=== PATIENT | female | born 1940 | race Caucasian/White ===

== ENCOUNTER 2022-07-21 11:14 | Outpatient (CLI) | payer MEDICARE, BC, SELFPAY | END 2022-07-21 11:15 | disposition home or self-care (01) | LOC: AMB 07-22 09:13 | PROVIDERS: PCP Family Medicine; Visit Provider Family Medicine | DX: R55 Syncope and collapse (principal); R41.82 Altered mental status, unspecified | CPT/HCPCS: A0425; A0427 ==

== ENCOUNTER 2022-07-21 11:34 | Emergency (ER) | payer MEDICARE, BC, SELFPAY ==
[2022-07-21] VITALS (29 sets, daily range): BP systolic 128–162; BP diastolic 65–88; PULSE 61–78; RESP 18; TEMP 36.6; O2SAT 86–98; BMI 24.4
--- NOTE | 2022-07-21 11:58 | ED.NURSE ---
POC trop 0.09. Dr Schilling notified.
--- NOTE | 2022-07-21 12:01 | ED.GENADULT ---
HPI - General Adult General Chief complaint: Weakness Stated complaint: Dizziness Time Seen by Provider: 07/21/22 11:37 History of Present Illness HPI narrative: 81-year-old woman presenting via EMS from the clinic with concern of stroke I believe status post TAVR. One week ago had a TAVR. Symptoms to be alleviated with that primarily she says was exertional dyspnea. 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 She is currently experiencing increased pressure in her right more than left eye. This is not necessarily unusual. She is also having some headache in her neck back of her head. Again not necessarily unusual. She would typically treat the symptoms with acetaminophen. While in clinic today though became initially described as dizziness but when I ask further its was more of a lightheadedness not actually dizzy and was described as presyncopal. She did not have any focal weaknesses. Speech is not affected either and no sensory deficits otherwise. Is currently taking apixaban. Yesterday though Devi describes similar symptoms of feeling lightheaded and needing to rest where she went to the couch and woke up 45 minutes later. She has been having visual symptoms as well where is noticing, not currently, but have been on and off since the surgery, possibly before, lasting 5-20 minutes. She will see a mayo cloud and then maybe flowered wallpaper squares and stripes like blood dripping on the wall. Related Data Allergies Allergy/AdvReac Type Severity Reaction Status Date / Time Sulfa (Sulfonamide Allergy Verified 07/21/22 11:36 Antibiotics) Review of Systems Status of ROS: Reports: 10 or more systems reviewed and unremarkable except as noted in History and below PFSH PFS Social History Smoking Status: Former smoker Do you use any of these nicotine containing products: None Second hand tobacco smoke exposure: No How often do you have a drink containing alcohol: 2-3 times a week How many standard drinks containing alcohol do you have on a typical day: 3 or 4 How often do you have six or more drinks on one occasion: Never AUDIT-C Alcohol total score: 4 Non-prescribed substance use: denies use service: No Exam Narrative: Exam Narrative: Is pleasant. Cranial nerves 2-12 look to be intact. Has a resting tremor particularly noticeable lot head and neck. Speaking fluidly easily. Skin is warm and dry no extremity edema. Well perfused. Lungs are clear. Heart in a regular rate and rhythm I do not hear any murmur rub or gallop at this time. Abdomen is protuberant soft nontender. Moving all extremities without difficulty fluidly other than the mild resting tremor. Bruising/ecchymoses in the right groin with small adjacent swelling. Const: Vital Signs, click to edit/add: Vital Signs - 24 hr 07/21/22 11:37 07/21/22 11:57 07/21/22 12:00 Temperature 97.9 F Pulse Rate 63 66 Pulse Rate [Pulse Oximeter] 78 Pulse Rate [orthos tatic lying] Pulse Rate [orthos tatic sitting] Pulse Rate [orthos tatic standing] Respiratory Rate 18 Blood Pressure Blood Pressure [Le ft Upper Arm] 128/88 Blood Pressure [or thostatic lying] Blood Pressure [or thostatic sitting] Blood Pressure [or thostatic standing ] Pulse Oximetry 98 97 [facility] 07/21/22 12:15 07/21/22 12:44 07/21/22 12:45 Temperature Pulse Rate 73 74 70 Pulse Rate [Pulse Oximeter] Pulse Rate [orthos tatic lying] Pulse Rate [orthos tatic sitting] Pulse Rate [orthos tatic standing] Respiratory Rate Blood Pressure Blood Pressure [Le ft Upper Arm] Blood Pressure [or thostatic lying] Blood Pressure [or thostatic sitting] Blood Pressure [or thostatic standing ] Pulse Oximetry 86 L 94 97 [facility] 07/21/22 15:27 07/21/22 13:27 07/21/22 13:28 Temperature Pulse Rate 71 70 Pulse Rate [Pulse Oximeter] Pulse Rate [orthos tatic lying] 66 Pulse Rate [orthos tatic sitting] 62 Pulse Rate [orthos tatic standing] 71 Respiratory Rate Blood Pressure 161/74 H Blood Pressure [Le ft Upper Arm] Blood Pressure [or thostatic lying] 152/65 H Blood Pressure [or thostatic sitting] 162/67 H Blood Pressure [or thostatic standing ] 129/82 Pulse Oximetry 96 96 Oxygen Delivery Me thod 07/21/22 13:30 07/21/22 13:32 07/21/22 13:45 Temperature Pulse Rate 69 68 65 Pulse Rate [Pulse Oximeter] Pulse Rate [orthos tatic lying] Pulse Rate [orthos tatic sitting] Pulse Rate [orthos tatic standing] Respiratory Rate Blood Pressure 152/74 H Blood Pressure [Le ft Upper Arm] Blood Pressure [or thostatic lying] Blood Pressure [or thostatic sitting] Blood Pressure [or thostatic standing ] Pulse Oximetry 97 97 96 [facility] 07/[facility]/22 14:00 07/21/22 14:01 07/21/22 14:15 Temperature Pulse Rate 71 67 64 Pulse Rate [Pulse Oximeter] Pulse Rate [orthos tatic lying] Pulse Rate [orthos tatic sitting] Pulse Rate [orthos tatic standing] Respiratory Rate Blood Pressure 159/81 H Blood Pressure [Le ft Upper Arm] Blood Pressure [or thostatic lying] Blood Pressure [or thostatic sitting] Blood Pressure [or thostatic standing ] Pulse Oximetry 96 95 95 [facility] 07/[facility]/22 14:30 07/21/22 14:32 07/21/22 14:45 Temperature Pulse Rate 66 72 67 Pulse Rate [Pulse Oximeter] Pulse Rate [orthos tatic lying] Pulse Rate [orthos tatic sitting] Pulse Rate [orthos tatic standing] Respiratory Rate Blood Pressure 154/75 H Blood Pressure [Le ft Upper Arm] Blood Pressure [or thostatic lying] Blood Pressure [or thostatic sitting] Blood Pressure [or thostatic standing ] Pulse Oximetry 97 96 [facility] 07/21/22 15:00 07/21/22 15:01 07/21/22 15:15 Temperature Pulse Rate 71 66 65 Pulse Rate [Pulse Oximeter] Pulse Rate [orthos tatic lying] Pulse Rate [orthos tatic sitting] Pulse Rate [orthos tatic standing] Respiratory Rate Blood Pressure 157/82 H Blood Pressure [Le ft Upper Arm] Blood Pressure [or thostatic lying] Blood Pressure [or thostatic sitting] Blood Pressure [or thostatic standing ] Pulse Oximetry 96 96 98 [facility] 07/21/22 15:20 07/21/22 15:24 07/21/22 15:27 Temperature Pulse Rate 69 67 70 Pulse Rate [Pulse Oximeter] Pulse Rate [orthos tatic lying] Pulse Rate [orthos tatic sitting] Pulse Rate [orthos tatic standing] Respiratory Rate Blood Pressure 152/65 H 162/67 H 129/82 Blood Pressure [Le ft Upper Arm] Blood Pressure [or thostatic lying] Blood Pressure [or thostatic sitting] Blood Pressure [or thostatic standing ] Pulse Oximetry 94 96 97 Oxygen Delivery Me thod 07/21/22 15:28 07/21/22 15:30 07/21/22 15:32 Temperature Pulse Rate 72 68 65 Pulse Rate [Pulse Oximeter] Pulse Rate [orthos tatic lying] Pulse Rate [orthos tatic sitting] Pulse Rate [orthos tatic standing] Respiratory Rate Blood Pressure 154/71 H Blood Pressure [Le ft Upper Arm] Blood Pressure [or thostatic lying] Blood Pressure [or thostatic sitting] Blood Pressure [or thostatic standing ] Pulse Oximetry 98 98 96 Oxygen Delivery Me thod 07/21/22 15:45 07/21/22 16:00 Temperature Pulse Rate 66 61 Pulse Rate [Pulse Oximeter] Pulse Rate [orthos tatic lying] Pulse Rate [orthos tatic sitting] Pulse Rate [orthos tatic standing] Respiratory Rate Blood Pressure Blood Pressure [Le ft Upper Arm] Blood Pressure [or thostatic lying] Blood Pressure [or thostatic sitting] Blood Pressure [or thostatic standing ] Pulse Oximetry 96 97 Oxygen Delivery Me thod Documenting provider has reviewed patient's vital signs: yes Course Vital Signs Vital signs: Initial Vital Signs Temperature 97.9 F 07/21/22 11:37 Temperature Source Temporal Artery Scan 07/21/22 11:37 Pulse Rate 78 07/21/22 11:37 Pulse Rhythm 07/21/22 11:37 Respiratory Rate 18 07/21/22 11:37 Blood Pressure 128/88 07/21/22 11:37 Blood Pressure Mean 101 07/21/22 11:37 Blood Pressure Position Supine 07/21/22 11:37 Pulse Oximetry 98 07/21/22 11:37 Oxygen Delivery Method 07/21/22 11:37 Vital Signs Temperature 97.9 F 07/21/22 11:37 Pulse Rate 78 07/21/22 11:37 Respiratory Rate 18 07/21/22 11:37 Blood Pressure 128/88 07/21/22 11:37 Pulse Oximetry 98 07/21/22 11:37 Oxygen Delivery Method 07/21/22 11:37 Temperature 97.9 F 07/21/22 11:37 Pulse Rate 67 07/21/22 16:02 Respiratory Rate 18 07/21/22 11:37 Blood Pressure 146/74 H 07/21/22 16:02 Pulse Oximetry 95 07/21/22 16:02 Oxygen Delivery Method 07/21/22 11:37 Medical Decision Making MDM Narrative Medical decision making narrative: Given history would also want to rule out cardiac etiology to this. MRIs available I think is reasonable to do an MRI brain. Monitor on wood heel back liner. Labs pending. Likely need follow-up proper ophthalmology evaluation. Unable to do MRI brain due to pacer. CTA head and neck showing some senescent changes. Small bilateral lacunar-type infarcts. There is moderate plus narrowing at the origin of the left vertebral artery as well. Paging neurology to discuss further. Did review imaging with neurology who felt that overall reassuring. Unlikely related to symptoms. sxs might be related to headache history. spoke also with cardiology. recommendations to continue current treatment unless orthostatics quite symptomatic/positive. To standing there was a systolic drop of 23 points but asymptomatic. discussed findings, recommendations with Tosha. notes that if decreases dosing of propranolol marked increase in tremor. and metoprolol only for afib prn. so will leave dosing alone pending recs on f/u in primary care. spoke to clinical retinal specialists confirming/establishing appointment for the morning tomorrow. Lab Data Lab results reviewed: Yes I reviewed the patient's lab results Labs: Lab Results 07/21/22 07/21/22 07/21/22 Range/Units 11:45 11:45 11:45 WBC 7.29 (4.50-11.00) K/uL RBC 3.97 L (4.00-5.20) m/uL Hgb 11.9 L (12.0-16.0) gm/dL Hct 36.4 (33.0-51.0) % MCV 92 (80-100) fL MCH 30 (26-34) pg MCHC 33 (32-36) gm/dL RDW Coeff of Liza 11.7 (11.5-15.5) % Plt Count 200 (140-440) K/uL Neut % (Auto) 66.4 (42.0-72.0) % Lymph % (Auto) 19.9 L (20-44) % [place] % (Auto) 10.8 (0.0-11.0) % Eos % (Auto) 2.1 (0.0-7.0) % Baso % (Auto) 0.7 (0.0-3.0) % Neut # (Auto) 4.84 (1.7-7.0) K/uL Lymph # (Auto) 1.50 (0.90-2.90) K/uL [place] # (Auto) 0.80 (0.00-0.90) K/UL Eos # (Auto) 0.15 (0.00-0.50) K/uL Baso # (Auto) 0.05 (0.00-0.30) K/uL INR 1.20 H (0.91-1.10) APTT 32 (23-33) Seconds Sodium 139 (135-149) mmol/L Potassium 3.8 (3.6-5.1) mmol/L Chloride 105 (96-114) mmol/L Carbon Dioxide 27 (20-32) mmol/L BUN 10 (7-30) mg/dL Creatinine 0.5 (0.5-1.5) mg/dL Estimated Creat Clear 32.23 Estimated GFR 95 ml/min Glucose 89 (60-115) mg/dL Calcium 9.1 (8.4-10.6) mg/dL Magnesium (1.5-2.6) mg/dL Troponin I (0.01-0.04) ng/mL C-Reactive Protein 1.5 H (0.5-1.0) mg/dL NT-Pro-B Natriuret Pep pg/mL 07/21/22 Range/Units 11:45 WBC (4.50-11.00) K/uL RBC (4.00-5.20) m/uL Hgb (12.0-16.0) gm/dL Hct (33.0-51.0) % MCV (80-100) fL MCH (26-34) pg MCHC (32-36) gm/dL RDW Coeff of Liza (11.5-15.5) % Plt Count (140-440) K/uL Neut % (Auto) (42.0-72.0) % Lymph % (Auto) (20-44) % [place] % (Auto) (0.0-11.0) % Eos % (Auto) (0.0-7.0) % Baso % (Auto) (0.0-3.0) % Neut # (Auto) (1.7-7.0) K/uL Lymph # (Auto) (0.90-2.90) K/uL [place] # (Auto) (0.00-0.90) K/UL Eos # (Auto) (0.00-0.50) K/uL Baso # (Auto) (0.00-0.30) K/uL INR (0.91-1.10) APTT (23-33) Seconds Sodium (135-149) mmol/L Potassium (3.6-5.1) mmol/L Chloride (96-114) mmol/L Carbon Dioxide (20-32) mmol/L BUN (7-30) mg/dL Creatinine (0.5-1.5) mg/dL Estimated Creat Clear Estimated GFR ml/min Glucose (60-115) mg/dL Calcium (8.4-10.6) mg/dL Magnesium 1.9 (1.5-2.6) mg/dL Troponin I 0.02 (0.01-0.04) ng/mL C-Reactive Protein (0.5-1.0) mg/dL NT-Pro-B Natriuret Pep 594 pg/mL ECG Data Attestation: I personally reviewed and interpreted this ECG as follows: (Pacer spikes evident. Apparently with atrial pacer. Rate of 74. No acute ischemic changes appreciated.) Discharge Plan Discharge Clinical Impression: Changes in vision, Pre-syncope Patient Disposition: Home w/ Parent or Adult Condition: Improved Additional Instructions: Please stay well hydrated. Please follow-up as scheduled tomorrow morning with your ophthalmology clinic. I would schedule also follow-up with your primary care provider and keep your scheduled cardiology follow-up. Return for worsening lightheadedness, persistent loss of vision, severe headache, chest pain, shortness of breath. Keep taking your apixaban as prescribed. Follow Up/Referrals: Margaret Allen DO [Primary Care Provider] - Stand Alone Forms: [employer] Info Instructions
[2022-07-21] MEDS: 0.9 % SODIUM CHLORIDE 1000 ml 1,000 ML IV (12:07)
[2022-07-21] MEDS: ACETAMINOPHEN 500 MG TABLET 1000 MG PO (12:09)
[2022-07-21 12:13] LABS: Basophils Absolute Auto 0.05 K/uL (0.00-0.30); Basophils Percent Auto 0.7 % (0.0-3.0); Eosinophils Absolute Auto 0.15 K/uL (0.00-0.50); Eosinophils Percent Auto 2.1 % (0.0-7.0); Hematocrit 36.4 % (33.0-51.0); Hemoglobin* 11.9 gm/dL (12.0-16.0); Immature Granulocytes Abs Auto 0.01 K/uL (0.00-0.30); Immature Granulocytes Pct Auto 0.1 %; Lymphocytes Percent Auto 19.9 % (20-44); Mean Corpuscular HGB Conc 33 gm/dL (32-36); Mean Corpuscular Hemoglobin 30 pg (26-34); Mean Corpuscular Volume 92 fL (80-100); Monocytes Percent Auto 10.8 % (0.0-11.0); Neutrophils Absolute Auto 4.84 K/uL (1.7-7.0); Neutrophils Percent Auto 66.4 % (42.0-72.0); Platelet Count* 200 K/uL (140-440); RDW Coefficient of Variation % 11.7 % (11.5-15.5); Red Blood Count 3.97 m/uL (4.00-5.20); White Blood Count* 7.29 K/uL (4.50-11.00)
[2022-07-21 12:20] LABS: Slide Review Reflex No
--- NOTE | 2022-07-21 12:26 | CRLHL7_ITS ---
For Patients: As a result of the Century Cures Act, medical imaging exams and procedure reports are released immediately into your electronic medical record. You may view this report before your referring provider. If you have questions, please contact your health care provider. DATE: 07/21/2022. CLINICAL HISTORY: Headache and visual change status post TAVR. TECHNIQUE: Standard helical CT image acquisition through the head and neck following the administration of intravenous contrast was performed. Multiplanar reconstructed images performed on a separate workstation. COMPARISON: None available. FINDINGS: The great vessels are patent, noting mild to moderate stenosis at the origin of the left subclavian artery. The common carotid arteries are patent. There is moderate (60-65%) atherosclerotic stenosis of the proximal right ICA by NASCET criteria. There is mild (<50%) atherosclerotic stenosis of the proximal left ICA by NASCET criteria. The more distal cervical ICAs are patent. The origins of the vertebral arteries are patent. The cervical segments of the vertebral arteries are patent. The petrous, cavernous, and supraclinoid segments of the internal carotid arteries are patent. The anterior and middle cerebral arteries are patent. The anterior communicating artery is visualized and is within normal limits. The intracranial vertebral arteries, basilar trunk, and posterior cerebral arteries are patent. No intracranial proximal large vessel occlusion or flow-limiting luminal stenosis. No evidence of cerebral aneurysm. No findings to suggest an arterial-venous shunting lesion. IMPRESSION: 1. Intracranial atherosclerotic disease but without proximal large vessel occlusion or flow-limiting luminal stenosis. 2. Moderate (60-65%) atherosclerotic stenosis of the proximal right ICA by NASCET criteria. 3. Mild (<50%) atherosclerotic stenosis of the proximal left ICA by NASCET criteria. 4. Mild to moderate stenosis at the origin of the left subclavian artery. Please note that all CT scans at this facility use dose modulation, iterative reconstruction, and/or weight-based dosing when appropriate to reduce radiation dose to as low as reasonably achievable. Dictated by Joel Mcnulty MD @ 07/21/2022 3:12:34 PM (Electronically Signed)
--- NOTE | 2022-07-21 12:26 | CRLHL7_ITS ---
For Patients: As a result of the Century Cures Act, medical imaging exams and procedure reports are released immediately into your electronic medical record. You may view this report before your referring provider. If you have questions, please contact your health care provider. INDICATION: Headache, visual changes status post TAVR.. TECHNIQUE: Head CT without contrast. COMPARISON: None. FINDINGS: CSF spaces: Within normal limits for age. Brain parenchyma and extra-axial spaces: Mild global cerebral atrophy. There are nonspecific low attenuation white matter changes consistent with chronic microvascular disease. Probable small lacunar-type infarcts in the bilateral insula. Coarse calcification in the right minor forceps. No sign of mass, hemorrhage, or midline shift. Intracranial vascular calcifications are identified. Skull base and calvarium: The visualized paranasal sinuses and mastoid air cells demonstrate no acute or significant findings. The visualized orbits are grossly unremarkable. Probable left lens prosthesis. No skull fractures. IMPRESSION: No acute or significant findings. Chronic white-matter small-vessel ischemic changes. Mild global cerebral atrophy and vascular calcifications likely senescent. Please note that all CT scans at this facility use dose modulation, iterative reconstruction, and/or weight-based dosing when appropriate to reduce radiation dose to as low as reasonably achievable. Dictated by Fátima Oliveira MD @ 07/21/2022 1:46:43 PM (Electronically Signed)
[2022-07-21 12:35] LABS: Chloride* 105 mmol/L (96-114); Potassium* 3.8 mmol/L (3.6-5.1); Sodium* 139 mmol/L (135-149)
[2022-07-21 12:38] LABS: Creatinine* 0.5 mg/dL (0.5-1.5); Est. Creatinine Clearance* 32.23; Estimated Glomerular Filt Rate 95 ml/min; Magnesium* 1.9 mg/dL (1.5-2.6); Prothrombin Time 15.9 Seconds
[2022-07-21 12:39] LABS: Blood Urea Nitrogen* 10 mg/dL (7-30); Calcium* 9.1 mg/dL (8.4-10.6); Carbon Dioxide* 27 mmol/L (20-32); Glucose* 89 mg/dL (60-115); Partial Thromboplastin Time* 32 Seconds (23-33)
[2022-07-21 12:41] LABS: C Reactive Protein* 1.5 mg/dL (0.5-1.0)
[2022-07-21 12:48] LABS: NT Pro B Type NatriureticPept* 594 pg/mL
[2022-07-21 12:50] LABS: Troponin I* 0.02 ng/mL (0.01-0.04)
[2022-08-04 14:36] LABS: Troponin, Point-of-Care* 0.09 ng/ml (0.01-0.04)
== END 2022-07-21 16:40 | disposition home or self-care (01) ==
PROVIDERS: Emergency Provider Family Medicine; PCP Family Medicine
DX: R55 Syncope and collapse (principal); H53.8 Other visual disturbances
CPT/HCPCS: 36415; 70450; 70496; 70498; 80048; 83735; 83880; 84484; 85025; 85610; 85730; 86140; 93005; 96360; 99285; A9270; J7030; Q9967

== ENCOUNTER 2022-09-08 08:55 | Emergency (ER) | payer MEDICARE, BC, SELFPAY ==
[2022-09-08] VITALS (10 sets, daily range): BP systolic 161–170; BP diastolic 78–82; PULSE 60–85; RESP 18; TEMP 36.2; O2SAT 94–98; BMI 24.8
--- NOTE | 2022-09-08 09:11 | ED.NEUROSD ---
HPI - Neuro Symptoms/Deficit General Time Seen by Provider: 09:11 Date Seen: 09/08/22 Chief Complaint: Neuro Symptoms/Altered Deficit Stated Complaint: Possible mini stroke Time Seen by Provider: 09/08/22 09:10 Source: patient and RN notes reviewed Mode of arrival: ambulatory Limitations: no limitations History of Present Illness HPI Narrative: Patient is an 82-year-old female brought in by a her friend into the ED after having a possible TIA. Patient was taking her garbage cans down a long driveway. After she got the 1st garbage can down, she noticed left sided upper and lower lip numbness and tingling. She was alone in did not attempt to speak. Her vision was altered, things seemed out of focus, she attempted to walk back up the driveway and kept listing to the right. She got back up the driveway an took her other garbage can down leaning on it. By the time she got the garbage can down the driveway, she rested for a bit and felt better. She has no symptoms now. 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 She did see Neurology, I was able to see the office visit report from 08/24/2022. We will have that scanned into our records. She saw Dr. Huerta in Neurology. 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 On her visit on the , she had reported no further episodes likely indicating successful convalescence from her TAVR. She maintains on her Eliquis. Has not missed any doses but admits she has not taken it morning. No known trauma. Of note, patient does have a pacemaker. 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 There was mild to moderate stenosis at the origin of the left subclavian artery. Her head CT at that time had chronic ischemic white matter small-vessel ischemic change and mild global cerebral atrophy and vascular calcifications. She has atrial fibrillation and states she definitely can feel when she goes into it, has had no known recent episodes. Her TAVR was felt to be successful but she still has ongoing moderate mitral regurgitation. She is felt to have moderate coronary artery disease and sick sinus rhythm with underlying atrial fibrillation. She feels her spell maybe lasted a few minutes. Patient believe she is on the propranolol for blood pressure control, does states she is taking rosuvastatin for cholesterol. Location: left face Related Data Home Medications Medication Instructions Recorded Confirmed acyclovir 400 mg tablet 400 mg PO 3XD PRN 09/08/22 09/08/22 omeprazole 20 mg capsule,delayed 20 mg PO DAILY 09/08/22 09/08/22 release propranolol 80 mg capsule,24 80 mg PO DAILY 09/08/22 09/08/22 hr,extended release Allergies Allergy/AdvReac Type Severity Reaction Status Date / Time Sulfa (Sulfonamide Allergy Verified 07/21/22 11:36 Antibiotics) Review of Systems Status of ROS: Reports: 10 or more systems reviewed and unremarkable except as noted in History and below [facility] Social History Smoking Status: Former smoker Do you use any of these nicotine containing products: None Second hand tobacco smoke exposure: No How often do you have a drink containing alcohol: 2-3 times a week How many standard drinks containing alcohol do you have on a typical day: 3 or 4 How often do you have six or more drinks on one occasion: Never AUDIT-C Alcohol total score: 4 Non-prescribed substance use: denies use service: No Exam Const: Vital Signs, click to edit/add: Vital Signs - 24 hr 09/08/22 09:06 09/08/22 10:21 09/08/22 10:30 Temperature 97.2 F L Pulse Rate 64 62 Pulse Rate [Right] 85 Respiratory Rate 18 Blood Pressure Blood Pressure [Ri ght Upper Arm] 170/82 H Pulse Oximetry 97 96 98 Oxygen Delivery Me thod Room Air 09/08/22 10:32 09/08/22 10:45 Temperature Pulse Rate 60 61 Pulse Rate [Right] Respiratory Rate Blood Pressure 161/78 H Blood Pressure [Ri ght Upper Arm] Pulse Oximetry 98 97 Oxygen Delivery Me thod Documenting provider has reviewed patient's vital signs: yes Common normals: no apparent distress, average body habitus, oriented x3, no limitations, healthy appearing and alert General appearance: cooperative, comfortable, well kempt and well developed Orientation/consciousness: Yes awake HENMT: Common normals: normocephalic, head/scalp atraumatic, hearing grossly normal bilaterally, external nose normal, moist oral mucous membranes, oropharynx normal, dentition normal and gingiva normal Head and scalp: normocephalic and atraumatic Nose: external nose normal Eye: Common normals: PERRL, EOMs intact bilaterally, conjunctivae normal and no scleral icterus Conjunctiva: conjunctiva(e) normal Pupil: PERRL Neck & C-Spine: Common normals: full ROM, no lymphadenopathy, supple, no meningeal signs, no JVD and thyroid normal Thyroid: thyroid normal Chest: Common normals: inspection of chest normal and palpation of chest normal Resp: Common normals: normal respiratory effort, no retractions, no use of accessory muscles and clear to auscultation bilaterally Auscultation: clear to auscultation bilaterally Cardio: Common normals: no JVD, regular rate, regular rhythm, S1 normal heart sound, S2 normal heart sound, no gallops, no clicks, no murmurs and no rub Rate: regular rate Rhythm: regular rhythm Heart sounds: S1 normal and S2 normal GI: Common normals: Normal to inspection, nondistended, normoactive bowel sounds present, soft to palpation, non-tender, no hepatosplenomegaly and no masses Palpation: soft and no hepatosplenomegaly Extremity: Other: No lower extremity edema, no calf tenderness. Neuro: [place] Coma Scale: document GCS findings Kelly coma scale eye opening: Spontaneous (4) [place] coma scale verbal response: Orientated (5) [place] coma scale motor response: Obey commands (6) [place] coma scale total score: 15 Common normals: oriented x3, CN's II-XII intact bilaterally, moves all extremities, no focal motor deficits, no sensory deficits noted and gait normal Sensorium/orientation: awake and alert Meningeal signs: no meningeal signs Coordination/balance: [id number] test normal and Normal rapid alternating movements of the distal upper extremity present (Neuro) Speech: speech normal Motor exam: strength 5/5 throughout, no pronator drift, no asterixis, no fasciculations and muscle tone normal throughout Coordination: [id number] test normal and rapid alternating movement UE normal Other: Do note some left resting tremor that does attenuate. Psych: Common normals: mental status grossly normal Appearance: well kempt Course Course Hospital Course: Will be doing a stroke workup. She will get head CT followed by a CTA of head and neck if there is no bleed. Will have her on cardiac monitoring, pulse oximetry. We will obtain appropriate labs, confirm sinus rhythm. She is on anticoagulant and sounds to be appropriately anticoagulated without missed doses of Eliquis however. I will be placing a call to Stroke Neuro to discuss this case immediately given its complexity. Reevaluation(s) Reevaluation #1: Reviewed the negative workup here, reviewed my conversation with stroke Neurology at [place]. She will be getting her Eliquis and an 81 mg aspirin. Will discharge to home. Have reviewed with her she needs follow-up with her primary care to further evaluate her blood pressure. If she indeed did have a TIA today, would not want to precipitously drop her blood pressure. She will also need to follow up with Neurology outpatient. Time: 11:35 Consultations Consultation #1: Spoke with Dr. Narayan jeong stroke Neurology at [place]. Reviewed the case with him. He stated if her CT and CTAs were unchanged, would initiate 81 mg aspirin in addition to her DOAC and have her follow up with outpatient Neurology. If there is something concerning, will contact him back. Time: 09:51 Vital Signs Vital signs: Initial Vital Signs Temperature 97.2 F L 09/08/22 09:06 Temperature Source Temporal Artery Scan 09/08/22 09:06 Pulse Rate 85 09/08/22 09:06 Pulse Rhythm Regular 09/08/22 09:06 Respiratory Rate 18 09/08/22 09:06 Blood Pressure 170/82 H 09/08/22 09:06 Blood Pressure Mean 111 09/08/22 09:06 Blood Pressure Position Sitting 09/08/22 09:06 Pulse Oximetry 97 09/08/22 09:06 Oxygen Delivery Method Room Air 09/08/22 09:06 Vital Signs Temperature 97.2 F L 09/08/22 09:06 Pulse Rate 85 09/08/22 09:06 Respiratory Rate 18 09/08/22 09:06 Blood Pressure 170/82 H 09/08/22 09:06 Pulse Oximetry 97 09/08/22 09:06 Oxygen Delivery Method Room Air 09/08/22 09:06 Temperature 97.2 F L 09/08/22 09:06 Pulse Rate 61 09/08/22 10:45 Respiratory Rate 18 09/08/22 09:06 Blood Pressure 161/78 H 09/08/22 10:32 Pulse Oximetry 97 09/08/22 10:45 Oxygen Delivery Method Room Air 09/08/22 09:06 MDM - Neuro Symptoms/Deficit Differential Diagnosis Differential diagnosis: Likely subarachnoid hemorrhage, cerebrovascular accident and transient cerebral ischemia Lab Data Attestation: I reviewed the patient's lab results. Labs: Lab Results 09/08/22 Range/Units 09:35 WBC 6.43 (4.50-11.00) K/uL RBC 4.46 (4.00-5.20) m/uL Hgb 13.2 (12.0-16.0) gm/dL Hct 41.1 (33.0-51.0) % MCV 92 (80-100) fL MCH 30 (26-34) pg MCHC 32 (32-36) gm/dL RDW Coeff of Liza 12.3 (11.5-15.5) % Plt Count 175 (140-440) K/uL Neut % (Auto) 70.4 (42.0-72.0) % Lymph % (Auto) 18.2 L (20-44) % Routt % (Auto) 8.9 (0.0-11.0) % Eos % (Auto) 1.9 (0.0-7.0) % Baso % (Auto) 0.6 (0.0-3.0) % Neut # (Auto) 4.53 (1.7-7.0) K/uL Lymph # (Auto) 1.20 (0.90-2.90) K/uL Routt # (Auto) 0.60 (0.00-0.90) K/UL Eos # (Auto) 0.12 (0.00-0.50) K/uL Baso # (Auto) 0.04 (0.00-0.30) K/uL Sodium 139 (135-149) mmol/L Potassium 4.0 (3.6-5.1) mmol/L Chloride 105 (96-114) mmol/L Carbon Dioxide 28 (20-32) mmol/L BUN 9 (7-30) mg/dL Creatinine 0.5 (0.5-1.5) mg/dL Estimated Creat Clear 31.69 Estimated GFR 94 ml/min Glucose 122 H (60-115) mg/dL Calcium 9.2 (8.4-10.6) mg/dL Total Bilirubin 1.8 H (0.1-1.5) mg/dL AST 26 (12-35) U/L ALT 15 (4-35) U/L Alkaline Phosphatase 53 (40-150) U/L Troponin I 0.02 (0.01-0.04) ng/mL Total Protein 7.5 (6.0-8.3) g/dL Albumin 4.7 (3.3-5.0) g/dL TSH 1.780 (0.270-4.200) uIU/mL Imaging Data CT scan - head: Attestation: I have reviewed the pertinent imaging results. My impression: A my preliminary review of this head CT, did not see any acute bleed. Await Radiology over-read. Note radiology report was called to me as negative at 10:05 a.m. by the clock on my computer. Radiologist's impression: Patient: VALARIE HUANG Facility:?[facility] Patient ID:?[id number] Site Patient ID:?[id number]. Site :?[id number] Study:?CT Head WO STROKE ACUTE-09/08/2022 9:56:08 AM Ordering Physician:Julia Pascual Final Report: INDICATION: Clinical signs and symptoms of acute stroke. TIA with left facial changes and gait difficulty COMPARISON: July 21, 2022 TECHNIQUE: CT examination of the head was performed as axial sections without intravenous contrast. Images were obtained from the vertex of the skull through the skull base. Please note that all CT scans at this facility use dose modulation, iterative reconstruction, and/or weight-based dosing when appropriate to reduce radiation dose to as low as reasonably achievable. FINDINGS: The brain shows no sign of mass lesion, mass effect, hemorrhage, or edema. There are involutional changes. There is moderate cortical atrophy and there is moderate white matter disease. There is no hydrocephalus. Incidental benign calcification involving the head of the right caudate nucleus unchanged. The visualized portions of the orbits are normal in appearance. The osseous structures are normal in appearance with no sign of abnormality in the skull base or calvarium. IMPRESSION: Involutional changes. Atrophy and white matter disease. Incidental benign calcification head of right caudate nucleus. No acute focal finding or substantial change when compared to July 21, 20[address] Please note that all [address] scans at this facility use dose modulation, iterative reconstruction, and/or weight-based dosing when appropriate to reduce radiation dose to as low as reasonably achievable. Dictated by Jaciel Greer MD @ 09/08/2022 10:06:35 AM ----- ADDENDUM ----- This report was received by Dr. Haynes at 10:07 a.m. on September 08, 2022. Dictated by Jaciel Greer MD @ Sep 08 2022 10:12AM (Electronic Signature) CT- Other: Attestation: I have reviewed the pertinent imaging results. Radiologist's impression: Patient: VALARIE HUNAG Facility:?[facility] Patient ID:?[id number] Site Patient ID:?[id number] Site :?[id number] Study:?CT Head Angio Angio CTA HEAD AND NECK-09/08/2022 9:57:08 AM Ordering Physician:Julia Pascual Final Report: CT ANGIOGRAM HEAD DATE: 09/08/2022 CLINICAL HISTORY: Patient with left facial weakness, gait abnormality. TECHNIQUE: Standard helical CT image acquisition through the intracranial circulation following intravenous administration of contrast material with bolus tracking. Multiplanar reconstructed images were performed and interpreted. COMPARISON: CT same day. FINDINGS: There is no cerebral aneurysm or large vessel occlusion. The right internal carotid artery is normal. The right middle cerebral artery and its branches are normal. The right anterior cerebral artery and its branches are normal. The left internal carotid artery is normal. The left middle cerebral artery and its branches are normal. The left anterior cerebral artery and its branches are normal. The anterior communicating artery is well visualized and appears normal. The right vertebral artery and PICA are normal. The left vertebral artery and PICA are normal. The right vertebral artery is dominant. The basilar artery is patent and appears normal. The right posterior cerebral artery is normal. The left posterior cerebral artery is normal. The visualized venous structures are patent. IMPRESSION: Normal CT angiogram of the head without intracranial aneurysm or other neurovascular abnormality. Please note that all CT scans at this facility use dose modulation, iterative reconstruction, and/or weight-based dosing when appropriate to reduce radiation dose to as low as reasonably achievable. Dictated by: Jeremiah Mitchell MD @ 09/08/2022 10:20:46 (Electronic Signature) ECG Data Attestation: I personally reviewed and interpreted this ECG as follows: (Sinus rhythm, 70 beats per minute. Appears to have a nonspecific developing intra conduction delay, poor R-wave progression and septal Q-waves noted V1 through V4. No definitive ischemia. QT corrected 481 milliseconds.) ECG interpretation date: 09/08/22 ECG interpretation time: 10:00 Prior ECG tracings: not available for review Critical Care Time Critical Care Time Critical Care Time: No Discharge Plan Discharge Clinical Impression: Transient cerebral ischemia Patient Disposition: Home, Self-Care Condition: Stable Instructions: Transient Ischemic Attack (ED) Additional Instructions: Continue with your Eliquis starting tonight, you are given your a.m. dose here in the ED. you need to start an 81 mg aspirin daily, next dose due tomorrow. Please get scheduled to see your neurologist that you have seen before, let them know you were back in the ER with possible TIA. I also would like you to get scheduled in clinic to see her primary care provider to review your blood pressure. If your blood pressure is remaining elevated outpatient, further steps to bring this into goal guidelines would be recommended. If you have recurrent neurologic symptoms, do recommend re-evaluation emergently. Activity Level: Activity as Tolerated Prescriptions: No Action acyclovir 400 mg tablet 400 mg PO 3XD PRN propranolol 80 mg capsule,extended release 24hr 80 mg PO DAILY omeprazole 20 mg capsule,delayed release(DR/EC) 20 mg PO DAILY Follow Up/Referrals: Margaret Allen DO [Primary Care Provider] - Stand Alone Forms: [facility] Info Instructions
--- NOTE | 2022-09-08 09:19 | CRLHL7_ITS ---
For Patients: As a result of the Century Cures Act, medical imaging exams and procedure reports are released immediately into your electronic medical record. You may view this report before your referring provider. If you have questions, please contact your health care provider. CT ANGIOGRAM HEAD DATE: 09/08/2022 CLINICAL HISTORY: Patient with left facial weakness, gait abnormality. TECHNIQUE: Standard helical CT image acquisition through the intracranial circulation following intravenous administration of contrast material with bolus tracking. Multiplanar reconstructed images were performed and interpreted. COMPARISON: CT same day. FINDINGS: There is no cerebral aneurysm or large vessel occlusion. The right internal carotid artery is normal. The right middle cerebral artery and its branches are normal. The right anterior cerebral artery and its branches are normal. The left internal carotid artery is normal. The left middle cerebral artery and its branches are normal. The left anterior cerebral artery and its branches are normal. The anterior communicating artery is well visualized and appears normal. The right vertebral artery and PICA are normal. The left vertebral artery and PICA are normal. The right vertebral artery is dominant. The basilar artery is patent and appears normal. The right posterior cerebral artery is normal. The left posterior cerebral artery is normal. The visualized venous structures are patent. IMPRESSION: Normal CT angiogram of the head without intracranial aneurysm or other neurovascular abnormality. Please note that all CT scans at this facility use dose modulation, iterative reconstruction, and/or weight-based dosing when appropriate to reduce radiation dose to as low as reasonably achievable. Dictated by: Jeremiah Mitchell MD @ 09/08/2022 10:20:46 (Electronically Signed)
--- NOTE | 2022-09-08 09:19 | CRLHL7_ITS ---
For Patients: As a result of the Century Cures Act, medical imaging exams and procedure reports are released immediately into your electronic medical record. You may view this report before your referring provider. If you have questions, please contact your health care provider. INDICATION: Clinical signs and symptoms of acute stroke. TIA with left facial changes and gait difficulty COMPARISON: July 21, 2022 TECHNIQUE: CT examination of the head was performed as axial sections without intravenous contrast. Images were obtained from the vertex of the skull through the skull base. Please note that all CT scans at this facility use dose modulation, iterative reconstruction, and/or weight-based dosing when appropriate to reduce radiation dose to as low as reasonably achievable. FINDINGS: The brain shows no sign of mass lesion, mass effect, hemorrhage, or edema. There are involutional changes. There is moderate cortical atrophy and there is moderate white matter disease. There is no hydrocephalus. Incidental benign calcification involving the head of the right caudate nucleus unchanged. The visualized portions of the orbits are normal in appearance. The osseous structures are normal in appearance with no sign of abnormality in the skull base or calvarium. IMPRESSION: Involutional changes. Atrophy and white matter disease. Incidental benign calcification head of right caudate nucleus. No acute focal finding or substantial change when compared to July 21, 20[address] Please note that all [address] scans at this facility use dose modulation, iterative reconstruction, and/or weight-based dosing when appropriate to reduce radiation dose to as low as reasonably achievable. Dictated by Jaciel Greer MD @ 09/08/2022 10:06:35 AM (Electronically Signed)
--- NOTE | 2022-09-08 09:19 | CRLHL7_ITS ---
For Patients: As a result of the Century Cures Act, medical imaging exams and procedure reports are released immediately into your electronic medical record. You may view this report before your referring provider. If you have questions, please contact your health care provider. CT ANGIOGRAM NECK DATE: 09/08/2022 CLINICAL HISTORY: Patient with left facial weakness. TECHNIQUE: Standard helical CT image acquisition of the neck up to the skull base after bolus intravenous contrast enhancement. Multiplanar reconstructed images performed on a separate workstation. COMPARISON: CT same day. FINDINGS: The origins of the great vessels from the aortic arch are patent. The origin of the right vertebral artery is patent. The origin of the left vertebral artery demonstrates mild narrowing. The common carotid arteries are patent. There is a severe (85%) stenosis at the origin of the right internal carotid artery by NASCET criteria. This is caused by calcified plaque with a 0.5mm residual lumen. There is a mild (<50%) stenosis at the origin of the left internal carotid artery by NASCET criteria. This is caused by calcified plaque with a >2mm residual lumen. The rest of the cervical segments of the internal carotid arteries are patent up to the skull base. The right vertebral artery is dominant. The cervical segments of the vertebral arteries are patent up to the skull base. The visualized lung apices are unremarkable. The thyroid gland is unremarkable. The soft tissues of the neck are unremarkable. There are degenerative changes in the cervical spine. IMPRESSION: 1. 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 2. Mild (<50%) stenosis at the origin of the left internal carotid artery by NASCET criteria caused by calcified plaque with a >2mm residual lumen. Please note that all CT scans at this facility use dose modulation, iterative reconstruction, and/or weight-based dosing when appropriate to reduce radiation dose to as low as reasonably achievable. Dictated by: Jeremiah Mitchell MD @ 09/08/2022 10:18:09 (Electronically Signed)
[2022-09-08 09:44] LABS: Basophils Absolute Auto 0.04 K/uL (0.00-0.30); Basophils Percent Auto 0.6 % (0.0-3.0); Eosinophils Absolute Auto 0.12 K/uL (0.00-0.50); Eosinophils Percent Auto 1.9 % (0.0-7.0); Hematocrit 41.1 % (33.0-51.0); Hemoglobin* 13.2 gm/dL (12.0-16.0); Lymphocytes Percent Auto 18.2 % (20-44); Mean Corpuscular HGB Conc 32 gm/dL (32-36); Mean Corpuscular Hemoglobin 30 pg (26-34); Mean Corpuscular Volume 92 fL (80-100); Monocytes Percent Auto 8.9 % (0.0-11.0); Neutrophils Absolute Auto 4.53 K/uL (1.7-7.0); Neutrophils Percent Auto 70.4 % (42.0-72.0); Platelet Count* 175 K/uL (140-440); RDW Coefficient of Variation % 12.3 % (11.5-15.5); Red Blood Count 4.46 m/uL (4.00-5.20); White Blood Count* 6.43 K/uL (4.50-11.00)
[2022-09-08 09:46] LABS: Slide Review Reflex No
[2022-09-08 09:58] LABS: Albumin* 4.7 g/dL (3.3-5.0); Chloride* 105 mmol/L (96-114); Sodium* 139 mmol/L (135-149)
[2022-09-08 10:01] LABS: Alkaline Phosphatase* 53 U/L (40-150); Aspartate Amino Transferase* 26 U/L (12-35); Bilirubin Total* 1.8 mg/dL (0.1-1.5); Blood Urea Nitrogen* 9 mg/dL (7-30); Carbon Dioxide* 28 mmol/L (20-32); Creatinine* 0.5 mg/dL (0.5-1.5); Est. Creatinine Clearance* 31.69; Estimated Glomerular Filt Rate 94 ml/min; Total Protein* 7.5 g/dL (6.0-8.3)
[2022-09-08 10:02] LABS: Alanine Aminotransferase* 15 U/L (4-35); Calcium* 9.2 mg/dL (8.4-10.6); Glucose* 122 mg/dL (60-115)
[2022-09-08 10:13] LABS: Troponin I* 0.02 ng/mL (0.01-0.04)
[2022-09-08] MEDS: APIXABAN 5 MG TABLET PO (11:50)
[2022-09-08] MEDS: ASPIRIN 81 MG TAB.CHEW PO (11:50)
== END 2022-09-08 11:52 | disposition home or self-care (01) ==
PROVIDERS: Emergency Provider Family Medicine; PCP Family Medicine
DX: G45.9 Transient cerebral ischemic attack, unspecified (principal)
CPT/HCPCS: 36415; 70450; 70496; 70498; 80053; 84443; 84484; 85025; 93005; 99285; A9270; Q9967

== ENCOUNTER 2022-10-13 06:12 | Day surgery (SDC) | payer MEDICARE, BC, SELFPAY ==
[2022-10-13] MEDS: SODIUM CHLORIDE 0.9 % (FLUSH) 10 ML SYRINGE IVF (06:35)
[2022-10-13] MEDS: TETRACAINE 0.5% OPHTH 1 DROP EYE-RIGHT ×2 (06:37→06:41)
[2022-10-13] MEDS: KETOROLAC OPHTH 0.5% 1 DROP EYE-RIGHT ×2 (06:40→06:44)
[2022-10-13 06:46] VITALS: BP 161/73; PULSE 67; RESP 16; TEMP 36.6; O2SAT 94; BMI 25.4
--- NOTE | 2022-10-13 06:50 | SUR.PREOP ---
The eye drops brought by the patient (Ketorolac and Prednisolone) are examined and I have determined they are labeled by the patient's pharmacy for this patient as prescribed by the surgeon. The bottles are intact, recently obtained and appear to be correct.
--- NOTE | 2022-10-13 06:58 | W.ANESCHARGE ---
Anesthesia Charges Start Date/Time Anesthesia Start Date: 10/13/22 Anesthesia Start Time: 07:09 Stop Date/Time Anesthesia Stop Date: 10/13/22 Anesthesia Stop Time: 07:40 Summary Extremes of Age - Over 70 or under 1: MDA
[2022-10-13] MEDS: TETRACAINE 0.5% OPHTH 2 DROP EYE-RIGHT (07:11)
[2022-10-13] MEDS: BALANCED SALT IRRIG SOLN 15 ML EYE-RIGHT (07:16)
[2022-10-13 07:37] VITALS: BP 167/83; PULSE 63; RESP 16; TEMP 36.6; O2SAT 96
--- NOTE | 2022-10-13 07:42 | W.ANESCHARGE ---
Anesthesia Charges Start Date/Time Anesthesia Start Date: 10/13/22 Anesthesia Start Time: 07:09 Stop Date/Time Anesthesia Stop Date: 10/13/22 Anesthesia Stop Time: 07:40
--- NOTE | 2022-10-13 08:26 | P.OPTPRC_ITS ---
Procedure Note Date of procedure: 10/13/22 Will [facility] bill your pro fee for this procedure?: Yes Procedure Description: SURGEON: Marisabel Morse MD PREOPERATIVE DIAGNOSIS: Nuclear sclerotic cataract, right eye. POSTOPERATIVE DIAGNOSIS: Nuclear sclerotic cataract, right eye. NAME OF OPERATION: Phacoemulsification of cataract with posterior chamber intraocular lens implantation in the right eye. ANESTHESIA: Topical. ESTIMATED BLOOD LOSS: Less than 2 cc. COMPLICATIONS: None. PATHOLOGY SPECIMEN: None. INDICATIONS: See consult note for details. The risks, benefits and alternatives of the procedure were explained to the patient, who elected to proceed and s igned informed consent to do so. PROCEDURE: The patient was brought to the pre-holding area where the right eye was identified as the operative eye. I placed my initials above this eye. The patient received eye drops consisting of 0.5% tetracaine, 1% tropicamide, 10% phenylephrine, and 0.5% ketorolac. The patient was then brought to the operating room where the right eye was again identified as the operative eye. The eye was prepped with Betadine and draped in the usual sterile ophthalmic fashion. A #15 super-sharp blade was used to create a paracentesis site. 1% non-preserved intracameral lidocaine was injected into the anterior chamber. Endocoat was injected into the anterior chamber. A 2.4 mm keratome was used to create a three-plane self-sealing incision 1 mm anterior to the temporal limbus. A cystotome was used to create an anterior capsular leaflet. The Utrata forceps were used to extend this to form a continuous curvilinear capsulorrhexis. Hydrodissection was performed. The cataract was removed with phacoemulsification using the [id number] technique. The irrigation and aspiration tip was used to remove the remaining cortex. Healon was injected into the capsular bag. An RONALDO ZCB00 intraocular lens of 21.5 diopters was injected into the capsular bag. The irrigation and aspiration tip was used to remove the remaining viscoelastic. Balanced salt solution on a cannula was used to hydrate the wound, and the wound was found to be watertight. The pupil was noted to be round. DISPOSITION: The patient was taken to the recovery room and discharged to home in stable condition. The patient was instructed to call me or go to the emergency department with any sudden change, including dramatic loss of vision, severe pain in the eye or eyebrow region, nausea, or vomiting. The patient will follow up in the clinic tomorrow morning.
== END 2022-10-13 08:10 | disposition home or self-care (01) ==
PROVIDERS: PCP Family Medicine; Visit Provider Ophthalmology
PROC: (CPT 66984; principal; 2022-10-13 06:15)
DX: H25.11 Age-related nuclear cataract, right eye (principal)
CPT/HCPCS: 66984; 00142; 99100; A9270; J2250; J3010; V2632

== ENCOUNTER 2023-01-30 12:32 | Emergency (ER) | payer MEDICARE, BC, SELFPAY ==
[2023-01-30] VITALS (7 sets, daily range): BP systolic 170–202; BP diastolic 76–92; PULSE 62–70; RESP 13–22; TEMP 36.1; O2SAT 92–96; BMI 24.8
--- NOTE | 2023-01-30 14:10 | CRLHL7_ITS ---
For Patients: As a result of the Century Cures Act, medical imaging exams and procedure reports are released immediately into your electronic medical record. You may view this report before your referring provider. If you have questions, please contact your health care provider. INDICATION: Shortness of breath. Hypertension. TECHNIQUE: Chest 1 views. COMPARISON: 10/26/2020. FINDINGS: Cardiovasculature and mediastinum: Heart size and vasculature are normal in caliber and appearance. Lungs and pleural spaces: Lungs are clear. No sign of infiltrate or mass. No sign of pleural effusion. No pneumothorax. Bones and soft tissues: No significant findings. IMPRESSION: No acute findings and no significant changes from the prior exam. Dictated by Heraclio Armstrong MD @ 01/30/2023 3:22:41 PM (Electronically Signed)
--- NOTE | 2023-01-30 14:13 | ED.GENADULT ---
HPI - General Adult General Time Seen by Provider: 14:14 Date Seen: 01/30/23 Chief complaint: Hypertension Stated complaint: blood pressure issues Time Seen by Provider: 01/30/23 14:10 Source: patient, RN notes reviewed and old records reviewed Mode of arrival: ambulatory Limitations: no limitations History of Present Illness HPI narrative: 82-year-old female who comes in today with blood pressure concerns. Patient has a history of TAVR, also coronary atherosclerosis and history of hypertension, history of atrial fibrillation. Patient reports some shortness of breath for the last couple of weeks, she notices this when she lays down or when she tries to bend forward. She denies chest pain, nausea, vomiting, diarrhea, lower extremity swelling. She does feel like her abdomen is little distended. She denies any history of heart failure and does not take any diuretics that she knows of. Related Data Home Medications Medication Instructions Recorded Confirmed acyclovir 400 mg tablet 400 mg PO 3XD PRN 09/08/22 10/13/22 omeprazole 20 mg capsule,delayed 20 mg PO DAILY 09/08/22 10/13/22 release propranolol 80 mg capsule,24 80 mg PO DAILY 09/08/22 10/13/22 hr,extended release apixaban 5 mg tablet (Eliquis) 5 mg PO BID 10/11/22 10/13/22 aspirin 81 mg chewable tablet 81 mg PO DAILY 10/11/22 10/13/22 (Aspirin Childrens) calcium carbonate 500 mg-vitamin 1 tab PO DAILY 10/11/22 10/13/22 D3 3.125 mcg (125 unit) tablet cholecalciferol (vitamin D3) 25 25 mcg PO DAILY 10/11/22 10/13/22 mcg (1,000 unit) capsule coenzyme Q10 100 mg capsule 100 mg PO DAILY 10/11/22 10/13/22 fexofenadine 180 mg tablet 180 mg PO DAILY 10/11/22 10/13/22 (Karolyn Allergy) fluticasone propionate 50 2 spray intranasal DAILY PRN 10/11/22 10/13/22 mcg/actuation nasal spray,suspension magnesium oxide 400 mg PO DAILY 10/11/22 10/13/22 metoprolol tartrate 25 mg tablet 12.5 - 25 mg PO DAILY PRN 10/11/22 10/13/22 multivitamin 1 tab PO DAILY 10/11/22 10/13/22 rosuvastatin 40 mg tablet (Crestor) 40 mg PO DAILY 10/11/22 10/13/22 Previous Rx's Medication Instructions Recorded lisinopril 5 mg tablet 2.5 mg (1/2 x 5 mg) PO DAILY #30 01/30/23 tabs Allergies Allergy/AdvReac Type Severity Reaction Status Date / Time Sulfa (Sulfonamide Allergy Verified 10/13/22 06:45 Antibiotics) Review of Systems Status of ROS: Reports: 10 or more systems reviewed and unremarkable except as noted in History and below [facility] Medical History (Updated 01/30/23 @ 15:46 by Adiel Raymond MD) Aortic stenosis ?I35.0 - Nonrheumatic aortic (valve) stenosis (ICD-10) Cardiac pacemaker in situ ?Z95.0 - Presence of cardiac pacemaker (ICD-10) E. coli UTI ?N39.0 - Urinary tract infection, site not specified (ICD-10) ?B96.20 - Unspecified Escherichia coli [E. coli] as the cause of diseases classified elsewhere (ICD-10) SSS (sick sinus syndrome) ?I49.5 - Sick sinus syndrome (ICD-10) Prolonged Q-T interval on ECG ?R94.31 - Abnormal electrocardiogram [ECG] [EKG] (ICD-10) KEVIN (obstructive sleep apnea) ?G47.33 - Obstructive sleep apnea (adult) (pediatric) (ICD-10) ASHD (arteriosclerotic heart disease) ?I25.10 - Atherosclerotic heart disease of [place] coronary artery without angina pectoris (ICD-10) Paroxysmal atrial fibrillation ?I48.0 - Paroxysmal atrial fibrillation (ICD-10) Dyspnea on exertion ?R06.09 - Other forms of dyspnea (ICD-10) Pulmonary hypertension ?I27.20 - Pulmonary hypertension, unspecified (ICD-10) Adjustment disorder with depressed mood ?F43.21 - Adjustment disorder with depressed mood (ICD-10) Essential and other specified forms of tremor ?G25.0 - Essential tremor (ICD-10) ?G25.2 - Other specified forms of tremor (ICD-10) Unspecified essential hypertension ?I10 - Essential (primary) hypertension (ICD-10) Fibromyalgia ?M79.7 - Fibromyalgia (ICD-10) GERD (gastroesophageal reflux disease) ?K21.9 - Gastro-esophageal reflux disease without esophagitis (ICD-10) Surgical History (Updated 10/11/22 @ 13:54 by Yasemin Castano RN) History of YAG laser capsulotomy of lens of left eye ?Z98.42 - Cataract extraction status, left eye (ICD-10) Hx of tubal ligation ?Z98.51 - Tubal ligation status (ICD-10) Hx of cataract extraction ?Z98.49 - Cataract extraction status, unspecified eye (ICD-10) Social History Smoking Status: Former smoker Do you use any of these nicotine containing products: None Second hand tobacco smoke exposure: No How often do you have a drink containing alcohol: 2-3 times a week How many standard drinks containing alcohol do you have on a typical day: 3 or 4 How often do you have six or more drinks on one occasion: Never AUDIT-C Alcohol total score: 4 Non-prescribed substance use: denies use Caffeine: Yes service: No Exam Narrative: Exam Narrative: General: Well-developed and well-nourished, no acute distress Head: Atraumatic and normocephalic Eyes: Pupils are equal reactive, extraocular motions intact, conjunctiva clear ENT: External nose and ears are normal, posterior pharynx without erythema or exudate Neck: No midline cervical tenderness, full spontaneous range of motion the neck, trachea midline, no adenopathy Heart: Regular rate and rhythm no murmurs or thrills Lungs: Trace crackles bilaterally Abdomen: Soft, nontender, nondistended with active bowel sounds Musculoskeletal: No tenderness, deformity, or edema Neurologic: Awake, alert, and oriented x3, no gross focal neurologic deficits, cranial nerves intact as tested Psych: Mood and affect are appropriate Skin: No rashes Const: Vital Signs, click to edit/add: Vital Signs - 24 hr 01/30/23 13:52 Temperature 96.9 F L Pulse Rate [Pulse Oximeter] 70 Respiratory Rate 20 Blood Pressure [Ri ght Upper Arm] 202/82 H Pulse Oximetry 95 Oxygen Delivery Me thod Room Air Course Course Hospital Course: Patient seen examined, prior records are reviewed. Patient with history of atrial fibrillation and hypertension presents today with blood pressure, also some shortness of breath while she was waiting in the emergency department. On initial exam, blood pressure was elevated, no hypoxia, no tachycardia or fever. Labs and x-ray ordered. Will monitor for now. Patient does have some trace crackles on lung exam, suspect mild pulmonary edema heart failure or hypertensive urgency but no respiratory distress or hypoxia at this time. Portable chest x-ray independently interpreted by me demonstrates pacemaker but no other acute intra thoracic findings. Reevaluation(s) Time of Reevaluation #1: 15:43 Reevaluation #1: Labs independently interpreted by me with reassuring basic panel, normal renal function, normal magnesium. Troponin is negative and BNP is elevated 2460. Chest x-ray independently interpreted by me negative for acute findings. Patient's symptoms are consistent with hypertension and possible mild heart failure. No evidence for cardiomegaly or acute coronary syndrome. Patient will be started on Lasix and lisinopril and discharged with close outpatient follow-up. Vital Signs Vital signs: Initial Vital Signs Temperature 96.9 F L 01/30/23 13:52 Temperature Source Temporal Artery Scan 01/30/23 13:52 Pulse Rate 70 01/30/23 13:52 Pulse Rhythm Regular 01/30/23 13:52 Respiratory Rate 20 01/30/23 13:52 Blood Pressure 202/82 H 01/30/23 13:52 Blood Pressure Mean 122 H 01/30/23 13:52 Blood Pressure Position Sitting 01/30/23 13:52 Pulse Oximetry 95 01/30/23 13:52 Oxygen Delivery Method Room Air 01/30/23 13:52 Vital Signs Temperature 96.9 F L 01/30/23 13:52 Pulse Rate 70 01/30/23 13:52 Respiratory Rate 20 01/30/23 13:52 Blood Pressure 202/82 H 01/30/23 13:52 Pulse Oximetry 95 01/30/23 13:52 Oxygen Delivery Method Room Air 01/30/23 13:52 Temperature 96.9 F L 01/30/23 13:52 Pulse Rate 70 01/30/23 13:52 Respiratory Rate 20 01/30/23 13:52 Blood Pressure 202/82 H 01/30/23 13:52 Pulse Oximetry 95 01/30/23 13:52 Oxygen Delivery Method Room Air 01/30/23 13:52 Medical Decision Making Medical Records Medical records reviewed: Yes I reviewed the patient's medical records Lab Data Lab results reviewed: Yes I reviewed the patient's lab results Labs: Lab Results 01/30/23 Range/Units 14:42 Sodium 140 (135-149) mmol/L Potassium 3.8 (3.6-5.1) mmol/L Chloride 105 (96-114) mmol/L Carbon Dioxide 25 (20-32) mmol/L BUN 11 (7-30) mg/dL Creatinine 0.5 (0.5-1.5) mg/dL Estimated Creat Clear 31.69 Estimated GFR 94 ml/min Glucose 111 (60-115) mg/dL Calcium 9.3 (8.4-10.6) mg/dL Magnesium 1.8 (1.5-2.6) mg/dL NT-Pro-B Natriuret Pep 2460 pg/mL POC Troponin I 0.02 (0.01-0.04) ng/ml ECG Data Attestation: I personally reviewed and interpreted this ECG as follows: Prior ECG tracings: not available for review Interpretation: Performed at 1:25 p.m. demonstrates sinus rhythm with right axis deviation, rate 64, normal intervals, MN 168, QTC 470. No prior for comparison. Discharge Plan Discharge Clinical Impression: Hypertension Patient Disposition: Home, Self-Care Condition: Stable Instructions: Hypertension (ED) Additional Instructions: Continue your current medications. Add lisinopril and follow up with primary care this week. Activity Level: No Restrictions Prescriptions: New lisinopril 5 mg tablet 2.5 mg PO DAILY Qty: 30 0RF No Action Eliquis 5 mg tablet 5 mg PO BID aspirin [Aspirin Childrens] 81 mg tablet,chewable 81 mg PO DAILY calcium carbonate-vitamin D3 500 mg-3.125 mcg (125 unit) tablet 1 tab PO DAILY cholecalciferol (vitamin D3) 25 mcg (1,000 unit) capsule 25 mcg PO DAILY coenzyme Q10 100 mg capsule 100 mg PO DAILY fexofenadine [Karolyn Allergy] 180 mg tablet 180 mg PO DAILY fluticasone propionate 50 mcg/actuation spray,suspension 2 spray intranasal DAILY PRN Rx Instructions: administer into each nostril magnesium oxide 400 mg magnesium capsule 400 mg PO DAILY metoprolol tartrate 25 mg tablet 12.5 - 25 mg PO DAILY PRN multivitamin Tablet 1 tab PO DAILY rosuvastatin [Crestor] 40 mg tablet 40 mg PO DAILY acyclovir 400 mg tablet 400 mg PO 3XD PRN propranolol 80 mg capsule,extended release 24hr 80 mg PO DAILY omeprazole 20 mg capsule,delayed release(DR/EC) 20 mg PO DAILY Follow Up/Referrals: Margaret Allen DO [Primary Care Provider] - Stand Alone Forms: [employer] Info Instructions
[2023-01-30 15:16] LABS: Chloride* 105 mmol/L (96-114); Potassium* 3.8 mmol/L (3.6-5.1); Sodium* 140 mmol/L (135-149)
[2023-01-30 15:18] LABS: Creatinine* 0.5 mg/dL (0.5-1.5); Est. Creatinine Clearance* 31.69; Estimated Glomerular Filt Rate 94 ml/min
[2023-01-30 15:19] LABS: Blood Urea Nitrogen* 11 mg/dL (7-30); Calcium* 9.3 mg/dL (8.4-10.6); Carbon Dioxide* 25 mmol/L (20-32); Glucose* 111 mg/dL (60-115); Magnesium* 1.8 mg/dL (1.5-2.6)
[2023-01-30 15:26] LABS: Troponin, Point-of-Care* 0.02 ng/ml (0.01-0.04)
[2023-01-30 15:28] LABS: NT Pro B Type NatriureticPept* 2460 pg/mL
[2023-01-30] MEDS: lisinopriL 5 MG TABLET PO (16:11)
== END 2023-01-30 16:23 | disposition home or self-care (01) ==
PROVIDERS: Emergency Provider Family Medicine; PCP Family Medicine
DX: I10 Essential (primary) hypertension (principal)
CPT/HCPCS: 36415; 71045; 80048; 83735; 83880; 84484; 93005; 99284; 99285; A9270

== ENCOUNTER 2023-09-01 19:11 | Outpatient (CLI) | payer MEDICARE, BC, SELFPAY | END 2023-09-01 19:12 | disposition home or self-care (01) | PROVIDERS: PCP Family Medicine; Visit Provider Emergency Medicine | DX: R41.82 Altered mental status, unspecified (principal); H53.9 Unspecified visual disturbance | CPT/HCPCS: A0425; A0427 ==

== ENCOUNTER 2023-09-01 19:34 | Emergency (ER) | payer MEDICARE, BC, SELFPAY ==
[2023-09-01] VITALS (35 sets, daily range): BP systolic 40–209; BP diastolic 27–135; PULSE 68–143; RESP 16; TEMP 36.8; O2SAT 80–97; BMI 28.2
--- NOTE | 2023-09-01 19:43 | CT_ITS ---
Patient: VALARIE HUANG Facility:?[facility] R[facility] Patient ID:?[id number] Site Patient ID:?[id number]. Site :?1940 Study:?CT-Neck Angio W/95CC [id number] ALL IMAGES ON ANGIO N-09/01/2023 7:56:27 PM Ordering Physician:SHARRI Final Report: DATE: 09/01/2023 CLINICAL HISTORY: Patient with focal neurological deficits. TECHNIQUE: Standard helical CT image acquisition of the neck up to the skull base after bolus intravenous contrast enhancement. 2D and 3D MIP images for post-processing were performed and interpreted on an independent workstation and 3D images were permanently archived. COMPARISON: CT same day FINDINGS: The origins of the great vessels from the aortic arch are patent. The origin of the right vertebral artery is patent. The origin of the left vertebral artery demonstrates mild narrowing. The common carotid arteries are patent. There is a severe (73%) stenosis at the origin of the right internal carotid artery by NASCET criteria. This is caused by calcified plaque with a 1mm residual lumen. There is a mild (<50%) stenosis at the origin of the left internal carotid artery by NASCET criteria. This is caused by calcified plaque with a <2mm residual lumen. The rest of the cervical segments of the internal carotid arteries are patent up to the skull base. The right vertebral artery is dominant. The cervical segments of the vertebral arteries are patent up to the skull base. The visualized lung apices are unremarkable. The thyroid gland is unremarkable. The soft tissues of the neck are unremarkable. There are degenerative changes in the cervical spine. IMPRESSION: 1. Severe (73%) stenosis at the origin of the right internal carotid artery by NASCET criteria. This is caused by calcified plaque with a 1mm residual lumen. 2. Mild (<50%) stenosis at the origin of the left internal carotid artery by NASCET criteria. This is caused by calcified plaque with a <2mm residual lumen. Please note that all CT scans at this facility use dose modulation, iterative reconstruction, and/or weight-based dosing when appropriate to reduce radiation dose to as low as reasonably achievable. Dictated by Jeremiah Mitchell MD @ 09/02/2023 10:52:44 AM Signed by:?Jeremiah Mitchell MD @09/02/2023 10:52:44 AM (Electronic Signature)
--- NOTE | 2023-09-01 19:43 | CT_ITS ---
Patient: VALARIE HUANG Facility:?[facility] Patient ID:?[id number] Site Patient ID:?[id number]. Site :?1940 Study:?CT-Head W/O CODE STROKE IAN BENTLEY [id number] 9694-09/01/2023 7:51:26 PM Ordering Physician:SHARRI Final Report: INDICATION: AMS, CODE STROKE CT HEAD WITHOUT CONTRAST TECHNIQUE: Multiple axial CT images were performed through the head without intravenous contrast administration. COMPARISON: No previous studies are currently available for comparison. FINDINGS: No acute intracranial hemorrhage is identified. No extra-axial collections are evident and there is no mass effect or midline shift. There is mild diffuse age-related brain atrophy. Ventricular size and configuration are within normal limits for the patient`s age. Sanchez-white differentiation is within normal limits. There is patchy hypodensity in the periventricular white matter, a nonspecific finding which most likely reflects chronic small vessel ischemic change. In the right frontal lobe, a 4mm periventricular calcification is noted, likely of no current clinical significance. Intracranial atherosclerotic vascular calcifications are noted. Osseous structures are within normal limits and no fractures are seen. Included portions of the paranasal sinuses and mastoid air cells are normally aerated. IMPRESSION: 1. No acute intracranial abnormality identified. 2. Mild age-related brain atrophy, white matter hypodensity consistent with chronic small vessel ischemic change, and intracranial atherosclerotic vascular calcifications. Called to Dr. Bentley at 8:35pm 09/01/2023. BRAD RENO MD [employer] Please note that all CT scans at this facility use dose modulation, iterative reconstruction, and/or weight-based dosing when appropriate to reduce radiation dose to as low as reasonably achievable. Dictated by: Jhon Reno MD @ 09/01/2023 20:39:19 Signed by:?Jhon Reno MD @09/01/2023 8:39:19 PM (Electronic Signature)
--- NOTE | 2023-09-01 19:43 | CT_ITS ---
Patient: VALARIE HUANG Facility:?[facility] Patient ID:?[id number] Site Patient ID:?[id number]. Site :?1940 Study:?CT-Head Angio W/95CC [id number] CODE STROKE SOSA EVANS-09/01/2023 7:53:23 PM Ordering Physician:SHARRI Final Report: DATE: 09/01/2023 CLINICAL HISTORY: Patient with focal neurological deficits. TECHNIQUE: Standard helical CT image acquisition through the intracranial circulation following intravenous administration of contrast material with bolus tracking. 2D and 3D MIP images for post-processing were performed and interpreted on an independent workstation and 3D images were permanently archived. COMPARISON: CT same day. FINDINGS: There is no cerebral aneurysm or large vessel occlusion. There is mild intracranial atherosclerosis in the right supraclinoid ICA and left vertebral artery. The right middle cerebral artery and its branches are normal. The right anterior cerebral artery and its branches are normal. The left internal carotid artery is normal. The left middle cerebral artery and its branches are normal. The left anterior cerebral artery and its branches are normal. The anterior communicating artery is well visualized and appears normal. The right vertebral artery and PICA are normal. The right vertebral artery is dominant. The basilar artery is patent and appears normal. The right posterior cerebral artery is normal. The left posterior cerebral artery is normal. The visualized venous structures are patent. IMPRESSION: 1. No cerebral aneurysm or large vessel occlusion. 2. Mild intracranial atherosclerosis in the right supraclinoid ICA and left vertebral artery. Please note that all CT scans at this facility use dose modulation, iterative reconstruction, and/or weight-based dosing when appropriate to reduce radiation dose to as low as reasonably achievable. Dictated by Jeremiah Mitchell MD @ 09/02/2023 10:55:42 AM Signed by:?Jeremiah Mitchell MD @09/02/2023 10:55:42 AM (Electronic Signature)
--- NOTE | 2023-09-01 20:16 | ED_ITS ---
HPI - Neuro Symptoms/Deficit General Chief Complaint: Neuro Symptoms/Altered Deficit Stated Complaint: CVA Time Seen by Provider: 09/01/23 19:53 History of Present Illness HPI Narrative: This 83-year-old female comes in by ambulance with a stroke code initiated. She was playing bingo and states that she had a hard time seeing the numbers on the card. She continued to play as someone next to her cover the appropriate numbers. She did not have any other symptoms except some tingling on the left side of her mouth. Upon arrival here at around 5:30 p.m. she went directly to CT scanner and had CT of her head and CTA of head and neck. She then returned to the room and was examined and noted to have a slight droop in her left mouth. She states that she feels like her vision is better. She does not report any speech change. She does take Eliquis 5 mg twice a day. She has past medical history of aortic stenosis and cardiac pacemaker. She also has paroxysmal atrial fibrillation. There is no evidence of prior stroke or blood clot in her medical history reported in the chart. Related Data Home Medications Medication Instructions Recorded Confirmed acyclovir 400 mg tablet 400 mg PO 3XD PRN 09/08/22 10/13/22 omeprazole 20 mg capsule,delayed 20 mg PO DAILY 09/08/22 10/13/22 release propranolol 80 mg capsule,24 80 mg PO DAILY 09/08/22 10/13/22 hr,extended release apixaban 5 mg tablet (Eliquis) 5 mg PO BID 10/11/22 10/13/22 aspirin 81 mg chewable tablet 81 mg PO DAILY 10/11/22 10/13/22 (Aspirin Childrens) calcium carbonate 500 mg-vitamin 1 tab PO DAILY 10/11/22 10/13/22 D3 3.125 mcg (125 unit) tablet cholecalciferol (vitamin D3) 25 25 mcg PO DAILY 10/11/22 10/13/22 mcg (1,000 unit) capsule coenzyme Q10 100 mg capsule 100 mg PO DAILY 10/11/22 10/13/22 fexofenadine 180 mg tablet 180 mg PO DAILY 10/11/22 10/13/22 (Karolyn Allergy) fluticasone propionate 50 2 spray intranasal DAILY PRN 10/11/22 10/13/22 mcg/actuation nasal spray,suspension magnesium oxide 400 mg PO DAILY 10/11/22 10/13/22 metoprolol tartrate 25 mg tablet 12.5 - 25 mg PO DAILY PRN 10/11/22 10/13/22 multivitamin 1 tab PO DAILY 10/11/22 10/13/22 rosuvastatin 40 mg tablet (Crestor) 40 mg PO DAILY 10/11/22 10/13/22 Previous Rx's Medication Instructions Recorded lisinopril 5 mg tablet 2.5 mg (1/2 x 5 mg) PO DAILY #30 01/30/23 tabs Allergies Allergy/AdvReac Type Severity Reaction Status Date / Time Sulfa (Sulfonamide Allergy Verified 09/01/23 19:58 Antibiotics) Review of Systems Status of ROS: Reports: 10 or more systems reviewed and unremarkable except as noted in History and below Narrative: Constitutional: No fevers, no weight gain or loss. Eyes: No discharge. She reports difficulty seeing the bingo card but states that she thinks her vision is better now. HENT: No congestion, no sore throat, no ear pain. Cardiovascular: No chest pain, no palpitations. Respiratory: No shortness of breath, no wheezes, no cough. Gastrointestinal: No abdominal pain, no vomiting, no diarrhea. Genitourinary: No dysuria, no hematuria. Musculoskeletal: Normal range of motion. Skin: No rashes, no pruritis. Neurological: No dizziness, weakness,, speech change. She reports tingling sensation in the left side of her mouth. Endo/Heme/Allergies: No bruising or bleeding. No polydipsia. Pysch: no suicidality, no anxiety, no insomnia. All other systems reviewed and are negative. [facility] Medical History (Updated 09/01/23 @ 20:24 by Beto Mckeno MD) Aortic stenosis ?I35.0 - Nonrheumatic aortic (valve) stenosis (ICD-10) Cardiac pacemaker in situ ?Z95.0 - Presence of cardiac pacemaker (ICD-10) E. coli UTI ?N39.0 - Urinary tract infection, site not specified (ICD-10) ?B96.20 - Unspecified Escherichia coli [E. coli] as the cause of diseases classified elsewhere (ICD-10) SSS (sick sinus syndrome) ?I49.5 - Sick sinus syndrome (ICD-10) Prolonged Q-T interval on ECG ?R94.31 - Abnormal electrocardiogram [ECG] [EKG] (ICD-10) KEVIN (obstructive sleep apnea) ?G47.33 - Obstructive sleep apnea (adult) (pediatric) (ICD-10) ASHD (arteriosclerotic heart disease) ?I25.10 - Atherosclerotic heart disease of [place] coronary artery without angina pectoris (ICD-10) Paroxysmal atrial fibrillation ?I48.0 - Paroxysmal atrial fibrillation (ICD-10) Dyspnea on exertion ?R06.09 - Other forms of dyspnea (ICD-10) Pulmonary hypertension ?I27.20 - Pulmonary hypertension, unspecified (ICD-10) Adjustment disorder with depressed mood ?F43.21 - Adjustment disorder with depressed mood (ICD-10) Essential and other specified forms of tremor ?G25.0 - Essential tremor (ICD-10) ?G25.2 - Other specified forms of tremor (ICD-10) Unspecified essential hypertension ?I10 - Essential (primary) hypertension (ICD-10) Fibromyalgia ?M79.7 - Fibromyalgia (ICD-10) GERD (gastroesophageal reflux disease) ?K21.9 - Gastro-esophageal reflux disease without esophagitis (ICD-10) Surgical History (Updated 10/11/22 @ 13:54 by Yasemin Castano RN) History of YAG laser capsulotomy of lens of left eye ?Z98.42 - Cataract extraction status, left eye (ICD-10) Hx of tubal ligation ?Z98.51 - Tubal ligation status (ICD-10) Hx of cataract extraction ?Z98.49 - Cataract extraction status, unspecified eye (ICD-10) Social History Smoking Status: Former smoker Do you use any of these nicotine containing products: None Second hand tobacco smoke exposure: No How often do you have a drink containing alcohol: 2-3 times a week How many standard drinks containing alcohol do you have on a typical day: 3 or 4 How often do you have six or more drinks on one occasion: Never AUDIT-C Alcohol total score: 4 Non-prescribed substance use: denies use Caffeine: Yes service: No Exam Narrative: Exam Narrative: Constitutional: Well-developed, well-nourished, no acute distress. HEENT: Normocephalic, atraumatic. Neck: Normal range of motion. Nontender. Supple. Heart: Regular. No murmurs. Normal rate. Intact distal pulses. Lungs: Clear to auscultation. No chest discomfort. No wheezes, rhonchi, or rales. Abdomen: Normal bowel sounds. Nontender. No rebound tenderness. Genitalia: Deferred. Back: No midline tenderness. Normal range of motion. Extremities: Normal range of motion. No injury. Skin: Intact. No rash. Warm. No erythema or pallor. Neurologic: Tingling sensation on the left side of her mouth. She does have a slight left droop of her mouth. Forehead musculature is preserved. Tongue is midline. [id number] is normal. No pronator drift. 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 She is able to raise each leg from the bed to my hand. On visual field exam she does move her eyes to the right but does not acknowledge anything left of midline. She is showing left-sided neglect. Psychiatric: No suicidality. No anxiety or depression. No insomnia. Nursing notes and vitals signs are reviewed. Const: Vital Signs, click to edit/add: Vital Signs - 24 hr 09/01/23 19:43 09/01/23 19:43 09/01/23 20:04 Temperature 98.2 F Pulse Rate 74 Pulse Rate [Right Pulse Oximeter] 69 Respiratory Rate 16 Blood Pressure 161/81 H Blood Pressure [Ri ght Upper Arm] 181/82 H Pulse Oximetry 92 92 93 Oxygen Delivery Me thod Room Air Room Air 09/01/23 20:05 09/01/23 20:11 09/01/23 20:15 Temperature Pulse Rate 72 69 69 Pulse Rate [Right Pulse Oximeter] Respiratory Rate Blood Pressure 169/99 H Blood Pressure [Ri ght Upper Arm] Pulse Oximetry 92 92 92 Oxygen Delivery Me thod 09/01/23 20:22 09/01/23 20:30 09/01/23 20:32 Temperature Pulse Rate 74 68 73 Pulse Rate [Right Pulse Oximeter] Respiratory Rate Blood Pressure 181/81 H 173/79 H Blood Pressure [Ri ght Upper Arm] Pulse Oximetry 94 92 93 Oxygen Delivery Me thod 09/01/23 20:51 09/01/23 20:53 Temperature Pulse Rate 92 81 Pulse Rate [Right Pulse Oximeter] Respiratory Rate Blood Pressure 40/27 L Blood Pressure [Ri ght Upper Arm] Pulse Oximetry 96 95 Oxygen Delivery Me thod Course Vital Signs Vital signs: Initial Vital Signs Temperature 98.2 F 09/01/23 19:43 Temperature Source Temporal Artery Scan 09/01/23 19:43 Pulse Rate 69 09/01/23 19:43 Pulse Rhythm Regular 09/01/23 19:43 Pulse Strength 3+ Normal 09/01/23 19:43 Respiratory Rate 16 09/01/23 19:43 Blood Pressure 181/82 H 09/01/23 19:43 Blood Pressure Mean 115 H 09/01/23 19:43 Blood Pressure Position Sitting 09/01/23 19:43 Pulse Oximetry 92 09/01/23 19:43 Oxygen Delivery Method Room Air 09/01/23 19:43 Vital Signs Temperature 98.2 F 09/01/23 19:43 Pulse Rate 69 09/01/23 19:43 Respiratory Rate 16 09/01/23 19:43 Blood Pressure 181/82 H 09/01/23 19:43 Pulse Oximetry 92 09/01/23 19:43 Oxygen Delivery Method Room Air 09/01/23 19:43 Temperature 98.2 F 09/01/23 19:43 Pulse Rate 81 09/01/23 20:53 Respiratory Rate 16 09/01/23 19:43 Blood Pressure 40/27 L 09/01/23 20:53 Pulse Oximetry 95 09/01/23 20:53 Oxygen Delivery Method Room Air 09/01/23 19:43 MDM - Neuro Symptoms/Deficit MDM Narrative Medical decision making narrative: This patient arrives by ambulance with symptoms suspicious of a stroke. She is currently taking Eliquis 5 mg twice a day. Symptoms started about 2 hours prior to arrival. After returning from CT imaging I did examine the patient and found a slight droop in her mouth on the left side. She is reporting some tingling sensation also in this area. All other neurologic tests are normal except for her visual field exam which is showing left-sided neglect. I did immediately then contact the tele stroke resources. Dr. Friend returned a call and will call back after looking at CT imaging. She states that the patient is not a candidate for thrombectomy or with thrombolytics. The patient has a pacemaker and needs an MRI which cannot be obtained at this facility. Dr. Friend recommended transfer this evening for MRI to occur at [facility]. I did speak with the hospitalist [employer] certified network professional, Dr. Thurman, who agrees to her transfer there. ECG Data Attestation: I personally reviewed and interpreted this ECG as follows: Interpretation: Normal sinus rhythm with premature supraventricular complexes. Rate is 75 beats per minute. There are no ST or T-wave abnormalities. Discharge Plan Discharge Clinical Impression: Cerebrovascular accident Patient Disposition: [facility] Condition: Unchanged Prescriptions: No Action Eliquis 5 mg tablet 5 mg PO BID aspirin [Aspirin Childrens] 81 mg tablet,chewable 81 mg PO DAILY calcium carbonate-vitamin D3 500 mg-3.125 mcg (125 unit) tablet 1 tab PO DAILY cholecalciferol (vitamin D3) 25 mcg (1,000 unit) capsule 25 mcg PO DAILY coenzyme Q10 100 mg capsule 100 mg PO DAILY fexofenadine [Karolyn Allergy] 180 mg tablet 180 mg PO DAILY fluticasone propionate 50 mcg/actuation spray,suspension 2 spray intranasal DAILY PRN Rx Instructions: administer into each nostril magnesium oxide 400 mg magnesium capsule 400 mg PO DAILY metoprolol tartrate 25 mg tablet 12.5 - 25 mg PO DAILY PRN multivitamin Tablet 1 tab PO DAILY rosuvastatin [Crestor] 40 mg tablet 40 mg PO DAILY acyclovir 400 mg tablet 400 mg PO 3XD PRN propranolol 80 mg capsule,extended release 24hr 80 mg PO DAILY omeprazole 20 mg capsule,delayed release(DR/EC) 20 mg PO DAILY lisinopril 5 mg tablet 2.5 mg PO DAILY Qty: 30 0RF Stand Alone Forms: My[facility] Info Instructions
[2023-09-01 21:12] LABS: Chloride* 105 mmol/L (96-114); Sodium* 136 mmol/L (135-149)
[2023-09-01 21:13] LABS: INR 1.11 (0.91-1.10); Potassium* 3.7 mmol/L (3.6-5.1)
[2023-09-01 21:15] LABS: Creatinine* 0.4 mg/dL (0.5-1.5); Estimated Glomerular Filt Rate 99 ml/min
[2023-09-01 21:16] LABS: Anion Gap 8 mEq/L (7-15); Basophils Absolute Auto 0.03 K/uL (0.00-0.30); Basophils Percent Auto 0.5 % (0.0-3.0); Blood Urea Nitrogen* 11 mg/dL (7-30); Calcium* 8.6 mg/dL (8.4-10.6); Carbon Dioxide* 23 mmol/L (20-32); Eosinophils Absolute Auto 0.18 K/uL (0.00-0.50); Eosinophils Percent Auto 3.1 % (0.0-7.0); Glucose* 86 mg/dL (60-115); Hematocrit 35.5 % (33.0-51.0); Hemoglobin* 11.6 gm/dL (12.0-16.0); Immature Granulocytes Abs Auto 0.04 K/uL (0.00-0.30); Immature Granulocytes Pct Auto 0.7 %; Lymphocytes Absolute Auto 1.87 K/uL (0.90-2.90); Lymphocytes Percent Auto 32.1 % (20-44); Mean Corpuscular HGB Conc 33 gm/dL (32-36); Mean Corpuscular Hemoglobin 31 pg (26-34); Mean Corpuscular Volume 94 fL (80-100); Monocytes Percent Auto 9.6 % (0.0-11.0); Neutrophils Absolute Auto 3.15 K/uL (1.7-7.0); Platelet Count* 174 K/uL (140-440); RDW Coefficient of Variation % 11.9 % (11.5-15.5); Red Blood Count 3.77 m/uL (4.00-5.20); White Blood Count* 5.83 K/uL (4.50-11.00)
[2023-09-01 21:19] LABS: Slide Review Reflex No
[2023-09-01] MEDS: LABETALOL HCL 5 MG/ML inj 10 MG IVP (23:07)
--- NOTE | 2023-09-01 23:15 | ED.NURSE ---
Pt's family updated at 1667. Pt's family knows that pt will be going to [facility] sometime this morning. Pt's family will call [facility] in the morning for further bed information.
[2023-09-02] VITALS (7 sets, daily range): BP systolic 160–190; BP diastolic 79–114; PULSE 68–88; RESP 16–18; O2SAT 93–97
== END 2023-09-02 01:46 | disposition short-term general hospital (02) ==
PROVIDERS: Emergency Provider Emergency Medicine Emergency Medical Services; PCP Family Medicine
DX: I63.9 Cerebral infarction, unspecified (principal)
CPT/HCPCS: 36415; 70450; 70496; 70498; 80048; 85025; 85610; 93005; 96374; 99285; 99291; Q9967

== ENCOUNTER 2023-09-24 11:52 | Outpatient (CLI) | payer MEDICARE, BC, SELFPAY ==
--- OUTSIDE RECORDS SUMMARY | 2023-09-29 06:06 | XMS_ITS | Clinical Summary ---
Author Name Unknown Organization [email or web address] [facility] Address [place], [place] [address] Care Team Providers Care Child Welfare Consultant Name Role Phone Chelsy Chinchilla MD Unavailable [phone] Margaret Allen DO Primary Care Provider [phone] [facility] Care, Shea Unavailable [phone] Zainab Reyes RN Unavailable [phone] Allergies Active Allergy Reactions Criticality Noted Date [...] 30min prior to eating 90 Capsule 3 09/26/19 24 Active magnesium chloride (MAG-DELAY) 64 mg delayed release tabletIndications:M agnesium deficiency Take 2 Tablets by mouth once daily. 180 Tablet 3 09/27/19 24 Active multivitamin folic acid 0.4 mg [...] TWICE DAILY 180 Tablet 3 04/04/20 23 Discontinued(*I P Discontinued) losartan (COZAAR) 25 mg tabletIndications:H TN (hypertension) Take 0.5 Tablets (12.5 mg) by mouth once daily. 45 Tablet 3 05/16/20 23 Discontinued(*I P Discontinued) ipratropium (ATROVENT NASAL) 21 mcg (0.03 %) nasal sprayIndications:Co ugh, unspecified type Inhale 2 Sprays into affected nostril(s) three times daily. [place] dose in each nostril. 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 09/06/19 24 Discontinued metoprolol succinate (TOPROL [...] mg) by mouth once daily. 09/07/19 24 Discontinued potassium chloride (Klor-Con M20) 20 mEq extended-release tablet (part/cryst) Take 20 mEq by mouth two times daily with meals. Discontinued(*I P Discontinued) artificial tears, peg 400 0.4%-propylene glycol 0.3%, (SYSTANE) ophthalmic Place 1-2 Drops into both eyes three times daily. 024 Discontinued losartan (COZAAR) 12.5 mg as half tablet Take by mouth once daily. 024 Discontinued(*I P Discontinued) omeprazole (PRILOSEC) 20 mg Delayed-Release capsuleIndications: Gastroesophageal reflux disease without esophagitis Take 1 Capsule (20 mg) by mouth once daily before a meal. Take at least 30min prior to eating 09/20/19 24 024 Discontinued(Re order (E-cancel not sent)) Active Problems Patient Care Coordination No te Formatting of this note migh t be different from the original. HF/Structural/Prevention Research Eligibility Review Date: 07/20/19 Upcoming Visit Location: [facility] Age: 78 y.o. Research Purpose Insurance Type: Medicare/Medicaid Comments: This patient was indicated to be a potential candidate and pre-screened for the following studies: Echo - 07/13/2019 No , Mild AR, Mild-Mod MR, Moderate TR Altflow - no d/t mild-mod MR, no As, Mild AR Triluminate - Potential Lipids - 05/26/2019 Non - HDL - 137 LDL - 101 Vesalius - Potential No WI or Stroke Problem Noted Date Diagnosed Date [...] Encounters Date Type Department Care Team Description 09/28/2023 2:30 PM CDT Home Care Visit [facility] [address] [place] [address] Ludin Shaw, PEST CONTROLLER PEST CONTROLLER - INITIAL ASSESSMENT 09/28/2023 12:30 PM CDT Home Care Visit [facility] [address] [place] [phone] Dina Hall LPN PARTS ASSEMBLER - HOME VISIT 09/28/2023 Nurse Triage [facility] [address] [place] [address] Margaret Allen, DO Catheter Problem 09/27/2023 10:00 AM CDT Home Care Visit [facility] [address] [place] [address] Nadine Méndez GIN OPERATOR - HOME VISIT 09/27/2023 Orders Only [facility] [address] [place] [address] Margaret Allen DO <No scans attached> 09/26/2023 1:05 PM CDT Office Visit [facility] [address] [place] [address] Margaret Allen DO Follow Up 09/26/2023 Travel 09/24/2023 Orders Only [facility] Scanner 1 scan: (1-Ord) [facility], HEAD W/O, 09/24/2023 09/23/2023 5:00 AM CDT Home Care Visit [facility] [address] [place] [phone] Nadine Méndez GIN OPERATOR - MISSED VISIT 09/23/2023 Patient Outreach [facility] [address] [facility] [address] [place] [address] Zainab Reyes RN Stroke Rehab Care Coordination - [facility] 09/23/2023 Nurse Triage [facility] [address] [place] [address] Margaret Allen DO left wrist pain 09/22/2023 10:00 AM CDT Home Care Visit [facility] [address] [place] [address] Lauren Davila, RN SN - OASIS START OF CARE 09/22/2023 Home Care Visit [facility] [address] [place] [address] Lauren Davila, RN CARE COORDINATION 09/22/2023 Telephone [facility] [address] [place] [address] Margaret Allen DO Home Care (SOC/ Drug Interactions) 09/22/2023 Plan of Care Documentation [facility] [address] [place] [address] 09/22/2023 Patient Outreach [facility] [address] [place] [address] Iona Howell, RN Primary RN Care Management; [facility] 09/06/2023 11:01 AM CDT - 09/21/2023 11:19 AM CDT Hospital Encounter [address] [address] Marlene May MD Acute CVA (cerebrovascular accident) [...] Home Health 09/06/2023 Travel 09/05/[address] [facility] [address] [facility] [address] [place] [phone] Verónica Shore PA <No scans attached> 09/05/2023 Travel 09/02/2023 3:08 AM CDT - 09/06/2023 10:52 AM CDT Hospital Encounter [address] [address] [facility] Hospitalist [facility] Nunu Landrum MD Talberg, MD Maddie Jones Priya, MD Acute CVA (cerebrovascular accident) (HC) (Primary Dx); Hypertension; Atrial flutter with rapid ventricular response (HC); Health care maintenance Discharge Disposition: Rehab Facility or Unit 09/02/2023 Telephone [facility] [address] [facility] [address] [place] [phone] Lindsey Demarco NP Hospital F/U 09/01/2023 Orders Only [facility] Scanner 1 scan: (1-Ord) STACEY, ANGIO NECK, 09/01/2023 09/01/2023 Orders Only [facility] Scanner 1 scan: (1-Ord) STACEY, HEAD ANGIO, 09/01/2023 09/01/2023 Orders Only [facility] Scanner 1 scan: (1-Ord) [facility], CT HEAD/BRAIN WO CON, 09/01/2023 09/01/2023 Office Visit [facility] [address] [place] [phone] Edith Bentley MD Telehealth ([facility] (telephone consult)) 09/01/2023 Telephone [facility] [address] [place] [address] Margaret Allen DO Questions 08/26/2023 Telephone [facility] [address] [facility] [address] [place] [phone] Avel Richards MD Concerns 07/28/2023 9:09 AM YARD WORKER - 07/28/2023 11:59 PM YARD WORKER Hospital Encounter [facility] [address] [place] [address] Levon Grant MBBS Sherman, Jean S/P TAVR (transcatheter aortic valve replacement) 07/28/2023 Travel 07/27/2023 Refill [facility] [address] [place] [address] Margaret Allen DO Refill Request (Acyclovir) from Last 3 Months Immunizations Name Administration Dates Next Due AMB INFLUENZA IIV3 (AGE 65+ YRS) PF (Flu Clinic Only) 03/31/2018,03/30/2017 AMB Influenza, IIV3 (Age >=3 years)(Flu Clinic Only) 03/30/2011,04/14/2010 Amb Influenza, Inact (High-d ose) (Flu Clinic Only) 04/23/2016,03/21/2015,03/19/2014 COVID-19 vaccine ([employer] 30mcg/0.3mL) PFTASIA 03/11/2021,08/19/2020,07/29/2020 Hepatitis A (Adult) 11/23/2000,05/25/2000 Hepatitis B [...] Sign Reading Time Taken Comments Blood Pressure 130/73 09/28/2023 2:40 PM CDT Pulse 84 09/28/2023 2:40 PM CDT Temperature 36.4 ??C (97.6 ??F) 09/28/2023 2:40 PM CD T Respiratory Rate 20 09/28/2023 12:44 PM CDT Oxygen Saturation 99% 09/28/2023 2:40 PM CDT Inhaled Oxygen Concentration - - Weight 56.2 kg (124 lb) 09/26/2023 1:01 PM CDT Height 152.4 cm (5') 09/22/2023 11:39 AM CDT Body Mass Index 24.22 09/22/2023 11:39 AM CDT Plan of Treatment Upcoming Encounters Date Type Department Care Team (Late st Contact Info) Description 09/29/2023 9:15 AM CDT Home Care Visit [facility] [address] [place] [phone] Aubrey Wilson, PT [address] [place] [address] 10/04/2023 10:00 AM CDT Home Care Visit [facility] [address] [place] [phone] Nadine Méndez 10/05/2023 6:00 AM CDT Home Care Visit [place] [address] [place] [address], [place] [address] Edward Good, RN [address] [place] [address] 10/11/2023 4:00 AM CDT Home Care Visit [facility] [place] [address] [place] [phone] Nadine Méndez 10/12/2023 7:00 AM CDT Home Care Visit [place] [address] [place] [address], [place] [phone] Edward Good, RN [address] [place] [address] 10/17/2023 11:30 AM CDT Phone Office Visit [facility] [address] [facility] [address] [place] [phone] Lindsey Demarco NP [address] [place] [address] 10/19/2023 4:30 AM CDT Home Care Visit [place] [address] [place] [phone] Edward Good, RN [address] [address] 10/26/2023 5:30 AM CDT Home Care Visit [place] [address] [place] [phone] Edward Good, RN [address] [place] [address] 10/26/2023 11:40 AM CDT Office Visit [facility] [address] [place] [address] Margaret Allen DO [address] [place] [address] 11/23/2023 10:15 AM CDT [facility] [address] [place] [address] Marlene May MD [address] [place] [address] 12/07/2023 8:30 AM CDT Appointment [facility] [address] [place] [address] 12/07/2023 9:30 AM CDT Office Visit [facility] [address] [place] [phone] Patricia Craig MD [address] [place] [address] 12/20/2023 2:00 PM CDT Cardiac Device Check [facility] [address] [place] [phone] Health Maintenance Due Date Last Done Comments [...] Procedure Name Priority Date/Time Associated Diagnosis Comments CBC WITH AUTO DIFFERENTIAL Routine 09/26/2023 2:02 PM CDT Hospital discharge follow-up History of recent stroke MAGNESIUM Routine 09/26/2023 2:02 PM CDT Medication management CBC WITH AUTO DIFFERENTIAL Routine 09/26/2023 2:02 PM CDT Hospital discharge follow-up History of recent stroke BASIC METABOLIC PANEL Routine 09/26/2023 2:02 PM CDT Hospital discharge follow-up Hypokalemia SCAN-CT INTERPRETATION 12:00 AM CDT BASIC METABOLIC PANEL Today 09/20/2023 11:05 AM [...] COMPLETE WO CONTRAST Routine 07/28/2023 10:10 AM YARD WORKER S/P TAVR (transcatheter aortic valve replacement) XR DXA BONE DENSITY 2 SITES AXIAL Routine 08/09/2022 10:21 AM YARD WORKER Osteoporosis, unspecified osteoporosis type, unspecified pathological fracture presence from Last 3 Months or Most Recently Relevant to Health Maintenance Results * (ABNORMAL) CBC WITH AUTO DIFFERENTIAL (09/26/2023 2:02 PM CDT) Pathologist [facility] WHITE BLOOD COUNT 9.2 4.5 - 11.0 thou/cu mm 09/26/2023 2:09 PM CDT [facility] RED BLOOD COUNT 4.23 4.00 - 5.20 mil/cu mm 09/26/2023 2:09 PM CDT [facility] HEMOGLOBIN 13.1 12.0 - 16.0 g/dL 09/26/2023 2:09 PM CDT [facility] HEMATOCRIT 38.6 33.0 - 51.0 % 09/26/2023 2:09 PM CDT [facility] MCV 91 80 - 100 fL 09/26/2023 2:09 PM CDT [facility] MCH 31.0 26.0 - 34.0 pg 09/26/2023 2:09 PM CDT [facility] MCHC 33.9 32.0 - 36.0 g/dL 09/26/2023 2:09 PM CDT [facility] RDW 12.2 11.5 - 15.5 % 09/26/2023 2:09 PM CDT [facility] PLATELET COUNT 209 140 - 440 thou/cu mm 09/26/2023 2:09 PM CDT [facility] MPV 11.3(H) 6.5 - 11.0 fL 09/26/2023 2:09 PM CDT [facility] % NEUT 74.7 % 09/26/2023 2:09 PM CDT [facility] % LYMPH 15.7 % 09/26/2023 2:09 PM CDT [facility] % MONO 8.1 % 09/26/2023 2:09 PM CDT [facility] % EOS 1.1 % 09/26/2023 2:09 PM CDT [facility] % BASO 0.4 % 09/26/2023 2:09 PM CDT [facility] ABSOLUTE NEUTROPHILS 6.9 1.7 - 7.0 thou/cu mm 09/26/2023 2:09 PM CDT [facility] ABSOLUTE LYMPHOCYTES 1.5 0.9 - 2.9 thou/cu mm 09/26/2023 2:09 PM CDT [facility] ABSOLUTE MONOCYTES 0.8 <0.9 thou/cu mm 09/26/2023 2:09 PM CDT [facility] ABSOLUTE EOSINOPHILS 0.1 <0.5 thou/cu mm 09/26/2023 2:09 PM CDT [facility] ABSOLUTE BASOPHILS 0.0 <0.3 thou/cu mm 09/26/2023 2:09 PM CDT [facility] Blood BLOOD SPECIMEN / Unknown Venipuncture / Unknown 09/26/2023 2:02 PM CDT 09/26/2023 2:04 PM CDT Margaret Allen DO HEMATOLOGY [facility] [address] [place] [address], * (ABNORMAL) MAGNESIUM (09/26/2023 2:02 PM CDT) Only the most recent of4 resultswithin the time period is included. MAGNESIUM 1.5(L) 1.6 - 2.4 mg/dL 09/26/2023 11:26 PM CDT [facility] Blood BLOOD SPECIMEN / Unknown Venipuncture / Unknown 09/26/2023 2:02 PM CDT 09/26/2023 2:04 PM CDT Margaret Allen CHEMISTRY [facility] [address] [place] [address], * (ABNORMAL) BASIC METABOLIC PANEL (09/26/2023 2:02 PM CDT) Only the most recent of3 resultswithin the time period is included. Pathologist [facility] SODIUM 142 136 - 145 mmol/L 09/26/2023 11:26 PM CDT [facility] POTASSIUM 3.9 3.5 - 5.1 mmol/L 09/26/2023 11:26 PM CDT [facility] CHLORIDE 105 98 - 107 mmol/L 09/26/2023 11:26 PM CDT [facility] CO2,TOTAL 27 22 - 29 mmol/L 09/26/2023 11:26 PM CDT [facility] ANION GAP 10 5 - 18 09/26/2023 11:26 PM CDT [facility] GLUCOSE 113(H) 70 - 99 mg/dL 09/26/2023 11:26 PM CDT [facility] CALCIUM 10.0 8.8 - 10.2 mg/dL 09/26/2023 11:26 PM CDT [facility] BUN 10 8 - 23 mg/dL 09/26/2023 11:26 PM CDT [facility] CREATININE 0.65 0.50 - 0.90 mg/dL 09/26/2023 11:26 PM CDT [facility] BUN/CREAT RATIO 15 10 - 20 11:26 PM CDT [facility] eGFR 88(L) >90 mL/min/1.7 3m2 09/26/2023 11:26 PM CDT [facility] Comment:As of 2021, eG FR is calculated by the CKD-EPI creatinine equation without race adjustment. ??eGFR can be influenced by muscle mass, exercise, and diet. ??The reported eGFR is an estimation only and is only applicable if the renal function is stable. Blood BLOOD SPECIMEN / Unknown Venipuncture / Unknown 09/26/2023 2:02 PM CDT 09/26/2023 2:04 PM CDT Margaret Allen DO [facility] [address] [place] [address], * SCAN-CT INTERPRETATION (09/24/2023 12:00 AM CDT) Only the most recent of4 resultswithin the time period is included. Anatomical Region Laterality Modality Other Scanner OTHER * UA W/ SEDIMENT EXAM REFLEXED PER CRITERIA (09/19/2023 5:57 PM CDT) Only the most recent of3 resultswithin the time period is included. COLOR Yellow Yellow Color 09/19/2023 6:09 PM CDT [facility] CLARITY Clear Clear Clarity 09/19/2023 6:09 PM CDT [facility] SPECIFIC GRAVITY,URINE 1.010 1.010, 1.015, 1.020, 1.025 09/19/2023 6:09 PM T [facility] PH,URINE 6.0 6.0, 7.0, 8.0, 5.5, 6.5, 7.5, 8.5 09/19/2023 6:09 PM CDT [facility] UROBILINOGEN, QUALITATIVE Normal Normal EU/dl 09/19/2023 6:09 PM T [facility] PROTEIN, URINE Negative Negative mg/dL 09/19/2023 6:09 PM CDT [facility] GLUCOSE, URINE Negative Negative mg/dL 09/19/2023 6:09 PM CDT [facility] KETONES,URINE Negative Negative mg/dL 09/19/2023 6:09 PM CDT [facility] BILIRUBIN,URI NE Negative Negative 09/19/2023 6:09 PM CDT [facility] OCCULT BLOOD,URINE Negative Negative 09/19/2023 6:09 PM CDT [facility] NITRITE Negative Negative 09/19/2023 6:09 PM CDT [facility] LEUKOCYTE ESTERASE Negative Negative 09/19/2023 6:09 PM CDT [facility] Urine URINE SPECIMEN / Unknown Non-Blood / Unknown 09/19/2023 5:57 PM CDT 09/19/2023 6:03 PM CDT Marlene May MD URINE [facility] SENDOUT INTERNAL [facility] [id number] [address] [place] [address] * XR VIDEO SWALLOW W SPEECH (09/19/2023 [...] EXAM: XR VIDEO SWALLOW W SPEECH LOCATION: [facility] MEDICAL IMAGING DATE: 09/19/2023 INDICATION: Difficulty swallowing. COMPARISON: None. TECHNIQUE: Routine swallow study with speech pathology using multiple barium thicknesses. RADIATION DOSE: DAP = 0.28 mGy cm2 FINDINGS: Swallow study with Speech Pathology using multiple barium thicknesses. Penetration with thin liquid. No penetration with other tested consistencies. No aspiration. Procedure Note Sky Ross MD - 09/19/2023 For Patients: As a result of the 21st Century Cures Act, medical imagingexams and procedure reports are released immediately into your electronicmedical record. You may view this report before your referring provider.If you have questions, please contact your health care provider. EXAM: XR VIDEO SWALLOW W SPEECH LOCATION: [facility] MEDICAL IMAGING DATE: 09/19/2023 INDICATION: Difficulty swallowing. [...] None Seen /HPF 09/10/2023 3:50 PM CDT [facility] WBC >100(A) 0-2, 3-5, None Seen /HPF 09/10/2023 3:50 PM CDT [facility] BACTERIA Many(A) None Seen, Rare, Few Bacteria/ HPF 09/10/2023 3:50 PM CDT [facility] EPITHELIAL CELLS None Seen None Seen, Few Epi/HPF 09/10/2023 3:50 PM CDT [facility] HYALINE CASTS 0-2 0-2, 3-5 /LPF 09/10/2023 3:50 PM CDT [facility] Urine URINE SPECIMEN / Unknown Non-Blood / Unknown 09/10/2023 3:04 PM CDT 09/10/2023 3:07 PM CDT Marlene May MD URINE [facility] SENDOUT INTERNAL ZIP [phone] [place] [address] * (ABNORMAL) URINE CULTURE (09/10/2023 3:04 PM CDT) CULTURE RESULT(A) 09/13/2023 10:08 AM CDT [facility] CULTURE >100,000 CFU/mL Enterococcus faecalis 09/13/2023 10:08 AM CDT [facility] CULTURE <10,000 CFU/mL Multiple organisms probable contaminants 09/13/2023 10:08 AM CDT [facility] Urine URINE SPECIMEN / Unknown Non-Blood / Unknown 09/10/2023 3:04 PM CDT 09/10/2023 3:07 PM CDT Narrative Organism Antibiotic Method Susceptibility Enterococcus faecalis AMPICILLIN <=2: S Enterococcus faecalis NITROFURANTOIN <=16: S Marlene May MD [facility]OLOGY [facility] [address] [place] [address], * (ABNORMAL) TSH (09/08/2023 5:56 AM CDT) [facility] TSH 4.44(H) 0.27 - 4.20 uIU/mL 09/08/2023 7:02 AM CDT [facility] Blood BLOOD SPECIMEN / Unknown Venipuncture / Unknown 09/08/2023 5:56 AM CDT 09/08/2023 6:26 AM CDT [facility] - 09/08/2023 7:02 AM CDT In Adults, TSH values between 5.00 and 10.00 uIU/ml do not necessarily indicate the presence of Hypothyroidism. Correlation with clinical findings such as presence of goiter and/or Thyroperoxidase (TPO) Antibody may be helpful. For more information please refer to CHANG 2004; 291: 228-238. Elizabeth Perkins MD CHEMISTRY [facility] SENDOUT INTERNAL ZIP [address] [place] [address] * HEMOGLOBIN (09/08/2023 5:56 AM CDT) Only the most recent of4 resultswithin the time period is included. Pathologist [facility] HEMOGLOBIN 13.7 12.0 - 16.0 g/dL 09/08/2023 6:30 AM CDT [facility] MCV 91 80 - 100 fL 09/08/2023 6:30 AM CDT [facility] Blood BLOOD SPECIMEN / Unknown Venipuncture / Unknown 09/08/2023 5:56 AM CDT 09/08/2023 6:24 AM CDT Elizabeth Perkins MD HEMATOLOGY Performing Organization Address City/[facility]/ZIP Co de Phone Number [facility] SENDOUT INTERNAL ZIP [address] [place] [address] * POTASSIUM (09/08/2023 5:56 AM CDT) Only the most recent of4 resultswithin the time period is included. POTASSIUM 3.6 3.5 - 5.1 mmol/L 09/08/2023 7:02 AM CDT [facility] Blood BLOOD SPECIMEN / Unknown Venipuncture / Unknown 09/08/2023 5:56 AM CDT 09/08/2023 6:26 AM CDT Elizabeth Perkins MD CHEMISTRY Performing Organization Address City/[facility]/ZIP Co de Phone Number [facility] SENDOUT INTERNAL ZIP [phone] [place] [phone] * CREATININE (09/08/2023 5:56 AM CDT) Only the most recent of3 resultswithin the time period is included. eGFR >90 >90 mL/min/1.7 3m2 09/08/2023 7:02 AM CDT [facility] Comment:As of 2021, eG FR is calculated by the CKD-EPI creatinine equation without race adjustment. ??eGFR can be influenced by muscle mass, exercise, and diet. ??The reported eGFR is an estimation only and is only applicable if the renal function is stable. CREATININE 0.53 0.50 - 0.90 mg/dL 09/08/2023 7:02 AM CDT [facility] Blood BLOOD SPECIMEN / Unknown Venipuncture / Unknown 09/08/2023 5:56 AM CDT 09/08/2023 6:26 AM CDT Elizabeth Perkins MD CHEMISTRY [facility] SENDOUT INTERNAL [facility] [id number] [place] [address] * CBC W PLT NO DIFF (09/07/2023 6:34 AM CDT) WHITE BLOOD COUNT 9.5 4.5 - 11.0 thou/cu mm 09/07/2023 6:56 AM CDT [facility] RED BLOOD COUNT 4.52 4.00 - 5.20 mil/cu mm 09/07/2023 6:56 AM CDT [facility] HEMOGLOBIN 13.8 12.0 - 16.0 g/dL 09/07/2023 6:56 AM CDT [facility] HEMATOCRIT 40.7 33.0 - 51.0 % 09/07/2023 6:56 AM CDT [facility] MCV 90 80 - 100 fL 09/07/2023 6:56 AM CDT [facility] MCH 30.5 26.0 - 34.0 pg 09/07/2023 6:56 AM CDT [facility] MCHC 33.9 32.0 - 36.0 g/dL 09/07/2023 6:56 AM CDT [facility] RDW 11.9 11.5 - 15.5 % 09/07/2023 6:56 AM CDT [facility] PLATELET COUNT 166 140 - 440 thou/cu mm 09/07/2023 6:56 AM CDT [facility] MPV 10.9 6.5 - 11.0 fL 09/07/2023 6:56 AM CDT [facility] NRBC 0.0 % 09/07/2023 6:56 AM CDT [facility] ABS NRBC 0.0 thou /cu mm 09/07/2023 6:56 AM CDT [facility] Blood BLOOD SPECIMEN / Unknown Venipuncture / Unknown 09/07/2023 6:34 AM CDT 09/07/2023 6:47 AM CDT Elizabeth Perkins MD HEMATOLOGY [facility] SENDOUT INTERNAL ZIP [address] [address] [place] [address] * (ABNORMAL) GLUCOSE METER (09/07/2023 2:32 AM CDT) Only the most recent of18 resultswithin the time period is included. GLUCOSE METER 122(H) 65 - 100 mg/dL 09/07/2023 2:36 AM CDT [facility] Blood BLOOD SPECIMEN / Unknown 09/07/2023 2:32 AM CDT 09/07/2023 2:36 AM CDT Marlene May MD CHEMISTRY [facility] SENDOUT INTERNAL ZIP [address] [address] [place] [address] * SCAN-CARDIAC STRIP (09/06/2023 9:05 AM CDT) Scanner OTHER * SCAN-CARDIAC STRIP (09/06/2023 5:25 AM CDT) Scanner OTHER * SCAN-CARDIAC STRIP (09/05/2023 8:20 AM CDT) [...] Abnormal ECG When compared with ECG of 20-AUG-2022 15:48, Sinus rhythm has replaced Electronic atrial pacemaker Incomplete left bundle branch block is now Present BEYOND NOW Ventricular Rate 85 BPM BEYOND NOW Atrial Rate 85 BPM BEYOND NOW P-R Interval 162 ms BEYOND NOW QRS Duration 116 ms BEYOND NOW QT 406 ms BEYOND NOW QTc 483 ms BEYOND NOW P [place] 60 degrees BEYOND NOW R [place] 94 degrees BEYOND NOW T [place] 115 degrees BEYOND NOW 09/03/2023 4:26 PM CDT 09/04/2023 7:45 AM CDT Elizabeth Perkins MD EKG ORD Performing Organization Address [facility] Co de Phone Number BEYOND NOW [place], [place] * SCAN-CARDIAC STRIP (09/03/2023 9:32 AM CDT) Scanner OTHER * Hemoglobin A1C Screening (09/02/2023 3:43 PM CDT) HEMOGLOBIN A1C SCREENING 5.5 <=6.4 % 09/02/2023 3:57 PM CDT [facility] Blood BLOOD SPECIMEN / Unknown Non-Lab Venipuncture / Unknown 09/02/2023 3:43 PM CDT 09/02/2023 3:50 PM CDT Narrative [facility] - 09/02/2023 3:57 PM CDT ? (<5.7%) ?Normal ? (5.7% to 6.4%) ? Indicates prediabetes ? (>=6.5%) ? Confirms diabetes Falsely low levels may be seen with: Recent Transfusion, Recent Significant Blood Loss, Hemolytic Diseases, or Falsely elevated levels may be seen with: Untreated Anemias, Splenectomy Nunu Landrum MD CHEMISTRY Performing Organization Address [facility]/ZIP Co de Phone Number [facility] SENDOUT INTERNAL ZIP [phone] [place] [phone] * PLATELET COUNT (09/02/2023 3:43 PM CDT) PLATELET COUNT 189 140 - 440 thou/cu mm 09/02/2023 4:03 PM CDT [facility] MPV 10.8 6.5 - 11.0 fL 09/02/2023 4:03 PM CDT [facility] Blood BLOOD SPECIMEN / Unknown Non-Lab Venipuncture / Unknown 09/02/2023 3:43 PM CDT 09/02/2023 3:50 PM CDT Nunu Landrum MD HEMATOLOGY Performing Organization Address [facility]/State/ZIP Co de Phone Number [facility] SENDOUT INTERNAL ZIP [phone] [place] [phone] * WHITE BLOOD COUNT (09/02/2023 3:43 PM CDT) WHITE BLOOD COUNT 7.4 4.5 - 11.0 thou/cu mm 09/02/2023 4:03 PM CDT [facility] NRBC 0.0 % 09/02/2023 4:03 PM CDT [facility] ABS NRBC 0.0 thou /cu mm 09/02/2023 4:03 PM CDT [facility] Blood BLOOD SPECIMEN / Unknown Non-Lab Venipuncture / Unknown 09/02/2023 3:43 PM CDT 09/02/2023 3:50 PM CDT Nunu Landrum MD HEMATOLOGY Performing Organization Address City/[facility]/ZIP Co de Phone Number [facility] SENDOUT INTERNAL ZIP [phone] [place] [phone] * SODIUM (09/02/2023 3:43 PM CDT) SODIUM 139 136 - 145 mmol/L 09/02/2023 4:24 PM CDT [facility] Blood BLOOD SPECIMEN / Unknown Non-Lab Venipuncture / Unknown 09/02/2023 3:43 PM CDT 09/02/2023 3:50 PM CDT Nunu Landrum MD CHEMISTRY Performing Organization Address [facility]/ZIP Co de Phone Number [facility] SENDOUT INTERNAL ZIP [phone] [place] [phone] * (ABNORMAL) BILIRUBIN,TOTAL (09/02/2023 3:43 PM CDT) BILIRUBIN,TOTA L 1.5(H) 0.0 - 1.2 mg/dL 09/02/2023 4:24 PM CDT [facility] Blood BLOOD SPECIMEN / Unknown Non-Lab Venipuncture / Unknown 09/02/2023 3:43 PM CDT 09/02/2023 3:50 PM CDT Nunu Landrum MD CHEMISTRY [facility] SENDOUT INTERNAL ZIP [phone] [place] [phone] * ALT (SGPT) (09/02/2023 3:43 PM CDT) ALT (SGPT) 13 10 - 35 IU/L 09/02/2023 4:24 PM CDT [facility] Blood BLOOD SPECIMEN / Unknown Non-Lab Venipuncture / Unknown 09/02/2023 3:43 PM CDT 09/02/2023 3:50 PM CDT Nunu Landrum MD CHEMISTRY [facility] SENDOUT INTERNAL ZIP [address] [place] [phone] * AST (SGOT) (09/02/2023 3:43 PM CDT) AST (SGOT) 28 10 - 35 IU/L 09/02/2023 4:24 PM CDT [facility] Blood BLOOD SPECIMEN / Unknown Non-Lab Venipuncture / Unknown 09/02/2023 3:43 PM CDT 09/02/2023 3:50 PM CDT Nunu Landrum MD CHEMISTRY [facility] SENDOUT INTERNAL ZIP [address] [place] [phone] * ALK PHOSPHATASE (09/02/2023 3:43 PM CDT) ALK PHOSPHATASE 75 35 - 104 IU/L 09/02/2023 4:24 PM CDT [facility] Blood BLOOD SPECIMEN / Unknown Non-Lab Venipuncture / Unknown 09/02/2023 3:43 PM CDT 09/02/2023 3:50 PM CDT Nunu Landrum MD CHEMISTRY [facility] SENDOUT INTERNAL ZIP [address] [place] [phone] * Lipid Panel (09/02/2023 3:43 PM CDT) [facility] CHOLESTEROL,TOTAL 170 100 - 199 mg/dL 09/02/2023 4:24 PM CDT [facility] Comment: Cholesterol, Total Reference Ranges Desirable <200 mg/dL Borderline 200-239 mg/dL High >=240 mg/dL TRIGLYCERIDES 125 <150 mg/dL 09/02/2023 4:24 PM CDT [facility] HDL CHOLESTEROL 70 >40 mg/dL 4:24 PM CDT [facility] NON-HDL CHOLESTEROL 100 <145 mg/dl 09/02/2023 4:24 PM CDT [facility] CHOL/HDL RATIO 2.43 <4.50 09/02/2023 4:24 PM CDT [facility] LDL CHOLESTEROL 75 <=130 mg/dL 09/02/2023 4:24 PM CDT [facility] VLDL CHOLESTEROL 25 <=30 mg/dL 09/02/2023 4:24 PM CDT [facility] PROVIDER ORDERED STATUS RANDOM 09/02/2023 4:24 PM CDT [facility] Blood BLOOD SPECIMEN / Unknown Non-Lab Venipuncture / Unknown 09/02/2023 3:43 PM CDT 09/02/2023 3:50 PM CDT Nunu Landrum MD CHEMISTRY [facility] SENDOUT INTERNAL ZIP [address] [place] [phone] * MR Brain w/wo contrast (09/02/2023 2:09 [...] provider. EXAM: MR HEAD BRAIN WWO LOCATION: [facility] MEDICAL IMAGING DATE: 09/02/2023 INDICATION: Neuro deficit, [...] provider. EXAM: MR HEAD BRAIN WWO LOCATION: [facility] MEDICAL IMAGING DATE: 09/02/2023 INDICATION: Neuro deficit, [...] AM CDT Narrative 09/02/2023 12:21 [place] [address] Main: [email or web address] ? Transthoracic Echo Report REINAVALARIE ID: [id number] Age: 83 : 1940 Ordering Provider: NUNU LANDRUM Exam Date: 09/02/2023 10:03 Gender: F Normalizer: [facility] Height: 60 in BSA: 1.54 m?? BP: [...] DATA LVOT LOS (r) ?2.37 mmHg Simon Dent MD [facility] Accredited Site (Electronically Signed) Final Date: 02 September 2023 12:20 ICD-10 Codes: Procedure Note Simon Dent MBBS - 09/02/2023 [place] [address] Main: [email or web address] Tran[facility]horacic Echo Report VALARIE HUANG ID: [id number] Age: 83 : 1940 Ordering Provider:NUNU LANDRUM Exam Date: 09/02/2023 10:03 Gender: F Normalizer: [facility] Height: 60 in BSA: 1.54 m?? BP: [...] LOS (r) 2.37 mmHg Simon Dent MD [facility] Accredited Site (Electronically Signed) Final Date: 02 [...] provider. EXAM: US CAROTID DUPLEX BILATERAL LOCATION: [facility] MEDICAL IMAGING DATE: 09/02/2023 INDICATION: CVA/TIA COMPARISON: [...] For Patients: As a result of the Century Cures Act, medical imagingexams and procedure reports are released immediately into your electronicmedical record. You may view this report before your referring provider.If you have questions, please contact your health care provider. EXAM: US CAROTID DUPLEX BILATERAL LOCATION: [facility] MEDICAL IMAGING DATE: 09/02/2023 INDICATION: CVA/TIA COMPARISON: [...] within the vertebral arteries bilaterally. 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 Other Clinical Staff OTHER * SCAN-CARDIAC STRIP (09/02/2023 6:00 AM CDT) Scanner OTHER * (ABNORMAL) XR DXA BONE DENSITY 2 SITES AXIAL (08/09/2022 10:21 AM YARD WORKER) Anatomical Region Laterality Modality Spine, HIPS, HIPL, HIPR Other Impressions 08/10/2022 3:48 PM YARD WORKER Osteoporosis. RECOMMENDATIONS: The National Osteoporosis Foundation recommends [...] greater than 5 years. Roz Perrin PA-C [facility] 08/10/2022 Narrative 08/10/2022 3:48 PM YARD WORKER For Patients: Results are automatically released to your [facility] ([employer]) account once available, in compliance with federal regulations. This means that you may see your results before your provider has had a chance to review them. Please allow 2-3 business days for your provider to comment on the results. XR DXA Bone Mineral Density (BMD) EXAM LOCATION: [facility] [address] [facility] [id number] PATIENT NAME: Valarie Huang DATE OF : [...] two scanners are made by the same graphics intern. 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
== END 2023-09-24 11:53 | disposition home or self-care (01) ==
LOC: AMB 09-29 06:04
PROVIDERS: PCP Family Medicine; Visit Provider Family Medicine
DX: R20.2 Paresthesia of skin (principal)
CPT/HCPCS: A0425; A0429

== ENCOUNTER 2023-09-24 12:23 | Emergency (ER) | payer MEDICARE, BC, SELFPAY ==
[2023-09-24 12:27] VITALS: BP 153/78; PULSE 65; RESP 18; TEMP 37.2; O2SAT 98
--- OUTSIDE RECORDS SUMMARY | 2023-09-24 12:27 | XMS_ITS | Clinical Summary ---
Author Name Unknown Organization [facility] Address [place], [place] [address] Care Team Providers Care Coremaker Helper Name Role Phone Chelsy Chinchilla MD Unavailable [phone] Margaret Allen DO Primary Care Provider [phone] [facility] [place] Unavailable Zainab Reyes RN Unavailable [phone] Allergies Active Allergy Reactions Criticality Noted Date Comments Lisinopril Cough 06/15/2023 Sulfa (Sulfonamide Antibiotics) Hives 10/12 Medications Medication Sig Dispensed Refills Start Date End Date Status acetaminophen SR (TYLENOL ARTHRITIS) 650 mg Extended-Release tablet Take 1 tablet by mouth every 8 hours if needed. Max acetaminophen dose: 4000mg in 24 hrs. 0 08/12/19 17 Active cholecalciferol (VITAMIN D) 1,000 unit capsuleIndications: Osteopenia, unspecified location Take 1 capsule by mouth once daily. 90 capsule 3 05/02/20 17 Active rosuvastatin (CRESTOR) 40 mg tabletIndications:H yperlipidemia, unspecified hyperlipidemia type Take 1 Tablet (40 mg) by mouth at bedtime. 90 Tablet 3 04/04/20 23 Active acyclovir (ZOVIRAX) 400 mg tabletIndications:C old sore TAKE 1 TABLET BY MOUTH THREE TIMES A DAY FOR 5 DAYS NEEDED FOR COLD SORES 45 Tablet 07/28/19 24 Active ascorbic acid, vitamin C, (VITAMIN C) 500 mg tablet Take 500 mg by mouth once daily. Active BISACODYL RECT Insert 10 mg rectally. Active magnesium oxide (MAG-OX 400) 400 mg tablet Take 400 mg by mouth once daily. Active apixaban (ELIQUIS) 2.5 mg tabletIndications:p revent thromboembolism in chronic atrial fibrillation Take 1 Tablet (2.5 mg) by mouth two times daily. 60 Tablet 09/20/19 24 Active artificial tears, peg 400 0.4%-propylene glycol 0.3%, (SYSTANE) ophthalmicIndicatio ns:Acute CVA (cerebrovascular accident) (HC) Place 1-2 Drops into both eyes three times daily. 30 mL 09/20/19 24 Active calcium with vitamin D3 (OS-CESAR 500 + D) tabletIndications:H ealth care maintenance Take 1 Tablet by mouth once daily. 30 Tablet 09/20/19 24 Active clopidogreL (PLAVIX) 75 mg tabletIndications:A cute CVA (cerebrovascular accident) () Take 1 Tablet (75 mg) by mouth every morning. 30 Tablet 09/20/19 24 Active lidocaine 4 % topical patchIndications:Pa in Apply to intact skin to cover most painful area for max 12hr per 24hr period. 30 Patch 09/21/19 24 Active melatonin 1 mg tabletIndications:I nsomnia, unspecified type Take 2 Tablets (2 mg) by mouth at bedtime. 60 Tablet 09/20/19 24 Active metoprolol succinate (TOPROL XL) 25 mg Sustained-Release tabletIndications:A trial flutter with rapid ventricular response () Take 1 Tablet (25 mg) by mouth once daily. 30 Tablet 09/20/19 24 Active multivitamin folic acid 0.4 mgIndications:Healt h care maintenance Take 1 Tablet by mouth once daily. 30 Tablet 09/21/19 24 Active propranoloL (INDERAL) 20 mg tabletIndications:H ypertension Take 1 Tablet (20 mg) by mouth once daily. 30 Tablet 09/21/19 24 Active potassium chloride (KLOR-CON M20) 20 mEq extended-release tablet (part/cryst)Indicat ions:Hypokalemia Take 1 Tablet (20 mEq) by mouth once daily with a meal. 30 Tablet 09/20/19 24 Active omeprazole (PRILOSEC) 20 mg Delayed-Release capsuleIndications: Gastroesophageal reflux disease without esophagitis Take 1 Capsule (20 mg) by mouth once daily before a meal. Take at least 30min prior to eating 09/20/19 24 Active multivitamin folic acid 0.4 mg Take 1 Tablet by mouth once daily. 0 04/11/20 07 024 Discontinued(Ph armacist change per medication history (E-cancel not sent)) coenzyme q10 100 mg capIndications:Rout ine general medical examination at a health care facility Take 1 capsule by mouth once daily. 0 07/01/19 11 024 Discontinued(Ph armacist change per medication history (E-cancel not sent)) calcium with vitamin D3 (OS-CESAR 500 + D) tablet Take 1 Tablet by mouth once daily. 024 Discontinued(Ph armacist change per medication history (E-cancel not sent)) loperamide (IMODIUM) 2 mg tablet Take 2 mg by mouth each time if needed for Diarrhea. 024 Discontinued(Ph armacist change per medication history (E-cancel not sent)) metoprolol tartrate (LOPRESSOR) 25 mg tabletIndications:P aroxysmal atrial fibrillation (HC) Take 12.5 mg (1/2 tablet) to 25 mg (1 tablet) as needed for episodes of atrial fibrillation. 30 Tablet 3 01/02/20 22 024 Discontinued(*I P Discontinued) aspirin chewable 81 mg chewable tablet Chew 1 Tablet (81 mg) by mouth once daily with a meal. 0 09/21/19 23 024 Discontinued(*I P Discontinued) omeprazole (PRILOSEC) 20 mg Delayed-Release capsuleIndications: Gastroesophageal reflux disease without esophagitis Take 1 Capsule (20 mg) by mouth once daily before a meal. Take at least 30min prior to eating 90 Capsule 3 04/04/20 23 024 Discontinued propranolol ER (INDERAL LA) 80 mg Cs24 Sustained-Release capsuleIndications: Pulmonary hypertension (HC) TAKE ONE CAPSULE BY MOUTH ONE TIME DAILY 90 Capsule 3 04/04/20 23 024 Discontinued(*I P Discontinued) apixaban (Eliquis) 5 mg tabletIndications:P aroxysmal atrial fibrillation (HC) TAKE ONE TABLET BY MOUTH TWICE DAILY 180 Tablet 3 04/04/20 23 024 Discontinued(*I P Discontinued) losartan (COZAAR) 25 mg tabletIndications:H TN (hypertension) Take 0.5 Tablets (12.5 mg) by mouth once daily. 45 Tablet 3 05/16/20 23 Discontinued(*I P Discontinued) ipratropium (ATROVENT NASAL) 21 mcg (0.03 %) nasal sprayIndications:Co ugh, unspecified type Inhale 2 Sprays into affected nostril(s) three times daily. [place] dose in each nostril. 30 mL 11 05/24/20 23 024 Discontinued(Ph armacist change per medication history (E-cancel not sent)) apixaban (ELIQUIS) 2.5 mg tabletIndications:p revent thromboembolism in chronic atrial fibrillation Take 1 Tablet (2.5 mg) by mouth two times daily. 09/06/19 24 024 Discontinued metoprolol succinate (TOPROL XL) 25 mg Sustained-Release tabletIndications:H ypertension,Atrial flutter with rapid ventricular response (HC) Take 1 Tablet (25 mg) by mouth once daily. 09/06/19 24 Discontinued(*I P Discontinued) clopidogreL (PLAVIX) 75 mg tabletIndications:A cute CVA (cerebrovascular accident) (HC) Take 1 Tablet (75 mg) by mouth every morning. 09/06/19 24 Discontinued calcium with vitamin D3 (OS-CESAR 500 + D) tabletIndications:H ealth care maintenance Take 1 Tablet by mouth once daily. 09/06/19 24 Discontinued metoprolol succinate (TOPROL XL) 25 mg Sustained-Release tabletIndications:A trial flutter with rapid ventricular response (HC) Take 1 Tablet (25 mg) by mouth once daily. 09/07/19 24 024 Discontinued potassium chloride (Klor-Con M20) 20 mEq extended-release tablet (part/cryst) Take 20 mEq by mouth two times daily with meals. 024 Discontinued(*I P Discontinued) artificial tears, peg 400 0.4%-propylene glycol 0.3%, (SYSTANE) ophthalmic Place 1-2 Drops into both eyes three times daily. Discontinued losartan (COZAAR) 12.5 mg as half tablet Take by mouth once daily. 024 Discontinued(*I P Discontinued) Active Problems Patient Care Coordination No te Formatting of this note migh t be different from the original. HF/Structural/Prevention Research Eligibility Review Date: 07/20/19 Upcoming Visit Location: [facility] Age: 78 y.o. Research Purpose Insurance Type: Medicare/Medicaid Comments: This patient was indicated to be a potential candidate and pre-screened for the following studies: Echo - 07/13/2019 No , Mild AR, Mild-Mod MR, Moderate TR Altflow - no d/t mild-mod MR, no As, Mild AR Triluminate - Potential Lipids - 05/26/2019 Non - HDL - 137 LDL - 101 [place] - Potential No [place] or Stroke Problem Noted Date Diagnosed Date Alcohol use 09/07/2023 Stenosis of right internal carotid artery 2023 Hypertension 09/05/2023 Acute CVA (cerebrovascular accident) 09/02/2023 Age-related osteoporosis wit hout current pathological fracture 08/15/2022 Overview: On fosamax 2016-07/2022. Dexa due 07/2024 Aortic stenosis 06/18/2022 Benign essential tremor 10/25/2020 Atrial flutter with rapid ventricular response 0 10/23/2020 DNR (do not resuscitate) 10/23/2020 E. coli UTI (urinary tract infection) 10/23/2020 Cardiac pacemaker in situ 10/23/2020 History of prolonged Q-T interval on ECG 021 Overview: After 0.5 mg ibutilide (EKG 10/08/2020). As a result, I would avoid sotalol and dofetilide. SSS (sick sinus syndrome) 10/08/2020 KEVIN 02/12/2020 AHI-11.6 04/29/2020 Colon polyp 12/05/2019 Overview: Colonoscopy 11/2019 colon polyp, lymphocytic colitis, repeat in 5 years Lymphocytic colitis 12/05/2019 Overview: Colonoscopy 11/2019 colon polyp, lymphocytic colitis, repeat in 5 years Pulmonary hypertension 08/06/2019 Dyspnea on exertion 08/06/2019 Paroxysmal atrial fibrillation 08/06/2019 ASHD (arteriosclerotic heart disease) 08/06/2019 ACP (advance care planning) 04/17/2013 Overview: Has done plan. Will bring in. GERD (gastroesophageal reflux disease) 2 Overview: EGD 03/2012 Reactive gastropathy Adjustment disorder with depressed mood 04/03/20 09 Fibromyalgia 04/11/2007 Unspecified essential hypertension 04/11/2007 Other and unspecified hyperlipidemia 04/11/2007 Essential and other specified forms of tremor Resolved Problems Problem Noted Date Diagnosed Date Resolved Date Cerumen impaction 04/17/2013 06/26/2014 Inclusion cyst 05/13/2009 06/26/2014 Encounters Date Type Department Care Team Description 09/23/2023 5:00 AM CDT Home Care Visit [facility] [address] [place] [phone] Nadine Méndez SPORTS DOCTOR - MISSED VISIT 09/23/[address] [facility] [address] [facility] [address] [place] [address] Zainab Reyes RN Stroke Rehab Care Coordination - [facility] 09/23/2023 Nurse Triage [facility] [address] [place] [address] Margaret Allen DO left wrist pain 09/22/2023 10:00 AM CDT Home Care Visit [facility] [address] [place] [address] Lauren Davila, RN SN - OASIS START OF CARE 09/22/2023 Home Care Visit [facility] [address] [place] [address] Lauren Davila, RN CARE COORDINATION 09/22/2023 Telephone [facility] [address] [place] [address] Margaret Allen DO Home Care (SOC/ Drug Interactions) 09/22/2023 Plan of Care Documentation [place] [id number] [place] [phone] 09/22/2023 Patient Outreach [facility] [address] [place] [address] Iona Howell, RN Primary RN Care Management; Hospital F/U (LACE 66) 09/06/2023 11:01 AM CDT - 09/21/2023 11:19 AM CDT Hospital Encounter [facility] [address] [facility] [place] [address] Marlene May MD Acute CVA (cerebrovascular accident) (HC) (Primary Dx); Gastroesophageal reflux disease, unspecified whether esophagitis present; Essential and other specified forms of tremor; Hypertension; Atrial flutter with rapid ventricular response (HC); Preventative health care; Unspecified essential hypertension; E. coli UTI (urinary tract infection); Health care maintenance; Pain; Insomnia, unspecified type; Pulmonary hypertension (HC); Hypokalemia; Gastroesophageal reflux disease without esophagitis Discharge Disposition: Home Health 09/06/2023 Travel 09/05/2023 Orders Only [facility] [address] [place] [phone] Verónica Shore PA <No scans attached> 09/05/2023 Travel 09/02/2023 3:08 AM CDT - 09/06/2023 10:52 AM CDT Hospital Encounter [facility] [address] [place] [address] [facility], Hospitalist Nunu Guevara MD Talberg, MD Maddie Jones Priya, MD Acute CVA (cerebrovascular accident) (HC) (Primary Dx); Hypertension; Atrial flutter with rapid ventricular response (HC); Health care maintenance Discharge Disposition: Rehab Facility or Unit 09/02/2023 Telephone [facility] [address] [place] [phone] Lindsey Demarco NP Hospital F/U 09/01/2023 Orders Only [facility] Scanner 1 scan: (1-Ord) SEAN IBARRA, 09/01/2023 09/01/2023 Orders Only [facility] Scanner 1 scan: (1-Ord) BARLING, HEAD ANGIO, 09/01/2023 09/01/2023 Orders Only [facility] Scanner 1 scan: (1-Ord) [facility], CT HEAD/BRAIN WO CON, 09/01/2023 09/01/2023 Office Visit [facility] [address] [place] [phone] Edith Bentley MD Telehealth ([facility] (telephone consult)) 09/01/2023 Telephone [facility] [address] [place] [address] Margaret Allen DO Questions 08/26/2023 Telephone [facility] [address] [facility] [address] [place] [phone] Avel Richards MD Concerns 07/28/2023 9:09 AM SIGNS AND DISPLAYS SALES REPRESENTATIVE - 07/28/2023 11:59 PM SIGNS AND DISPLAYS SALES REPRESENTATIVE Hospital Encounter [facility] [address] [place] [address] Levon Grant MBBS Sherman, Jean S/P TAVR (transcatheter aortic valve replacement) 07/28/2023 Travel 07/27/2023 Refill [facility] [address] [place] [address] Margaret Allen DO Refill Request (Acyclovir) from Last 3 Months Immunizations Name Administration Dates Next Due AMB INFLUENZA IIV3 (AGE 65+ YRS) PF (Flu Clinic Only) 03/31/2018,03/30/2017 AMB Influenza, IIV3 (Age >=3 years)(Flu Clinic Only) 03/30/2011,04/14/2010 Amb Influenza, Inact (High-d ose) (Flu Clinic Only) 04/23/2016,03/21/2015,03/19/2014 COVID-19 vaccine ([employer] NLG 30mcg/0.3mL) TASIA BELLA 03/11/2021,08/19/2020,07/29/2020 Hepatitis A (Adult) 11/23/2000,05/25/2000 Hepatitis B (Adult) 11/23/2000,04/06/2000,1999 Influenza A (H1N1), Inactivated 06/10/2009 Influenza A (H1N1), Inactiva bianka (Age >=3 Years) 06/10/2009 Influenza, High-dose Inactivated 020,03/27/2019,04/23/2016,03/21,03/19/2014 Influenza, High-dose Quadriv alent Inactivated 02/28/2023,02/19/2022 Influenza, IIV3 (Age 6-35 mos) 03/30/2011 Influenza, IIV3 (Age >=3 years) 04/17/20 13,03/07/2012,04/14/2010,03/17,04/16/2008,04/11/2007,04/20/2006 ,04/06/2003 Influenza, Inactivated AIIV4 (Age 65+ Years) Preserv Free 03/11/2021,03/24/2020 Lyme Disease Vaccine 10/22/1999,11/17/1998,10/15 Pneumococcal Poly,23-Valent (Pneumovax) 04/18/2007 Pneumococcal conj 13-Valent (Prevnar 13) 06/26/2014 RSV, Recombinant ADJ Reconst ituted (Arexvy 120MCG/0.5mL) 04/07/2023 Td (Age >=7 Years) 03/30/1995 Td, Preservative Free (age >= 7 Years) 6 Tdap 07/21/2005 Zoster (Shingrix-RZV, recombinant) 11/16/2018, Zoster (Zostavax-ZVL, live) 04/28/2006 Family History Medical History Relation Name Comments Cancer Father throat cancer Diabetes Father diet controlled Diabetes Mother diet controlled Stroke Mother Diabetes Paternal Grandmother Stroke Sister Anesthesia Problem No Family History Blood Disease No Family History Cancer-breast No Family History Cancer-ovarian No Family History Relation Name Status Comments Brother Alive Father Mother Paternal Grandmother Sister Alive Social History Tobacco Use Types Packs/Day Years Used Date Smoking Tobacco: Former Cigarettes 1 30 0 [birth year]13/1951 - 06/13/1981 Passive Smoke Exposure: Never Smokeless Tobacco: Never Tobacco Cessation:Counseling Given: No Alcohol Use Standard Drinks/Week Comments Yes 3 (1 standard drink = 0.6 oz pur e alcohol) occ PHQ-2 Answer Date Recorded PHQ-2 TOTAL SCORE 0 04/04/2023 Social Connections Answer Date Recorded Frequency of Communication with Friends and Fami ly 0 02/04/2023 Alcohol Use Answer Date Recorded How often do you have a drink containing alcohol ? 3 04/04/2023 Average Number of Drinks Not on file 023 How often do you have five or more drinks on one occasion? 0 04/04/2023 Financial Resource Strain Answer Date R ecorded Difficulty of Paying Living Expenses 3 02/04/2023 Difficulty of Paying Living Expenses Not on file 02/04/2023 Food Insecurity Answer Date Recorded Worried About Running Out of Food in the Last Ye ar 1 02/04/2023 Transportation Needs Answer Date Record ed Lack of Transportation (Medical) 1 02/04/2023 Housing Stability Answer Date Recorded Unable to Pay for Housing in the Last Year 1 02/04/2023 Sex and Gender Information Value Date Recorded Sex Assigned at Not on file Gender Identity Not on file Sexual Orientation Not on file Obstetrics History Last Filed Vital Signs Vital Sign Reading Time Taken Comments Blood Pressure 120/70 09/22/2023 11:39 AM CDT Pulse 76 09/22/2023 11:39 AM CDT Temperature 35.6 ??C (96.1 ??F) 09/22/2023 11:39 AM C DT Respiratory Rate 16 09/22/2023 11:39 AM CDT Oxygen Saturation 99% 09/22/2023 11:39 AM CDT Inhaled Oxygen Concentration - - Weight 54.9 kg (121 lb) 09/22/2023 11:39 AM CDT Height 152.4 cm (5') 09/22/2023 11:39 AM CDT Body Mass Index 23.63 09/22/2023 11:39 AM CDT Plan of Treatment Upcoming Encounters Date Type Department Care Team (Late st Contact Info) Description 09/26/2023 1:05 PM CDT Office Visit [facility] [address] [place] [address] Margaret Allen DO [address] [place] [address] 09/27/2023 4:00 AM CDT Home Care Visit [facility] [address] [place] [phone] Ludin Shaw, SUPERVISOR TUBING [address] [place] [address] 10/17/2023 11:30 AM CDT Phone Office Visit [facility] [address] [place] [phone] Lindsey Demarco NP [address] [place], [place] [phone] 11/23/2023 10:15 AM CDT Office Visit [facility] [address] [place] [address] Marlene May MD [address] [place] [address] 12/07/2023 8:30 AM CDT Appointment [facility] [address] [place] [address] 12/07/2023 9:30 AM CDT Office Visit [facility] [address] [place] [phone] Patricia Craig MD [address] [place] [address] 12/20/2023 2:00 PM CDT Cardiac Device Check [facility] [address] [place] [address] Health Maintenance Due Date Last Done Comments Influenza for age 65+ 02/12/2024 02/28/2023 , 02/19/2022, 03/11/2021, Additional history exists Depression screening for age 12+ 04/04/2024 04/04/2023, 07/29/2022, 07/08/2020, Additional history exists Medicare Wellness for age 65+ 04/04/2024, 07/08/2020, 05/16/2019, Additional history exists BMI (ht and wt on same day) for age 18+ 05/13/2024 05/13/2023, 04/04/2023, 02/04/2023, Additional history exists Tetanus booster 07/01/2025 07/01/2015, 01/2006, 03/30/1995 Tdap Completed 07/21/2005 Pneumococcal series for age 65+ Completed 5, 04/18/2007 Zoster (shingles) series for age 50+ Completed 11/16/2018, 08/14/2018, 04/28/2006 DEXA/DXA scan for age 65+ Completed 2022, 05/21/2019, 08/12/2016, Additional history exists COVID-19 vaccine series Completed 04/07/20, 02/19/2022, 09/17/2021, Additional history exists Procedures Procedure Name Priority Date/Time Associated Diagnosis Comments BASIC METABOLIC PANEL Today 09/20/2023 11:05 AM CDT UA W/ SEDIMENT EXAM REFLEXED PER CRITERIA Today 09/19/2023 5:57 PM CDT XR VIDEO SWALLOW W SPEECH Routine 09/19/2023 9:52 AM CDT URINE CULTURE EDITH 09/10/2023 3:04 PM CDT URINALYSIS MICROSCOPIC Timed 3:04 PM CDT UA W/ SEDIMENT EXAM REFLEXED PER CRITERIA Today 09/10/2023 3:04 PM CDT XR VIDEO SWALLOW W SPEECH Routine 09/08/2023 2:25 PM CDT TSH Early AM 09/08/2023 5:56 AM CDT CREATININE Early AM 09/08/2023 5:56 AM CDT POTASSIUM Early AM 09/08/2023 5:56 AM CDT HEMOGLOBIN Early AM 09/08/2023 5:56 AM CDT BASIC METABOLIC PANEL Early AM 09/07/2023 6:34 AM CDT CBC W PLT NO DIFF Early AM 09/07/2023 6:3 4 AM CDT GLUCOSE METER Timed 09/07/2023 2:32 AM CDT URINALYSIS MICROSCOPIC Timed 7:45 PM CDT UA W/ SEDIMENT EXAM REFLEXED PER CRITERIA Today 09/06/2023 7:45 PM CDT SCAN-CARDIAC STRIP 09/06/2023 9: 05 AM CDT GLUCOSE METER Timed 09/06/2023 7:28 AM CDT SCAN-CARDIAC STRIP 09/06/2023 5: 25 AM CDT GLUCOSE METER Timed 09/05/2023 8:53 PM CDT GLUCOSE METER Timed 09/05/2023 4:56 PM CDT GLUCOSE METER Timed 09/05/2023 11:12 AM CDT MAGNESIUM Early AM 09/05/2023 8:45 AM CDT POTASSIUM Early AM 09/05/2023 8:45 AM CDT HEMOGLOBIN Early AM 09/05/2023 8:45 AM CDT SCAN-CARDIAC STRIP 09/05/2023 8: 20 AM CDT GLUCOSE METER Timed 09/05/2023 7:42 AM CDT GLUCOSE METER Timed 09/04/2023 9:36 PM CDT GLUCOSE METER Timed 09/04/2023 5:01 PM CDT GLUCOSE METER Timed 09/04/2023 11:31 AM CDT MAGNESIUM Early AM 09/04/2023 9:33 AM CDT CREATININE Early AM 09/04/2023 9:33 AM CDT POTASSIUM Early AM 09/04/2023 9:33 AM CDT HEMOGLOBIN Early AM 09/04/2023 9:33 AM CDT GLUCOSE METER Timed 09/04/2023 8:07 AM CDT SCAN-CARDIAC STRIP 09/04/2023 8: 04 AM CDT SCAN-CARDIAC STRIP 09/04/2023 2: 44 AM CDT GLUCOSE METER Timed 09/03/2023 9:36 PM CDT GLUCOSE METER Timed 09/03/2023 5:23 PM CDT EKG 12 LEAD Routine 09/03/2023 4:26 PM CDT GLUCOSE METER Timed 09/03/2023 11:57 AM CDT SCAN-CARDIAC STRIP 09/03/2023 9: 32 AM CDT GLUCOSE METER Timed 09/03/2023 9:12 AM CDT GLUCOSE METER Timed 09/02/2023 10:44 PM CDT GLUCOSE METER Timed 09/02/2023 5:20 PM CDT BILIRUBIN,TOTAL Early AM 09/02/2023 3:43 PM CDT ALK PHOSPHATASE Early AM 09/02/2023 3:43 PM CDT ALT (SGPT) Early AM 09/02/2023 3:43 PM CDT AST (SGOT) Early AM 09/02/2023 3:43 PM CDT PLATELET COUNT Early AM 09/02/2023 3:43 PM CDT HEMOGLOBIN Early AM 09/02/2023 3:43 PM CDT WHITE BLOOD COUNT Early AM 09/02/2023 3:4 3 PM CDT MAGNESIUM Early AM 09/02/2023 3:43 PM CDT CREATININE Early AM 09/02/2023 3:43 PM CDT POTASSIUM Early AM 09/02/2023 3:43 PM CDT SODIUM Early AM 09/02/2023 3:43 PM CDT HEMOGLOBIN A1C SCREENING Early AM 09/02/2023 3:43 PM CDT LIPID PANEL Early AM 09/02/2023 3:43 PM CDT MR HEAD BRAIN WWO STAT 09/02/2023 2:0 9 PM CDT XR VIDEO SWALLOW W SPEECH Routine 09/02/2023 1:20 PM CDT GLUCOSE METER Timed 09/02/2023 11:41 AM CDT ECHO TTE COMPLETE WO CONTRAST Routine 09/02/2023 10:43 AM CDT US CAROTID DUPLEX BILATERAL Routine 09/02/2023 9:51 AM CDT SCAN-CARDIAC STRIP 09/02/2023 9: 10 AM CDT SCAN-CARDIAC STRIP 09/02/2023 9: 10 AM CDT GLUCOSE METER Timed 09/02/2023 8:57 AM CDT SCAN CORRESP-IMAGING 09/02/2023 8:39 AM CDT SCAN-CARDIAC STRIP 09/02/2023 6: 00 AM CDT SCAN-CARDIAC STRIP 09/02/2023 5: 07 AM CDT SCAN-CT INTERPRETATION 4 12:00 AM CDT SCAN-CT INTERPRETATION 4 12:00 AM CDT SCAN-CT INTERPRETATION 4 12:00 AM CDT ECHO TTE COMPLETE WO CONTRAST Routine 07/28/2023 10:10 AM SIGNS AND DISPLAYS SALES REPRESENTATIVE S/P TAVR (transcatheter aortic valve replacement) XR DXA BONE DENSITY 2 SITES AXIAL Routine 08/09/2022 10:21 AM SIGNS AND DISPLAYS SALES REPRESENTATIVE Osteoporosis, unspecified osteoporosis type, unspecified pathological fracture presence from Last 3 Months or Most Recently Relevant to Health Maintenance Results * (ABNORMAL) BASIC METABOLIC PANEL (09/20/2023 11:05 AM CDT) Only the most recent of2 resultswithin the time period is included. SODIUM 140 136 - 145 mmol/L 09/20/2023 11:32 AM T [facility] POTASSIUM 3.1(L) 3.5 - 5.1 mmol/L 09/20/2023 11:32 AM T [facility] CHLORIDE 103 98 - 107 mmol/L 09/20/2023 11:32 AM T [facility] CO2,TOTAL 25 22 - 29 mmol/L 09/20/2023 11:32 AM T [facility] ANION GAP 12 5 - 18 09/20/2023 11:32 AM T [facility] GLUCOSE 92 70 - 99 mg/dL 09/20/2023 11:32 AM T [facility] CALCIUM 9.4 8.8 - 10.2 mg/dL 09/20/2023 11:32 AM T [facility] BUN 7(L) 8 - 23 mg/dL 09/20/2023 11:32 AM T [facility] CREATININE 0.56 0.50 - 0.90 mg/dL 09/20/2023 11:32 AM T [facility] BUN/CREAT RATIO 13 10 - 20 11:32 AM T [facility] eGFR >90 >90 mL/min/1.7 3m2 09/20/2023 11:32 AM [facility] Comment:As of 2021, eG FR is calculated by the CKD-EPI creatinine equation without race adjustment. ??eGFR can be influenced by muscle mass, exercise, and diet. ??The reported eGFR is an estimation only and is only applicable if the renal function is stable. Blood BLOOD SPECIMEN / Unknown Venipuncture / Unknown 09/20/2023 11:05 AM CDT 09/20/2023 11:07 AM CDT Marlene May MD CHEMISTRY [facility] SENDOUT [place]NAL ZIP [address] [address] [place] [address] * UA W/ SEDIMENT EXAM REFLEXED PER CRITERIA (09/19/2023 5:57 PM CDT) Only the most recent of3 resultswithin the time period is included. COLOR Yellow Yellow Color 09/19/2023 6:09 PM [facility] CLARITY Clear Clear Clarity 09/19/2023 6:09 PM [facility] SPECIFIC GRAVITY,URINE 1.010 1.010, 1.015, 1.020, 1.025 09/19/2023 6:09 PM [facility] PH,URINE 6.0 6.0, 7.0, 8.0, 5.5, 6.5, 7.5, 8.5 09/19/2023 6:09 PM [facility] UROBILINOGEN, QUALITATIVE Normal Normal EU/dl 09/19/2023 6:09 PM [facility] PROTEIN, URINE Negative Negative mg/dL 09/19/2023 6:09 PM [facility] GLUCOSE, URINE Negative Negative mg/dL 09/19/2023 6:09 PM [facility] KETONES,URINE Negative Negative mg/dL 09/19/2023 6:09 PM [facility] BILIRUBIN,URI NE Negative Negative 09/19/2023 6:09 PM [facility] OCCULT BLOOD,URINE Negative Negative 09/19/2023 6:09 PM CDT [facility] NITRITE Negative Negative 09/19/2023 6:09 PM CDT [facility] LEUKOCYTE ESTERASE Negative Negative 09/19/2023 6:09 PM CDT [facility] Urine URINE SPECIMEN / Unknown Non-Blood / Unknown 09/19/2023 5:57 PM CDT 09/19/2023 6:03 PM CDT Marlene May MD URINE [facility] SENDOUT INTERNAL ZIP [address] [address] [place] [address] * XR VIDEO SWALLOW W SPEECH (09/19/2023 9:52 AM CDT) Only the most recent of3 resultswithin the time period is included. Anatomical Region Laterality Modality Esophagus Computed Radiogr aphy 09/19/2023 9:52 AM CDT Impressions 09/19/2023 9:59 AM CDT 1. ??Penetration with thin. No aspiration. Narrative 09/19/2023 9:59 AM CDT For Patients: As a result of the Cures Act, medical imaging exams and procedure reports are released immediately into your electronic medical record. You may view this report before your referring provider. If you have questions, please contact your health care provider. EXAM: XR VIDEO SWALLOW W SPEECH LOCATION: [facility] DATE: 09/19/2023 INDICATION: Difficulty swallowing. COMPARISON: None. TECHNIQUE: Routine swallow study with speech pathology using multiple barium thicknesses. RADIATION DOSE: DAP = 0.28 mGy cm2 FINDINGS: Swallow study with Speech Pathology using multiple barium thicknesses. Penetration with thin liquid. No penetration with other tested consistencies. No aspiration. Procedure Note Sky Ross MD - 09/19/2023 For Patients: As a result of the Cures Act, medical imagingexams and procedure reports are released immediately into your electronicmedical record. You may view this report before your referring provider.If you have questions, please contact your health care provider. EXAM: XR VIDEO SWALLOW W SPEECH LOCATION: [facility] DATE: 09/19/2023 INDICATION: Difficulty swallowing. COMPARISON: None. TECHNIQUE: Routine swallow study with speech pathology using multiplebarium thicknesses. RADIATION DOSE: DAP = 0.28 mGy cm2 FINDINGS: Swallow study with Speech Pathology using multiple barium thicknesses. Penetration with thin liquid. No penetration with other testedconsistencies. No aspiration. IMPRESSION: 1. Penetration with thin. No aspiration. Jenna Tovar MD FLUOROSCOPY * (ABNORMAL) URINALYSIS MICROSCOPIC (09/10/2023 3:04 PM CDT) Only the most recent of2 resultswithin the time period is included. RBC 0-2 0-2, None Seen /HPF 09/10/2023 3:50 PM CDT [facility] WBC >100(A) 0-2, 3-5, None Seen /HPF 09/10/2023 3:50 PM CDT [facility] BACTERIA Many(A) None Seen, Rare, Few Bacteria/ HPF 09/10/2023 3:50 PM CDT [facility] EPITHELIAL CELLS None Seen None Seen, Few Epi/HPF 09/10/2023 3:50 PM CDT [facility] HYALINE CASTS 0-2 0-2, 3-5 /LPF 09/10/2023 3:50 PM CDT [facility] Urine URINE SPECIMEN / Unknown Non-Blood / Unknown 09/10/2023 3:04 PM CDT 09/10/2023 3:07 PM CDT Marlene May MD URINE [facility] SENDOUT INTERNAL [facility] [address] [place] [address] * (ABNORMAL) URINE CULTURE (09/10/2023 3:04 PM CDT) CULTURE RESULT(A) 09/13/2023 10:08 AM CDT [facility] CULTURE >100,000 CFU/mL Enterococcus faecalis 09/13/2023 10:08 AM CDT [facility] CULTURE <10,000 CFU/mL Multiple organisms probable contaminants 09/13/2023 10:08 AM CDT [facility] Urine URINE SPECIMEN / Unknown Non-Blood / Unknown 09/10/2023 3:04 PM CDT 09/10/2023 3:07 PM CDT Narrative Organism Antibiotic Method Susceptibility Enterococcus faecalis AMPICILLIN <=2: S Enterococcus faecalis NITROFURANTOIN <=16: S Marlene May MD MICROBIOLOGY [facility] [address] [place] [address], * (ABNORMAL) TSH (09/08/2023 5:56 AM CDT) TSH 4.44(H) 0.27 - 4.20 uIU/mL 09/08/2023 7:02 AM CDT [facility] Blood BLOOD SPECIMEN / Unknown Venipuncture / Unknown 09/08/2023 5:56 AM CDT 09/08/2023 6:26 AM CDT Narrative [facility] - 09/08/2023 7:02 AM CDT In Adults, TSH values between 5.00 and 10.00 uIU/ml do not necessarily indicate the presence of Hypothyroidism. Correlation with clinical findings such as presence of goiter and/or Thyroperoxidase (TPO) Antibody may be helpful. For more information please refer to CHANG 2004; 291: 228-238. Elizabeth Perkins MD CHEMISTRY [facility] SENDOUT INTERNAL [facility] [address] [place] [address] * HEMOGLOBIN (09/08/2023 5:56 AM CDT) Only the most recent of4 resultswithin the time period is included. HEMOGLOBIN 13.7 12.0 - 16.0 g/dL 09/08/2023 6:30 AM CDT [facility] MCV 91 80 - 100 fL 09/08/2023 6:30 AM CDT [facility] Blood BLOOD SPECIMEN / Unknown Venipuncture / Unknown 09/08/2023 5:56 AM CDT 09/08/2023 6:24 AM CDT Elizabeth Perkins MD HEMATOLOGY [facility] SENDOUT INTERNAL ZIP [address] [address] [place] [address] * POTASSIUM (09/08/2023 5:56 AM CDT) Only the most recent of4 resultswithin the time period is included. Pathologist [facility] POTASSIUM 3.6 3.5 - 5.1 mmol/L 09/08/2023 7:02 AM CDT [facility] Blood BLOOD SPECIMEN / Unknown Venipuncture / Unknown 09/08/2023 5:56 AM CDT 09/08/2023 6:26 AM CDT Elizabeth Perkins MD CHEMISTRY Performing Organization Address City/[facility]/ZIP Co de Phone Number [facility] SENDOUT INTERNAL ZIP [address] [place] [address] * CREATININE (09/08/2023 5:56 AM CDT) Only the most recent of3 resultswithin the time period is included. [facility] eGFR >90 >90 mL/min/1.7 3m2 09/08/2023 7:02 AM CDT [facility] Comment:As of 2021, eG FR is calculated by the CKD-EPI creatinine equation without race adjustment. ??eGFR can be influenced by muscle mass, exercise, and diet. ??The reported eGFR is an estimation only and is only applicable if the renal function is stable. CREATININE 0.53 0.50 - 0.90 mg/dL 09/08/2023 7:02 AM CDT [facility] Blood BLOOD SPECIMEN / Unknown Venipuncture / Unknown 09/08/2023 5:56 AM CDT 09/08/2023 6:26 AM CDT Elizabeth Perkins MD CHEMISTRY [facility] SENDOUT INTERNAL ZIP [address] [address] [place] [address] * CBC W PLT NO DIFF (09/07/2023 6:34 AM CDT) [facility] WHITE BLOOD COUNT 9.5 4.5 - 11.0 thou/cu mm 09/07/2023 6:56 AM [facility] RED BLOOD COUNT 4.52 4.00 - 5.20 mil/cu mm 09/07/2023 6:56 AM [facility] HEMOGLOBIN 13.8 12.0 - 16.0 g/dL 09/07/2023 6:56 AM [facility] HEMATOCRIT 40.7 33.0 - 51.0 % 09/07/2023 6:56 AM [facility] MCV 90 80 - 100 fL 09/07/2023 6:56 AM [facility] MCH 30.5 26.0 - 34.0 pg 09/07/2023 6:56 AM [facility] MCHC 33.9 32.0 - 36.0 g/dL 09/07/2023 6:56 AM [facility] RDW 11.9 11.5 - 15.5 % 09/07/2023 6:56 AM [facility] PLATELET COUNT 166 140 - 440 thou/cu mm 09/07/2023 6:56 AM [facility] MPV 10.9 6.5 - 11.0 fL 09/07/2023 6:56 AM [facility] NRBC 0.0 % 09/07/2023 6:56 AM [facility] ABS NRBC 0.0 thou /cu mm 09/07/2023 6:56 AM [facility] Blood BLOOD SPECIMEN / Unknown Venipuncture / Unknown 09/07/2023 6:34 AM CDT 09/07/2023 6:47 AM CDT Elizabeth Perkins MD HEMATOLOGY [facility] SENDOUT INTERNAL ZIP [address] [place] [address] * (ABNORMAL) GLUCOSE METER (09/07/2023 2:32 AM CDT) Only the most recent of18 resultswithin the time period is included. GLUCOSE METER 122(H) 65 - 100 mg/dL 09/07/2023 2:36 AM T [facility] Blood BLOOD SPECIMEN / Unknown 09/07/2023 2:32 AM CDT 09/07/2023 2:36 AM CDT Marlene May MD CHEMISTRY Performing Organization Address [facility]/ZIP Co de Phone Number [facility] SENDOUT INTERNAL ZIP [phone] [place] [address] * SCAN-CARDIAC STRIP (09/06/2023 9:05 AM CDT) Scanner OTHER * SCAN-CARDIAC STRIP (09/06/2023 5:25 AM CDT) Scanner OTHER * MAGNESIUM (09/05/2023 8:45 AM CDT) Only the most recent of3 resultswithin the time period is included. MAGNESIUM 1.6 1.6 - 2.4 mg/dL 09/05/2023 9:48 AM CDT [facility] Blood BLOOD SPECIMEN / Unknown Venipuncture / Unknown 09/05/2023 8:45 AM CDT 09/05/2023 9:23 AM CDT Elizabeth Perkins MD CHEMISTRY Performing Organization Address City/[facility]/ZIP Co de Phone Number [facility] SENDOUT INTERNAL ZIP [phone] [place] [address] * SCAN-CARDIAC STRIP (09/05/2023 8:20 AM CDT) Scanner OTHER * SCAN-CARDIAC STRIP (09/04/2023 8:04 AM CDT) Scanner OTHER * SCAN-CARDIAC STRIP (09/04/2023 2:44 AM CDT) Scanner OTHER * EKG 12 LEAD (09/03/2023 4:26 PM CDT) Interpretation Sinus rhythm with occasional Premature ventricular complexes Rightward axis Incomplete left bundle branch block ST & T wave abnormality, consider lateral ischemia Prolonged QT Abnormal ECG When compared with ECG of 10-MAR-2023 15:48, Sinus rhythm has replaced Electronic atrial pacemaker Incomplete left bundle branch block is now Present BEYOND NOW Ventricular Rate 85 BPM BEYOND NOW Atrial Rate 85 BPM BEYOND NOW P-R Interval 162 ms BEYOND NOW QRS Duration 116 ms BEYOND NOW QT 406 ms BEYOND NOW QTc 483 ms BEYOND NOW P [place] 60 degrees BEYOND NOW R [place] 94 degrees BEYOND NOW T [place] 115 degrees BEYOND NOW 09/03/2023 4:26 PM CDT 09/04/2023 7:45 AM CDT Elizabeth Perkins MD EKG ORD Performing Organization Address City/[facility]/ZIP Co de Phone Number BEYOND NOW [place], [place] * SCAN-CARDIAC STRIP (09/03/2023 9:32 AM CDT) Scanner OTHER * Hemoglobin A1C Screening (09/02/2023 3:43 PM CDT) HEMOGLOBIN A1C SCREENING 5.5 <=6.4 % 09/02/2023 3:57 PM CDT [facility] Blood BLOOD SPECIMEN / Unknown Non-Lab Venipuncture / Unknown 09/02/2023 3:43 PM CDT 09/02/2023 3:50 PM CDT Narrative [facility] - 09/02/2023 3:57 PM CDT ? (<5.7%) ?Normal ? (5.7% to 6.4%) ? Indicates prediabetes ? (>=6.5%) ? Confirms diabetes Falsely low levels may be seen with: Recent Transfusion, Recent Significant Blood Loss, Hemolytic Diseases, or Falsely elevated levels may be seen with: Untreated Anemias, Splenectomy Nunu Landrum MD CHEMISTRY [facility] SENDOUT INTERNAL ZIP [address] [place] [address] * PLATELET COUNT (09/02/2023 3:43 PM CDT) PLATELET COUNT 189 140 - 440 thou/cu mm 09/02/2023 4:03 PM CDT [facility] MPV 10.8 6.5 - 11.0 fL 09/02/2023 4:03 PM CDT [facility] Blood BLOOD SPECIMEN / Unknown Non-Lab Venipuncture / Unknown 09/02/2023 3:43 PM CDT 09/02/2023 3:50 PM CDT Nunu Landrum MD HEMATOLOGY [facility] SENDOUT INTERNAL ZIP [address] [place] [address] * WHITE BLOOD COUNT (09/02/2023 3:43 PM CDT) WHITE BLOOD COUNT 7.4 4.5 - 11.0 thou/cu mm 09/02/2023 4:03 PM CDT [facility] NRBC 0.0 % 09/02/2023 4:03 PM CDT [facility] ABS NRBC 0.0 thou /cu mm 09/02/2023 4:03 PM CDT [facility] Blood BLOOD SPECIMEN / Unknown Non-Lab Venipuncture / Unknown 09/02/2023 3:43 PM CDT 09/02/2023 3:50 PM CDT Nunu Landrum MD HEMATOLOGY [facility] SENDOUT INTERNAL ZIP [address] [place] [address] * SODIUM (09/02/2023 3:43 PM CDT) SODIUM 139 136 - 145 mmol/L 09/02/2023 4:24 PM CDT [facility] Blood BLOOD SPECIMEN / Unknown Non-Lab Venipuncture / Unknown 09/02/2023 3:43 PM CDT 09/02/2023 3:50 PM CDT Nunu Landrum MD CHEMISTRY [facility] SENDOUT INTERNAL ZIP [address] [address] [place] [address] * (ABNORMAL) BILIRUBIN,TOTAL (09/02/2023 3:43 PM CDT) BILIRUBIN,TOTA L 1.5(H) 0.0 - 1.2 mg/dL 09/02/2023 4:24 PM CDT [facility] Blood BLOOD SPECIMEN / Unknown Non-Lab Venipuncture / Unknown 09/02/2023 3:43 PM CDT 09/02/2023 3:50 PM CDT Nunu Landrum MD CHEMISTRY [facility] SENDOUT INTERNAL ZIP [address] [place] [address] * ALT (SGPT) (09/02/2023 3:43 PM CDT) ALT (SGPT) 13 10 - 35 IU/L 09/02/2023 4:24 PM CDT [facility] Blood BLOOD SPECIMEN / Unknown Non-Lab Venipuncture / Unknown 09/02/2023 3:43 PM CDT 09/02/2023 3:50 PM CDT Nunu Landrum MD CHEMISTRY [facility] SENDOUT INTERNAL ZIP [address] [place] [address] * AST (SGOT) (09/02/2023 3:43 PM CDT) AST (SGOT) 28 10 - 35 IU/L 09/02/2023 4:24 PM CDT [facility] Blood BLOOD SPECIMEN / Unknown Non-Lab Venipuncture / Unknown 09/02/2023 3:43 PM CDT 09/02/2023 3:50 PM CDT Nunu Landrum MD CHEMISTRY [facility] SENDOUT INTERNAL ZIP [address] [place] [address] * ALK PHOSPHATASE (09/02/2023 3:43 PM CDT) ALK PHOSPHATASE 75 35 - 104 IU/L 09/02/2023 4:24 PM CDT [facility] Blood BLOOD SPECIMEN / Unknown Non-Lab Venipuncture / Unknown 09/02/2023 3:43 PM CDT 09/02/2023 3:50 PM CDT Nunu Landrum MD CHEMISTRY [facility] SENDOUT INTERNAL ZIP [address] [address] [place] [address] * Lipid Panel (09/02/2023 3:43 PM CDT) Pathologist [facility] CHOLESTEROL,TOTAL 170 100 - 199 mg/dL 09/02/2023 4:24 PM CDT [facility] Comment: Cholesterol, Total Reference Ranges Desirable <200 mg/dL Borderline 200-239 mg/dL High >=240 mg/dL TRIGLYCERIDES 125 <150 mg/dL 09/02/2023 4:24 PM CDT [facility] HDL CHOLESTEROL 70 >40 mg/dL 4:24 PM CDT [facility] NON-HDL CHOLESTEROL 100 <145 mg/dl 09/02/2023 4:24 PM CDT [facility] CHOL/HDL RATIO 2.43 <4.50 09/02/2023 4:24 PM CDT [facility] LDL CHOLESTEROL 75 <=130 mg/dL 09/02/2023 4:24 PM CDT [facility] VLDL CHOLESTEROL 25 <=30 mg/dL 09/02/2023 4:24 PM CDT [facility] PROVIDER ORDERED STATUS RANDOM 09/02/2023 4:24 PM CDT [facility] Blood BLOOD SPECIMEN / Unknown Non-Lab Venipuncture / Unknown 09/02/2023 3:43 PM CDT 09/02/2023 3:50 PM CDT Nunu Landrum MD CHEMISTRY [facility] SENDOUT INTERNAL ZIP [address] [address] [place] [address] * MR Brain w/wo contrast (09/02/2023 2:09 PM CDT) Anatomical Region Laterality Modality BRAIN, HEAD Magnetic Resonan ce 09/02/2023 2:09 PM CDT Impressions 09/02/2023 2:44 PM CDT 1. 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 2. ??No additional acute intracranial abnormality. 3. ??Moderate presumed chronic small vessel ischemic changes. Narrative 09/02/2023 2:44 PM CDT For Patients: As a result of the Cures Act, medical imaging exams and procedure reports are released immediately into your electronic medical record. You may view this report before your referring provider. If you have questions, please contact your health care provider. EXAM: MR HEAD BRAIN WWO LOCATION: [facility] DATE: 09/02/2023 INDICATION: Neuro deficit, acute, stroke suspected COMPARISON: None. CONTRAST: GADOTERATE MEGLUMINE 0.5 MMOL/ML IV SOLN 15 ML VIAL: 11mL TECHNIQUE: Routine multiplanar multisequence head MRI without and with intravenous contrast. FINDINGS: INTRACRANIAL CONTENTS: Restricted diffusion and T2 FLAIR hyperintensity involving the right cerebral tera and anterior right thalamus. No additional restricted diffusion to suggest recent infarction. No mass, acute hemorrhage, or extra-axial fluid collections. Patchy and confluent nonspecific T2/FLAIR hyperintensities within the cerebral white matter most consistent with moderate chronic microvascular ischemic change. Moderate generalized cerebral atrophy. No hydrocephalus. Mild cerebellar atrophy. No pathologic contrast enhancement. SELLA: No abnormality accounting for technique. OSSEOUS STRUCTURES/SOFT TISSUES: Normal marrow signal. The major intracranial vascular flow voids are maintained. ORBITS: No abnormality accounting for technique. SINUSES/MASTOIDS: No paranasal sinus mucosal disease. No middle ear or mastoid effusion. Procedure Note Perfecto Juárez MD - 09/02/2023 For Patients: As a result of the Cures Act, medical imagingexams and procedure reports are released immediately into your electronicmedical record. You may view this report before your referring provider.If you have questions, please contact your health care provider. EXAM: MR HEAD BRAIN WWO LOCATION: [facility] DATE: 09/02/2023 INDICATION: Neuro deficit, acute, stroke suspected COMPARISON: None. CONTRAST: GADOTERATE MEGLUMINE 0.5 MMOL/ML IV SOLN 15 ML VIAL: 11mL TECHNIQUE: Routine multiplanar multisequence head MRI without and withintravenous contrast. FINDINGS: INTRACRANIAL CONTENTS: Restricted diffusion and T2 FLAIR hyperintensityinvolving the right cerebral tera and anterior right thalamus. Noadditional restricted diffusion to suggest recent infarction. No mass,acute hemorrhage, or extra-axial fluid collections. Patchy and confluentnonspecific T2/FLAIR hyperintensities within the cerebral white mattermost consistent with moderate chronic microvascular ischemic change.Moderate generalized cerebral atrophy. No hydrocephalus. Mild cerebellaratrophy. No pathologic contrast enhancement. SELLA: No abnormality accounting for technique. OSSEOUS STRUCTURES/SOFT TISSUES: Normal marrow signal. The majorintracranial vascular flow voids are maintained. ORBITS: No abnormality accounting for technique. SINUSES/MASTOIDS: No paranasal sinus mucosal disease. No middle ear ormastoid effusion. IMPRESSION: 1. 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 2. No additional acute intracranial abnormality. 3. Moderate presumed chronic small vessel ischemic changes. Nunu Landrum MD MR * ECHO TTE COMPLETE WO CONTRAST (09/02/2023 10:43 AM CDT) Only the most recent of2 resultswithin the time period is included. EJECTION FRACTION 50-55% PROSOLV Anatomical Region Laterality Modality Ultrasound 09/02/2023 10:0 3 AM CDT Narrative 09/02/2023 12:[place] [address] Main: [email or web address] ? Transthoracic Echo Report VALARIE HUANG ID: [id number] Age: 83 : 1940 Ordering Provider: NUNU LANDRUM Exam Date: 09/02/2023 10:03 Gender: F [employer]: [employer] Height: 60 in BSA: 1.54 m?? BP: 168 / 77 Weight: 127 lbs BMI: 24.8 kg/m?? HR: 68 Location: Inpatient (Portable) Rhythm: Artificially Paced Procedure Components: 2D imaging, Color Doppler, Spectral Doppler Indications: afib Technical Quality: Fair Contrast: None Final Conclusion 1. Small left ventricular cavity size. Normal left ventricular wall thickness. Normal left ventricular systolic function. Calculated left ventricular ejection fraction (modified Tidwell technique) is 52%. No regional wall motion abnormalities. 2. Normal right ventricular chamber size. Normal right ventricular systolic function. Estimated right ventricular systolic pressure is 48 mmHg. 3. Grade 2 left ventricular diastolic dysfunction consistent with moderately increased left ventricular filling pressure. 4. 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 Aortic prosthesis effective orifice area by Doppler is 2.1 cm??. Aortic valve systolic mean gradient is 4 mmHg. Aortic valve systolic peak velocity is 1.3 m/sec. No aortic prosthetic or miranda-prosthetic regurgitation. 5. Mild mitral valve regurgitation. 6. Mild tricuspid valve regurgitation. 7. Mild pulmonary valve regurgitation. 8. Severe left atrial enlargement. Mild right atrial enlargement. Estimated EF: 50-55% FINDINGS Left Ventricle Small left ventricular cavity size. Normal left ventricular wall thickness. Normal left ventricular systolic function. Calculated left ventricular ejection fraction (modified Tidwell technique) is 52%. No regional wall motion abnormalities. Diastolic Function Grade 2 left ventricular diastolic dysfunction consistent with moderately increased left ventricular filling pressure. Right Ventricle Normal right ventricular chamber size. Normal right ventricular systolic function. Estimated right ventricular systolic pressure is 48 mmHg. Left Atrium Severe left atrial enlargement. Left atrial volume index is 52 ml/m??. Right Atrium Mild right atrial enlargement. Atrial Septum No evidence of inter-atrial shunt by color flow Doppler. 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 Aortic prosthesis effective orifice area by Doppler is 2.1 cm??. Aortic valve systolic mean gradient is 4 mmHg. Aortic valve systolic peak velocity is 1.3 m/sec. No aortic prosthetic or miranda-prosthetic regurgitation. Mitral Valve Mildly thickened mitral valve. No mitral valve stenosis. Mild mitral valve regurgitation. Tricuspid Valve Normal tricuspid valve. Mild tricuspid valve regurgitation. Pulmonic Valve Pulmonary valve was not well visualized. Mild pulmonary valve regurgitation. Pericardium No pericardial effusion. Aorta Aortic sinus of Valsalva was not well visualized. Ascending aorta was not well visualized. Inferior Vena Cava Normal inferior vena cava with normal inspiratory collapse. Other Device lead(s) identified in the right ventricle. MEASUREMENTS ??(Male / Female) Normal Values 2D MEASUREMENTS AND LV FUNCTION IVS Diastolic Thickness ? 1 cm ?< 1.1 cm / < 1.0 cm LV Diastolic Diameter PLAX ?3.7 cm ?4.2 - 5.9 / 3.9 - 5.3 cm LV Diastolic Diameter Index ? 2.4 cm/m?? LVPW Diastolic Thickness ?0.7 cm ?< 1.1 cm / < 1.0 cm LV Systolic Diameter PLAX ? 2.8 cm LV Systolic Diameter Index ?1.82 cm/m?? LVOT Diameter ? 2.1 cm LVOT Cardiac Output ? 3.86 l/min LVOT Cardiac Index ?2.45 l/min??m?? LVOT Stroke Volume ?56.8 ml Stroke Volume Index ? 36.1 ml/m?? LV Ejection Fraction MOD BP ? 51.5 % ?>= 55 ??% LA Area 4C View ? 23.5 cm?? LA Length 4C ?6.43 cm LA Area 2C View ? 27.8 cm?? LA Length 2C ?6.81 cm LA Volume ? 81.4 ml LA Volume MOD BP ?80.4 ml LA Volume Index MOD BP ?52.2 ml/m?16 - 34 ml/m?? RV Diastolic Basal Diameter ? 3.5 cm RV Diastolic Mid Diameter ? 2.7 cm LV Mass ? 89.5 g LV Mass Index ? 57.3 g/m?? IVC Diameter Expiration ? 1.3 cm M MODE TAPSE MM ?1.93 cm DIASTOLOGY Mitral E Point Velocity ? 0.934 m/sec ? 0.70 - 1.02 m/sec Mitral A Point Velocity ? 0.587 m/sec ? 0.06 - 1.06 m/sec Mitral E to A Ratio ? 1.59 ?1.1 - 2.1 MV Deceleration Time ?180 msec ?167 - 231 msec LV E' Lateral Velocity ?0.0838 m/sec Mitral E to LV E' Lateral Ratio ?? 11.1 LV E' Septal Velocity ? 0.0696 m/sec Mitral E to LV E' Septal Ratio ?13.4 AORTIC VALVE AV Peak Velocity ?1.28 m/sec ?< 2.0 m/sec AV Peak Gradient ?6.55 mmHg AV Mean Gradient ?4 mmHg AV Velocity Time Integral ? 26.8 cm LVOT Peak Velocity ?0.77 m/sec LVOT Velocity Time Integral ? 16.4 cm AV Area Cont Eq vti ? 2.12 cm?? AV Area Cont Eq pk ?2.08 cm?? AV Dimensionless Index ?0.612 MITRAL VALVE MV Pressure Half Time ? 53 msec MV Area PHT ? 4.15 cm?? TRICUSPID VALVE AND ESTIMATED PRESSURES TR Peak Velocity ?3.34 m/sec TR Peak Gradient ?44.5 mmHg Right Atrial Pressure ? 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 BP: 168 / 77 Weight: 127 lbs BMI: 24.8 kg/m?? HR: 68 Location: Inpatient (Portable) Rhythm: Artificially Paced Procedure Components: 2D imaging, Color Doppler, Spectral Doppler Indications: afib Technical Quality: Fair Contrast: None Final Conclusion 1. Small left ventricular cavity size. Normal left ventricular wallthickness. Normal left ventricular systolic function. Calculated left ventricular ejection fraction (modified Tidwell technique) is 52%. Noregional wall motion abnormalities. 2. Normal right ventricular chamber size. Normal right ventricularsystolic function. Estimated right ventricular systolic pressure is 48 mmHg. 3. Grade 2 left ventricular diastolic dysfunction consistent withmoderately increased left ventricular filling pressure. 4. 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 Aorticprosthesis effective orifice area by Doppler is 2.1 cm??. Aortic valve systolic mean gradient is 4 mmHg. Aortic valve systolic peakvelocity is 1.3 m/sec. No aortic prosthetic or miranda-prosthetic regurgitation. 5. Mild mitral valve regurgitation. 6. Mild tricuspid valve regurgitation. 7. Mild pulmonary valve regurgitation. 8. Severe left atrial enlargement. Mild right atrial enlargement. Estimated EF: 50-55% FINDINGS Left Ventricle Small left ventricular cavity size. Normal leftventricular wall thickness. Normal left ventricular systolic function. Calculated left ventricular ejection fraction (modified Simpsontechnique) is 52%. No regional wall motion abnormalities. Diastolic Function Grade 2 left ventricular diastolic dysfunctionconsistent with moderately increased left ventricular filling pressure. Right Ventricle Normal right ventricular chamber size. Normal rightventricular systolic function. Estimated right ventricular systolic pressure is 48 mmHg. Left Atrium Severe left atrial enlargement. Left atrial volume index is52 ml/m??. Right Atrium Mild right atrial enlargement. Atrial Septum No evidence of inter-atrial shunt by color flow Doppler. Aortic Valve Status post TAVR with 26 mm Evolut FX Pro plusvalve(07/12/22). Aortic prosthesis effective orifice area by Doppler is 2.1 cm??. Aortic valve systolic mean gradient is 4 mmHg. Aorticvalve systolic peak velocity is 1.3 m/sec. No aortic prosthetic or miranda-prosthetic regurgitation. Mitral Valve Mildly thickened mitral valve. No mitral valve stenosis.Mild mitral valve regurgitation. Tricuspid Valve Normal tricuspid valve. Mild tricuspid valveregurgitation. Pulmonic Valve Pulmonary valve was not well visualized. Mild pulmonaryvalve regurgitation. Pericardium No pericardial effusion. Aorta Aortic sinus of Valsalva was not well visualized. Ascending aortawas not well visualized. Inferior Vena Cava Normal inferior vena cava with normal inspiratorycollapse. Other Device lead(s) identified in the right ventricle. MEASUREMENTS (Male / Female) Normal Values 2D MEASUREMENTS AND LV FUNCTION IVS Diastolic Thickness 1 cm < 1.1 cm / < 1.0cm LV Diastolic Diameter PLAX 3.7 cm 4.2 - 5.9 / 3.9 -5.3 cm LV Diastolic Diameter Index 2.4 cm/m?? LVPW Diastolic Thickness 0.7 cm < 1.1 cm / < 1.0cm LV Systolic Diameter PLAX 2.8 cm LV Systolic Diameter Index 1.82 cm/m?? LVOT Diameter 2.1 cm LVOT Cardiac Output 3.86 l/min LVOT Cardiac Index 2.45 l/min??m?? LVOT Stroke Volume 56.8 ml Stroke Volume Index 36.1 ml/m?? LV Ejection Fraction MOD BP 51.5 % >= 55 % LA Area 4C View 23.5 cm?? LA Length 4C 6.43 cm LA Area 2C View 27.8 cm?? LA Length 2C 6.81 cm LA Volume 81.4 ml LA Volume MOD BP 80.4 ml LA Volume Index MOD BP 52.2 ml/m?? 16 - 34 ml/m?? RV Diastolic Basal Diameter 3.5 cm RV Diastolic Mid Diameter 2.7 cm LV Mass 89.5 g LV Mass Index 57.3 g/m?? IVC Diameter Expiration 1.3 cm M MODE TAPSE MM 1.93 cm DIASTOLOGY Mitral E Point Velocity 0.934 m/sec 0.70 - 1.02m/sec Mitral A Point Velocity 0.587 m/sec 0.06 - 1.06m/sec Mitral E to A Ratio 1.59 1.1 - 2.1 MV Deceleration Time 180 msec 167 - 231 msec LV E' Lateral Velocity 0.0838 m/sec Mitral E to LV E' Lateral Ratio 11.1 LV E' Septal Velocity 0.0696 m/sec Mitral E to LV E' Septal Ratio 13.4 AORTIC VALVE AV Peak Velocity 1.28 m/sec < 2.0 m/sec AV Peak Gradient 6.55 mmHg AV Mean Gradient 4 mmHg AV Velocity Time Integral 26.8 cm LVOT Peak Velocity 0.77 m/sec LVOT Velocity Time Integral 16.4 cm AV Area Cont Eq vti 2.12 cm?? AV Area Cont Eq pk 2.08 cm?? AV Dimensionless Index 0.612 MITRAL VALVE MV Pressure Half Time 53 msec MV Area PHT 4.15 cm?? TRICUSPID VALVE AND ESTIMATED PRESSURES TR Peak Velocity 3.34 m/sec TR Peak Gradient 44.5 mmHg Right Atrial Pressure 3 mmHg Right Ventricular Systolic Press 47.5 mmHg HCM DATA LVOT LOS (r) 2.37 mmHg Simon Dent MD [facility] Accredited Site (Electronically Signed) Final Date: 02 September 2023 12:20 ICD-10 Codes: Nunu Landrum MD ECHO ORD * US CAROTID DUPLEX BILATERAL (09/02/2023 9:51 AM CDT) Anatomical Region Laterality Modality CAROTID, NECK Ultrasound 09/02/2023 9:51 AM CDT Impressions 09/02/2023 2:25 PM CDT CONCLUSION: 1. ??On the right the peak systolic velocities in the ICA are 194 cm/s (previously 110 cm/s) ??which correspond to the 50-69% stenosis range based on NASCET criteria. Elevated velocities within the external carotid artery concerning for hemodynamically significant stenosis. Normal flow velocities in the CCA. 2. ??On the left the peak systolic velocities in the ICA are 135 cm/s (previously 89 cm/s) which correspond to the 50-69% stenosis range based on NASCET criteria. Normal flow velocities in the CCA and ECA. 3. ??Antegrade flow within the vertebral arteries bilaterally. Narrative 09/02/2023 2:25 PM CDT For Patients: As a result of the Cures Act, medical imaging exams and procedure reports are released immediately into your electronic medical record. You may view this report before your referring provider. If you have questions, please contact your health care provider. EXAM: US CAROTID DUPLEX BILATERAL LOCATION: [facility] DATE: 09/02/2023 INDICATION: CVA/TIA COMPARISON: Ultrasound carotid (10/28/2010) TECHNIQUE: Duplex exam performed utilizing 2D mayo-scale imaging, Doppler interrogation with color-flow and spectral waveform analysis. The percent diameter stenosis is determined using NASCET criteria and Society of Radiologists in Ultrasound Consensus Criteria. FINDINGS: RIGHT: There is a moderate amount of atheromatous plaque. LEFT: There is a moderate amount of atheromatous plaque. Both vertebral arteries and subclavian artery waveforms are normal. VELOCITY CHART: CCA ?? Right: 56 cm/s ?? Left: 94 cm/s ICA ?? Right: 194 cm/s ?? Left: 135 cm/s ECA ?? Right: 599 cm/s ?? Left: 146 cm/s ICA/CCA PSV Ratio ?? Right: 3.5 ?? Left: 1.4 ? Procedure Note Lincoln Morales MD - 09/02/2023 For Patients: As a result of the Cures Act, medical imagingexams and procedure reports are released immediately into your electronicmedical record. You may view this report before your referring provider.If you have questions, please contact your health care provider. EXAM: US CAROTID DUPLEX BILATERAL LOCATION: [facility] DATE: 09/02/2023 INDICATION: CVA/TIA COMPARISON: Ultrasound carotid (10/28/2010) TECHNIQUE: Duplex exam performed utilizing 2D mayo-scale imaging, Dopplerinterrogation with color-flow and spectral waveform analysis. The percentdiameter stenosis is determined using NASCET criteria and Society ofRadiologists in Ultrasound Consensus Criteria. FINDINGS: RIGHT: There is a moderate amount of atheromatous plaque. LEFT: There is a moderate amount of atheromatous plaque. Both vertebral arteries and subclavian artery waveforms are normal. VELOCITY CHART: CCA Right: 56 cm/s Left: 94 cm/s ICA Right: 194 cm/s Left: 135 cm/s ECA Right: 599 cm/s Left: 146 cm/s ICA/CCA PSV Ratio Right: 3.5 Left: 1.4 IMPRESSION: CONCLUSION: 1. On the right the peak systolic velocities in the ICA are 194 cm/s(previously 110 cm/s) which correspond to the 50-69% stenosis range basedon NASCET criteria. Elevated velocities within the external carotid arteryconcerning for hemodynamically significant stenosis. Normal flowvelocities in the CCA. 2. On the left the peak systolic velocities in the ICA are 135 cm/s(previously 89 cm/s) which correspond to the 50-69% stenosis range basedon NASCET criteria. Normal flow velocities in the CCA and ECA. 3. Antegrade flow within the vertebral arteries bilaterally. Lindsey Demarco TRUCK LOADER AND UNLOADER US * SCAN-CARDIAC STRIP (09/02/2023 9:10 AM CDT) Scanner OTHER * SCAN-CARDIAC STRIP (09/02/2023 9:10 AM CDT) Scanner OTHER * SCAN CORRESP-IMAGING (09/02/2023 8:39 AM CDT) Anatomical Region Laterality Modality Other Narrative 09/02/2023 8:39 AM CDT Ordered by an unspecified provider. Other Clinical Staff OTHER * SCAN-CARDIAC STRIP (09/02/2023 6:00 AM CDT) Scanner OTHER * SCAN-CT INTERPRETATION (09/01/2023 12:00 AM CDT) Only the most recent of3 resultswithin the time period is included. Anatomical Region Laterality Modality Other Scanner OTHER * (ABNORMAL) XR DXA BONE DENSITY 2 SITES AXIAL (08/09/2022 10:21 AM SIGNS AND DISPLAYS SALES REPRESENTATIVE) Anatomical Region Laterality Modality Spine, HIPS, HIPL, HIPR Other Impressions 08/10/2022 3:48 PM SIGNS AND DISPLAYS SALES REPRESENTATIVE Osteoporosis. RECOMMENDATIONS: The National Osteoporosis Foundation recommends pharmacologic treatment for patients with T-scores of -2.5 or less, patients with prior history of fragility fractures, or patients with 10-year probability of greater than 3% at hips or greater than 20% of suffering major osteoporotic fractures. Recommend continued optimization of calcium and vitamin D intake through dietary means and/or supplementation and regular exercise. Continue current Alendronate (Fosamax) medication treatment. ??Recheck in 2 years. ??Consider a drug holiday if on Fosamax greater than 5 years. Roz Perrin PA-C [facility] 08/10/2022 Narrative 08/10/2022 3:48 PM SIGNS AND DISPLAYS SALES REPRESENTATIVE For Patients: Results are automatically released to your [facility] account once available, in compliance with federal regulations. This means that you may see your results before your provider has had a chance to review them. Please allow 2-3 business days for your provider to comment on the results. XR DXA Bone Mineral Density (BMD) EXAM LOCATION: [address] [address] PATIENT NAME: Valarie Huang DATE OF : 1940 EXAM DATE: 08/09/2022 REQUESTING PROVIDER: Margaret Allen, DO GENDER AT : female HEIGHT: 5' (07/29/2022) WEIGHT: ??126 lb 6.4 oz (07/29/2022) MENOPAUSAL STATUS: Postmenopausal RACE/ETHNICITY: White RISK FACTORS: Family History of Osteoporosis, Smoking (prior), Weight < 127 lbs. and White Race CURRENT MEDICATION FOR BONE LOSS: Alendronate (Fosamax) INDICATION: Osteoporosis, unspecified osteoporosis type, unspecified pathological presence COMPARISON DATE(S): 2006 & 2018 DXA scans are compared to prior studies for a patient only when the two (or more) studies were performed on the same scanner. It is not possible to compare data generated on one scanner to data from another because there are not standards in DXA equipment. This applies even if the two scanners are made by the same provider enrollment specialist. PROCEDURE: Dual-energy x-ray absorptiometry performed with routine technique. Reporting is completed in the form of a T-score. The T-score represents the standard deviation from peak bone mass based on young healthy adult. A Z-score is used for diagnosis in premenopausal women, and for men under the age of 50. FINDINGS: RESULT LUMBAR SPINE L1 - L4 and L2 - L4 ??BMD: 1.346 g/cm2 T-Score: + 1.0 Z-Score: + 3.2 Change from prior in 2006: ??Increase 4.8%. RESULTS FEMUR Left femoral neck BMD: 0.808 g/cm2 T-Score: - 1.7 Z-Score: + 0.7 Change from prior in 2019: ??Increase 7.0%. Right femoral neck BMD: 0.636 g/cm2 T-Score: - 2.9 Z-Score: - 0.5 Change from prior in 2019: ??Decrease 2.9%. Left hip BMD: 0.807 g/cm2 T-Score: - 1.6 Z-Score: + 0.6 Change from prior in 2019: ??Decrease 2.2%. Right hip BMD: 0.808 g/cm2 T-Score: - 1.6 Z-Score: + 0.7 Change from prior in 2019: ??Decrease 3.6%. WHO criteria: Normal: T-score at or above -1 SD Osteopenia: T-score between -1.1 and -2.4 SD Osteoporosis: T-score at or below -2.5 SD Margaret Allen DO DEXA from Last 3 Months or Most Recently Relevant to Health Maintenance Advance Directives Documents on File Type Date Recorded Patient Differential Repairer Expl anation Healthcare Directive 08/16/2016 11:07 AM LORENE IBARRA 07/21/2009 * DNR (Latest Code Status on File) Date Activated Date Inactivated Comments 09/06/2023 11:54 AM 09/21/2023 1:24 PM Question Answer Comments Code Status Discussion: Reviewed Preferences * DNR Date Activated Date Inactivated Comments 09/03/2023 4:09 PM 09/06/2023 11:01 AM Question Answer Comments Code Status Discussion: Reviewed Preferences * Full Code Date Activated Date Inactivated Comments 09/02/2023 3:42 AM 09/03/2023 4:09 PM Question Answer Comments Code Status Discussion: Unable to Assess Preferences, Provider to review later * Full Code Date Activated Date Inactivated Comments 07/14/2022 4:36 PM 07/15/2022 6:20 PM Question Answer Comments Code Status Discussion: Reviewed Preferences * Full Code Date Activated Date Inactivated Comments 06/18/2022 10:50 AM 06/19/2022 2:39 PM Question Answer Comments Code Status Discussion: Reviewed Preferences Care Teams Coremaker Helper Relationship Specialty Start Date End [place] [address] PCP - General Family Practice 03/10/17 Chelsy Chinchilla MD Ophthalmology Surgery 04/17/13 [place] [id number] [facility] [id number] 09/20/23 Zainab Reyes, RN [address] [id number] School Manager Registered Nurse 09/23/23
--- NOTE | 2023-09-24 12:42 | CT_ITS ---
Patient: VALARIE HUANG Facility:?[facility] Patient ID:?[id number] Site Patient ID:?[id number]. Site :?1940 Study:?CT-Head W/O-09/24/2023 1:35:51 PM Ordering Physician:JUDITH Final Report: Indication : Facial tingling. Technique : CT of the brain without intravenous contrast. Comparison: CT head 09/01/2023. Findings: No acute blurring of the mayo-white differentiation. There is no intracranial hemorrhage. The ventricles are proportionate to the cerebral sulci. The 4th ventricle is midline. Basal cisterns appear patent. No abnormal extra-axial fluid collection identified. Mild parenchymal volume loss. There is [id number] patchy periventricular hypodensity, favored to represent chronic ischemic microvascular disease. There is no intracranial mass, mass effect or midline shift identified. No depressed calvarial fracture. Impression: 1. No acute intracranial process. 2. [id number]-[id number] chronic ischemic microvascular disease. Please note that all CT scans at this facility use dose modulation, iterative reconstruction, and/or weight-based dosing when appropriate to reduce radiation dose to as low as reasonably achievable. Dictated by Oleg Feliz MD @ 09/24/2023 2:32:15 PM Signed by:?Oleg Feliz MD @09/24/2023 2:32:15 PM (Electronic Signature)
--- NOTE | 2023-09-24 12:52 | ED.GENADULT ---
HPI - General Adult General Chief complaint: Unspecified Complaint, Adult Stated complaint: Tingly face Time Seen by Provider: 09/24/23 12:27 History of Present Illness HPI narrative: Patient is an 81 year white female who presents with some transient left cheek tingling and tongue tingling and then ripped resolution. She had a recent stroke about 2 and half weeks ago where she is playing bingo the [employer]. Was shipped [facility] had an MRI scan and a confirm stroke. She had been on Eliquis prior and continues on Eliquis. Also appears to be on clopidogrel. She reports today she had no headache no word-finding inability no facial asymmetry the patient had no motor weakness in her arms legs. She said this was transient and now improved. She continues on Eliquis in the clopidogrel as mention. She had no chest pain, no recent fever chills illness. She reports she was hospitalized at [facility] 2 and half weeks ago when she was playing bingo and had this stroke. She has had no recent symptoms since the time of her stroke. She had minimal residual. She did report that she has had some blurred vision since her stroke and a little bit a lid lag on the right Related Data Home Medications Medication Instructions Recorded Confirmed acyclovir 400 mg tablet 400 mg PO 3XD PRN 09/08/22 09/24/23 omeprazole 20 mg capsule,delayed 20 mg PO DAILY 09/08/22 09/24/23 release propranolol 80 mg capsule,24 80 mg PO DAILY 09/08/22 09/24/23 hr,extended release apixaban 5 mg tablet (Eliquis) 5 mg PO BID 10/11/22 09/24/23 aspirin 81 mg chewable tablet 81 mg PO DAILY 10/11/22 09/24/23 (Aspirin Childrens) calcium carbonate 500 mg-vitamin 1 tab PO DAILY 10/11/22 09/24/23 D3 3.125 mcg (125 unit) tablet cholecalciferol (vitamin D3) 25 25 mcg PO DAILY 10/11/22 09/24/23 mcg (1,000 unit) capsule coenzyme Q10 100 mg capsule 100 mg PO DAILY 10/11/22 09/24/23 fexofenadine 180 mg tablet 180 mg PO DAILY 10/11/22 09/24/23 (Karolyn Allergy) fluticasone propionate 50 2 spray intranasal DAILY PRN 10/11/22 10/13/22 mcg/actuation nasal spray,suspension magnesium oxide 400 mg PO DAILY 10/11/22 09/24/23 metoprolol tartrate 25 mg tablet 12.5 - 25 mg PO DAILY PRN 10/11/22 09/24/23 multivitamin 1 tab PO DAILY 10/11/22 09/24/23 rosuvastatin 40 mg tablet (Crestor) 40 mg PO DAILY 10/11/22 10/13/22 clopidogrel 75 mg tablet 75 mg PO DAILY 09/24/23 09/24/23 losartan 25 mg tablet 12.5 mg PO DAILY 09/24/23 ofloxacin 0.3 % eye drops 1 drp ophthalmic (eye) QID 09/24/23 09/24/23 potassium chloride 20 mEq 20 meq PO DAILY 09/24/23 09/24/23 tablet,extended release(part/cryst) propranolol 20 mg tablet 20 mg PO DAILY 09/24/23 09/24/23 Allergies Allergy/AdvReac Type Severity Reaction Status Date / Time Sulfa (Sulfonamide Allergy Verified 09/24/23 12:32 Antibiotics) Review of Systems Status of ROS: Reports: 6 or more systems reviewed and unremarkable except as noted in History and below [facility] Medical History Aortic stenosis ?I35.0 - Nonrheumatic aortic (valve) stenosis (ICD-10) Cardiac pacemaker in situ ?Z95.0 - Presence of cardiac pacemaker (ICD-10) E. coli UTI ?N39.0 - Urinary tract infection, site not specified (ICD-10) ?B96.20 - Unspecified Escherichia coli [E. coli] as the cause of diseases classified elsewhere (ICD-10) SSS (sick sinus syndrome) ?I49.5 - Sick sinus syndrome (ICD-10) Prolonged Q-T interval on ECG ?R94.31 - Abnormal electrocardiogram [ECG] [EKG] (ICD-10) KEVIN (obstructive sleep apnea) ?G47.33 - Obstructive sleep apnea (adult) (pediatric) (ICD-10) ASHD (arteriosclerotic heart disease) ?I25.10 - Atherosclerotic heart disease of [place] coronary artery without angina pectoris (ICD-10) Paroxysmal atrial fibrillation ?I48.0 - Paroxysmal atrial fibrillation (ICD-10) Dyspnea on exertion ?R06.09 - Other forms of dyspnea (ICD-10) Pulmonary hypertension ?I27.20 - Pulmonary hypertension, unspecified (ICD-10) Adjustment disorder with depressed mood ?F43.21 - Adjustment disorder with depressed mood (ICD-10) Essential and other specified forms of tremor ?G25.0 - Essential tremor (ICD-10) ?G25.2 - Other specified forms of tremor (ICD-10) Unspecified essential hypertension ?I10 - Essential (primary) hypertension (ICD-10) Fibromyalgia ?M79.7 - Fibromyalgia (ICD-10) GERD (gastroesophageal reflux disease) ?K21.9 - Gastro-esophageal reflux disease without esophagitis (ICD-10) Surgical History History of YAG laser capsulotomy of lens of left eye ?Z98.42 - Cataract extraction status, left eye (ICD-10) Hx of tubal ligation ?Z98.51 - Tubal ligation status (ICD-10) Hx of cataract extraction ?Z98.49 - Cataract extraction status, unspecified eye (ICD-10) Social History Smoking Status: Former smoker Do you use any of these nicotine containing products: None Second hand tobacco smoke exposure: No How often do you have a drink containing alcohol: 2-3 times a week How many standard drinks containing alcohol do you have on a typical day: 3 or 4 How often do you have six or more drinks on one occasion: Never AUDIT-C Alcohol total score: 4 Non-prescribed substance use: denies use Caffeine: Yes service: No Exam Narrative: Exam Narrative: Objective: Patient has a temp of 99? vital signs otherwise unremarkable HEENT shows just a very minimal ptosis of the right eye but she is able to fully open her eyes she has normal creases in her forehead no facial asymmetry. She can protrude her tongue midline, mouth opens normally, there is with a smile no facial droop. Neck is supple Chest clear Heart regular rhythm with 2/6 systolic murmur, occasional ectopic beat noted Abdomen benign Extremities neurologic nonfocal, normal sensation, normal strength in her hands and legs, no drift her hands or legs, cognition is normal, mental status normal, oriented and alert x3 Const: Vital Signs, click to edit/add: Vital Signs - 24 hr 09/24/23 12:27 09/24/23 14:30 Temperature 99.0 F Pulse Rate [Right Pulse Oximeter] 65 70 Respiratory Rate 18 18 Blood Pressure [Le ft Forearm] 153/78 H 134/63 Pulse Oximetry 98 96 Oxygen Delivery Me thod Room Air Room Air Course Vital Signs Vital signs: Initial Vital Signs Temperature 99.0 F 09/24/23 12:27 Temperature Source Temporal Artery Scan 09/24/23 12:27 Pulse Rate 65 09/24/23 12:27 Pulse Rhythm Regular 09/24/23 12:27 Respiratory Rate 18 09/24/23 12:27 Blood Pressure 153/78 H 09/24/23 12:27 Blood Pressure Mean 103 09/24/23 12:27 Blood Pressure Position Semi-Fowlers 09/24/23 12:27 Pulse Oximetry 98 09/24/23 12:27 Oxygen Delivery Method Room Air 09/24/23 12:27 Vital Signs Temperature 99.0 F 09/24/23 12:27 Pulse Rate 65 09/24/23 12:27 Respiratory Rate 18 09/24/23 12:27 Blood Pressure 153/78 H 09/24/23 12:27 Pulse Oximetry 98 09/24/23 12:27 Oxygen Delivery Method Room Air 09/24/23 12:27 Temperature 99.0 F 09/24/23 12:27 Pulse Rate 70 09/24/23 14:30 Respiratory Rate 18 09/24/23 14:30 Blood Pressure 134/63 09/24/23 14:30 Pulse Oximetry 96 09/24/23 14:30 Oxygen Delivery Method Room Air 09/24/23 14:30 Medical Decision Making [facility] Narrative Medical decision making narrative: 83-year-old female to half weeks status post CVA, on Eliquis and clopidogrel, with some transient few 2nd tingling of her left side of her tongue and face, no weakness noted. Will repeat a CT scan, then consult with Stroke Neurology. Patient was comfortable this plan. Will also repeat an EKG. Patient has been ambulatory without difficulty no arm or leg weakness, the patient has had no imbalance. No word-finding inability. Addendum 2:06 p.m.: The patient's EKG shows sinus rhythm caval occasional PVCs, no obvious ischemic changes by my read. Discussed with Dr. schultz of Stroke Neurology who was able to look at the MRI a from a couple weeks ago and showed no RO no large vessel occlusion. If the patient has negatives CT scan and no evidence of bleeding patient could be discharged home on her same medications. She had transient symptoms can recur with hypotension or dehydration and she stay adequately hydrated as well as if she gets any symptoms of tingling in her face she should lie down that often reperfuse is and will help her symptoms. This is per Stroke Neurology. The patient will continue her same medications if her CT scan is negative for bleeding. She should follow up with regular doctor next couple of weeks. Return to ED sooner problems or concerns. Addendum 2:30 p.m. the patient's head CT comes back as showing chronic changes but no acute bleed, discharge home as per Dr. schultz recommendation Discharge Plan Discharge Clinical Impression: Facial paresthesia Patient Disposition: Home w/ Parent or Adult Condition: Improved Additional Instructions: Adequate fluid intake, drink lots of water, if you get tingling in your face she can try lying down to see if that will help your symptoms. Continue her same medications at home, recommend he follow up with regular doctor within the next couple of weeks, return to ED sooner problems or concerns Activity Level: Light activity Discharge Diet: Heart Healthy (2 gm sodium, low fat) Prescriptions: No Action ofloxacin 0.3 % drops 1 drp ophthalmic (eye) QID clopidogrel 75 mg tablet 75 mg PO DAILY potassium chloride 20 mEq tablet,ER particles/crystals 20 meq PO DAILY losartan 25 mg tablet 12.5 mg PO DAILY propranolol 20 mg tablet 20 mg PO DAILY Eliquis 5 mg tablet 5 mg PO BID aspirin [Aspirin Childrens] 81 mg tablet,chewable 81 mg PO DAILY calcium carbonate-vitamin D3 500 mg-3.125 mcg (125 unit) tablet 1 tab PO DAILY cholecalciferol (vitamin D3) 25 mcg (1,000 unit) capsule 25 mcg PO DAILY coenzyme Q10 100 mg capsule 100 mg PO DAILY fexofenadine [Karolyn Allergy] 180 mg tablet 180 mg PO DAILY fluticasone propionate 50 mcg/actuation spray,suspension 2 spray intranasal DAILY PRN Rx Instructions: administer into each nostril magnesium oxide 400 mg magnesium capsule 400 mg PO DAILY metoprolol tartrate 25 mg tablet 12.5 - 25 mg PO DAILY PRN multivitamin Tablet 1 tab PO DAILY rosuvastatin [Crestor] 40 mg tablet 40 mg PO DAILY acyclovir 400 mg tablet 400 mg PO 3XD PRN propranolol 80 mg capsule,extended release 24hr 80 mg PO DAILY omeprazole 20 mg capsule,delayed release(DR/EC) 20 mg PO DAILY Follow Up/Referrals: Margaret Allen DO [Primary Care Provider] - Stand Alone Forms: [facility] Info Instructions
--- OUTSIDE RECORDS SUMMARY | 2023-09-24 12:57 | XMS_ITS | Clinical Summary ---
Author Name Unknown Organization [facility] Address [place], [place] [address] Care Team Providers Care Supervisor Paint Department Name Role Phone Chelsy Chinchilla MD Unavailable [phone] Margaret Allen DO Primary Care Provider [phone] [facility] Care, Shea Unavailable Zainab Reyes RN Unavailable [phone] Allergies Active Allergy Reactions Criticality Noted Date [...] Sprays into affected nostril(s) three times daily. [place] dose in each nostril. 30 mL 11 [...] Eligibility Review Date: 07/20/19 Upcoming Visit Location: [facility] Age: 78 y.o. 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 09/23/2023 Patient Outreach [facility] [address] [facility] [address] [place] [address] Zainab Reyes RN Stroke Rehab Care Coordination - [facility] 09/23/2023 Nurse Triage [facility] [address] [place] [address] Margaret Allen DO left wrist pain 09/22/2023 10:00 AM CDT [facility] [address] [place] [address] Lauren Davila, RN SN - OASIS START OF CARE 09/22/2023 [facility] [address] [place] [address] Lauren Davila, RN CARE COORDINATION 09/22/2023 Telephone [facility] [address] [place] [address] Margaret Allen DO Home Care (SOC/ Drug Interactions) 09/22/2023 Plan of Care Documentation [place] [id number] [place] [phone] 09/22/2023 Patient Outreach [facility] [address] [place] [address] Iona Howell, RN Primary RN Care Management; Hospital F/U (LACE 66) 09/06/2023 11:01 AM CDT - 09/21/2023 11:19 AM CDT Hospital Encounter [facility] [address] [place] [address] Marlene May MD Acute CVA (cerebrovascular accident) [...] Home Health 09/06/2023 Travel 09/05/2023 Orders Only [place] [address] [place] [phone] Verónica Shore PA <No scans attached> 09/05/2023 Travel 09/02/2023 3:08 AM CDT - 09/06/2023 10:52 AM CDT Hospital Encounter [facility] [address] [place] [address] [facility] Nunu Guevara MD Talberg, MD Maddie Jones Priya, MD Acute CVA (cerebrovascular accident) (HC) (Primary Dx); Hypertension; Atrial flutter with rapid ventricular response (HC); Health care maintenance Discharge Disposition: Rehab Facility or Unit 09/02/2023 Telephone [facility] [address] [place] [phone] Lindsey Demarco NP Hospital F/U 09/01/2023 Orders Only [facility] Scanner 1 scan: (1-Ord) SEAN IBARRA, 09/01/2023 09/01/2023 Orders Only [facility] Scanner 1 scan: (1-Ord) PILOT KNOB, HEAD ANGIO, 09/01/2023 09/01/2023 Orders Only [facility] Scanner 1 scan: (1-Ord) [facility] CT HEAD/BRAIN WO CON, 09/01/2023 09/01/2023 Office Visit [facility] [address] [place] [phone] Edith Bentley MD Telehealth ([facility] (telephone consult)) 09/01/2023 Telephone [facility] [address] [place] [address] Margaret Allen DO Questions 08/26/2023 Telephone [facility] [address] [facility] [address] [place] [phone] Avel Richards MD Concerns 07/28/2023 9:09 AM HYDROGRAPHICAL TECHNICAL OFFICER - 07/28/2023 11:59 PM HYDROGRAPHICAL TECHNICAL OFFICER Hospital Encounter [address] [place] [address] Levon Grant MBBS Sherman, Jean S/P TAVR (transcatheter aortic valve replacement) 07/28/2023 Travel 07/27/2023 Refill [facility] [address] [place] [address] Margaret Allen DO Refill Request (Acyclovir) from Last 3 Months Immunizations Name Administration Dates Next Due AMB INFLUENZA IIV3 (AGE 65+ YRS) PF (Flu Clinic Only) 03/31/2018,03/30/2017 AMB Influenza, IIV3 (Age >=3 years)(Flu Clinic Only) 03/30/2011,04/14/2010 Amb Influenza, Inact (High-d ose) (Flu Clinic Only) 04/23/2016,03/21/2015,03/19/2014 COVID-19 vaccine ([employer]) 30mcg/0.3mL) TASIA BELLA 03/11/2021,08/19/2020,07/29/2020 Hepatitis A (Adult) [...] Description 09/26/2023 1:05 PM CDT Office Visit [facility] [address] [place] [address] Margaret Allen DO [address] [place] [address] 09/27/2023 4:00 AM CDT Home Care Visit [facility] [address] [place] [phone] Ludin Shaw, MED SURG RN [address] [place] [address] 10/17/2023 11:30 AM CDT Phone Office Visit [facility] [address] [place] [phone] Lindsey Demarco NP [address] [place], [place] [phone] 11/23/2023 10:15 AM CDT Office Visit [facility] [address] [place] [address] Marlene May MD [address] [place] [address] 12/07/2023 8:30 AM CDT Appointment [facility] [address] [place] [address] 12/07/2023 9:30 AM CDT Office Visit [place] [address] [place] [phone] Patricia Craig MD [address] [place] [address] 12/20/2023 2:00 PM CDT Cardiac Device Check [facility] [place] [facility] [address] [place] [address] Health Maintenance Due Date Last [...] COMPLETE WO CONTRAST Routine 07/28/2023 10:10 AM HYDROGRAPHICAL TECHNICAL OFFICER S/P TAVR (transcatheter aortic valve replacement) XR DXA BONE DENSITY 2 SITES AXIAL Routine 08/09/2022 10:21 AM HYDROGRAPHICAL TECHNICAL OFFICER Osteoporosis, unspecified osteoporosis type, unspecified pathological fracture presence from Last 3 Months or Most Recently Relevant to Health Maintenance Results * (ABNORMAL) BASIC METABOLIC PANEL (09/20/2023 11:05 AM CDT) Only the most recent of2 resultswithin the time period is included. SODIUM 140 136 - 145 mmol/L 09/20/2023 11:[address] [facility] POTASSIUM 3.1(L) 3.5 - 5.1 mmol/L 09/20/2023 11:[address] [facility] CHLORIDE 103 98 - 107 mmol/L 09/20/2023 11:[address] [facility] CO2,TOTAL 25 22 - 29 mmol/L 09/20/2023 11:[address] [facility] ANION GAP 12 5 - 18 09/20/2023 11:[address] [facility] GLUCOSE 92 70 - 99 mg/dL 09/20/2023 11:[address] [facility] CALCIUM 9.4 8.8 - 10.2 mg/dL 09/20/2023 11:[address] [facility] BUN 7(L) 8 - 23 mg/dL 09/20/2023 11:[address] [facility] CREATININE 0.56 0.50 - 0.90 mg/dL 09/20/2023 11:[address] [facility] BUN/CREAT RATIO 13 10 - 20 11:[address] [facility] eGFR >90 >90 mL/min/1.7 3m2 09/20/2023 11:[address] [facility] Comment:As of 2021, eG [...] 11:07 AM CDT Marlene May MD CHEMISTRY [facility] SENDOUT INTERNAL ZIP [phone] [place] [address] * UA W/ SEDIMENT EXAM REFLEXED PER CRITERIA (09/19/2023 5:57 PM CDT) Only the most recent of3 resultswithin the time period is included. COLOR Yellow Yellow Color 09/19/2023 6:[address] [facility] CLARITY Clear Clear Clarity 09/19/2023 6:[address] [facility] SPECIFIC GRAVITY,URINE 1.010 1.010, 1.015, 1.020, 1.025 09/19/2023 6:[address] [facility] PH,URINE 6.0 6.0, 7.0, 8.0, 5.5, 6.5, 7.5, 8.5 09/19/2023 6:[address] [facility] UROBILINOGEN, QUALITATIVE Normal Normal EU/dl 09/19/2023 6:[address] [facility] PROTEIN, URINE Negative Negative mg/dL 09/19/2023 6:[address] [facility] GLUCOSE, URINE Negative Negative mg/dL 09/19/2023 6:[address] [facility] KETONES,URINE Negative Negative mg/dL 09/19/2023 6:[address] [facility] BILIRUBIN,URI NE Negative Negative 09/19/2023 6:[address] [facility] OCCULT BLOOD,URINE Negative Negative 09/19/2023 6:[address] [facility] NITRITE Negative Negative 09/19/2023 6:[address] [facility] LEUKOCYTE ESTERASE Negative Negative 09/19/2023 6:[address] [facility] Urine URINE SPECIMEN / Unknown Non-Blood / Unknown 09/19/2023 5:57 PM CDT 09/19/2023 6:03 PM CDT Marlene May MD URINE [facility] SENDOUT INTERNAL ZIP [phone] [place] [address] * XR VIDEO SWALLOW W SPEECH (09/19/2023 [...] EXAM: XR VIDEO SWALLOW W SPEECH LOCATION: [facility] MEDICAL [facility]AGING DATE: 09/19/2023 INDICATION: Difficulty swallowing. [...] EXAM: XR VIDEO SWALLOW W SPEECH LOCATION: [facility] DATE: 09/19/2023 INDICATION: Difficulty swallowing. [...] None Seen /HPF 09/10/2023 3:[address] [facility] WBC >100(A) 0-2, 3-5, None Seen /HPF 09/10/2023 3:[address] [facility] BACTERIA Many(A) None Seen, Rare, Few Bacteria/ HPF 09/10/2023 3:[address] [facility] EPITHELIAL CELLS None Seen None Seen, Few Epi/HPF 09/10/2023 3:[address] [facility] HYALINE CASTS 0-2 0-2, 3-5 /LPF 09/10/2023 3:[address] [facility] Urine URINE SPECIMEN / Unknown Non-Blood / Unknown 09/10/2023 3:04 PM CDT 09/10/2023 3:07 PM CDT Marlene May MD URINE [facility] SENDOUT INTERNAL [facility] [[email or web address]] [id number] [place] [address] * (ABNORMAL) URINE CULTURE (09/10/2023 3:04 PM CDT) CULTURE RESULT(A) 09/13/2023 10:08 AM CDT [facility] CULTURE >100,000 CFU/mL Enterococcus faecalis 09/13/2023 10:08 AM CDT [facility] CULTURE <10,000 CFU/mL Multiple organisms probable contaminants 09/13/2023 10:08 AM CDT [facility] Urine URINE SPECIMEN / Unknown Non-Blood / Unknown 09/10/2023 3:04 PM CDT 09/10/2023 3:07 PM CDT Narrative Organism Antibiotic Method Susceptibility Enterococcus faecalis AMPICILLIN <=2: S Enterococcus faecalis NITROFURANTOIN <=16: S Marlene May MD MICROBIOLOGY [facility] [address] [place] [address], * (ABNORMAL) TSH (09/08/2023 5:56 AM CDT) TSH 4.44(H) 0.27 - 4.20 uIU/mL 09/08/2023 7:[address] [facility] Blood BLOOD SPECIMEN / Unknown Venipuncture / Unknown 09/08/2023 5:56 AM CDT 09/08/2023 6:[address] [facility] - 09/08/2023 7:02 AM CDT In Adults, TSH values between 5.00 and 10.00 uIU/ml do not necessarily indicate the presence of Hypothyroidism. Correlation with clinical findings such as presence of goiter and/or Thyroperoxidase (TPO) Antibody may be helpful. For more information please refer to CHANG 2004; 291: 228-238. Elizabeth Perkins MD CHEMISTRY [facility] SENDOUT INTERNAL [facility] [[email or web address]] [address] [place] [address] * HEMOGLOBIN (09/08/2023 5:56 AM CDT) Only the most recent of4 resultswithin the time period is included. HEMOGLOBIN 13.7 12.0 - 16.0 g/dL 09/08/2023 6:[address] [facility] MCV 91 80 - 100 fL 09/08/2023 6:[address] [facility] Blood BLOOD SPECIMEN / Unknown Venipuncture / Unknown 09/08/2023 5:56 AM CDT 09/08/2023 6:24 AM CDT Elizabeth Perkins MD HEMATOLOGY [facility] SENDOUT INTERNAL ZIP [phone] [place] [address] * POTASSIUM (09/08/2023 5:56 AM CDT) Only the most recent of4 resultswithin the time period is included. Pathologist [facility] POTASSIUM 3.6 3.5 - 5.1 mmol/L 09/08/2023 7:[address] [facility] Blood BLOOD SPECIMEN / Unknown Venipuncture / Unknown 09/08/2023 5:56 AM CDT 09/08/2023 6:26 AM CDT Elizabeth Perkins MD CHEMISTRY Performing Organization Address City/[facility]/ZIP Co de Phone Number [facility] SENDOUT INTERNAL ZIP [phone] [place] [address] * CREATININE (09/08/2023 5:56 AM CDT) Only the most recent of3 resultswithin the time period is included. [facility] eGFR >90 >90 mL/min/1.7 3m2 09/08/2023 7:[address] [facility] Comment:As of 2021, eG FR is calculated by the CKD-EPI creatinine equation without race adjustment. ??eGFR can be influenced by muscle mass, exercise, and diet. ??The reported eGFR is an estimation only and is only applicable if the renal function is stable. CREATININE 0.53 0.50 - 0.90 mg/dL 09/08/2023 7:[address] [facility] Blood BLOOD SPECIMEN / Unknown Venipuncture / Unknown 09/08/2023 5:56 AM CDT 09/08/2023 6:26 AM CDT Elizabeth Perkins MD CHEMISTRY [facility] SENDOUT INTERNAL ZIP [address] [address] [place] [address] * CBC W PLT NO DIFF (09/07/2023 6:34 AM CDT) [facility] WHITE BLOOD COUNT 9.5 4.5 - 11.0 thou/cu mm 09/07/2023 6:[address] [facility] RED BLOOD COUNT 4.52 4.00 - 5.20 mil/cu mm 09/07/2023 6:[address] [facility] HEMOGLOBIN 13.8 12.0 - 16.0 g/dL 09/07/2023 6:[address] [facility] HEMATOCRIT 40.7 33.0 - 51.0 % 09/07/2023 6:[address] [facility] MCV 90 80 - 100 fL 09/07/2023 6:[address] [facility] MCH 30.5 26.0 - 34.0 pg 09/07/2023 6:[address] [facility] MCHC 33.9 32.0 - 36.0 g/dL 09/07/2023 6:[address] [facility] RDW 11.9 11.5 - 15.5 % 09/07/2023 6:[address] [facility] PLATELET COUNT 166 140 - 440 thou/cu mm 09/07/2023 6:[address] [facility] MPV 10.9 6.5 - 11.0 fL 09/07/2023 6:[address] [facility] NRBC 0.0 % 09/07/2023 6:[address] [facility] ABS NRBC 0.0 thou /cu mm 09/07/2023 6:[address] [facility] Blood BLOOD SPECIMEN / Unknown Venipuncture / Unknown 09/07/2023 6:34 AM CDT 09/07/2023 6:47 AM CDT Elizabeth Perkins MD HEMATOLOGY [facility] SENDOUT INTERNAL ZIP [phone] [place] [address] * (ABNORMAL) GLUCOSE METER (09/07/2023 2:32 AM CDT) Only the most recent of18 resultswithin the time period is included. GLUCOSE METER 122(H) 65 - 100 mg/dL 09/07/2023 2:[address] [facility] Blood BLOOD SPECIMEN / Unknown 09/07/2023 2:32 AM CDT 09/07/2023 2:36 AM CDT Marlene May MD CHEMISTRY Performing Organization Address [facility]/ZIP Co de Phone Number [facility] SENDOUT INTERNAL ZIP [phone] [place] [address] * SCAN-CARDIAC STRIP (09/06/2023 9:05 AM CDT) Scanner OTHER * SCAN-CARDIAC STRIP (09/06/2023 5:25 AM CDT) Scanner OTHER * MAGNESIUM (09/05/2023 8:45 AM CDT) Only the most recent of3 resultswithin the time period is included. MAGNESIUM 1.6 1.6 - 2.4 mg/dL 09/05/2023 9:[address] [facility] Blood BLOOD SPECIMEN / Unknown Venipuncture / Unknown 09/05/2023 8:45 AM CDT 09/05/2023 9:23 AM CDT Elizabeth Perkins MD CHEMISTRY Performing Organization Address City/[facility]/ZIP Co de Phone Number [facility] SENDOUT INTERNAL ZIP [phone] [place] [address] * SCAN-CARDIAC STRIP (09/05/2023 8:20 AM CDT) [...] NOW QTc 483 ms BEYOND NOW [place] 60 degrees BEYOND NOW [place] 94 degrees BEYOND NOW [place] 115 degrees BEYOND NOW 09/03/2023 4:26 PM CDT 09/04/2023 7:45 AM CDT Elizabeth Perkins MD EKG ORD Performing Organization Address City/[facility]/ZIP Co de Phone Number BEYOND NOW [place], [place] * SCAN-CARDIAC STRIP (09/03/2023 9:32 AM CDT) Scanner OTHER * Hemoglobin A1C Screening (09/02/2023 3:43 PM CDT) HEMOGLOBIN A1C SCREENING 5.5 <=6.4 % 09/02/2023 3:[address] [facility] Blood BLOOD SPECIMEN / Unknown Non-Lab Venipuncture / Unknown 09/02/2023 3:43 PM CDT 09/02/2023 3:[address] [facility] - 09/02/2023 3:57 PM CDT ? (<5.7%) ?Normal ? (5.7% to 6.4%) ? Indicates prediabetes ? (>=6.5%) ? Confirms diabetes Falsely low levels may be seen with: Recent Transfusion, Recent Significant Blood Loss, Hemolytic Diseases, or Falsely elevated levels may be seen with: Untreated Anemias, Splenectomy Nunu Landrum MD CHEMISTRY [facility] SENDOUT INTERNAL ZIP [phone] [place] [address] * PLATELET COUNT (09/02/2023 3:43 PM CDT) PLATELET COUNT 189 140 - 440 thou/cu mm 09/02/2023 4:[address] [facility] MPV 10.8 6.5 - 11.0 fL 09/02/2023 4:[address] [facility] Blood BLOOD SPECIMEN / Unknown Non-Lab Venipuncture / Unknown 09/02/2023 3:43 PM CDT 09/02/2023 3:50 PM CDT Nunu Landrum MD HEMATOLOGY [facility] SENDOUT INTERNAL ZIP [phone] [place] [address] * WHITE BLOOD COUNT (09/02/2023 3:43 PM CDT) WHITE BLOOD COUNT 7.4 4.5 - 11.0 thou/cu mm 09/02/2023 4:[address] [facility] NRBC 0.0 % 09/02/2023 4:[address] [facility] ABS NRBC 0.0 thou /cu mm 09/02/2023 4:[address] [facility] Blood BLOOD SPECIMEN / Unknown Non-Lab Venipuncture / Unknown 09/02/2023 3:43 PM CDT 09/02/2023 3:50 PM CDT Nnuu Landrum MD HEMATOLOGY [facility] SENDOUT INTERNAL ZIP [phone] [place] [address] * SODIUM (09/02/2023 3:43 PM CDT) SODIUM 139 136 - 145 mmol/L 09/02/2023 4:[address] [facility] Blood BLOOD SPECIMEN / Unknown Non-Lab Venipuncture / Unknown 09/02/2023 3:43 PM CDT 09/02/2023 3:50 PM CDT Nunu Landrum MD CHEMISTRY [facility] SENDOUT INTERNAL ZIP [phone] [place] [address] * (ABNORMAL) BILIRUBIN,TOTAL (09/02/2023 3:43 PM CDT) BILIRUBIN,TOTA L 1.5(H) 0.0 - 1.2 mg/dL 09/02/2023 4:[address] [facility] Blood BLOOD SPECIMEN / Unknown Non-Lab Venipuncture / Unknown 09/02/2023 3:43 PM CDT 09/02/2023 3:50 PM CDT Nunu Landrum MD CHEMISTRY [facility] SENDOUT INTERNAL ZIP [phone] [place] [address] * ALT (SGPT) (09/02/2023 3:43 PM CDT) ALT (SGPT) 13 10 - 35 IU/L 09/02/2023 4:[address] [facility] Blood BLOOD SPECIMEN / Unknown Non-Lab Venipuncture / Unknown 09/02/2023 3:43 PM CDT 09/02/2023 3:50 PM CDT Nunu Landrum MD CHEMISTRY [facility] SENDOUT INTERNAL ZIP [phone] [place] [address] * AST (SGOT) (09/02/2023 3:43 PM CDT) AST (SGOT) 28 10 - 35 IU/L 09/02/2023 4:[address] [facility] Blood BLOOD SPECIMEN / Unknown Non-Lab Venipuncture / Unknown 09/02/2023 3:43 PM CDT 09/02/2023 3:50 PM CDT Nunu Landrum MD CHEMISTRY [facility] SENDOUT INTERNAL ZIP [phone] [place] [address] * ALK PHOSPHATASE (09/02/2023 3:43 PM CDT) ALK PHOSPHATASE 75 35 - 104 IU/L 09/02/2023 4:[address] [facility] Blood BLOOD SPECIMEN / Unknown Non-Lab Venipuncture / Unknown 09/02/2023 3:43 PM CDT 09/02/2023 3:50 PM CDT Nunu Landrum MD CHEMISTRY [facility] SENDOUT INTERNAL ZIP [address] [address] [place] [address] * Lipid Panel (09/02/2023 3:43 PM CDT) Pathologist [facility] CHOLESTEROL,TOTAL 170 100 - 199 mg/dL 09/02/2023 4:[address] [facility] Comment: Cholesterol, Total Reference Ranges Desirable <200 mg/dL Borderline 200-239 mg/dL High >=240 mg/dL TRIGLYCERIDES 125 <150 mg/dL 09/02/2023 4:[address] [facility] HDL CHOLESTEROL 70 >40 mg/dL 4:[address] [facility] NON-HDL CHOLESTEROL 100 <145 mg/dl 09/02/2023 4:[address] [facility] CHOL/HDL RATIO 2.43 <4.50 09/02/2023 4:[address] [facility] LDL CHOLESTEROL 75 <=130 mg/dL 09/02/2023 4:[address] [facility] VLDL CHOLESTEROL 25 <=30 mg/dL 09/02/2023 4:[address] [facility] PROVIDER ORDERED STATUS RANDOM 09/02/2023 4:[address] [facility] Blood BLOOD SPECIMEN / Unknown Non-Lab Venipuncture / Unknown 09/02/2023 3:43 PM CDT 09/02/2023 3:50 PM CDT Nunu Landrum MD CHEMISTRY [facility] SENDOUT INTERNAL ZIP [phone] [place] [address] * MR Brain w/wo contrast (09/02/2023 2:09 [...] provider. EXAM: MR HEAD BRAIN WWO LOCATION: [facility] MEDICAL [facility]AGING DATE: 09/02/2023 INDICATION: Neuro deficit, [...] AM CDT Narrative 09/02/2023 12:21 [place] [address] Main: [email or web address] ? Transthoracic Echo Report VALARIE HUANG ID: [id number] Age: 83 : 1940 Ordering Provider: NUNU LANDRUM Exam Date: 09/02/2023 10:03 Gender: F Straightedge Worker: [facility] Height: 60 in BSA: 1.54 m?? BP: [...] Procedure Note Simon Dent MBBS - 09/02/2023 [place] [address] Main: [email or web address] Transthoracic Echo Report VALARIE HUANG ID: [id number] Age: 83 : 1940 Ordering Provider:NUNU LANDRUM Exam Date: 09/02/2023 10:03 Gender: F Straightedge Worker: [facility] Height: 60 in BSA: 1.54 m?? BP: [...] provider. EXAM: US CAROTID DUPLEX BILATERAL LOCATION: [facility] MEDICAL IMAG[facility] DATE: 09/02/2023 INDICATION: CVA/TIA COMPARISON: [...] provider. EXAM: US CAROTID DUPLEX BILATERAL LOCATION: [facility] MED[facility] DATE: 09/02/2023 INDICATION: CVA/TIA COMPARISON: [...] within the vertebral arteries bilaterally. Lindsey Demarco SEO ASSOCIATE US * SCAN-CARDIAC STRIP (09/02/2023 9:10 AM [...] DENSITY 2 SITES AXIAL (08/09/2022 10:21 AM HYDROGRAPHICAL TECHNICAL OFFICER) Anatomical Region Laterality Modality Spine, HIPS, HIPL, HIPR Other Impressions 08/10/2022 3:48 PM HYDROGRAPHICAL TECHNICAL OFFICER Osteoporosis. RECOMMENDATIONS: The National Osteoporosis Foundation recommends [...] greater than 5 years. Roz Perrin PA-C [facility] 08/10/2022 Narrative 08/10/2022 3:48 PM HYDROGRAPHICAL TECHNICAL OFFICER For Patients: Results are automatically released to your [facility] account once available, in compliance with federal regulations. This means that you may see your results before your provider has had a chance to review them. Please allow 2-3 business days for your provider to comment on the results. XR DXA Bone Mineral Density (BMD) EXAM LOCATION: [address] [address] PATIENT NAME: Valarie Huang DATE OF : [...] two scanners are made by the same hand fur cleaner. PROCEDURE: Dual-energy x-ray absorptiometry performed with routine [...] Documents on File Type Date Recorded Patient Health And Wellness Advisor Expl anation Healthcare Directive 08/16/2016 11:07 AM [...] Code Status Discussion: Reviewed Preferences Care Teams Supervisor Paint [employer] Relationship Specialty Start Date End [place] [id number] PCP - General Family Practice 03/10/17 Chelsy Chinchilla MD Ophthalmology Surgery 04/17/13 [place] [id number] [facility] [place] [id number] 09/20/23 Zainab Reyes, RN [address] [id number] [facility] Registered Nurse 09/23/23
[2023-09-24 14:30] VITALS: BP 134/63; PULSE 70; RESP 18; O2SAT 96
== END 2023-09-24 14:45 | disposition home or self-care (01) ==
PROVIDERS: Emergency Provider Family Medicine; PCP Family Medicine
DX: R20.2 Paresthesia of skin (principal)
CPT/HCPCS: 70450; 93005; 99283; 99284

== ENCOUNTER 2023-10-12 13:31 | Outpatient (RCR) | payer SELFPAY | END 2024-10-11 13:45 | disposition home or self-care (01) | LOC: MOW 13:31 | PROVIDERS: PCP Family Medicine; Visit Provider Family Medicine | DX: Z76.0 Encounter for issue of repeat prescription (principal) | CPT/HCPCS: S5170 ==

== ENCOUNTER 2023-11-05 15:19 | Outpatient (CLI) | payer MEDICARE, BC, SELFPAY ==
--- OUTSIDE RECORDS SUMMARY | 2023-11-07 10:38 | XMS_ITS | Clinical Summary ---
Author Organization [employer] [facility] Address [place], [place] [address] Care Team Providers Care Distribution Clerk Name Role Phone Chelsy Chinchilla MD Unavailable [phone] Margaret Allen DO Primary Care Provider [phone] [facility], Shea Unavailable [phone] Zainab Reyes RN Unavailable [phone] Zainab Reyes RN Unavailable Alejo Potter RN, Janet Unavailable [phone] Allergies Active Allergy Reactions Criticality Noted Date [...] vitamin D3 (OS-CESAR 500 + D) tabletIndications:[facility] care maintenance Take 1 Tablet by [...] vitamin D3 (OS-CESAR 500 + D) tabletIndications:[facility] care maintenance Take 1 Tablet by [...] Eligibility Review Date: 07/20/19 Upcoming Visit Location: [facility] Age: 78 y.o. Research Purpose Insurance Type: Medicare/Medicaid Comments: This patient was indicated to be a potential candidate and pre-screened for the following studies: Echo - 07/13/2019 No , Mild AR, Mild-Mod MR, Moderate TR Altflow - no d/t mild-mod MR, no As, Mild AR Triluminate - Potential Lipids - 05/26/2019 Non - HDL - 137 LDL - 101 Vesalius - Potential No NM or Stroke Problem Noted Date Diagnosed Date [...] Department Care Team Description 11/05/2023 Nurse Triage [facility] [address] [place] [address] Margaret Allen DO Neurologic Problem 11/04/2023 8:45 AM CDT Home Care Visit [facility] [address] [place] [phone] Aubrey Wilson, PT PT - HOME VISIT 11/04/2023 Travel 11/03/2023 12:00 PM CDT Home Care Visit [facility] [address] [place] [phone] Edward Good, RN SN - HOME VISIT 11/03/2023 11:00 AM CDT Home Care Visit [facility] [address] [place] [phone] Nadine Méndez OCCUPATIONAL THERAPIST ASSISTANT - HOME VISIT 11/02/2023 12:00 PM CDT Home Care Visit [facility] [address] [place] [phone] Ludin Shaw, FLAT MACHINE CUTTER FLAT MACHINE CUTTER - HOME VISIT 11/02/2023 Orders Only [facility] [address] [place] [address] Margaret Allen, DO <No scans attached> 11/01/2023 9:00 AM CDT Home Care Visit [facility] [address] [place] [address], [place] [phone] Aubrey Wilson, PT PT - HOME VISIT 11/01/2023 7:00 AM CDT Orders Only [facility] [address] [place] [address] Lab, [facility] 11/01/2023 Travel 11/01/2023 Orders Only [facility] [address] [place] [address] Margaret Allen, DO <No scans attached> 10/31/2023 11:00 AM CDT Home Care Visit [facility] [address] [place] [address], [place] [phone] Stephanie Haq, ELLIOTT OT - REASSESSMENT 10/31/2023 Home Care Visit [facility] [address] [place] [address], [place] [phone] Tori Foy, RN CARE COORDINATION 10/31/2023 Telephone [facility] [address] [place] [address] Margaret Allen DO POLST FOR DR MENDES 10/31/2023 Telephone [facility] [address] [place] [address] Margaret Allen DO clarification needed (Clostridium difficile toxin) 10/30/2023 Orders Only [facility] [address] [facility] [address] Margaret Allen, <No scans attached> 10/28/2023 9:00 AM CDT Home Care Visit [facility] [address] [place] [phone] Aubrey Wilson, PT PT - HOME VISIT 10/27/2023 2:30 PM CDT Home Care Visit [place] [address] [place] [phone] Radha Eduardo COTA OT - HOME VISIT 10/27/2023 9:00 AM CDT Home Care Visit [place] [address] [place] [phone] Ludin Shaw, FLAT MACHINE CUTTER FLAT MACHINE CUTTER - REASSESSMENT 10/27/2023 Home Care Visit [place] [address] [place] [phone] Edward Good, RN SN - TELEHEALTH VISIT 10/27/2023 Home Care Visit [address] [phone] Jessica Maya LISW WIPING RAG WASHER - HOME VISIT 10/26/2023 11:40 AM CDT Office Visit [facility] [address] [facility] [address] Margaret Allen DO Follow Up; Eye Problem (Referral to neuro opthamology); Diarrhea (Once daily ) 10/25/2023 9:00 AM CDT Home Care Visit [facility] [address] [place] [phone] Aubrey Wilson, PT PT - REASSESSMENT 10/25/2023 Travel 10/21/2023 8:45 AM CDT Home Care Visit [facility] [address] [place] [address] Aubrey Wilson, PT PT - HOME VISIT 10/21/2023 Home Care Visit [facility] [address] [place] [phone] Jessica Maya LISW CARE COORDINATION 10/20/2023 2:30 PM CDT Home Care Visit [facility] [address] [place] [phone] Radha Eduardo COTA OT - HOME VISIT 10/19/2023 2:30 PM CDT Home Care Visit [facility] [address] [place] [phone] Aubrey Wilson, PT PT - HOME VISIT 10/19/2023 9:00 AM CDT Home Care Visit [facility] [address] [place] [phone] Ludin Shaw, FLAT MACHINE CUTTER FLAT MACHINE CUTTER - HOME VISIT 10/19/2023 8:30 AM CDT Home Care Visit [facility] [address] [place] [phone] Dina Hall, ANVIL SEATING PRESS OPERATOR ANVIL SEATING PRESS OPERATOR - HOME VISIT 10/19/2023 Travel 10/19/2023 Orders Only [facility] [address] [facility] [place] [place] [phone] Margaret Allen DO Lab 10/17/2023 11:30 AM CDT Phone Office Visit [facility] [address] [facility] [address] [place] [address] Lindsey Demarco NP Follow Up (stroke) 10/17/2023 Telephone [facility] [address] [place] [address] Margaret Allen DO Referral 10/16/2023 Telephone [facility] [address] [place] [address] Margaret Allen DO Medication Management 10/14/2023 10:30 AM CDT Home Care Visit [facility] [address] [place] [phone] Jessica Maya LISW WIPING RAG WASHER - INITIAL ASSESSMENT 10/14/2023 Home Care Visit [facility] [address] [place] [phone] Stephanie Haq, OT OT - INITIAL ASSESSMENT 10/14/2023 Telephone [facility] [address] [place] [address] Lindsey Demarco NP Appointment Reminder 10/14/2023 Patient Outreach [facility] [address] [place], [place] [phone] Zainab Reyes RN Stroke Rehab Care Coordination - [facility] 10/14/2023 Refill [facility] [address] [place] [address] Margaret Allen DO Refill Request (Potassium Chloride ER 10 mEq, Eliquis 25mg, Clopidogrel 75mg, Propranolol 20mg tab, Metoprolol Succinate 25mg tab ) 10/13/2023 8:45 AM CDT Home Care Visit [place] [address] [place] [phone] Aubrey Wilson, PT PT - HOME VISIT 10/12/2023 12:00 PM CDT Home Care Visit [facility] [address] [place] [phone] Edward Good, RN SN - HOME VISIT 10/12/2023 9:00 AM CDT Home Care Visit [facility] [address] [place] [phone] Ludin Shaw, FLAT MACHINE CUTTER FLAT MACHINE CUTTER - HOME VISIT 10/11/2023 11:00 AM CDT Home Care Visit [address] [phone] Nadine Méndez OCCUPATIONAL THERAPIST ASSISTANT - HOME VISIT 10/11/2023 8:45 AM CDT Home Care Visit [facility] [address] [place] [address] Aubrey Wilson, PT PT - HOME VISIT 10/11/2023 Telephone [facility] [address] [place] [address] Aubrey Wilson, PT Home Care 10/11/2023 Travel 10/07/2023 8:45 AM CDT Home Care Visit [facility] [address] [place] [address] Aubrey Wilson, PT PT - HOME VISIT 10/07/2023 Travel 10/06/2023 11:15 AM CDT Home Care Visit [facility] [address] [place] [phone] Lauren Davila RN SN - HOME VISIT 10/06/2023 9:00 AM CDT Home Care Visit [facility] [address] [place] [phone] Ludin Shaw, FLAT MACHINE CUTTER FLAT MACHINE CUTTER - HOME VISIT 10/05/2023 Telephone [facility] [address] [place] [address] Margaret Allen, Follow Up 10/04/2023 12:00 PM CDT Home Care Visit [facility] [address] [place] [phone] Ludin Shaw, FLAT MACHINE CUTTER FLAT MACHINE CUTTER - HOME VISIT 10/04/2023 10:00 AM CDT Home Care Visit [facility] [address] [place] [phone] Nadine Méndez OCCUPATIONAL THERAPIST ASSISTANT - HOME VISIT 10/04/2023 9:00 AM CDT Home Care Visit [facility] [address] [place] [phone] Aubrey Wilson, PT PT - HOME VISIT 09/30/2023 Telephone [facility] [address] [place] [address] Margaret Allen DO Home Care (Clarification on medication) 09/29/2023 9:15 AM CDT Home Care Visit [facility] [address] [place] [address] Aubrey Wilson, PT PT - INITIAL ASSESSMENT 09/28/2023 2:30 PM CDT Home Care Visit [facility] [address] [place] [phone] Ludin Shaw, FLAT MACHINE CUTTER FLAT MACHINE CUTTER - INITIAL ASSESSMENT 09/28/2023 12:30 PM CDT Home Care Visit [facility] [address] [place] [phone] Dina Hall, ANVIL SEATING PRESS OPERATOR ANVIL SEATING PRESS OPERATOR - HOME VISIT 09/28/2023 Nurse Triage [facility] [address] [place] [address] Margaret Allen DO Catheter Problem 09/27/2023 10:00 AM CDT Home Care Visit [facility] [address] [place] [phone] Nadine Méndez - HOME VISIT 09/27/2023 Orders Only [facility] [address] [place] [address] Margaret Allen DO <No scans attached> 09/26/2023 1:05 PM CDT Office Visit [facility] [address] [place] [address] Margaret Allen DO Follow Up 09/26/2023 Travel 09/24/2023 Orders Only [facility] Scanner 1 scan: (1-Ord) [facility], HEAD W/O, 09/24/2023 09/23/2023 5:00 AM CDT Home Care Visit [facility] [address] [place] [phone] Nadine Méndez - MISSED VISIT 09/23/2023 Patient Outreach [facility] [address] [facility] [address] [place], [place] [phone] Zainab Reyes, ANNELIESE Stroke Rehab Care Coordination - [facility] 09/23/2023 Nurse Triage [facility] [address] [place] [address] Margaret Allen DO left wrist pain 09/22/2023 10:00 AM CDT Home Care Visit [facility] [address] [place] [phone] Lauren Davila, RN SN - OASIS START OF CARE 09/22/2023 Home Care Visit [facility] [address] [place] [phone] Lauren Davila, RN CARE COORDINATION 09/22/2023 Telephone [facility] [address] [place] [address] Margaret Allen DO Home Care (SOC/ Drug Interactions) 09/22/2023 Plan of Care Documentation [facility] [address] [place] [phone] 09/22/2023 Patient Outreach [facility] [address] [place] [address] Iona Howell RN Primary RN Care Management; Hospital F/U ([place] [address]) 09/06/2023 11:01 AM CDT - 09/21/2023 11:19 AM CDT Hospital Encounter [facility] [address] [place], [place] [phone] Marlene May MD Acute CVA (cerebrovascular accident) [...] Home Health 09/06/2023 Travel 09/05/2023 Orders Only [facility] [address] [facility] [address] [place] [address] Verónica Shore PA <No scans attached> 09/05/2023 Travel 09/02/2023 3:08 AM CDT - 09/06/2023 10:52 AM CDT Hospital Encounter [facility] [address] [facility] [place] [address] s, Hospitalist [facility] Nunu Landrum MD Talberg, MD Maddie Jones Priya, MD Acute CVA (cerebrovascular accident) (HC) (Primary Dx); Hypertension; Atrial flutter with rapid ventricular response (HC); Health care maintenance Discharge Disposition: Rehab Facility or Unit 09/02/2023 Telephone [facility] [address] [place] [address] Lindsey Demarco, [facility] F/U 09/01/2023 Orders Only [facility] Scanner 1 scan: (1-Ord) [place], ANGIO NECK, 09/01/2023 09/01/2023 Orders Only [facility] Scanner 1 scan: (1-Ord) [place], HEAD ANGIO, 09/01/2023 09/01/2023 Orders Only [facility] Scanner 1 scan: (1-Ord) [facility], CT HEAD/BRAIN WO CON, 09/01/2023 09/01/2023 Office Visit [facility] [address] [place] [phone] Edith Bentley MD Telehealth ([facility] (telephone consult)) 09/01/2023 Telephone [facility] [address] [place] [address] Margaret Allen, Questions 08/26/2023 Telephone [facility] [address] [facility] [address] [place] [address] Avel Richards MD Concerns from Last 3 Months Immunizations Name Administration Dates Next Due AMB INFLUENZA IIV3 (AGE 65+ YRS) PF (Flu Clinic Only) 03/31/2018,03/30/2017 AMB Influenza, IIV3 (Age >=3 years)(Flu Clinic Only) 03/30/2011,04/14/2010 Amb Influenza, Inact (High-d ose) (Flu Clinic Only) 04/23/2016,03/21/2015,03/19/2014 COVID-19 vaccine (Needish NTDartfish 30mcg/0.3mL) PF, MDV 03/11/2021,08/19/2020,07/29/2020 Hepatitis A (Adult) [...] Description 11/08/2023 10:30 AM CDT Office Visit [facility] [address] [place] [address] Rambo Christensen, [facility] [address] [place] [address] 11/08/2023 4:00 PM CDT Home Care Visit [address] [phone] Radha Eduardo COTA [address] [place] [address] 11/09/2023 8:45 AM CDT Home Care Visit [address] [phone] Aubrey Wilson, PT [address] [place] [address] 11/09/2023 12:00 PM CDT Home Care Visit [address] [phone] Ludin Shaw, FLAT MACHINE CUTTER [address] [place] [address] 11/10/2023 11:00 AM CDT Home Care Visit [address] [phone] Nadine Méndez 11/11/2023 8:45 AM CDT Home Care Visit [address] [phone] Aubrey Wilson, PT [address] [place] [address] 11/11/2023 9:00 AM CDT Home Care Visit [address] [place] [address] Edward Good, RN [address] [place] [address] 11/15/2023 9:00 AM CDT Home Care Visit [address] [phone] Aubrey Wilson, PT [address] [place] [address] 11/15/2023 9:00 AM CDT Home Care Visit [address] [phone] Stephanie Haq, OT [address] [place] [address] 11/17/2023 4:00 AM CDT Home Care Visit [address] [phone] Nadine Méndez 11/17/2023 9:00 AM CDT Appointment [address] [phone] Aubrey Wilson, PT [address] [place] [address] 11/23/2023 10:15 AM CDT Office Visit [facility] [address] [facility] [address] [place] [address] Marlene May MD [address] [facility] [address] [place] [address] 12/07/2023 8:30 AM CDT Appointment [facility] [address] [facility] [address] [place] [address] 12/07/2023 9:30 AM CDT Office Visit [facility] [address] [place] [phone] Patricia Craig MD [address] [place], [place] [phone] 12/20/2023 2:00 PM CDT Cardiac Device Check [facility] [address] [place] [phone] 05/08/2024 9:30 AM MEDICAL OFFICE ASST Office Visit [facility] [address] [place] [phone] Ming Kelly III, PhD, LP [address] [facility] [address] [place] [address] Health Maintenance Due Date Last Done Comments [...] Routine 09/19/2023 9:52 AM CDT URINE CULTURE DEITH 09/10/2023 3:04 PM CDT URINALYSIS MICROSCOPIC Timed [...] SITES AXIAL Routine 08/09/2022 10:21 AM MEDICAL OFFICE ASST Osteoporosis, unspecified osteoporosis type, unspecified pathological fracture presence from Last 3 Months or Most Recently Relevant to Health Maintenance Results * CLOSTRIDIOIDES DIFFICILE TOXIN PCR (11/01/2023 6:05 AM CDT) Pathologist [facility] CLOSTRIDIUM DIFFICILE PCR Negative 11/01/2023 5:10 PM CDT [facility] PRESUMPTIVE NAP1 STRAIN Negative 11/01/2023 5:10 PM CDT [facility] Stool STOOL SPECIMEN / Unknown Non-Blood / Unknown 11/01/2023 6:05 AM CDT 11/01/2023 11:29 AM CDT Narrative [facility] - 11/01/2023 5:10 PM CDT The NAP1 (027 or BI) strain is a hypervirulent strain. Detection may be useful for epidemiological purposes. Margaret Allen DO MICROBIOLOGY [facility] [address] [place] [address], * MAGNESIUM (10/19/2023 8:55 AM CDT) Only the most recent of5 resultswithin the time period is included. MAGNESIUM 1.6 1.6 - 2.4 mg/dL 10/19/2023 10:01 AM CDT [facility] Blood BLOOD SPECIMEN / Unknown Non-Lab Venipuncture / Unknown 10/19/2023 8:55 AM CDT 10/19/2023 9:34 AM CDT Margaret Allen DO CHEMISTRY [facility] [address] [place] [address] * (ABNORMAL) CBC WITH AUTO DIFFERENTIAL (09/26/2023 2:02 PM CDT) WHITE BLOOD COUNT 9.2 4.5 - 11.0 thou/cu mm 09/26/2023 2:09 PM CDT [facility] RED BLOOD COUNT 4.23 4.00 - 5.20 mil/cu mm 09/26/2023 2:09 PM CDT [facility] HEMOGLOBIN 13.1 12.0 - 16.0 g/dL 09/26/2023 2:09 PM CDT [facility] HEMATOCRIT 38.6 33.0 - 51.0 % 09/26/2023 2:09 PM CDT [facility] MCV 91 80 - 100 fL 09/26/2023 2:09 PM CDT [facility] MCH 31.0 26.0 - 34.0 pg 09/26/2023 2:09 PM CDT [facility] MCHC 33.9 32.0 - 36.0 g/dL 09/26/2023 2:09 PM CDT [facility] RDW 12.2 11.5 - 15.5 % 09/26/2023 2:09 PM CDT [facility] PLATELET COUNT 209 140 - 440 thou/cu mm 09/26/2023 2:09 PM CDT [facility] MPV 11.3(H) 6.5 - 11.0 fL 09/26/2023 2:09 PM CDT [facility] % NEUT 74.7 % 09/26/2023 2:09 PM CDT [facility] % LYMPH 15.7 % 09/26/2023 2:09 PM CDT [facility] % MONO 8.1 % 09/26/2023 2:09 PM CDT [facility] % EOS 1.1 % 09/26/2023 2:09 PM CDT [facility] % BASO 0.4 % 09/26/2023 2:09 PM CDT [facility] ABSOLUTE NEUTROPHILS 6.9 1.7 - 7.0 thou/cu mm 09/26/2023 2:09 PM CDT [facility] ABSOLUTE LYMPHOCYTES 1.5 0.9 - 2.9 thou/cu mm 09/26/2023 2:09 PM CDT [facility] ABSOLUTE MONOCYTES 0.8 <0.9 thou/cu mm 09/26/2023 2:09 PM CDT [facility] ABSOLUTE EOSINOPHILS 0.1 <0.5 thou/cu mm 09/26/2023 2:09 PM CDT [facility] ABSOLUTE BASOPHILS 0.0 <0.3 thou/cu mm 09/26/2023 2:09 PM CDT [facility] Blood BLOOD SPECIMEN / Unknown Venipuncture / Unknown 09/26/2023 2:02 PM CDT 09/26/2023 2:04 PM CDT Margaret Allen DO HEMATOLOGY [facility] [address] [place] [address], * (ABNORMAL) BASIC METABOLIC PANEL (09/26/2023 2:02 PM CDT) Only the most recent of3 resultswithin the time period is included. SODIUM 142 136 - 145 mmol/L 09/26/2023 11:26 PM CDT [facility] POTASSIUM 3.9 3.5 - 5.1 mmol/L 09/26/2023 11:26 PM CDT [facility] CHLORIDE 105 98 - 107 mmol/L 09/26/2023 11:26 PM CDT [facility] CO2,TOTAL 27 22 - 29 mmol/L 09/26/2023 11:26 PM CDT [facility] ANION GAP 10 5 - 18 09/26/2023 11:26 PM CDT [facility] GLUCOSE 113(H) 70 - 99 mg/dL 09/26/2023 11:26 PM CDT [facility] CALCIUM 10.0 8.8 - 10.2 mg/dL 09/26/2023 11:26 PM CDT [facility] BUN 10 8 - 23 mg/dL 09/26/2023 11:26 PM CDT [facility] CREATININE 0.65 0.50 - 0.90 mg/dL 09/26/2023 11:26 PM CDT [facility] BUN/CREAT RATIO 15 10 - 20 11:26 PM T [facility] eGFR 88(L) >90 mL/min/1.7 3m2 09/26/2023 11:26 PM CDT [facility] Comment:As of 2021, eG FR [...] [facility]STRY [facility] [address] [place] [address], * SCAN-CT INTERPRETATION (09/24/2023 12:00 AM CDT) Only the most recent of4 resultswithin the time period is included. Anatomical Region Laterality Modality Other Scanner OTHER * UA W/ SEDIMENT EXAM REFLEXED PER CRITERIA (09/19/2023 5:57 PM CDT) Only the most recent of3 resultswithin the time period is included. COLOR Yellow Yellow Color 09/19/2023 6:09 PM CDT [facility] CLARITY Clear Clear Clarity 09/19/2023 6:09 PM CDT [facility] SPECIFIC GRAVITY,URINE 1.010 1.010, 1.015, 1.020, 1.025 09/19/2023 6:09 PM CDT [facility] PH,URINE 6.0 6.0, 7.0, 8.0, 5.5, 6.5, 7.5, 8.5 09/19/2023 6:09 PM CDT [facility] UROBILINOGEN, QUALITATIVE Normal Normal EU/dl 09/19/2023 6:09 PM CDT [facility] PROTEIN, URINE Negative Negative mg/dL 09/19/2023 6:09 PM CDT [facility] GLUCOSE, URINE Negative Negative mg/dL 09/19/2023 6:09 PM CDT [facility] KETONES,URINE Negative Negative mg/dL 09/19/2023 6:09 PM CDT [facility] BILIRUBIN,URI NE Negative Negative 09/19/2023 6:09 PM CDT [facility] OCCULT BLOOD,URINE Negative Negative 09/19/2023 6:09 PM CDT [facility] NITRITE Negative Negative 09/19/2023 6:09 PM CDT [facility] LEUKOCYTE ESTERASE Negative Negative 09/19/2023 6:09 PM CDT [facility] Urine URINE SPECIMEN / Unknown Non-Blood / Unknown 09/19/2023 5:57 PM CDT 09/19/2023 6:03 PM CDT Marlene May MD URINE [facility] SENDOUT INTERNAL [facility] [address] [place] [address] * XR VIDEO SWALLOW W SPEECH (09/19/2023 [...] None Seen /HPF 09/10/2023 3:50 PM CDT [facility] WBC >100(A) 0-2, 3-5, None Seen /HPF 09/10/2023 3:50 PM CDT [facility] BACTERIA Many(A) None Seen, Rare, Few Bacteria/ HPF 09/10/2023 3:50 PM CDT [facility] EPITHELIAL CELLS None Seen None Seen, Few Epi/HPF 09/10/2023 3:50 PM CDT [facility] HYALINE CASTS 0-2 0-2, 3-5 /LPF 09/10/2023 3:50 PM CDT [facility] Urine URINE SPECIMEN / Unknown Non-Blood / Unknown 09/10/2023 3:04 PM CDT 09/10/2023 3:07 PM CDT Marlene May MD URINE [facility] S[facility] INTERNAL ZIP [address] [place] [address] * (ABNORMAL) URINE CULTURE (09/10/2023 3:04 PM CDT) CULTURE RESULT(A) 09/13/2023 10:08 AM CDT [facility] CULTURE >100,000 CFU/mL Enterococcus faecalis 09/13/2023 10:08 AM CDT [facility] CULTURE <10,000 CFU/mL Multiple organisms probable contaminants 09/13/2023 10:08 AM CDT [facility] Urine URINE SPECIMEN / Unknown Non-Blood / Unknown 09/10/2023 3:04 PM CDT 09/10/2023 3:07 PM CDT Narrative Organism Antibiotic Method Susceptibility Enterococcus faecalis AMPICILLIN <=2: S Enterococcus faecalis NITROFURANTOIN <=16: S Marlene May MD MICROBIOLOGY [facility] [address] [place] [address], * (ABNORMAL) TSH (09/08/2023 5:56 AM CDT) TSH 4.44(H) 0.27 - 4.20 uIU/mL 09/08/2023 7:02 AM CDT [facility] Blood BLOOD SPECIMEN / Unknown Venipuncture / Unknown 09/08/2023 5:56 AM CDT 09/08/2023 6:26 AM CDT Narrative [facility] - 09/08/2023 7:02 AM CDT In Adults, TSH values between 5.00 and 10.00 uIU/ml do not necessarily indicate the presence of Hypothyroidism. Correlation with clinical findings such as presence of goiter and/or Thyroperoxidase (TPO) Antibody may be helpful. For more information please refer to CHANG 2004; 291: 228-238. Elizabeth Perkins MD CHEMISTRY Performing Organization Address City/[facility]/ZIP Co de Phone Number [facility] [address] [phone] [place] [address] * HEMOGLOBIN (09/08/2023 5:56 AM CDT) Only the most recent of4 resultswithin the time period is included. HEMOGLOBIN 13.7 12.0 - 16.0 g/dL 09/08/2023 6:30 AM CDT [facility] MCV 91 80 - 100 fL 09/08/2023 6:30 AM CDT [facility] Blood BLOOD SPECIMEN / Unknown Venipuncture / Unknown 09/08/2023 5:56 AM CDT 09/08/2023 6:24 AM CDT Elizabeth Perkins MD HEMATOLOGY Performing Organization Address [facility]/ZIP Co de Phone Number [facility] SENDOUT [phone] [place] [phone] * POTASSIUM (09/08/2023 5:56 AM CDT) Only the most recent of4 resultswithin the time period is included. POTASSIUM 3.6 3.5 - 5.1 mmol/L 09/08/2023 7:02 AM CDT [facility] Blood BLOOD SPECIMEN / Unknown Venipuncture / Unknown 09/08/2023 5:56 AM CDT 09/08/2023 6:26 AM CDT Elizabeth Perkins MD CHEMISTRY Performing Organization Address City/[facility]/ZIP Co de Phone Number [facility] S[address] [place] [phone] [place] [address] * CREATININE (09/08/2023 5:56 AM CDT) Only the most recent of3 resultswithin the time period is included. eGFR >90 >90 mL/min/1.7 3m2 09/08/2023 7:02 AM CDT [facility] Comment:As of 2021, eG FR is calculated by the CKD-EPI creatinine equation without race adjustment. ??eGFR can be influenced by muscle mass, exercise, and diet. ??The reported eGFR is an estimation only and is only applicable if the renal function is stable. CREATININE 0.53 0.50 - 0.90 mg/dL 09/08/2023 7:02 AM [facility] Blood BLOOD SPECIMEN / Unknown Venipuncture / Unknown 09/08/2023 5:56 AM CDT 09/08/2023 6:26 AM CDT Elizabeth Perkins MD CHEMISTRY [facility] S[phone] [place] [phone] * CBC W PLT NO DIFF (09/07/2023 6:34 AM CDT) WHITE BLOOD COUNT 9.5 4.5 - 11.0 thou/cu mm 09/07/2023 6:56 AM [facility] RED BLOOD COUNT 4.52 4.00 - 5.20 mil/cu mm 09/07/2023 6:56 AM [facility] HEMOGLOBIN 13.8 12.0 - 16.0 g/dL 09/07/2023 6:56 AM [facility] HEMATOCRIT 40.7 33.0 - 51.0 % 09/07/2023 6:56 AM [facility] MCV 90 80 - 100 fL 09/07/2023 6:56 AM [facility] MCH 30.5 26.0 - 34.0 pg 09/07/2023 6:56 AM [facility] MCHC 33.9 32.0 - 36.0 g/dL 09/07/2023 6:56 AM [facility] RDW 11.9 11.5 - 15.5 % 09/07/2023 6:56 AM [facility] PLATELET COUNT 166 140 - 440 thou/cu mm 09/07/2023 6:56 AM [facility] MPV 10.9 6.5 - 11.0 fL 09/07/2023 6:56 AM [facility] NRBC 0.0 % 09/07/2023 6:56 AM CDT [facility] ABS NRBC 0.0 thou /cu mm 09/07/2023 6:56 AM CDT [facility] Blood BLOOD SPECIMEN / Unknown Venipuncture / Unknown 09/07/2023 6:34 AM CDT 09/07/2023 6:47 AM CDT Elizabeth Perkins MD HEMATOLOGY Performing Organization Address City/[facility]/ZIP Co de Phone Number [facility] S[address]OUT [place] [address] [phone] [place] [address] * (ABNORMAL) GLUCOSE METER (09/07/2023 2:32 AM CDT) Only the most recent of18 resultswithin the time period is included. [facility] Signature GLUCOSE METER 122(H) 65 - 100 mg/dL 09/07/2023 2:36 AM CDT [facility] Blood BLOOD SPECIMEN / Unknown 09/07/2023 2:32 AM CDT 09/07/2023 2:36 AM CDT Marlene May MD CHEMISTRY Performing Organization Address City/[facility]/ZIP Co de Phone Number [facility] SENDOUT [place]IP [phone] [place] [address] * SCAN-CARDIAC STRIP (09/06/2023 9:05 AM CDT) [...] NOW QTc 483 ms BEYOND NOW P [place] 60 degrees BEYOND NOW R [place] 94 degrees BEYOND NOW T [place] 115 degrees BEYOND NOW 09/03/2023 4:26 PM CDT 09/04/2023 7:45 AM CDT Elizabeth Perkins MD EKG ORD Performing Organization Address [facility] de Phone Number BEYOND NOW [place], [place] * SCAN-CARDIAC STRIP (09/03/2023 9:32 AM CDT) Scanner OTHER * Hemoglobin A1C Screening (09/02/2023 3:43 PM CDT) HEMOGLOBIN A1C SCREENING 5.5 <=6.4 % 09/02/2023 3:57 PM CDT [facility] Blood BLOOD SPECIMEN / Unknown Non-Lab Venipuncture / Unknown 09/02/2023 3:43 PM CDT 09/02/2023 3:50 PM CDT Narrative [facility] - 09/02/2023 3:57 PM CDT ? (<5.7%) ?Normal ? (5.7% to 6.4%) ? Indicates prediabetes ? (>=6.5%) ? Confirms diabetes Falsely low levels may be seen with: Recent Transfusion, Recent Significant Blood Loss, Hemolytic Diseases, or Falsely elevated levels may be seen with: Untreated Anemias, Splenectomy Nunu Landrum MD CHEMISTRY Performing Organization Address City/[facility]/ZIP Co de Phone Number [facility] SENDOUT [place] [address] [phone] [place] [address] * PLATELET COUNT (09/02/2023 3:43 PM CDT) PLATELET COUNT 189 140 - 440 thou/cu mm 09/02/2023 4:03 PM CDT [facility] MPV 10.8 6.5 - 11.0 fL 09/02/2023 4:03 PM CDT [facility] Blood BLOOD SPECIMEN / Unknown Non-Lab Venipuncture / Unknown 09/02/2023 3:43 PM CDT 09/02/2023 3:50 PM CDT Nunu Landrum MD HEMATOLOGY [facility] SENDOUT [place] [phone] [place] [address] * WHITE BLOOD COUNT (09/02/2023 3:43 PM CDT) WHITE BLOOD COUNT 7.4 4.5 - 11.0 thou/cu mm 09/02/2023 4:03 PM CDT [facility] NRBC 0.0 % 09/02/2023 4:03 PM CDT [facility] ABS NRBC 0.0 thou /cu mm 09/02/2023 4:03 PM CDT [facility] Blood BLOOD SPECIMEN / Unknown Non-Lab Venipuncture / Unknown 09/02/2023 3:43 PM CDT 09/02/2023 3:50 PM CDT Nunu Landrum MD HEMATOLOGY [facility] SENDOUT [place] [address] [phone] [place] [address] * SODIUM (09/02/2023 3:43 PM CDT) SODIUM 139 136 - 145 mmol/L 09/02/2023 4:24 PM CDT [facility] Blood BLOOD SPECIMEN / Unknown Non-Lab Venipuncture / Unknown 09/02/2023 3:43 PM CDT 09/02/2023 3:50 PM CDT Nunu Landrum MD CHEMISTRY Performing Organization Address City/[facility]/ZIP Co de Phone Number [facility] SENDOUT [place] ZIP [phone] [place] [phone] * (ABNORMAL) BILIRUBIN,TOTAL (09/02/2023 3:43 PM CDT) BILIRUBIN,TOTA L 1.5(H) 0.0 - 1.2 mg/dL 09/02/2023 4:24 PM CDT [facility] Blood BLOOD SPECIMEN / Unknown Non-Lab Venipuncture / Unknown 09/02/2023 3:43 PM CDT 09/02/2023 3:50 PM CDT Nunu Landrum MD CHEMISTRY Performing Organization Address [facility]/ZIP Co de Phone Number [facility] SENDOUT [place] ZIP [phone] [place] [phone] * ALT (SGPT) (09/02/2023 3:43 PM CDT) ALT (SGPT) 13 10 - 35 IU/L 09/02/2023 4:24 PM CDT [facility] Blood BLOOD SPECIMEN / Unknown Non-Lab Venipuncture / Unknown 09/02/2023 3:43 PM CDT 09/02/2023 3:50 PM CDT Nunu Landrum MD CHEMISTRY Performing Organization Address City/[facility]/ZIP Co de Phone Number [facility] SENDOUT [place] ZIP [phone] [place] [phone] * AST (SGOT) (09/02/2023 3:43 PM CDT) AST (SGOT) 28 10 - 35 IU/L 09/02/2023 4:24 PM CDT [facility] Blood BLOOD SPECIMEN / Unknown Non-Lab Venipuncture / Unknown 09/02/2023 3:43 PM CDT 09/02/2023 3:50 PM CDT Nunu Landrum MD CHEMISTRY [facility] SENDOUT [place] [place]IP [phone] [place] [address] * ALK PHOSPHATASE (09/02/2023 3:43 PM CDT) ALK PHOSPHATASE 75 35 - 104 IU/L 09/02/2023 4:24 PM CDT [facility] Blood BLOOD SPECIMEN / Unknown Non-Lab Venipuncture / Unknown 09/02/2023 3:43 PM CDT 09/02/2023 3:50 PM CDT Nunu Landrum MD CHEMISTRY [facility] SENDOUT [place] ZIP [phone] [place] [address] * Lipid Panel (09/02/2023 3:43 PM CDT) CHOLESTEROL,TOTAL 170 100 - 199 mg/dL 09/02/2023 4:24 PM CDT [facility] Comment: Cholesterol, Total Reference Ranges Desirable <200 mg/dL Borderline 200-239 mg/dL High >=240 mg/dL TRIGLYCERIDES 125 <150 mg/dL 09/02/2023 4:24 PM CDT [facility] HDL CHOLESTEROL 70 >40 mg/dL 4:24 PM CDT [facility] NON-HDL CHOLESTEROL 100 <145 mg/dl 09/02/2023 4:24 PM CDT [facility] CHOL/HDL RATIO 2.43 <4.50 09/02/2023 4:24 PM CDT [facility] LDL CHOLESTEROL 75 <=130 mg/dL 09/02/2023 4:24 PM CDT [facility] VLDL CHOLESTEROL 25 <=30 mg/dL 09/02/2023 4:24 PM CDT [facility] PROVIDER ORDERED STATUS RANDOM 09/02/2023 4:24 PM CDT [facility] Blood BLOOD SPECIMEN / Unknown Non-Lab Venipuncture / Unknown 09/02/2023 3:43 PM CDT 09/02/2023 3:50 PM CDT Nunu Landrum MD CHEMISTRY [facility] SENDOUT [place] [address] [phone] [place] [address] * MR Brain w/wo contrast (09/02/2023 2:09 [...] AM CDT Narrative 09/02/2023 12:21 [place] [address] Main: [email or web address] ? Transthoracic Echo Report VALARIE HUANG ID: [id number] Age: 83 : 1940 Ordering Provider: NUNU LANDRUM Exam Date: 09/02/2023 10:03 Gender: F Dial Buffer: [facility] Height: 60 in BSA: 1.54 [...] Procedure Note Simon Dent MBBS - 09/02/2023 [place] [address] Main: [email or web address] Transthoracic Echo Report VALARIE HUANG Ayo ID: [id number] Age: 83 : 1940 Ordering Provider:NUNU LANDRUM Exam Date: 09/02/2023 10:03 Gender: F Dial Buffer: [facility] Height: 60 in BSA: 1.54 [...] within the vertebral arteries bilaterally. Lindsey Demarco AUDIO VISUAL COORDINATOR US * SCAN-CARDIAC STRIP (09/02/2023 9:10 AM [...] 2 SITES AXIAL (08/09/2022 10:21 AM MEDICAL OFFICE ASST) Anatomical Region Laterality Modality Spine, HIPS, HIPL, HIPR Other Impressions 08/10/2022 3:48 PM MEDICAL OFFICE ASST Osteoporosis. RECOMMENDATIONS: The National Osteoporosis Foundation recommends [...] greater than 5 years. Roz Perrin PA-C [facility] 08/10/2022 Narrative 08/10/2022 3:48 PM MEDICAL OFFICE ASST For Patients: Results are automatically released to your [facility] ([employer]) account once available, in compliance with federal regulations. This means that you may see your results before your provider has had a chance to review them. Please allow 2-3 business days for your provider to comment on the results. XR DXA Bone Mineral Density (BMD) EXAM LOCATION: [address] [address] PATIENT NAME: Valarie Huang DATE OF : [...] two scanners are made by the same fiberglass laminator. PROCEDURE: Dual-energy x-ray absorptiometry performed with routine [...] Documents on File Type Date Recorded Patient Chimney Supervisor Brick Expl anation POLST 10/14/2023 Healthcare Directive 08/16/2016 [...] Code Status Discussion: Reviewed Preferences Care Teams Distribution Clerk Relationship Specialty Start Date End [place] [address] PCP - General Family Practice 03/10/17 Chelsy Chinchilla MD Ophthalmology Surgery 04/17/13 [id number] [place] [address] 09/20/23 Zainab Reyes RN [address] [place] [address] Literature Teacher Registered Nurse 09/23/23 Zainab Reyes RN [address] [place] [address] Stroke Rehab Care Coordination - [facility] Registered Nurse 09/29/23 Janet Dhillon RN [address] [address] Literature Teacher Registered Nurse 10/14/23
== END 2023-11-05 15:20 | disposition home or self-care (01) ==
LOC: AMB 11-07 10:36
PROVIDERS: PCP Family Medicine; Visit Provider Family Medicine
DX: R20.0 Anesthesia of skin (principal)
CPT/HCPCS: A0425; A0427

== ENCOUNTER 2023-11-05 15:54 | Emergency (ER) | payer MEDICARE, BC, SELFPAY ==
[2023-11-05] VITALS (12 sets, daily range): BP systolic 119–170; BP diastolic 64–151; PULSE 69–87; RESP 16; TEMP 37; O2SAT 91–98; BMI 20.6
--- NOTE | 2023-11-05 | CRLHL7_ITS ---
For Patients: As a result of the Century Cures Act, medical imaging exams and procedure reports are released immediately into your electronic medical record. You may view this report before your referring provider. If you have questions, please contact your health care provider. Indication: Stroke Technique: Noncontrast head CT Comparison: Head CT 09/24/2023 Findings: Axial noncontrast images through the brain parenchyma demonstrates no acute intracranial hemorrhage or mass. Loss. Generalized parenchymal volume periventricular hypo lucencies likely reflecting chronic small vessel ischemic change. Similar benign calcification along the head of the right caudate nucleus unchanged. There is a probable chronic right basal ganglia lacunar infarct which appears new from 09/24/2023 no midline shift. No abnormal extra-axial air or fluid collections are seen. Skull and scalp are unremarkable. Impression: 1. No acute intracranial hemorrhage or mass. Probable chronic appearing right basal ganglia lacunar infarct however this does appear new from 09/24/2023. Follow-up MRI could be considered results were called to Dr. Son`s phone with message placed on 11/05/23 at 4:30pm. Please note that all CT scans at this facility use dose modulation, iterative reconstruction, and/or weight-based dosing when appropriate to reduce radiation dose to as low as reasonably achievable. Dictated by Carrie Block MD @ 11/05/2023 4:23:55 PM (Electronically Signed)
--- OUTSIDE RECORDS SUMMARY | 2023-11-05 15:57 | XMS_ITS | Clinical Summary ---
Author Organization [employer] [facility] Address [place], [place] [address] Care Team Providers Care Railroad Crane Operator Name Role Phone Chelsy Chinchilla MD Unavailable [phone] Margaret Allen DO Primary Care Provider [phone] [facility] Care, Shea Unavailable Zainab Reyes RN Unavailable [phone] Zainab Reyes RN Unavailable [phone] Alejo Potter RN, Janet Unavailable [phone] Allergies Active Allergy Reactions Criticality Noted Date Comments Lisinopril Cough 06/15/2023 Sulfa (Sulfonamide Antibiotics) Hives 10/12 Medications Medication Sig Dispensed Refills Start Date End Date Status acetaminophen SR (TYLENOL ARTHRITIS) 650 mg Extended-Release tablet Take 1 tablet by mouth every 8 hours if needed. Max acetaminophen dose: 4000mg in 24 hrs. 0 7 Active cholecalciferol (VITAMIN D) 1,000 unit capsuleIndications: Osteopenia, unspecified location Take 1 capsule by mouth once daily. 90 capsule 3 7 Active rosuvastatin (CRESTOR) 40 mg tabletIndications:H yperlipidemia, unspecified hyperlipidemia type Take 1 Tablet (40 mg) by mouth at bedtime. 90 Tablet 3 3 Active acyclovir (ZOVIRAX) 400 mg tabletIndications:C old sore TAKE 1 TABLET BY MOUTH THREE TIMES A DAY FOR 5 DAYS NEEDED FOR COLD SORES 45 Tablet 4 Active ascorbic acid, vitamin C, (VITAMIN C) 500 mg tablet Take 500 mg by mouth once daily. Active artificial tears, peg 400 0.4%-propylene glycol 0.3%, (SYSTANE) ophthalmicIndicatio ns:Acute CVA (cerebrovascular accident) (HC) Place 1-2 Drops into both eyes three times daily. 30 mL 4 Active multivitamin folic acid 0.4 mgIndications:Healt h care maintenance Take 1 Tablet by mouth once daily. 30 Tablet 4 Active omeprazole (PRILOSEC) 20 mg Delayed-Release capsuleIndications: Gastroesophageal reflux disease without esophagitis Take 1 Capsule (20 mg) by mouth once daily before a meal. Take at least 30min prior to eating 90 Capsule 3 4 Active magnesium chloride (MAG-DELAY) 64 mg delayed release tabletIndications:M agnesium deficiency Take 2 Tablets by mouth once daily. 180 Tablet 3 4 Active Additional Information Patient taking differently: 64 mgOralBID, Reported on 10/26/2023 Walker - 4 wheelsIndications:H istory of recent stroke For home use. Length of need: lifetime 1 Each 4 Active apixaban (ELIQUIS) 2.5 mg tabletIndications:p revent thromboembolism in chronic atrial fibrillation Take 1 Tablet (2.5 mg) by mouth two times daily. 180 Tablet 3 4 Active clopidogreL (PLAVIX) 75 mg tabletIndications:A cute CVA (cerebrovascular accident) (HC) Take 1 Tablet (75 mg) by mouth every morning. 90 Tablet 3 4 Active potassium chloride (KLOR-CON M20) 20 mEq extended-release tablet (part/cryst)Indicat ions:Hypokalemia Take 1 Tablet (20 mEq) by mouth once daily with a meal. 90 Tablet 3 4 Active propranoloL (INDERAL) 20 mg tabletIndications:H ypertension Take 1 Tablet (20 mg) by mouth once daily. 90 Tablet 3 4 Active metoprolol succinate (TOPROL XL) 25 mg Sustained-Release tabletIndications:A trial flutter with rapid ventricular response (HC) Take 1 Tablet (25 mg) by mouth once daily. 90 Tablet 3 4 Active calcium with vitamin D3 (OS-CESAR 500 + D) tabletIndications:H [facility] care maintenance Take 1 Tablet by mouth once daily. 90 Tablet 3 4 Active melatonin 1 mg tabletIndications:I nsomnia, unspecified type Take 2 Tablets (2 mg) by mouth at bedtime. 180 Tablet 3 4 Active loperamide (IMODIUM) 2 mg capsuleIndications: Chronic diarrhea Take 2mg daily. May take additional 2mg after loose stool each day if needed. Max 16mg in 24 hours 90 Capsule 3 4 Active apixaban (ELIQUIS) 2.5 mg tabletIndications:p revent thromboembolism in chronic atrial fibrillation Take 1 Tablet (2.5 mg) by mouth two times daily. 60 Tablet 4 10/14/19 24 Discontinue d(Reorder (E-cancel not sent)) calcium with vitamin D3 (OS-CESAR 500 + D) tabletIndications:H [facility] care maintenance Take 1 Tablet by mouth once daily. 30 Tablet 4 10/26/19 24 Discontinue d(Reorder (E-cancel not sent)) clopidogreL (PLAVIX) 75 mg tabletIndications:A cute CVA (cerebrovascular accident) (HC) Take 1 Tablet (75 mg) by mouth every morning. 30 Tablet 4 10/14/19 24 Discontinue d(Reorder (E-cancel not sent)) lidocaine 4 % topical patchIndications:Pa in Apply to intact skin to cover most painful area for max 12hr per 24hr period. 30 Patch 4 10/26/19 24 Discontinue d(*Med complete/Re gimen complete/[place] of care change) melatonin 1 mg tabletIndications:I nsomnia, unspecified type Take 2 Tablets (2 mg) by mouth at bedtime. 60 Tablet 4 10/26/19 24 Discontinue d(Reorder (E-cancel not sent)) metoprolol succinate (TOPROL XL) 25 mg Sustained-Release tabletIndications:A trial flutter with rapid ventricular response (HC) Take 1 Tablet (25 mg) by mouth once daily. 30 Tablet 4 10/14/19 24 Discontinue d(Reorder (E-cancel not sent)) propranoloL (INDERAL) 20 mg tabletIndications:H ypertension Take 1 Tablet (20 mg) by mouth once daily. 30 Tablet 4 10/14/19 24 Discontinue d(Reorder (E-cancel not sent)) potassium chloride (KLOR-CON M20) 20 mEq extended-release tablet (part/cryst)Indicat ions:Hypokalemia Take 1 Tablet (20 mEq) by mouth once daily with a meal. 30 Tablet 4 10/14/19 24 Discontinue d(Reorder (E-cancel not sent)) bisacodyL (DULCOLAX) 10 mg suppository Insert 10 mg rectally once daily if needed for Constipation. 10/26/19 24 Discontinue d(*Med complete/Re gimen complete/[place] of care change) magnesium chloride 64 mg magnesium tab Take 64 mg by mouth two times daily. 4 10/12/19 24 Discontinue d(Duplicate therapy (E-cancel not sent)) Active Problems Patient Care Coordination No te Formatting of this note migh t be different from the original. HF/Structural/Prevention Research Eligibility Review Date: 07/20/19 Upcoming Visit Location: [facility] Age: 78 y.o. Research Purpose Insurance Type: Medicare/Medicaid Comments: This patient was indicated to be a potential candidate and pre-screened for the following studies: Echo - 07/13/2019 No , Mild AR, Mild-Mod MR, Moderate TR Altflow - no d/t mild-mod MR, no As, Mild AR Triluminate - Potential Lipids - 05/26/2019 Non - HDL - 137 LDL - 101 Vesalius - Potential No GA or Stroke Problem Noted Date Diagnosed Date Alcohol use 09/07/2023 Stenosis of right internal carotid artery 2023 Hypertension 09/05/2023 Acute CVA (cerebrovascular accident) 09/02/2023 Age-related osteoporosis wit hout current pathological fracture 08/15/2022 Overview: On fosamax 2017-07/2022. Dexa due 07/2024 Aortic stenosis 06/18/2022 Benign [...] 08/06/2019 ACP (advance care planning) 04/17/2013 Overview: DNR as of 10/2023, POLST scanned in GERD (gastroesophageal reflux disease) 2 Overview: EGD 03/2012 Reactive gastropathy Adjustment disorder with depressed mood 04/03/20 09 Fibromyalgia 04/11/2007 Unspecified essential hypertension 04/11/2007 Other and unspecified hyperlipidemia 04/11/2007 Essential and other specified forms of tremor Resolved Problems Problem Noted Date Diagnosed Date Resolved Date Cerumen impaction 04/17/2013 06/26/2014 Inclusion cyst 05/13/2009 06/26/2014 Encounters Date Type Department Care Team Description 11/05/2023 Nurse Triage [facility] [address] [place] [address] Margaret Allen DO Neurologic Problem 11/04/2023 8:45 AM CDT Home Care Visit [facility] [address] [place] [phone] Aubrey Wilson, PT PT - HOME VISIT 11/04/2023 Travel 11/03/2023 12:00 PM CDT Home Care Visit [facility] [address] [place] [phone] Edward Good, RN SN - HOME VISIT 11/03/2023 11:00 AM CDT Home Care Visit [facility] [address] [place] [phone] Nadine Méndez PANEL SAW OPERATOR - HOME VISIT 11/02/2023 12:00 PM CDT Home Care Visit [facility] [address] [place] [phone] Ludin Shaw, ATTENDANT COIN OPERATED LAUNDRY ATTENDANT COIN OPERATED LAUNDRY - HOME VISIT 11/02/2023 Orders Only [facility] [address] [place] [address] Margaret Allen, DO <No scans attached> 11/01/2023 9:00 AM CDT Home Care Visit [facility] [address] [place] [address], [place] [phone] Aubrey Wilson, PT PT - HOME VISIT 11/01/2023 7:00 AM CDT Orders Only [facility] [address] [place] [address] Lab, [facility] 11/01/2023 Travel 11/01/2023 Orders Only [facility] [address] [place] [address] Margaret Allen, DO <No scans attached> 10/31/2023 11:00 AM CDT Home Care Visit [facility] [address] [place] [address], [place] [phone] Stephanie Haq, ELLIOTT OT - REASSESSMENT 10/31/2023 Home Care Visit [facility] [address] [place] [address], [place] [phone] Tori Foy, RN CARE COORDINATION 10/31/2023 Telephone [facility] [address] [place] [address] Margaret Allen DO POLST FOR DR MENDES 10/31/2023 Telephone [facility] [address] [place] [address] Margaret Allen DO clarification needed (Clostridium difficile toxin) 10/30/2023 Orders Only [facility] [address] [facility] [address] Margaret Allen, <No scans attached> 10/28/2023 9:00 AM CDT Home Care Visit [facility] [address] [place] [phone] Aubrey Wilson, PT PT - HOME VISIT 10/27/2023 2:30 PM CDT Home Care Visit [place] [id number] [place] [phone] Radha Eduardo COTA OT - HOME VISIT 10/27/2023 9:00 AM CDT Home Care Visit [place] [address] [place] [phone] Ludin Shaw, ATTENDANT COIN OPERATED LAUNDRY ATTENDANT COIN OPERATED LAUNDRY - REASSESSMENT 10/27/2023 Home Care Visit [place] [address] [place] [phone] Edward Good, RN SN - TELEHEALTH VISIT 10/27/2023 Home Care Visit [address] [phone] Jessica Maya LISW PRODUCTION CELL LEADER - HOME VISIT 10/26/2023 11:40 AM CDT Office Visit [facility] [address] [facility] [address] Margaret Allen DO Follow Up; Eye Problem (Referral to neuro opthamology); Diarrhea (Once daily ) 10/25/2023 9:00 AM CDT Home Care Visit [facility] [address] [place] [phone] Aubrey Wilson, PT PT - REASSESSMENT 10/25/2023 Travel 10/21/2023 8:45 AM CDT Home Care Visit [facility] [address] [place] [address] Aubrey Wilson, PT PT - HOME VISIT 10/21/2023 Home Care Visit [facility] [address] [place] [phone] Jessica Maya LISW CARE COORDINATION 10/20/2023 2:30 PM CDT Home Care Visit [facility] [address] [place] [phone] Radha Eduardo COTA OT - HOME VISIT 10/19/2023 2:30 PM CDT Home Care Visit [facility] [address] [place] [phone] Aubrey Wilson, PT PT - HOME VISIT 10/19/2023 9:00 AM CDT Home Care Visit [facility] [address] [place] [phone] Ludin Shaw, ATTENDANT COIN OPERATED LAUNDRY ATTENDANT COIN OPERATED LAUNDRY - HOME VISIT 10/19/2023 8:30 AM CDT Home Care Visit [facility] [address] [place] [phone] Dina Hall, LASER PRINTING OPERATOR LASER PRINTING OPERATOR - HOME VISIT 10/19/2023 Travel 10/19/2023 Orders Only [facility] [address] [facility] [place] [phone] Margaret Allen DO Lab 10/17/2023 11:30 AM CDT Phone Office Visit [facility] [address] [facility] [address] [place] [address] Lindsey Demarco NP Follow Up (stroke) 10/17/2023 Telephone [facility] [address] [place] [address] Margaret Allen DO Referral 10/16/2023 Telephone [facility] [address] [place] [address] Margaret Allen DO Medication Management 10/14/2023 10:30 AM CDT Home Care Visit [facility] [address] [place] [address] Jessica Maya LISW PRODUCTION CELL LEADER - INITIAL ASSESSMENT 10/14/2023 Home Care Visit [facility] [address] [place] [phone] Stephanie Haq, OT OT - INITIAL ASSESSMENT 10/14/2023 Telephone [facility] [address] [place] [address] Lindsey Demarco NP Appointment Reminder 10/14/2023 Patient Outreach [facility] [address] [place], [place] [phone] Zainab Reyes RN Stroke Rehab Care Coordination - [facility] 10/14/2023 Refill [facility] [address] [place] [address] Margaret Allen DO Refill Request (Potassium Chloride ER 10 mEq, Eliquis 25mg, Clopidogrel 75mg, Propranolol 20mg tab, Metoprolol Succinate 25mg tab ) 10/13/2023 8:45 AM CDT Home Care Visit [place] [phone] [place] [phone] Aubrey Wilson, PT PT - HOME VISIT 10/12/2023 12:00 PM CDT Home Care Visit [facility] [address] [place] [phone] Edward Good, RN SN - HOME VISIT 10/12/2023 9:00 AM CDT Home Care Visit [facility] [address] [place] [phone] Ludin hSaw, ATTENDANT COIN OPERATED LAUNDRY ATTENDANT COIN OPERATED LAUNDRY - HOME VISIT 10/11/2023 11:00 AM CDT Home Care Visit [address] [phone] Nadine Méndez PANEL SAW OPERATOR - HOME VISIT 10/11/2023 8:45 AM CDT Home Care Visit [facility] [address] [place] [address] Aubrey Wilson, PT PT - HOME VISIT 10/11/2023 Telephone [facility] [address] [place] [address] Aubrey Wilson, PT Home Care 10/11/2023 Travel 10/07/2023 8:45 AM CDT Home Care Visit [facility] [address] [place] [address] Aubrey Wilson, PT PT - HOME VISIT 10/07/2023 Travel 10/06/2023 11:15 AM CDT Home Care Visit [facility] [address] [place] [phone] Lauren Davila RN SN - HOME VISIT 10/06/2023 9:00 AM CDT Home Care Visit [facility] [address] [place] [phone] Ludin Shaw, ATTENDANT COIN OPERATED LAUNDRY ATTENDANT COIN OPERATED LAUNDRY - HOME VISIT 10/05/2023 Telephone [facility] [address] [place] [address] Margaret Allen, Follow Up 10/04/2023 12:00 PM CDT Home Care Visit [facility] [address] [place] [phone] Ludin Shaw, ATTENDANT COIN OPERATED LAUNDRY ATTENDANT COIN OPERATED LAUNDRY - HOME VISIT 10/04/2023 10:00 AM CDT Home Care Visit [facility] [address] [place] [phone] Nadine Méndez PANEL SAW OPERATOR - HOME VISIT 10/04/2023 9:00 AM CDT Home Care Visit [facility] [address] [place] [phone] Aubrey Wilson, PT PT - HOME VISIT 09/30/2023 Telephone [facility] [address] [place] [address] Margaret Allen DO Home Care (Clarification on medication) 09/29/2023 9:15 AM CDT Home Care Visit [facility] [address] [place] [address] Aubrey Wilson, PT PT - INITIAL ASSESSMENT 09/28/2023 2:30 PM CDT Home Care Visit [facility] [address] [place] [phone] Ludin Shaw, ATTENDANT COIN OPERATED LAUNDRY ATTENDANT COIN OPERATED LAUNDRY - INITIAL ASSESSMENT 09/28/2023 12:30 PM CDT Home Care Visit [facility] [address] [place] [phone] Dina Hall, LASER PRINTING OPERATOR LASER PRINTING OPERATOR - HOME VISIT 09/28/2023 Nurse Triage [facility] [address] [place] [address] Margaret Allen DO Catheter Problem 09/27/2023 10:00 AM CDT Home Care Visit [facility] [address] [place] [phone] Nadine Méndez - HOME VISIT 09/27/2023 Orders Only [facility] [address] [place] [address] Margaret Allen DO <No scans attached> 09/26/2023 1:05 PM CDT Office Visit [facility] [address] [place] [address] Margaret Allen DO Follow Up 09/26/2023 Travel 09/24/2023 Orders Only [facility] Scanner 1 scan: (1-Ord) [facility], HEAD W/O, 09/24/2023 09/23/2023 5:00 AM CDT Home Care Visit [facility] [address] [place] [phone] Nadine Méndez - MISSED VISIT 09/23/2023 Patient Outreach [facility] [address] [facility] [address] [place], [place] [phone] Zainab Reyes, ANNELIESE Stroke Rehab Care Coordination - [facility] 09/23/2023 Nurse Triage [facility] [address] [place] [address] Margaret Allen DO left wrist pain 09/22/2023 10:00 AM CDT Home Care Visit [facility] [address] [place] [phone] Lauren Davila, RN SN - OASIS START OF CARE 09/22/2023 Home Care Visit [facility] [address] [place] [phone] Lauren Davila, RN CARE COORDINATION 09/22/2023 Telephone [facility] [address] [place] [address] Margaret Allen DO Home Care (SOC/ Drug Interactions) 09/22/2023 Plan of Care Documentation [facility] [address] [place] [phone] 09/22/2023 Patient Outreach [facility] [address] [place] [address] Iona Howell RN Primary RN Care Management; Hospital F/U ([place] [address]) 09/06/2023 11:01 AM CDT - 09/21/2023 11:19 AM CDT Hospital Encounter [facility] [address] [place], [place] [phone] Marlene May MD Acute CVA (cerebrovascular accident) [...] Home Health 09/06/2023 Travel 09/05/2023 Orders Only [facility] [address] [facility] [address] [place] [address] Verónica Shore PA <No scans attached> 09/05/2023 Travel 09/02/2023 3:08 AM CDT - 09/06/2023 10:52 AM CDT Hospital Encounter [facility] [address] [facility] [place] [address] s, Hospitalist [facility] Nunu Landrum MD Talberg, MD Maddie Jones Priya, MD Acute CVA (cerebrovascular accident) (HC) (Primary Dx); Hypertension; Atrial flutter with rapid ventricular response (HC); Health care maintenance Discharge Disposition: Rehab Facility or Unit 09/02/2023 Telephone [facility] [address] [facility] [address] [place] [address] Lindsey Demarco, [facility] F/U 09/01/2023 Orders Only [facility] Scanner 1 scan: (1-Ord) [place], ANGIO NECK, 09/01/2023 09/01/2023 Orders Only [facility] Scanner 1 scan: (1-Ord) [place], HEAD ANGIO, 09/01/2023 09/01/2023 Orders Only [facility] Scanner 1 scan: (1-Ord) [facility], CT HEAD/BRAIN WO CON, 09/01/2023 09/01/[address] [facility] [address] [place] [phone] Edith Bentley MD Telehealth ([facility] (telephone consult)) 09/01/2023 Telephone [facility] [address] [place] [address] Margaret Allen, Questions 08/26/2023 Telephone [facility] [address] [facility] [address] [place] [address] Avel Richards MD Concerns from Last 3 Months Immunizations Name Administration Dates Next Due AMB INFLUENZA IIV3 (AGE 65+ YRS) PF (Flu Clinic Only) 03/31/2018,03/30/2017 AMB Influenza, IIV3 (Age >=3 years)(Flu Clinic Only) 03/30/2011,04/14/2010 Amb Influenza, Inact (High-d ose) (Flu Clinic Only) 04/23/2016,03/21/2015,03/19/2014 COVID-19 vaccine (real trends NTQuill Content 30mcg/0.3mL) PF, MDV 03/11/2021,08/19/2020,07/29/2020 Hepatitis A (Adult) 11/23/2000,05/25/2000 Hepatitis B [...] Sign Reading Time Taken Comments Blood Pressure 110/80 11/04/2023 9:22 AM CDT Pulse 78 11/04/2023 9:22 AM CDT Temperature 36.2 ??C (97.1 ??F) 11/04/2023 9:22 AM CD T Respiratory Rate 18 11/04/2023 9:22 AM CDT Oxygen Saturation 99% 11/04/2023 9:22 AM CDT Inhaled Oxygen Concentration - - Weight 55.8 kg (123 lb) 10/26/2023 12:00 PM CDT Height 152.4 cm (5') 09/22/2023 11:39 AM CDT Body Mass Index 24.02 09/22/2023 11:39 AM CDT Plan of Treatment Upcoming Encounters Date Type Department Care Team (Late st Contact Info) Description 11/08/2023 10:30 AM CDT Office Visit [facility] [address] [place] [address] Rambo Christensen, [facility] [address] [place] [address] 11/08/2023 4:00 PM CDT Home Care Visit [address] [phone] Radha Eduardo COTA [address] [place] [address] 11/09/2023 8:45 AM CDT Home Care Visit [address] [phone] Aubrey Wilson, PT [address] [place] [address] 11/09/2023 12:00 PM CDT Home Care Visit [address] [phone] Ludin Shaw, ATTENDANT COIN OPERATED LAUNDRY [address] [place] [address] 11/10/2023 11:00 AM CDT Home Care Visit [address] [phone] Nadine Méndez 11/11/2023 8:45 AM CDT Home Care Visit [address] [phone] Aubrey Wilson, PT [address] [place] [address] 11/11/2023 9:00 AM CDT Home Care Visit [address] [place] [address] Edward Good, RN [address] [place] [address] 11/15/2023 9:00 AM CDT Home Care Visit [address] [phone] Aubrey Wilson, PT [address] [place] [address] 11/15/2023 9:00 AM CDT Home Care Visit [address] [phone] Stephanie Haq, OT [address] [place] [address] 11/17/2023 4:00 AM CDT Home Care Visit [address] [phone] Nadine Méndez 11/17/2023 9:00 AM CDT Appointment [address] [phone] Aubrey Wilson, PT [address] [place] [address] 11/23/2023 10:15 AM CDT Office Visit [facility] [address] [facility] [address] [place] [address] Marlene May MD [address] [facility] [address] [place] [address] 12/07/2023 8:30 AM CDT Appointment [facility] [address] [facility] [address] [place] [address] 12/07/2023 9:30 AM CDT Office Visit [facility] [address] [place] [phone] Patricia Craig MD [address] [place], [place] [phone] 12/20/2023 2:00 PM CDT Cardiac Device Check [facility] [address] [place] [phone] 05/08/2024 9:30 AM MEDICAL SERVICES ASSISTANT Office Visit [facility] [address] [place] [phone] Ming Kelly III, PhD, LP [address] [facility] [address] [place] [address] Health Maintenance Due Date Last Done Comments [...] Procedure Name Priority Date/Time Associated Diagnosis Comments CLOSTRIDIOIDES DIFFICILE TOXIN PCR Routine 11/01/2023 6:05 AM CDT Chronic diarrhea MAGNESIUM Routine 10/19/2023 8:55 AM CDT Medication management CBC WITH AUTO DIFFERENTIAL [...] CDT SCAN-CT INTERPRETATION 4 12:00 AM CDT XR DXA BONE DENSITY 2 SITES AXIAL Routine 08/09/2022 10:21 AM MEDICAL SERVICES ASSISTANT Osteoporosis, unspecified osteoporosis type, unspecified pathological fracture presence from Last 3 Months or Most Recently Relevant to Health Maintenance Results * CLOSTRIDIOIDES DIFFICILE TOXIN PCR (11/01/2023 6:05 AM CDT) Pathologist [facility] CLOSTRIDIUM DIFFICILE PCR Negative 11/01/2023 5:10 PM CDT [facility] PRESUMPTIVE NAP1 STRAIN Negative 11/01/2023 5:10 PM CDT [facility] Stool STOOL SPECIMEN / Unknown Non-Blood / Unknown 11/01/2023 6:05 AM CDT 11/01/2023 11:29 AM CDT Narrative [facility] - 11/01/2023 5:10 PM CDT The NAP1 (027 or BI) strain is a hypervirulent strain. Detection may be useful for epidemiological purposes. Margaret Allen DO MICROBIOLOGY [facility] [address] [place] [address], * MAGNESIUM (10/19/2023 8:55 AM CDT) Only the most recent of5 resultswithin the time period is included. MAGNESIUM 1.6 1.6 - 2.4 mg/dL 10/19/2023 10:01 AM CDT [facility] Blood BLOOD SPECIMEN / Unknown Non-Lab Venipuncture / Unknown 10/19/2023 8:55 AM CDT 10/19/2023 9:34 AM CDT Margaret Allen DO CHEMISTRY [facility] [address] [place] [address] * (ABNORMAL) CBC WITH AUTO DIFFERENTIAL (09/26/2023 2:02 PM CDT) WHITE BLOOD COUNT 9.2 4.5 - 11.0 thou/cu mm 09/26/2023 2:09 PM CDT [facility] RED BLOOD COUNT 4.23 4.00 - 5.20 mil/cu mm 09/26/2023 2:09 PM CDT [facility] HEMOGLOBIN 13.1 12.0 - 16.0 g/dL 09/26/2023 2:09 PM CDT [facility] HEMATOCRIT 38.6 33.0 - 51.0 % 09/26/2023 2:09 PM CDT [facility] MCV 91 80 - 100 fL 09/26/2023 2:09 PM CDT [facility] MCH 31.0 26.0 - 34.0 pg 09/26/2023 2:09 PM CDT [facility] MCHC 33.9 32.0 - 36.0 g/dL 09/26/2023 2:09 PM CDT [facility] RDW 12.2 11.5 - 15.5 % 09/26/2023 2:09 PM CDT [facility] PLATELET COUNT 209 140 - 440 thou/cu mm 09/26/2023 2:09 PM CDT [facility] MPV 11.3(H) 6.5 - 11.0 fL 09/26/2023 2:09 PM CDT [facility] % NEUT 74.7 % 09/26/2023 2:09 PM CDT [facility] % LYMPH 15.7 % 09/26/2023 2:09 PM CDT [facility] % MONO 8.1 % 09/26/2023 2:09 PM CDT [facility] % EOS 1.1 % 09/26/2023 2:09 PM CDT [facility] % BASO 0.4 % 09/26/2023 2:09 PM CDT [facility] ABSOLUTE NEUTROPHILS 6.9 1.7 - 7.0 thou/cu mm 09/26/2023 2:09 PM CDT [facility] ABSOLUTE LYMPHOCYTES 1.5 0.9 - 2.9 thou/cu mm 09/26/2023 2:09 PM CDT [facility] ABSOLUTE MONOCYTES 0.8 <0.9 thou/cu mm 09/26/2023 2:09 PM CDT [facility] ABSOLUTE EOSINOPHILS 0.1 <0.5 thou/cu mm 09/26/2023 2:09 PM CDT [facility] ABSOLUTE BASOPHILS 0.0 <0.3 thou/cu mm 09/26/2023 2:09 PM CDT [facility] Blood BLOOD SPECIMEN / Unknown Venipuncture / Unknown 09/26/2023 2:02 PM CDT 09/26/2023 2:04 PM CDT Margaret Allen DO HEMATOLOGY [facility] [address] [place] [address], * (ABNORMAL) BASIC METABOLIC PANEL (09/26/2023 2:02 PM CDT) Only the most recent of3 resultswithin the time period is included. SODIUM 142 136 - 145 mmol/L 09/26/2023 11:26 PM CDT [facility] POTASSIUM 3.9 3.5 - 5.1 mmol/L 09/26/2023 11:26 PM CDT [facility] CHLORIDE 105 98 - 107 mmol/L 09/26/2023 11:26 PM CDT [facility] CO2,TOTAL 27 22 - 29 mmol/L 09/26/2023 11:26 PM CDT [facility] ANION GAP 10 5 - 18 09/26/2023 11:26 PM CDT [facility] GLUCOSE 113(H) 70 - 99 mg/dL 09/26/2023 11:26 PM CDT [facility] CALCIUM 10.0 8.8 - 10.2 mg/dL 09/26/2023 11:26 PM CDT [facility] BUN 10 8 - 23 mg/dL 09/26/2023 11:26 PM CDT [facility] CREATININE 0.65 0.50 - 0.90 mg/dL 09/26/2023 11:26 PM CDT [facility] BUN/CREAT RATIO 15 10 - 20 11:26 PM T [facility] eGFR 88(L) >90 mL/min/1.7 3m2 09/26/2023 11:26 PM CDT [facility] Comment:As of 2021, eG FR [...] 2:04 PM CDT Margaret Allen DO CHEMISTRY [facility] [address] [place] [address], * SCAN-CT INTERPRETATION (09/24/2023 12:00 AM CDT) Only the most recent of4 resultswithin the time period is included. Anatomical Region Laterality Modality Other Scanner OTHER * UA W/ SEDIMENT EXAM REFLEXED PER CRITERIA (09/19/2023 5:57 PM CDT) Only the most recent of3 resultswithin the time period is included. COLOR Yellow Yellow Color 09/19/2023 6:09 PM CDT [facility] CLARITY Clear Clear Clarity 09/19/2023 6:09 PM CDT [facility] SPECIFIC GRAVITY,URINE 1.010 1.010, 1.015, 1.020, 1.025 09/19/2023 6:09 PM CDT [facility] PH,URINE 6.0 6.0, 7.0, 8.0, 5.5, 6.5, 7.5, 8.5 09/19/2023 6:09 PM CDT [facility] UROBILINOGEN, QUALITATIVE Normal Normal EU/dl 09/19/2023 6:09 PM CDT [facility] PROTEIN, URINE Negative Negative mg/dL 09/19/2023 6:09 PM CDT [facility] GLUCOSE, URINE Negative Negative mg/dL 09/19/2023 6:09 PM CDT [facility] KETONES,URINE Negative Negative mg/dL 09/19/2023 6:09 PM CDT [facility] BILIRUBIN,URI NE Negative Negative 09/19/2023 6:09 PM CDT [facility] OCCULT BLOOD,URINE Negative Negative 09/19/2023 6:09 PM CDT [facility] NITRITE Negative Negative 09/19/2023 6:09 PM CDT [facility] LEUKOCYTE ESTERASE Negative Negative 09/19/2023 6:09 PM CDT [facility] Urine URINE SPECIMEN / Unknown Non-Blood / Unknown 09/19/2023 5:57 PM CDT 09/19/2023 6:03 PM CDT Marlene May MD URINE [facility] SENDOUT INTERNAL [facility] [id number] [place] [address] * XR VIDEO SWALLOW W SPEECH (09/19/2023 [...] EXAM: XR VIDEO SWALLOW W SPEECH LOCATION: [facility] MEDICAL IMAGING DATE: 09/19/2023 INDICATION: [...] EXAM: XR VIDEO SWALLOW W SPEECH LOCATION: [facility] MEDICAL IMAGING DATE: 09/19/2023 INDICATION: [...] None Seen /HPF 09/10/2023 3:50 PM CDT [facility] WBC >100(A) 0-2, 3-5, None Seen /HPF 09/10/2023 3:50 PM CDT [facility] BACTERIA Many(A) None Seen, Rare, Few Bacteria/ HPF 09/10/2023 3:50 PM CDT [facility] EPITHELIAL CELLS None Seen None Seen, Few Epi/HPF 09/10/2023 3:50 PM CDT [facility] HYALINE CASTS 0-2 0-2, 3-5 /LPF 09/10/2023 3:50 PM CDT [facility] Urine URINE SPECIMEN / Unknown Non-Blood / Unknown 09/10/2023 3:04 PM CDT 09/10/2023 3:07 PM CDT Marlene May MD URINE [facility] SENDOUT INTERNAL ZIP [phone] [place] [address] * (ABNORMAL) URINE CULTURE (09/10/2023 3:04 PM CDT) CULTURE RESULT(A) 09/13/2023 10:08 AM CDT [facility] CULTURE >100,000 CFU/mL Enterococcus faecalis 09/13/2023 10:08 AM CDT [facility] CULTURE <10,000 CFU/mL Multiple organisms probable contaminants 09/13/2023 10:08 AM CDT [facility] Urine URINE SPECIMEN / Unknown Non-Blood / Unknown 09/10/2023 3:04 PM CDT 09/10/2023 3:07 PM CDT Narrative Organism Antibiotic Method Susceptibility Enterococcus faecalis AMPICILLIN <=2: S Enterococcus faecalis NITROFURANTOIN <=16: S Marlene May MD MICROBIOLOGY [facility] [address] [place] [address], * (ABNORMAL) TSH (09/08/2023 5:56 AM CDT) TSH 4.44(H) 0.27 - 4.20 uIU/mL 09/08/2023 7:02 AM CDT [facility] Blood BLOOD SPECIMEN / Unknown Venipuncture / Unknown 09/08/2023 5:56 AM CDT 09/08/2023 6:26 AM CDT Narrative [facility] - 09/08/2023 7:02 AM CDT In Adults, TSH values between 5.00 and 10.00 uIU/ml do not necessarily indicate the presence of Hypothyroidism. Correlation with clinical findings such as presence of goiter and/or Thyroperoxidase (TPO) Antibody may be helpful. For more information please refer to CHANG 2004; 291: 228-238. Elizabeth Perkins MD CHEMISTRY Performing Organization Address City/[facility]/ZIP Co de Phone Number [facility] SENDOUT INTERNAL ZIP [phone] [place] [address] * HEMOGLOBIN (09/08/2023 5:56 AM CDT) Only the most recent of4 resultswithin the time period is included. HEMOGLOBIN 13.7 12.0 - 16.0 g/dL 09/08/2023 6:30 AM CDT [facility] MCV 91 80 - 100 fL 09/08/2023 6:30 AM CDT [facility] Blood BLOOD SPECIMEN / Unknown Venipuncture / Unknown 09/08/2023 5:56 AM CDT 09/08/2023 6:24 AM CDT Elizabeth Perkins MD HEMATOLOGY Performing Organization Address [facility]/ZIP Co de Phone Number [facility] SENDOUT INTERNAL ZIP [phone] [place] [address] * POTASSIUM (09/08/2023 5:56 AM CDT) Only the most recent of4 resultswithin the time period is included. POTASSIUM 3.6 3.5 - 5.1 mmol/L 09/08/2023 7:02 AM CDT [facility] Blood BLOOD SPECIMEN / Unknown Venipuncture / Unknown 09/08/2023 5:56 AM CDT 09/08/2023 6:26 AM CDT Elizabeth Perkins MD CHEMISTRY Performing Organization Address City/[facility]/ZIP Co de Phone Number [facility] SENDOUT INTERNAL ZIP [phone] [place] [address] * CREATININE (09/08/2023 5:56 AM CDT) Only the most recent of3 resultswithin the time period is included. eGFR >90 >90 mL/min/1.7 3m2 09/08/2023 7:02 AM CDT [facility] Comment:As of 2021, eG FR is calculated by the CKD-EPI creatinine equation without race adjustment. ??eGFR can be influenced by muscle mass, exercise, and diet. ??The reported eGFR is an estimation only and is only applicable if the renal function is stable. CREATININE 0.53 0.50 - 0.90 mg/dL 09/08/2023 7:02 AM [facility] Blood BLOOD SPECIMEN / Unknown Venipuncture / Unknown 09/08/2023 5:56 AM CDT 09/08/2023 6:26 AM CDT Elizabeth Perkins MD CHEMISTRY [facility] SENDOUT INTERNAL ZIP [phone] [place] [address] * CBC W PLT NO DIFF (09/07/2023 6:34 AM CDT) WHITE BLOOD COUNT 9.5 4.5 - 11.0 thou/cu mm 09/07/2023 6:56 AM [facility] RED BLOOD COUNT 4.52 4.00 - 5.20 mil/cu mm 09/07/2023 6:56 AM [facility] HEMOGLOBIN 13.8 12.0 - 16.0 g/dL 09/07/2023 6:56 AM [facility] HEMATOCRIT 40.7 33.0 - 51.0 % 09/07/2023 6:56 AM [facility] MCV 90 80 - 100 fL 09/07/2023 6:56 AM [facility] MCH 30.5 26.0 - 34.0 pg 09/07/2023 6:56 AM [facility] MCHC 33.9 32.0 - 36.0 g/dL 09/07/2023 6:56 AM [facility] RDW 11.9 11.5 - 15.5 % 09/07/2023 6:56 AM [facility] PLATELET COUNT 166 140 - 440 thou/cu mm 09/07/2023 6:56 AM [facility] MPV 10.9 6.5 - 11.0 fL 09/07/2023 6:56 AM [facility] NRBC 0.0 % 09/07/2023 6:56 AM CDT [facility] ABS NRBC 0.0 thou /cu mm 09/07/2023 6:56 AM CDT [facility] Blood BLOOD SPECIMEN / Unknown Venipuncture / Unknown 09/07/2023 6:34 AM CDT 09/07/2023 6:47 AM CDT Elizabeth Perkins MD HEMATOLOGY Performing Organization Address City/[facility]/ZIP Co de Phone Number [facility] SENDOUT INTERNAL ZIP [phone] [place] [address] * (ABNORMAL) GLUCOSE METER (09/07/2023 2:32 AM CDT) Only the most recent of18 resultswithin the time period is included. [facility] Signature GLUCOSE METER 122(H) 65 - 100 mg/dL 09/07/2023 2:36 AM CDT [facility] Blood BLOOD SPECIMEN / Unknown 09/07/2023 2:32 AM CDT 09/07/2023 2:36 AM CDT Marlene May MD CHEMISTRY Performing Organization Address City/[facility]/ZIP Co de Phone Number [facility] SENDOUT INTERNAL ZIP [phone] [place] [address] * SCAN-CARDIAC STRIP (09/06/2023 9:05 AM CDT) [...] NOW QTc 483 ms BEYOND NOW P [place] 60 degrees BEYOND NOW R [place] 94 degrees BEYOND NOW T [place] 115 degrees BEYOND NOW 09/03/2023 4:26 PM CDT 09/04/2023 7:45 AM CDT Elizabeth Perkins MD EKG ORD Performing Organization Address [facility] de Phone Number BEYOND NOW [place], [place] * SCAN-CARDIAC STRIP (09/03/2023 9:32 AM CDT) Scanner OTHER * Hemoglobin A1C Screening (09/02/2023 3:43 PM CDT) HEMOGLOBIN A1C SCREENING 5.5 <=6.4 % 09/02/2023 3:57 PM CDT [facility] Blood BLOOD SPECIMEN / Unknown Non-Lab Venipuncture / Unknown 09/02/2023 3:43 PM CDT 09/02/2023 3:50 PM CDT Narrative [facility] - 09/02/2023 3:57 PM CDT ? (<5.7%) ?Normal ? (5.7% to 6.4%) ? Indicates prediabetes ? (>=6.5%) ? Confirms diabetes Falsely low levels may be seen with: Recent Transfusion, Recent Significant Blood Loss, Hemolytic Diseases, or Falsely elevated levels may be seen with: Untreated Anemias, Splenectomy Nunu Landrum MD CHEMISTRY Performing Organization Address City/[facility]/ZIP Co de Phone Number [facility] SENDOUT INTERNAL ZIP [phone] [place] [address] * PLATELET COUNT (09/02/2023 3:43 PM CDT) PLATELET COUNT 189 140 - 440 thou/cu mm 09/02/2023 4:03 PM CDT [facility] MPV 10.8 6.5 - 11.0 fL 09/02/2023 4:03 PM CDT [facility] Blood BLOOD SPECIMEN / Unknown Non-Lab Venipuncture / Unknown 09/02/2023 3:43 PM CDT 09/02/2023 3:50 PM CDT Nunu Landrum MD HEMATOLOGY [facility] SENDOUT INTERNAL ZIP [phone] [place] [address] * WHITE BLOOD COUNT (09/02/2023 3:43 PM CDT) WHITE BLOOD COUNT 7.4 4.5 - 11.0 thou/cu mm 09/02/2023 4:03 PM CDT [facility] NRBC 0.0 % 09/02/2023 4:03 PM CDT [facility] ABS NRBC 0.0 thou /cu mm 09/02/2023 4:03 PM CDT [facility] Blood BLOOD SPECIMEN / Unknown Non-Lab Venipuncture / Unknown 09/02/2023 3:43 PM CDT 09/02/2023 3:50 PM CDT Nunu Landrum MD HEMATOLOGY [facility] SENDOUT INTERNAL ZIP [address] [address] [place] [address] * SODIUM (09/02/2023 3:43 PM CDT) SODIUM 139 136 - 145 mmol/L 09/02/2023 4:24 PM CDT [facility] Blood BLOOD SPECIMEN / Unknown Non-Lab Venipuncture / Unknown 09/02/2023 3:43 PM CDT 09/02/2023 3:50 PM CDT Nunu Landrum MD CHEMISTRY Performing Organization Address City/[facility]/ZIP Co de Phone Number [facility] SENDOUT INTERNAL ZIP [phone] [place] [address] * (ABNORMAL) BILIRUBIN,TOTAL (09/02/2023 3:43 PM CDT) BILIRUBIN,TOTA L 1.5(H) 0.0 - 1.2 mg/dL 09/02/2023 4:24 PM CDT [facility] Blood BLOOD SPECIMEN / Unknown Non-Lab Venipuncture / Unknown 09/02/2023 3:43 PM CDT 09/02/2023 3:50 PM CDT Nunu Landrum MD CHEMISTRY Performing Organization Address [facility]/ZIP Co de Phone Number [facility] SENDOUT INTERNAL ZIP [phone] [place] [address] * ALT (SGPT) (09/02/2023 3:43 PM CDT) ALT (SGPT) 13 10 - 35 IU/L 09/02/2023 4:24 PM CDT [facility] Blood BLOOD SPECIMEN / Unknown Non-Lab Venipuncture / Unknown 09/02/2023 3:43 PM CDT 09/02/2023 3:50 PM CDT Nunu Landrum MD CHEMISTRY Performing Organization Address City/[facility]/ZIP Co de Phone Number [facility] SENDOUT INTERNAL ZIP [phone] [place] [address] * AST (SGOT) (09/02/2023 3:43 PM CDT) AST (SGOT) 28 10 - 35 IU/L 09/02/2023 4:24 PM CDT [facility] Blood BLOOD SPECIMEN / Unknown Non-Lab Venipuncture / Unknown 09/02/2023 3:43 PM CDT 09/02/2023 3:50 PM CDT Nunu Landrum MD CHEMISTRY [facility] SENDOUT INTERNAL ZIP [phone] [place] [address] * ALK PHOSPHATASE (09/02/2023 3:43 PM CDT) ALK PHOSPHATASE 75 35 - 104 IU/L 09/02/2023 4:24 PM CDT [facility] Blood BLOOD SPECIMEN / Unknown Non-Lab Venipuncture / Unknown 09/02/2023 3:43 PM CDT 09/02/2023 3:50 PM CDT Nunu Landrum MD CHEMISTRY [facility] SENDOUT INTERNAL ZIP [address] [place] [address] * Lipid Panel (09/02/2023 3:43 PM CDT) CHOLESTEROL,TOTAL 170 100 - 199 mg/dL 09/02/2023 4:24 PM CDT [facility] Comment: Cholesterol, Total Reference Ranges Desirable <200 mg/dL Borderline 200-239 mg/dL High >=240 mg/dL TRIGLYCERIDES 125 <150 mg/dL 09/02/2023 4:24 PM CDT [facility] HDL CHOLESTEROL 70 >40 mg/dL 4:24 PM CDT [facility] NON-HDL CHOLESTEROL 100 <145 mg/dl 09/02/2023 4:24 PM CDT [facility] CHOL/HDL RATIO 2.43 <4.50 09/02/2023 4:24 PM CDT [facility] LDL CHOLESTEROL 75 <=130 mg/dL 09/02/2023 4:24 PM CDT [facility] VLDL CHOLESTEROL 25 <=30 mg/dL 09/02/2023 4:24 PM CDT [facility] PROVIDER ORDERED STATUS RANDOM 09/02/2023 4:24 PM CDT [facility] Blood BLOOD SPECIMEN / Unknown Non-Lab Venipuncture / Unknown 09/02/2023 3:43 PM CDT 09/02/2023 3:50 PM CDT Nunu Landrum MD CHEMISTRY [facility] SENDOUT INTERNAL ZIP [phone] [place] [address] * MR Brain w/wo contrast (09/02/2023 2:09 [...] provider. EXAM: MR HEAD BRAIN WWO LOCATION: [facility] MEDICAL IMAGING DATE: 09/02/2023 INDICATION: [...] provider. EXAM: MR HEAD BRAIN WWO LOCATION: [facility] MEDICAL IMAGING DATE: 09/02/2023 INDICATION: [...] COMPLETE WO CONTRAST (09/02/2023 10:43 AM CDT) EJECTION FRACTION 50-55% PROSOLV Anatomical Region Laterality Modality Ultrasound 09/02/2023 10:0 3 AM CDT Narrative 09/02/2023 12:21 [place] [address] Main: [email or web address] ? Transthoracic Echo Report VALARIE HUANG ID: [id number] Age: 83 : 1940 Ordering Provider: NUNU LANDRUM Exam Date: 09/02/2023 10:03 Gender: F Recruiting Intern: [facility] Height: 60 in BSA: 1.54 m?? BP: [...] DATA LVOT LOS (r) ?2.37 mmHg Simon Filipe CRUM Accredited Site (Electronically Signed) Final Date: 02 September 2023 12:20 ICD-10 Codes: Procedure Note Simon Dent MBBS - 09/02/2023 [place] [address] Main: [email or web address] Transthoracic Echo Report VALARIE HUANG Ayo ID: [id number] Age: 83 : 1940 Ordering Provider:NUNU LANDRUM Exam Date: 09/02/2023 10:03 Gender: F Recruiting Intern: [facility] Height: 60 in BSA: 1.54 m?? BP: [...] provider. EXAM: US CAROTID DUPLEX BILATERAL LOCATION: [facility] MEDICAL IMAGING DATE: 09/02/2023 INDICATION: [...] provider. EXAM: US CAROTID DUPLEX BILATERAL LOCATION: [facility] MEDICAL IMAGING DATE: 09/02/2023 INDICATION: [...] within the vertebral arteries bilaterally. Lindsey Demarco AIRPL[employer]EL[employer] US * SCAN-CARDIAC STRIP (09/02/2023 9:10 AM [...] DENSITY 2 SITES AXIAL (08/09/2022 10:21 AM MEDICAL SERVICES ASSISTANT) Anatomical Region Laterality Modality Spine, HIPS, HIPL, HIPR Other Impressions 08/10/2022 3:48 PM MEDICAL SERVICES ASSISTANT Osteoporosis. RECOMMENDATIONS: The National Osteoporosis Foundation recommends [...] greater than 5 years. Roz Perrin PA-C [facility] 08/10/2022 Narrative 08/10/2022 3:48 PM MEDICAL SERVICES ASSISTANT For Patients: Results are automatically released to your [facility] ([employer]) account once available, in compliance with federal regulations. This means that you may see your results before your provider has had a chance to review them. Please allow 2-3 business days for your provider to comment on the results. XR DXA Bone Mineral Density (BMD) EXAM LOCATION: [address] [address] PATIENT NAME: Valarie Huang DATE OF : [...] two scanners are made by the same shelving supervisor. 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
--- NOTE | 2023-11-05 16:11 | ED_ITS ---
HPI - Neuro Symptoms/Deficit General Chief Complaint: Neuro Symptoms/Altered Deficit Stated Complaint: stroke Time Seen by Provider: 11/05/23 15:56 History of Present Illness HPI Narrative: This 83-year-old female comes in by ambulance who called a stroke code prior to her arrival here. She reported some tingling sensation in her left face this started about an hour and half prior to arrival at 2:30 p.m.. She also had some similar symptoms last evening that resolved. 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 Upon initial arrival from the ambulance [place] I quickly evaluated the patient and noted no facial asymmetry or right upper extremity weakness. There were no unilateral symptoms yet the patient continues to feel some altered sensation in the right side of her face. 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 She does report history of a stroke about a month ago and had similar altered sensation in the left cheek of her face at that time. Related Data Home Medications ?Medication ?Instructions ?Recorded ?Confirmed acyclovir 400 mg tablet 400 mg PO 3XD PRN 09/08/22 09/24/23 omeprazole 20 mg capsule,delayed 20 mg PO DAILY 09/08/22 09/24/23 release propranolol 80 mg capsule,24 80 mg PO DAILY 09/08/22 09/24/23 hr,extended release apixaban 5 mg tablet (Eliquis) 5 mg PO BID 10/11/22 09/24/23 aspirin 81 mg chewable tablet 81 mg PO DAILY 10/11/22 09/24/23 (Aspirin Childrens) calcium carbonate 500 mg-vitamin 1 tab PO DAILY 10/11/22 09/24/23 D3 3.125 mcg (125 unit) tablet cholecalciferol (vitamin D3) 25 25 mcg PO DAILY 10/11/22 09/24/23 mcg (1,000 unit) capsule coenzyme Q10 100 mg capsule 100 mg PO DAILY 10/11/22 09/24/23 fexofenadine 180 mg tablet 180 mg PO DAILY 10/11/22 09/24/23 (Karolyn Allergy) fluticasone propionate 50 2 spray intranasal DAILY PRN 10/11/22 10/13/22 mcg/actuation nasal spray,suspension magnesium oxide 400 mg PO DAILY 10/11/22 09/24/23 metoprolol tartrate 25 mg tablet 12.5 - 25 mg PO DAILY PRN 10/11/22 09/24/23 multivitamin 1 tab PO DAILY 10/11/22 09/24/23 rosuvastatin 40 mg tablet (Crestor) 40 mg PO DAILY 10/11/22 10/13/22 clopidogrel 75 mg tablet 75 mg PO DAILY 09/24/23 09/24/23 losartan 25 mg tablet 12.5 mg PO DAILY 09/24/23 ofloxacin 0.3 % eye drops 1 drp ophthalmic (eye) QID 09/24/23 09/24/23 potassium chloride 20 mEq 20 meq PO DAILY 09/24/23 09/24/23 tablet,extended release(part/cryst) propranolol 20 mg tablet 20 mg PO DAILY 09/24/23 09/24/23 Allergies Allergy/AdvReac Type Severity Reaction Status Date / Time Sulfa (Sulfonamide Allergy Verified 09/24/23 12:32 Antibiotics) Review of Systems Status of ROS: Reports: 10 or more systems reviewed and unremarkable except as noted in History and below Narrative: Constitutional: No fevers, no weight gain or loss. Eyes: No discharge. No vision changes. HENT: No congestion, no sore throat, no ear pain. Cardiovascular: No chest pain, no palpitations. Respiratory: No shortness of breath, no wheezes, no cough. Gastrointestinal: No abdominal pain, no vomiting, no diarrhea. Genitourinary: No dysuria, no hematuria. Musculoskeletal: Normal range of motion. Skin: No rashes, no pruritis. Neurological: No dizziness, weakness, speech change. She reports some altered sensation in the right cheek around her mouth. Endo/Heme/Allergies: No bruising or bleeding. No polydipsia. Pysch: no suicidality, no anxiety, no insomnia. All other systems reviewed and are negative. [facility] Medical History Aortic stenosis ?I35.0 - Nonrheumatic aortic (valve) stenosis (ICD-10) Cardiac pacemaker in situ ?Z95.0 - Presence of cardiac pacemaker (ICD-10) E. coli UTI ?N39.0 - Urinary tract infection, site not specified (ICD-10) ?B96.20 - Unspecified Escherichia coli [E. coli] as the cause of diseases classified elsewhere (ICD-10) SSS (sick sinus syndrome) ?I49.5 - Sick sinus syndrome (ICD-10) Prolonged Q-T interval on ECG ?R94.31 - Abnormal electrocardiogram [ECG] [EKG] (ICD-10) KEVIN (obstructive sleep apnea) ?G47.33 - Obstructive sleep apnea (adult) (pediatric) (ICD-10) ASHD (arteriosclerotic heart disease) ?I25.10 - Atherosclerotic heart disease of [place] coronary artery without angina pectoris (ICD-10) Paroxysmal atrial fibrillation ?I48.0 - Paroxysmal atrial fibrillation (ICD-10) Dyspnea on exertion ?R06.09 - Other forms of dyspnea (ICD-10) Pulmonary hypertension ?I27.20 - Pulmonary hypertension, unspecified (ICD-10) Adjustment disorder with depressed mood ?F43.21 - Adjustment disorder with depressed mood (ICD-10) Essential and other specified forms of tremor ?G25.0 - Essential tremor (ICD-10) ?G25.2 - Other specified forms of tremor (ICD-10) Unspecified essential hypertension ?I10 - Essential (primary) hypertension (ICD-10) Fibromyalgia ?M79.7 - Fibromyalgia (ICD-10) GERD (gastroesophageal reflux disease) ?K21.9 - Gastro-esophageal reflux disease without esophagitis (ICD-10) Surgical History History of YAG laser capsulotomy of lens of left eye ?Z98.42 - Cataract extraction status, left eye (ICD-10) Hx of tubal ligation ?Z98.51 - Tubal ligation status (ICD-10) Hx of cataract extraction ?Z98.49 - Cataract extraction status, unspecified eye (ICD-10) Social History Smoking Status: Former smoker Do you use any of these nicotine containing products: None Second hand tobacco smoke exposure: No How often do you have a drink containing alcohol: 2-3 times a week How many standard drinks containing alcohol do you have on a typical day: 3 or 4 How often do you have six or more drinks on one occasion: Never AUDIT-C Alcohol total score: 4 Non-prescribed substance use: denies use Caffeine: Yes service: No Exam Narrative: Exam Narrative: Constitutional: Well-developed, well-nourished, no acute distress. HEENT: Normocephalic, atraumatic. Neck: Normal range of motion. Nontender. Supple. Heart: Regular. No murmurs. Normal rate. Intact distal pulses. Lungs: Clear to auscultation. No chest discomfort. No wheezes, rhonchi, or rales. Abdomen: Normal bowel sounds. Nontender. No rebound tenderness. Genitalia: Deferred. Back: No midline tenderness. Normal range of motion. Extremities: Normal range of motion. No injury. Skin: Intact. No rash. Warm. No erythema or pallor. Neurologic: No weakness. Alert and oriented. No facial asymmetry. Tongue is midline. Oniizz-du-[id number] is normal. No pronator drift. Svp Monetization strength is equal bilaterally. Able to raise each leg from the bed. Psychiatric: No suicidality. No anxiety or depression. No insomnia. Nursing notes and vitals signs are reviewed. Const: Vital Signs, click to edit/add: Vital Signs - 24 hr 11/05/23 15:59 11/05/23 16:08 11/05/23 16:11 Temperature 98.6 F Pulse Rate 72 70 Pulse Rate [Right Pulse Oximeter] 87 Respiratory Rate 16 Blood Pressure 150/74 H Blood Pressure [Ri ght Upper Arm] 150/74 H Pulse Oximetry 96 95 96 Oxygen Delivery Me thod Room Air 11/05/23 16:15 11/05/23 16:21 11/05/23 16:30 Temperature Pulse Rate 71 74 72 Pulse Rate [Right Pulse Oximeter] Respiratory Rate Blood Pressure 170/151 H Blood Pressure [Ri ght Upper Arm] Pulse Oximetry 95 97 91 Oxygen Delivery Me thod 11/05/23 16:33 11/05/23 16:45 11/05/23 16:48 Temperature Pulse Rate 69 74 79 Pulse Rate [Right Pulse Oximeter] Respiratory Rate Blood Pressure 128/64 119/99 H Blood Pressure [Ri ght Upper Arm] Pulse Oximetry 97 97 96 Oxygen Delivery Me thod 11/05/23 17:00 11/05/23 17:02 11/05/23 17:16 Temperature Pulse Rate 70 73 75 Pulse Rate [Right Pulse Oximeter] Respiratory Rate Blood Pressure 140/70 H Blood Pressure [Ri ght Upper Arm] Pulse Oximetry 95 97 98 Oxygen Delivery Me thod Course Vital Signs Vital signs: Initial Vital Signs Temperature 98.6 F 11/05/23 15:59 Temperature Source Temporal Artery Scan 05/25/24 15:59 Pulse Rate 87 11/05/23 15:59 Pulse Rhythm Regular 11/05/23 15:59 Pulse Strength 3+ Normal 11/05/23 15:59 Respiratory Rate 16 11/05/23 15:59 Blood Pressure 150/74 H 11/05/23 15:59 Blood Pressure Mean 99 11/05/23 15:59 Blood Pressure Position Supine 11/05/23 15:59 Pulse Oximetry 96 11/05/23 15:59 Oxygen Delivery Method Room Air 11/05/23 15:59 Vital Signs Temperature 98.6 F 11/05/23 15:59 Pulse Rate 87 11/05/23 15:59 Respiratory Rate 16 11/05/23 15:59 Blood Pressure 150/74 H 11/05/23 15:59 Pulse Oximetry 96 11/05/23 15:59 Oxygen Delivery Method Room Air 11/05/23 15:59 Temperature 98.6 F 11/05/23 15:59 Pulse Rate 75 11/05/23 17:16 Respiratory Rate 16 11/05/23 15:59 Blood Pressure 140/70 H 11/05/23 17:02 Pulse Oximetry 98 11/05/23 17:16 Oxygen Delivery Method Room Air 11/05/23 15:59 MDM - Neuro Symptoms/Deficit MDM Narrative Medical decision making narrative: This patient comes in because of recurrent so of tingling in the left face. This was similar symptoms to when she had a stroke a few months ago. Her neurologic exam is completely normal. I did contact the neurologist computer applications developer when the patient arrived and had several conversations along the way with the neurologist regarding CT results. 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 This is likely causing her symptoms. There is no new findings that would indicate a stroke. The patient is on Crestor 40 mg and Eliquis with Plavix. There is not much more medical treatment to manage this beyond which she is already taking. The patient is okay to return home. I did describe signs and symptoms that would indicate a need for return and re-evaluation. Lab Data Labs: Lab Results 11/05/23 Range/Units 16:11 WBC 5.64 (4.50-11.00) K/uL RBC 4.14 (4.00-5.20) m/uL Hgb 12.6 (12.0-16.0) gm/dL Hct 38.1 (33.0-51.0) % MCV 92 (80-100) fL MCH 30 (26-34) pg MCHC 33 (32-36) gm/dL RDW Coeff of Liza 11.7 (11.5-15.5) % Plt Count 186 (140-440) K/uL Neut % (Auto) 60.7 (42.0-72.0) % Lymph % (Auto) 25.0 (20-44) % [place] % (Auto) 11.3 H (0.0-11.0) % Eos % (Auto) 1.2 (0.0-7.0) % Baso % (Auto) 0.7 (0.0-3.0) % Neut # (Auto) 3.42 (1.7-7.0) K/uL Lymph # (Auto) 1.41 (0.90-2.90) K/uL [place] # (Auto) 0.60 (0.00-0.90) K/UL Eos # (Auto) 0.07 (0.00-0.50) K/uL Baso # (Auto) 0.04 (0.00-0.30) K/uL Abs Immat Gran (auto) 0.06 (0.00-0.30) K/uL Imm/Tot Granulo (auto) 1.1 % INR 0.96 (0.91-1.10) Sodium 139 (135-149) mmol/L Potassium 4.0 (3.6-5.1) mmol/L Chloride 105 (96-114) mmol/L Carbon Dioxide 30 (20-32) mmol/L Anion Gap 4 L (7-15) mEq/L BUN 13 (7-30) mg/dL Creatinine 0.6 (0.5-1.5) mg/dL Estimated Creat Clear 37.27 Estimated GFR 90 ml/min Glucose 100 (60-115) mg/dL Calcium 9.2 (8.4-10.6) mg/dL Imaging Data CT scan - head: Radiologist's impression: CT Head: No acute intracranial hemorrhage or mass. Probable chronic appearing right basal ganglia lacunar infarct however this does appear new from 09/24/2023. CTA head: Severe stenosis of the left posterior cerebral artery P2 segment, with slightly reduced flow within the lumen distally. Progressed since prior CT. Major intracranial arteries are otherwise patent. CTA neck: No high-grade cervical arterial stenosis. Mild stenosis of the internal carotid artery origins from atherosclerotic plaque. ECG Data Attestation: I personally reviewed and interpreted this ECG as follows: Interpretation: Normal sinus rhythm. Rate is 71 beats per minute. There are no ST or T-wave abnormalities. Discharge Plan Discharge Clinical Impression: Stenosis of left vertebral artery, Facial paresthesia Patient Disposition: Home, Self-Care Condition: Stable Additional Instructions: Continue current plans. Follow up with MD or return if symptoms worsen. Prescriptions: No Action ofloxacin 0.3 % drops 1 drp ophthalmic (eye) QID clopidogrel 75 mg tablet 75 mg PO DAILY potassium chloride 20 mEq tablet,ER particles/crystals 20 meq PO DAILY losartan 25 mg tablet 12.5 mg PO DAILY propranolol 20 mg tablet 20 mg PO DAILY Eliquis 5 mg tablet 5 mg PO BID aspirin [Aspirin Childrens] 81 mg tablet,chewable 81 mg PO DAILY calcium carbonate-vitamin D3 500 mg-3.125 mcg (125 unit) tablet 1 tab PO DAILY cholecalciferol (vitamin D3) 25 mcg (1,000 unit) capsule 25 mcg PO DAILY coenzyme Q10 100 mg capsule 100 mg PO DAILY fexofenadine [Karolyn Allergy] 180 mg tablet 180 mg PO DAILY fluticasone propionate 50 mcg/actuation spray,suspension 2 spray intranasal DAILY PRN Rx Instructions: administer into each nostril magnesium oxide 400 mg magnesium capsule 400 mg PO DAILY metoprolol tartrate 25 mg tablet 12.5 - 25 mg PO DAILY PRN multivitamin Tablet 1 tab PO DAILY rosuvastatin [Crestor] 40 mg tablet 40 mg PO DAILY acyclovir 400 mg tablet 400 mg PO 3XD PRN propranolol 80 mg capsule,extended release 24hr 80 mg PO DAILY omeprazole 20 mg capsule,delayed release(DR/EC) 20 mg PO DAILY Follow Up/Referrals: Margaret Allen DO [Primary Care Provider] - Stand Alone Forms: [address] Info Instructions
--- OUTSIDE RECORDS SUMMARY | 2023-11-05 16:28 | XMS_ITS | Clinical Summary ---
Author Organization [employer] Address [place], [place] [address] Care Team Providers Care Metal Lather Name Role Phone Chelsy Chinchilla MD Unavailable [phone] Margaret lAlen DO Primary Care Provider [phone] [facility] Care, Shea Unavailable Zainab Reyes RN Unavailable [phone] Zainab Reyes RN Unavailable [phone] Alejo Potter RN, Janet Unavailable [phone] Allergies Active Allergy Reactions Criticality Noted Date [...] vitamin D3 (OS-CESAR 500 + D) tabletIndications:H [facility] care maintenance Take 1 Tablet by mouth [...] vitamin D3 (OS-CESAR 500 + D) tabletIndications:H [facility] care maintenance Take 1 Tablet by mouth [...] Eligibility Review Date: 07/20/19 Upcoming Visit Location: [facility] Age: 78 y.o. Research Purpose Insurance Type: Medicare/Medicaid Comments: This patient was indicated to be a potential candidate and pre-screened for the following studies: Echo - 07/13/2019 No , Mild AR, Mild-Mod MR, Moderate TR Altflow - no d/t mild-mod MR, no As, Mild AR Triluminate - Potential Lipids - 05/26/2019 Non - HDL - 137 LDL - 101 Vesalius - Potential No AL or Stroke Problem Noted Date Diagnosed Date [...] Department Care Team Description 11/05/2023 Nurse Triage [facility] [address] [place] [address] Margaret Allen DO Neurologic Problem 11/04/2023 8:45 AM CDT Home Care Visit [facility] [address] [place] [phone] Aubrey Wilson, PT PT - HOME VISIT 11/04/2023 Travel 11/03/2023 12:00 PM CDT Home Care Visit [facility] [address] [place] [place] [phone] Edward Good, RN SN - HOME VISIT 11/03/2023 11:00 AM CDT Home Care Visit [facility] [address] [place] [place] [phone] Nadine Méndez CAP PARTS CUTTER - HOME VISIT 11/02/2023 12:00 PM CDT Home Care Visit [facility] [address] [place] [place] [phone] Ludin Shaw, READERS' ADVISORY SERVICE LIBRARIAN READERS' ADVISORY SERVICE LIBRARIAN - HOME VISIT 11/02/2023 Orders Only [facility] [address] [place] [address] Margaret Allen, DO <No scans attached> 11/01/2023 9:00 AM CDT Home Care Visit [facility] [address] [place] [address], [place] [phone] Aubrey Wilson, PT PT - HOME VISIT 11/01/2023 7:00 AM CDT Orders Only [facility] [address] [place] [address] Lab, [place] [facility] 11/01/2023 Travel 11/01/2023 Orders Only [facility] [address] [place] [address] Margaret Allen, DO <No scans attached> 10/31/2023 11:00 AM CDT Home Care Visit [facility] [address] [place] [address], [place] [phone] Stephanie Haq, ELLIOTT OT - REASSESSMENT 10/31/2023 Home Care Visit [facility] [address] [place] [address], [place] [phone] Tori Foy, RN CARE COORDINATION 10/31/2023 Telephone [facility] [address] [place] [address] Margaret Allen DO POLST FOR DR MENDES 10/31/2023 Telephone [facility] [address] [place] [address] Margaret Allen DO clarification needed (Clostridium difficile toxin) 10/30/2023 Orders Only [facility] [address] [facility] [address] Margaret Allen, <No scans attached> 10/28/2023 9:00 AM CDT Home Care Visit [facility] [address] [place] [phone] Aubrey Wilson, PT PT - HOME VISIT 10/27/2023 2:30 PM CDT Home Care Visit [place] [id number] [place] [phone] Radha Eduardo COTA OT - HOME VISIT 10/27/2023 9:00 AM CDT Home Care Visit [place] [address] [place] [phone] Ludin Shaw, READERS' ADVISORY SERVICE LIBRARIAN READERS' ADVISORY SERVICE LIBRARIAN - REASSESSMENT 10/27/2023 Home Care Visit [place] [address] [place] [phone] Edward Good, RN SN - TELEHEALTH VISIT 10/27/2023 Home Care Visit [address] [phone] Jessica Maya LISW OPERATIONS PROFESSIONAL - HOME VISIT 10/26/2023 11:40 AM CDT Office Visit [facility] [address] [facility] [address] Margaret Allen DO Follow Up; Eye Problem (Referral to neuro opthamology); Diarrhea (Once daily ) 10/25/2023 9:00 AM CDT Home Care Visit [facility] [address] [place] [phone] Aubrey Wilson, PT PT - REASSESSMENT 10/25/2023 Travel 10/21/2023 8:45 AM CDT Home Care Visit [facility] [address] [place] [place] [address] Aubrey Wilson, PT PT - HOME VISIT 10/21/2023 Home Care Visit [facility] [address] [place] [phone] Jessica Maya LISW CARE COORDINATION 10/20/2023 2:30 PM CDT Home Care Visit [facility] [address] [place] [phone] Radha Eduardo COTA OT - HOME VISIT 10/19/2023 2:30 PM CDT Home Care Visit [facility] [address] [place] [phone] Aubrey Wilson, PT PT - HOME VISIT 10/19/2023 9:00 AM CDT Home Care Visit [facility] [address] [place] [phone] Ludin Shaw, READERS' ADVISORY SERVICE LIBRARIAN READERS' ADVISORY SERVICE LIBRARIAN - HOME VISIT 10/19/2023 8:30 AM CDT Home Care Visit [facility] [address] [place] [phone] Dina Hall, HEAD INSPECTOR HEAD INSPECTOR - HOME VISIT 10/19/2023 Travel 10/19/2023 Orders Only [facility] [address] [facility] [place] [phone] Margaret Allen DO Lab 10/17/2023 11:30 AM CDT Phone Office Visit [facility] [address] [facility] [address] [place] [address] Lindsey Demarco NP Follow Up (stroke) 10/17/2023 Telephone [facility] [address] [place] [address] Margaret Allen DO Referral 10/16/2023 Telephone [facility] [address] [place] [address] Margaret Allen DO Medication Management 10/14/2023 10:30 AM CDT Home Care Visit [facility] [address] [place] [phone] Jessica Maya LISW OPERATIONS PROFESSIONAL - INITIAL ASSESSMENT 10/14/2023 Home Care Visit [facility] [address] [place] [phone] Stephanie Haq, OT OT - INITIAL ASSESSMENT 10/14/2023 Telephone [facility] [address] [place] [address] Lindsey Demarco NP Appointment Reminder 10/14/2023 Patient Outreach [facility] [address] [place], [place] [phone] Zainab Reyes RN Stroke Rehab Care Coordination - [facility] 10/14/2023 Refill [facility] [address] [place] [address] Margaret Allen DO Refill Request (Potassium Chloride ER 10 mEq, Eliquis 25mg, Clopidogrel 75mg, Propranolol 20mg tab, Metoprolol Succinate 25mg tab ) 10/13/2023 8:45 AM CDT Home Care Visit [place] [id number] [place] [phone] Aubrey Wilson, PT PT - HOME VISIT 10/12/2023 12:00 PM CDT Home Care Visit [facility] [address] [place] [phone] Edward Good, RN SN - HOME VISIT 10/12/2023 9:00 AM CDT Home Care Visit [facility] [address] [place] [phone] Ludin Shaw, READERS' ADVISORY SERVICE LIBRARIAN READERS' ADVISORY SERVICE LIBRARIAN - HOME VISIT 10/11/2023 11:00 AM CDT Home Care Visit [address] [phone] Nadine Méndez CAP PARTS CUTTER - HOME VISIT 10/11/2023 8:45 AM CDT Home Care Visit [facility] [address] [facility] [place] [address] Aubrey Wilson, PT PT - HOME VISIT 10/11/2023 Telephone [facility] [address] [facility] [place] [address] Aubrey Wilson, PT Home Care 10/11/2023 Travel 10/07/2023 8:45 AM CDT Home Care Visit [facility] [address] [place] [place] [address] Aubrey Wilson, PT PT - HOME VISIT 10/07/2023 Travel 10/06/2023 11:15 AM CDT Home Care Visit [facility] [address] [place] [phone] Lauren Davila RN SN - HOME VISIT 10/06/2023 9:00 AM CDT Home Care Visit [facility] [address] [place] [phone] Ludin Shaw, READERS' ADVISORY SERVICE LIBRARIAN READERS' ADVISORY SERVICE LIBRARIAN - HOME VISIT 10/05/2023 Telephone [facility] [address] [place] [address] Margaret Allen, Follow Up 10/04/2023 12:00 PM CDT Home Care Visit [facility] [address] [place] [phone] Ludin Shaw, READERS' ADVISORY SERVICE LIBRARIAN READERS' ADVISORY SERVICE LIBRARIAN - HOME VISIT 10/04/2023 10:00 AM CDT Home Care Visit [facility] [address] [place] [phone] Nadine Méndez CAP PARTS CUTTER - HOME VISIT 10/04/2023 9:00 AM CDT Home Care Visit [facility] [address] [place] [phone] Aubrey Wilson, PT PT - HOME VISIT 09/30/2023 Telephone [facility] [address] [place] [address] Margaret Allen DO Home Care (Clarification on medication) 09/29/2023 9:15 AM CDT Home Care Visit [facility] [address] [place] [address] Aubrey Wilson, PT PT - INITIAL ASSESSMENT 09/28/2023 2:30 PM CDT Home Care Visit [facility] [address] [place] [phone] Ludin Shaw, READERS' ADVISORY SERVICE LIBRARIAN READERS' ADVISORY SERVICE LIBRARIAN - INITIAL ASSESSMENT 09/28/2023 12:30 PM CDT Home Care Visit [facility] [address] [place] [phone] Dina Hall, HEAD INSPECTOR HEAD INSPECTOR - HOME VISIT 09/28/2023 Nurse Triage [facility] [address] [place] [address] Margaret Allen DO Catheter Problem 09/27/2023 10:00 AM CDT Home Care Visit [facility] [address] [place] [phone] Nadine Méndez - HOME VISIT 09/27/2023 Orders Only [facility] [address] [place] [address] Margaret Allen DO <No scans attached> 09/26/2023 1:05 PM CDT Office Visit [facility] [address] [place] [address] Margaret Allen DO Follow Up 09/26/2023 Travel 09/24/2023 Orders Only [facility] Scanner 1 scan: (1-Ord) [facility], HEAD W/O, 09/24/2023 09/23/2023 5:00 AM CDT Home Care Visit [facility] [address] [place] [phone] Nadine Méndez - MISSED VISIT 09/23/2023 Patient Outreach [facility] [address] [facility] [address] [place], [place] [phone] Zainab Reyes, ANNELIESE Stroke Rehab Care Coordination - [facility] 09/23/2023 Nurse Triage [facility] [address] [place] [address] Margaret Allen DO left wrist pain 09/22/2023 10:00 AM CDT Home Care Visit [facility] [address] [place] [phone] Lauren Davila, RN SN - OASIS START OF CARE 09/22/2023 Home Care Visit [facility] [address] [place] [phone] Lauren Davila, RN CARE COORDINATION 09/22/2023 Telephone [facility] [address] [place] [address] Margaret Allen DO Home Care (SOC/ Drug Interactions) 09/22/2023 Plan of Care Documentation [facility] [address] [place] [phone] 09/22/2023 Patient Outreach [facility] [address] [place] [address] Iona Howell RN Primary RN Care Management; Hospital F/U ([place] [address]) 09/06/2023 11:01 AM CDT - 09/21/2023 11:19 AM CDT Hospital Encounter [facility] [address] [place], [place] [phone] Marlene May MD Acute CVA (cerebrovascular accident) [...] Home Health 09/06/2023 Travel 09/05/2023 Orders Only [facility] [address] [facility] [address] [place] [address] Verónica Shore PA <No scans attached> 09/05/2023 Travel 09/02/2023 3:08 AM CDT - 09/06/2023 10:52 AM CDT Hospital Encounter [facility] [address] [facility] [place] [address] s, Hospitalist [facility] Nunu Landrum MD Talberg, MD Maddie Jones Priya, MD Acute CVA (cerebrovascular accident) (HC) (Primary Dx); Hypertension; Atrial flutter with rapid ventricular response (HC); Health care maintenance Discharge Disposition: Rehab Facility or Unit 09/02/2023 Telephone [facility] [address] [facility] [address] [place] [address] Lindsey Demarco, [facility] F/U 09/01/2023 Orders Only [facility] Scanner 1 scan: (1-Ord) GASTON, ANGIO NECK, 09/01/2023 09/01/2023 Orders Only [facility] Scanner 1 scan: (1-Ord) GASTON, HEAD ANGIO, 09/01/2023 09/01/2023 Orders Only [facility] Scanner 1 scan: (1-Ord) [facility], CT HEAD/BRAIN WO CON, 09/01/2023 09/01/[address] [facility] [address] [place] [phone] Edith Bentley MD Telehealth ([facility] (telephone consult)) 09/01/2023 Telephone [facility] [address] [place] [address] Margaret Allen, Questions 08/26/2023 Telephone [facility] [address] [facility] [address] [place] [address] Avel Richards MD Concerns from Last 3 Months Immunizations Name Administration Dates Next Due AMB INFLUENZA IIV3 (AGE 65+ YRS) PF (Flu Clinic Only) 03/31/2018,03/30/2017 AMB Influenza, IIV3 (Age >=3 years)(Flu Clinic Only) 03/30/2011,04/14/2010 Amb Influenza, Inact (High-d ose) (Flu Clinic Only) 04/23/2016,03/21/2015,03/19/2014 COVID-19 vaccine ([employer] 30mcg/0.3mL) PF, MDV 03/11/2021,08/19/2020,07/29/2020 Hepatitis A (Adult) [...] Description 11/08/2023 10:30 AM CDT Office Visit [facility] [address] [place] [address] Rambo Christensen, [facility] [address] [place] [address] 11/08/2023 4:00 PM CDT Home Care Visit [address] [phone] Radha Eduardo COTA [address] [place] [address] 11/09/2023 8:45 AM CDT Home Care Visit [address] [phone] Aubrey Wilson, PT [address] [place] [address] 11/09/2023 12:00 PM CDT Home Care Visit [address] [phone] Ludin Shaw, READERS' ADVISORY SERVICE LIBRARIAN [address] [place] [address] 11/10/2023 11:00 AM CDT Home Care Visit [address] [phone] Nadine Méndez 11/11/2023 8:45 AM CDT Home Care Visit [address] [phone] Aubrey Wilson, PT [address] [place] [address] 11/11/2023 9:00 AM CDT Home Care Visit [address] [place] [address] Edward Good, RN [address] [place] [address] 11/15/2023 9:00 AM CDT Home Care Visit [address] [phone] Aubrey Wilson, PT [address] [place] [address] 11/15/2023 9:00 AM CDT Home Care Visit [address] [phone] Stephanie Haq, OT [address] [place] [address] 11/17/2023 4:00 AM CDT Home Care Visit [address] [phone] Nadine Méndez 11/17/2023 9:00 AM CDT Appointment [address] [phone] Aubrey Wilson, PT [address] [place] [address] 11/23/2023 10:15 AM CDT Office Visit [facility] [address] [facility] [address] [place] [address] Marlene May MD [address] [facility] [address] [place] [address] 12/07/2023 8:30 AM CDT Appointment [facility] [address] [facility] [address] [place] [address] 12/07/2023 9:30 AM CDT Office Visit [facility] [address] [place] [phone] Patricia Craig MD [address] [place], [place] [phone] 12/20/2023 2:00 PM CDT Cardiac Device Check [facility] [address] [place] [phone] 05/08/2024 9:30 AM LEGAL PROJECT MANAGER Office Visit [facility] [address] [place] [phone] Ming Kelly III, PhD, LP [address] [facility] [address] [place] [address] Health Maintenance Due Date Last Done Comments [...] 2 SITES AXIAL Routine 08/09/2022 10:21 AM LEGAL PROJECT MANAGER Osteoporosis, unspecified osteoporosis type, unspecified pathological fracture presence from Last 3 Months or Most Recently Relevant to Health Maintenance Results * CLOSTRIDIOIDES DIFFICILE TOXIN PCR (11/01/2023 6:05 AM CDT) Pathologist [facility] CLOSTRIDIUM DIFFICILE PCR Negative 11/01/2023 5:10 PM CDT [facility] PRESUMPTIVE NAP1 STRAIN Negative 11/01/2023 5:10 PM CDT [facility] Stool STOOL SPECIMEN / Unknown Non-Blood / Unknown 11/01/2023 6:05 AM CDT 11/01/2023 11:29 AM CDT Narrative [facility] - 11/01/2023 5:10 PM CDT The NAP1 (027 or BI) strain is a hypervirulent strain. Detection may be useful for epidemiological purposes. Margaret Allen DO MICROBIOLOGY [facility] [address] [place] [address], * MAGNESIUM (10/19/2023 8:55 AM CDT) Only the most recent of5 resultswithin the time period is included. MAGNESIUM 1.6 1.6 - 2.4 mg/dL 10/19/2023 10:01 AM CDT [facility] Blood BLOOD SPECIMEN / Unknown Non-Lab Venipuncture / Unknown 10/19/2023 8:55 AM CDT 10/19/2023 9:34 AM CDT Margaret Allen DO CHEMISTRY [facility] [address] [place] [address] * (ABNORMAL) CBC WITH AUTO DIFFERENTIAL (09/26/2023 2:02 PM CDT) WHITE BLOOD COUNT 9.2 4.5 - 11.0 thou/cu mm 09/26/2023 2:09 PM CDT [facility] RED BLOOD COUNT 4.23 4.00 - 5.20 mil/cu mm 09/26/2023 2:09 PM CDT [facility] HEMOGLOBIN 13.1 12.0 - 16.0 g/dL 09/26/2023 2:09 PM CDT [facility] HEMATOCRIT 38.6 33.0 - 51.0 % 09/26/2023 2:09 PM CDT [facility] MCV 91 80 - 100 fL 09/26/2023 2:09 PM CDT [facility] MCH 31.0 26.0 - 34.0 pg 09/26/2023 2:09 PM CDT [facility] MCHC 33.9 32.0 - 36.0 g/dL 09/26/2023 2:09 PM CDT [facility] RDW 12.2 11.5 - 15.5 % 09/26/2023 2:09 PM CDT [facility] PLATELET COUNT 209 140 - 440 thou/cu mm 09/26/2023 2:09 PM CDT [facility] MPV 11.3(H) 6.5 - 11.0 fL 09/26/2023 2:09 PM CDT [facility] % NEUT 74.7 % 09/26/2023 2:09 PM CDT [facility] % LYMPH 15.7 % 09/26/2023 2:09 PM CDT [facility] % MONO 8.1 % 09/26/2023 2:09 PM CDT [facility] % EOS 1.1 % 09/26/2023 2:09 PM CDT [facility] % BASO 0.4 % 09/26/2023 2:09 PM CDT [facility] ABSOLUTE NEUTROPHILS 6.9 1.7 - 7.0 thou/cu mm 09/26/2023 2:09 PM CDT [facility] ABSOLUTE LYMPHOCYTES 1.5 0.9 - 2.9 thou/cu mm 09/26/2023 2:09 PM CDT [facility] ABSOLUTE MONOCYTES 0.8 <0.9 thou/cu mm 09/26/2023 2:09 PM CDT [facility] ABSOLUTE EOSINOPHILS 0.1 <0.5 thou/cu mm 09/26/2023 2:09 PM CDT [facility] ABSOLUTE BASOPHILS 0.0 <0.3 thou/cu mm 09/26/2023 2:09 PM CDT [facility] Blood BLOOD SPECIMEN / Unknown Venipuncture / Unknown 09/26/2023 2:02 PM CDT 09/26/2023 2:04 PM CDT Margaret Allen DO HEMATOLOGY [facility] [address] [place] [address], * (ABNORMAL) BASIC METABOLIC PANEL (09/26/2023 2:02 PM CDT) Only the most recent of3 resultswithin the time period is included. SODIUM 142 136 - 145 mmol/L 09/26/2023 11:26 PM CDT [facility] POTASSIUM 3.9 3.5 - 5.1 mmol/L 09/26/2023 11:26 PM CDT [facility] CHLORIDE 105 98 - 107 mmol/L 09/26/2023 11:26 PM CDT [facility] CO2,TOTAL 27 22 - 29 mmol/L 09/26/2023 11:26 PM CDT [facility] ANION GAP 10 5 - 18 09/26/2023 11:26 PM CDT [facility] GLUCOSE 113(H) 70 - 99 mg/dL 09/26/2023 11:26 PM CDT [facility] CALCIUM 10.0 8.8 - 10.2 mg/dL 09/26/2023 11:26 PM CDT [facility] BUN 10 8 - 23 mg/dL 09/26/2023 11:26 PM CDT [facility] CREATININE 0.65 0.50 - 0.90 mg/dL 09/26/2023 11:26 PM CDT [facility] BUN/CREAT RATIO 15 10 - 20 11:26 PM T [facility] eGFR 88(L) >90 mL/min/1.7 3m2 09/26/2023 11:26 PM CDT [facility] Comment:As of 2021, eG FR [...] 2:04 PM CDT Margaret Allen DO [facility]Y [facility] [address] [place] [address], * SCAN-CT INTERPRETATION (09/24/2023 12:00 AM CDT) Only the most recent of4 resultswithin the time period is included. Anatomical Region Laterality Modality Other Scanner OTHER * UA W/ SEDIMENT EXAM REFLEXED PER CRITERIA (09/19/2023 5:57 PM CDT) Only the most recent of3 resultswithin the time period is included. COLOR Yellow Yellow Color 09/19/2023 6:09 PM CDT [facility] CLARITY Clear Clear Clarity 09/19/2023 6:09 PM CDT [facility] SPECIFIC GRAVITY,URINE 1.010 1.010, 1.015, 1.020, 1.025 09/19/2023 6:09 PM CDT [facility] PH,URINE 6.0 6.0, 7.0, 8.0, 5.5, 6.5, 7.5, 8.5 09/19/2023 6:09 PM CDT [facility] UROBILINOGEN, QUALITATIVE Normal Normal EU/dl 09/19/2023 6:09 PM CDT [facility] PROTEIN, URINE Negative Negative mg/dL 09/19/2023 6:09 PM CDT [facility] GLUCOSE, URINE Negative Negative mg/dL 09/19/2023 6:09 PM CDT [facility] KETONES,URINE Negative Negative mg/dL 09/19/2023 6:09 PM CDT [facility] BILIRUBIN,URI NE Negative Negative 09/19/2023 6:09 PM CDT [facility] OCCULT BLOOD,URINE Negative Negative 09/19/2023 6:09 PM CDT [facility] NITRITE Negative Negative 09/19/2023 6:09 PM CDT [facility] LEUKOCYTE ESTERASE Negative Negative 09/19/2023 6:09 PM CDT [facility] Urine URINE SPECIMEN / Unknown Non-Blood / Unknown 09/19/2023 5:57 PM CDT 09/19/2023 6:03 PM CDT Marlene May MD URINE [facility] SENDOUT [facility] [id number] [place] [address] * XR VIDEO SWALLOW W SPEECH (09/19/2023 [...] EXAM: XR VIDEO SWALLOW W SPEECH LOCATION: [facility] MEDICAL IMAGING DATE: 09/19/2023 INDICATION: [...] EXAM: XR VIDEO SWALLOW W SPEECH LOCATION: [facility] MEDICAL IMAGING DATE: 09/19/2023 INDICATION: [...] None Seen /HPF 09/10/2023 3:50 PM CDT [facility] WBC >100(A) 0-2, 3-5, None Seen /HPF 09/10/2023 3:50 PM CDT [facility] BACTERIA Many(A) None Seen, Rare, Few Bacteria/ HPF 09/10/2023 3:50 PM CDT [facility] EPITHELIAL CELLS None Seen None Seen, Few Epi/HPF 09/10/2023 3:50 PM CDT [facility] HYALINE CASTS 0-2 0-2, 3-5 /LPF 09/10/2023 3:50 PM CDT [facility] Urine URINE SPECIMEN / Unknown Non-Blood / Unknown 09/10/2023 3:04 PM CDT 09/10/2023 3:07 PM CDT Marlene May MD URINE [facility] SENDOUT INTERNAL ZIP [address] [place] [address] * (ABNORMAL) URINE CULTURE (09/10/2023 3:04 PM CDT) CULTURE RESULT(A) 09/13/2023 10:08 AM CDT [facility] CULTURE >100,000 CFU/mL Enterococcus faecalis 09/13/2023 10:08 AM CDT [facility] CULTURE <10,000 CFU/mL Multiple organisms probable contaminants 09/13/2023 10:08 AM CDT [facility] Urine URINE SPECIMEN / Unknown Non-Blood / Unknown 09/10/2023 3:04 PM CDT 09/10/2023 3:07 PM CDT Narrative Organism Antibiotic Method Susceptibility Enterococcus faecalis AMPICILLIN <=2: S Enterococcus faecalis NITROFURANTOIN <=16: S Marlene May MD MICROBIOLOGY [facility] [address] [place] [address], * (ABNORMAL) TSH (09/08/2023 5:56 AM CDT) TSH 4.44(H) 0.27 - 4.20 uIU/mL 09/08/2023 7:02 AM CDT [facility] Blood BLOOD SPECIMEN / Unknown Venipuncture / Unknown 09/08/2023 5:56 AM CDT 09/08/2023 6:26 AM CDT Narrative [facility] - 09/08/2023 7:02 AM CDT In Adults, TSH values between 5.00 and 10.00 uIU/ml do not necessarily indicate the presence of Hypothyroidism. Correlation with clinical findings such as presence of goiter and/or Thyroperoxidase (TPO) Antibody may be helpful. For more information please refer to CHANG 2004; 291: 228-238. Elizabeth Perkins MD CHEMISTRY Performing Organization Address City/[facility]/ZIP Co de Phone Number [facility] SENDOUT INTERNAL ZIP [phone] [place] [address] * HEMOGLOBIN (09/08/2023 5:56 AM CDT) Only the most recent of4 resultswithin the time period is included. HEMOGLOBIN 13.7 12.0 - 16.0 g/dL 09/08/2023 6:30 AM CDT [facility] MCV 91 80 - 100 fL 09/08/2023 6:30 AM CDT [facility] Blood BLOOD SPECIMEN / Unknown Venipuncture / Unknown 09/08/2023 5:56 AM CDT 09/08/2023 6:24 AM CDT Elizabeth Perkins MD HEMATOLOGY Performing Organization Address [place]/[facility]/ZIP Co de Phone Number [facility] SENDOUT INTERNAL ZIP [address] [place] [address] * POTASSIUM (09/08/2023 5:56 AM CDT) Only the most recent of4 resultswithin the time period is included. POTASSIUM 3.6 3.5 - 5.1 mmol/L 09/08/2023 7:02 AM CDT [facility] Blood BLOOD SPECIMEN / Unknown Venipuncture / Unknown 09/08/2023 5:56 AM CDT 09/08/2023 6:26 AM CDT Elizabeth Perkins MD CHEMISTRY Performing Organization Address City/[facility]/ZIP Co de Phone Number [facility] SENDOUT INTERNAL ZIP [address] [address] [place] [address] * CREATININE (09/08/2023 5:56 AM CDT) Only the most recent of3 resultswithin the time period is included. eGFR >90 >90 mL/min/1.7 3m2 09/08/2023 7:02 AM CDT [facility] Comment:As of 2021, eG FR is calculated by the CKD-EPI creatinine equation without race adjustment. ??eGFR can be influenced by muscle mass, exercise, and diet. ??The reported eGFR is an estimation only and is only applicable if the renal function is stable. CREATININE 0.53 0.50 - 0.90 mg/dL 09/08/2023 7:02 AM [facility] Blood BLOOD SPECIMEN / Unknown Venipuncture / Unknown 09/08/2023 5:56 AM CDT 09/08/2023 6:26 AM CDT Elizabeth Perkins MD CHEMISTRY [facility] SENDOUT INTERNAL ZIP [address] [place] [address] * CBC W PLT NO DIFF (09/07/2023 6:34 AM CDT) WHITE BLOOD COUNT 9.5 4.5 - 11.0 thou/cu mm 09/07/2023 6:56 AM [facility] RED BLOOD COUNT 4.52 4.00 - 5.20 mil/cu mm 09/07/2023 6:56 AM [facility] HEMOGLOBIN 13.8 12.0 - 16.0 g/dL 09/07/2023 6:56 AM [facility] HEMATOCRIT 40.7 33.0 - 51.0 % 09/07/2023 6:56 AM [facility] MCV 90 80 - 100 fL 09/07/2023 6:56 AM [facility] MCH 30.5 26.0 - 34.0 pg 09/07/2023 6:56 AM [facility] MCHC 33.9 32.0 - 36.0 g/dL 09/07/2023 6:56 AM [facility] RDW 11.9 11.5 - 15.5 % 09/07/2023 6:56 AM [facility] PLATELET COUNT 166 140 - 440 thou/cu mm 09/07/2023 6:56 AM [facility] MPV 10.9 6.5 - 11.0 fL 09/07/2023 6:56 AM [facility] NRBC 0.0 % 09/07/2023 6:56 AM CDT [facility] ABS NRBC 0.0 thou /cu mm 09/07/2023 6:56 AM CDT [facility] Blood BLOOD SPECIMEN / Unknown Venipuncture / Unknown 09/07/2023 6:34 AM CDT 09/07/2023 6:47 AM CDT Elizabeth Perkins MD HEMATOLOGY Performing Organization Address City/[facility]/ZIP Co de Phone Number [facility] SENDOUT INTERNAL ZIP [phone] [place] [address] * (ABNORMAL) GLUCOSE METER (09/07/2023 2:32 AM CDT) Only the most recent of18 resultswithin the time period is included. [facility] Signature GLUCOSE METER 122(H) 65 - 100 mg/dL 09/07/2023 2:36 AM CDT [facility] Blood BLOOD SPECIMEN / Unknown 09/07/2023 2:32 AM CDT 09/07/2023 2:36 AM CDT Marlene May MD CHEMISTRY Performing Organization Address City/[facility]/ZIP Co de Phone Number [facility] SENDOUT INTERNAL ZIP [address] [place] [address] * SCAN-CARDIAC STRIP (09/06/2023 9:05 AM CDT) [...] NOW QTc 483 ms BEYOND NOW P [place] 60 degrees BEYOND NOW R [place] 94 degrees BEYOND NOW T [place] 115 degrees BEYOND NOW 09/03/2023 4:26 PM CDT 09/04/2023 7:45 AM CDT Elizabeth Perkins MD EKG ORD Performing Organization Address [place]/[facility] de Phone Number BEYOND NOW [place], [place] * SCAN-CARDIAC STRIP (09/03/2023 9:32 AM CDT) Scanner OTHER * Hemoglobin A1C Screening (09/02/2023 3:43 PM CDT) HEMOGLOBIN A1C SCREENING 5.5 <=6.4 % 09/02/2023 3:57 PM CDT [facility] Blood BLOOD SPECIMEN / Unknown Non-Lab Venipuncture / Unknown 09/02/2023 3:43 PM CDT 09/02/2023 3:50 PM CDT Narrative [facility] - 09/02/2023 3:57 PM CDT ? (<5.7%) ?Normal ? (5.7% to 6.4%) ? Indicates prediabetes ? (>=6.5%) ? Confirms diabetes Falsely low levels may be seen with: Recent Transfusion, Recent Significant Blood Loss, Hemolytic Diseases, or Falsely elevated levels may be seen with: Untreated Anemias, Splenectomy uNnu Landrum MD CHEMISTRY Performing Organization Address City/[facility]/ZIP Co de Phone Number [facility] SENDOUT INTERNAL ZIP [phone] [place] [address] * PLATELET COUNT (09/02/2023 3:43 PM CDT) PLATELET COUNT 189 140 - 440 thou/cu mm 09/02/2023 4:03 PM CDT [facility] MPV 10.8 6.5 - 11.0 fL 09/02/2023 4:03 PM CDT [facility] Blood BLOOD SPECIMEN / Unknown Non-Lab Venipuncture / Unknown 09/02/2023 3:43 PM CDT 09/02/2023 3:50 PM CDT Nunu Landrum MD HEMATOLOGY [facility] SENDOUT INTERNAL [address] [address] [address] [place] [address] * WHITE BLOOD COUNT (09/02/2023 3:43 PM CDT) WHITE BLOOD COUNT 7.4 4.5 - 11.0 thou/cu mm 09/02/2023 4:03 PM CDT [facility] NRBC 0.0 % 09/02/2023 4:03 PM CDT [facility] ABS NRBC 0.0 thou /cu mm 09/02/2023 4:03 PM CDT [facility] Blood BLOOD SPECIMEN / Unknown Non-Lab Venipuncture / Unknown 09/02/2023 3:43 PM CDT 09/02/2023 3:50 PM CDT Nunu Landrum MD HEMATOLOGY [facility] SENDOUT INTERNAL ZIP [address] [address] [place] [address] * SODIUM (09/02/2023 3:43 PM CDT) SODIUM 139 136 - 145 mmol/L 09/02/2023 4:24 PM CDT [facility] Blood BLOOD SPECIMEN / Unknown Non-Lab Venipuncture / Unknown 09/02/2023 3:43 PM CDT 09/02/2023 3:50 PM CDT Nunu Landrum MD CHEMISTRY Performing Organization Address City/[facility]/ZIP Co de Phone Number [facility] SENDOUT INTERNAL ZIP [address] [place] [address] * (ABNORMAL) BILIRUBIN,TOTAL (09/02/2023 3:43 PM CDT) BILIRUBIN,TOTA L 1.5(H) 0.0 - 1.2 mg/dL 09/02/2023 4:24 PM CDT [facility] Blood BLOOD SPECIMEN / Unknown Non-Lab Venipuncture / Unknown 09/02/2023 3:43 PM CDT 09/02/2023 3:50 PM CDT Nunu Landrum MD CHEMISTRY Performing Organization Address [place]/[facility]/ZIP Co de Phone Number [facility] SENDOUT INTERNAL ZIP [address] [place] [address] * ALT (SGPT) (09/02/2023 3:43 PM CDT) ALT (SGPT) 13 10 - 35 IU/L 09/02/2023 4:24 PM CDT [facility] Blood BLOOD SPECIMEN / Unknown Non-Lab Venipuncture / Unknown 09/02/2023 3:43 PM CDT 09/02/2023 3:50 PM CDT Nunu Landrum MD CHEMISTRY Performing Organization Address City/[facility]/ZIP Co de Phone Number [facility] SENDOUT INTERNAL ZIP [address] [place] [address] * AST (SGOT) (09/02/2023 3:43 PM CDT) AST (SGOT) 28 10 - 35 IU/L 09/02/2023 4:24 PM CDT [facility] Blood BLOOD SPECIMEN / Unknown Non-Lab Venipuncture / Unknown 09/02/2023 3:43 PM CDT 09/02/2023 3:50 PM CDT Nunu Landrum MD CHEMISTRY [facility] SENDOUT INTERNAL ZIP [address] [place] [address] * ALK PHOSPHATASE (09/02/2023 3:43 PM CDT) ALK PHOSPHATASE 75 35 - 104 IU/L 09/02/2023 4:24 PM CDT [facility] Blood BLOOD SPECIMEN / Unknown Non-Lab Venipuncture / Unknown 09/02/2023 3:43 PM CDT 09/02/2023 3:50 PM CDT Nunu Landrum MD CHEMISTRY [facility] SENDOUT INTERNAL ZIP [address] [place] [address] * Lipid Panel (09/02/2023 3:43 PM CDT) CHOLESTEROL,TOTAL 170 100 - 199 mg/dL 09/02/2023 4:24 PM CDT [facility] Comment: Cholesterol, Total Reference Ranges Desirable <200 mg/dL Borderline 200-239 mg/dL High >=240 mg/dL TRIGLYCERIDES 125 <150 mg/dL 09/02/2023 4:24 PM CDT [facility] HDL CHOLESTEROL 70 >40 mg/dL 4:24 PM CDT [facility] NON-HDL CHOLESTEROL 100 <145 mg/dl 09/02/2023 4:24 PM CDT [facility] CHOL/HDL RATIO 2.43 <4.50 09/02/2023 4:24 PM CDT [facility] LDL CHOLESTEROL 75 <=130 mg/dL 09/02/2023 4:24 PM CDT [facility] VLDL CHOLESTEROL 25 <=30 mg/dL 09/02/2023 4:24 PM CDT [facility] PROVIDER ORDERED STATUS RANDOM 09/02/2023 4:24 PM CDT [facility] Blood BLOOD SPECIMEN / Unknown Non-Lab Venipuncture / Unknown 09/02/2023 3:43 PM CDT 09/02/2023 3:50 PM CDT Nunu Landrum MD CHEMISTRY [facility] SENDOUT [place] ZIP [address] [address] [place] [address] * MR Brain w/wo contrast (09/02/2023 2:09 [...] provider. EXAM: MR HEAD BRAIN WWO LOCATION: [facility] DATE: 09/02/2023 INDICATION: [...] provider. EXAM: MR HEAD BRAIN WWO LOCATION: [facility] DATE: 09/02/2023 INDICATION: [...] AM CDT Narrative 09/02/2023 12:21 [place] [address] Main: [email or web address] ? Transthoracic Echo Report VALARIE HUANG ID: [id number] Age: 83 : 1940 Ordering Provider: NUNU LANDRUM Exam Date: 09/02/2023 10:03 Gender: F Microbial Specialist: [facility] Height: 60 in BSA: 1.54 m?? [...] Procedure Note Simon Dent MBBS - 09/02/2023 [place] [address] Main: [email or web address] Transthoracic Echo Report VALARIE HUANG Ayo ID: [id number] Age: 83 : 1940 Ordering Provider:NUNU LANDRUM Exam Date: 09/02/2023 10:03 Gender: F Microbial Specialist: [facility] Height: 60 in BSA: 1.54 m?? [...] provider. EXAM: US CAROTID DUPLEX BILATERAL LOCATION: [facility] DATE: 09/02/2023 INDICATION: [...] provider. EXAM: US CAROTID DUPLEX BILATERAL LOCATION: [facility] DATE: 09/02/2023 INDICATION: [...] within the vertebral arteries bilaterally. Lindsey Demarco CLIENT SERVICES ANALYST US * SCAN-CARDIAC STRIP (09/02/2023 9:10 AM [...] DENSITY 2 SITES AXIAL (08/09/2022 10:21 AM LEGAL PROJECT MANAGER) Anatomical Region Laterality Modality Spine, HIPS, HIPL, HIPR Other Impressions 08/10/2022 3:48 PM LEGAL PROJECT MANAGER Osteoporosis. RECOMMENDATIONS: The National Osteoporosis Foundation recommends [...] greater than 5 years. Roz Perrin PA-C [facility] 08/10/2022 Narrative 08/10/2022 3:48 PM LEGAL PROJECT MANAGER For Patients: Results are automatically released to your [facility] ([employer]) account once available, in compliance with federal regulations. This means that you may see your results before your provider has had a chance to review them. Please allow 2-3 business days for your provider to comment on the results. XR DXA Bone Mineral Density (BMD) EXAM LOCATION: [address] [address] PATIENT NAME: Valarie Huang DATE OF : [...] two scanners are made by the same airborne missions systems. 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 POLST 10/14/2023 Healthcare Directive 08/16/2016 [...] Code Status Discussion: Reviewed Preferences Care Teams Metal Lather Relationship Specialty Start Date End [place] [address] [place] [address] PCP - General Family Practice 03/10/17 Chelsy Chinchilla MD Ophthalmology Surgery 04/17/13 [id number] [place] [address] 09/20/23 Zainab Reyes RN [address] [place] [address] Metal Spraying Machine Operator Registered Nurse 09/23/23 Zainab Reyes RN [address] [place] [address] Stroke Rehab Care Coordination - [facility] Registered Nurse 09/29/23 Janet Dhillon RN [address] [address] Metal Spraying Machine Operator Registered Nurse 10/14/23
--- NOTE | 2023-11-05 16:47 | CRLHL7_ITS ---
For Patients: As a result of the Century Cures Act, medical imaging exams and procedure reports are released immediately into your electronic medical record. You may view this report before your referring provider. If you have questions, please contact your health care provider. DATE: 11/05/2023 CLINICAL HISTORY: Patient with focal neurological deficits. TECHNIQUE: Standard helical CT image acquisition through the intracranial circulation following intravenous administration of contrast material with bolus tracking. 2D and 3D MIP images for post-processing were performed and interpreted on an independent workstation and 3D images were permanently archived. COMPARISON: CT same day, CTA 09/01/2023 FINDINGS: There is no cerebral aneurysm or large vessel occlusion. There is intracranial atherosclerosis with a severe left P2 segment stenosis and a mild to moderate right P2 segment stenosis. The right internal carotid artery is normal. The right middle cerebral artery and its branches are normal. The right anterior cerebral artery and its branches are normal. The left internal carotid artery is normal. The left middle cerebral artery and its branches are normal. The left anterior cerebral artery and its branches are normal. The anterior communicating artery is well visualized and appears normal. The right vertebral artery and PICA are normal. The left vertebral artery and PICA are normal. The right vertebral artery is dominant. The basilar artery is patent and appears normal. The right posterior cerebral artery is normal. IMPRESSION: 1. No cerebral aneurysm or large vessel occlusion. 2. Intracranial atherosclerosis with a severe left P2 segment stenosis and a mild to moderate right P2 segment stenosis. The stenoses have progressed from the prior CTA. Please note that all CT scans at this facility use dose modulation, iterative reconstruction, and/or weight-based dosing when appropriate to reduce radiation dose to as low as reasonably achievable. Dictated by Jeremiah Mitchell MD @ 11/05/2023 7:01:04 PM (Electronically Signed)
--- NOTE | 2023-11-05 16:47 | CRLHL7_ITS ---
For Patients: As a result of the Century Cures Act, medical imaging exams and procedure reports are released immediately into your electronic medical record. You may view this report before your referring provider. If you have questions, please contact your health care provider. DATE: 11/05/2023 CLINICAL HISTORY: Patient with focal neurological deficits. TECHNIQUE: Standard helical CT image acquisition of the neck up to the skull base after bolus intravenous contrast enhancement. 2D and 3D MIP images for post-processing were performed and interpreted on an independent workstation and 3D images were permanently archived. COMPARISON: CT same day, CTA 09/01/2023 FINDINGS: The origins of the great vessels from the aortic arch are patent. The origin of the right vertebral artery is patent. The origin of the left vertebral artery is patent. The common carotid arteries are patent. There is a severe (85%) stenosis at the origin of the right internal carotid artery by NASCET criteria. This is caused by calcified plaque with a 0.5mm residual lumen. There is a mild (<50%) stenosis at the origin of the left internal carotid artery by NASCET criteria. This is caused by calcified plaque with a <2mm residual lumen. The rest of the cervical segments of the internal carotid arteries are patent up to the skull base. The right vertebral artery is dominant. The cervical segments of the vertebral arteries are patent up to the skull base. The visualized lung apices are unremarkable. The thyroid gland is unremarkable. The soft tissues of the neck are unremarkable. There are degenerative changes in the cervical spine. IMPRESSION: 1. Unchanged severe (85%) stenosis at the origin of the right internal carotid artery by NASCET criteria. This is caused by calcified plaque with a 0.5mm residual lumen. 2. Unchanged mild (<50%) stenosis at the origin of the left internal carotid artery by NASCET criteria. This is caused by calcified plaque with a <2mm residual lumen. Please note that all CT scans at this facility use dose modulation, iterative reconstruction, and/or weight-based dosing when appropriate to reduce radiation dose to as low as reasonably achievable. Dictated by Jeremiah Mitchell MD @ 11/05/2023 6:55:53 PM (Electronically Signed)
[2023-11-05 17:01] LABS: Basophils Absolute Auto 0.04 K/uL (0.00-0.30); Basophils Percent Auto 0.7 % (0.0-3.0); Eosinophils Absolute Auto 0.07 K/uL (0.00-0.50); Eosinophils Percent Auto 1.2 % (0.0-7.0); Hematocrit 38.1 % (33.0-51.0); Hemoglobin* 12.6 gm/dL (12.0-16.0); Immature Granulocytes Abs Auto 0.06 K/uL (0.00-0.30); Immature Granulocytes Pct Auto 1.1 %; Lymphocytes Absolute Auto 1.41 K/uL (0.90-2.90); Mean Corpuscular HGB Conc 33 gm/dL (32-36); Mean Corpuscular Hemoglobin 30 pg (26-34); Mean Corpuscular Volume 92 fL (80-100); Monocytes Percent Auto 11.3 % (0.0-11.0); Neutrophils Absolute Auto 3.42 K/uL (1.7-7.0); Neutrophils Percent Auto 60.7 % (42.0-72.0); Platelet Count* 186 K/uL (140-440); RDW Coefficient of Variation % 11.7 % (11.5-15.5); Red Blood Count 4.14 m/uL (4.00-5.20); White Blood Count* 5.64 K/uL (4.50-11.00)
[2023-11-05 17:02] LABS: Chloride* 105 mmol/L (96-114); Sodium* 139 mmol/L (135-149)
[2023-11-05 17:04] LABS: Slide Review Reflex No
[2023-11-05 17:05] LABS: Anion Gap 4 mEq/L (7-15); Blood Urea Nitrogen* 13 mg/dL (7-30); Carbon Dioxide* 30 mmol/L (20-32); Creatinine* 0.6 mg/dL (0.5-1.5); Est. Creatinine Clearance* 37.27; Estimated Glomerular Filt Rate 90 ml/min
[2023-11-05 17:06] LABS: Calcium* 9.2 mg/dL (8.4-10.6); Glucose* 100 mg/dL (60-115); INR 0.96 (0.91-1.10); Prothrombin Time 13.4 Seconds
== END 2023-11-05 19:50 | disposition home or self-care (01) ==
PROVIDERS: Emergency Provider Emergency Medicine Emergency Medical Services; PCP Family Medicine
DX: I65.02 Occlusion and stenosis of left vertebral artery (principal)
CPT/HCPCS: 36415; 70450; 70496; 70498; 80048; 85025; 85610; 99284; Q9967

== ENCOUNTER 2024-06-21 13:00 | Outpatient (RCR) | payer MEDICARE, BC, SELFPAY ==
--- NOTE | 2024-04-06 15:47 | OT.OPGNE2 ---
OT Outpatient General/Neuro Eval OT Outpatient General/Neuro Eval* Start: 12/11/23 23:00 Freq: Status: Active Protocol: Document 04/06/24 13:46 JLMonty (Rec: 04/06/24 15:31 JLS [id number]) E-signed By Christy Grant OT OT Outpatient Evaluation Details Type Type Eval Complexity Medium Insurance Information Insurance Information Insurance Information Medicare B Outpatient History/Precautions Current Condition Referring Provider Alejandro Medical Diagnoses I63.9 Cerebral infarction, unspecified Treatment Diagnoses Z91.89 which is Driving Safety Issues Medical/Functional History Medical History Reviewed Yes Prior Level of Function/Mobility 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 Cognitive Assessments Performed Cognitive Assessments Performed Delvis Cognitive Assessment (MOCA) Results , <26 indicates normal cognition Vision/Hearing Vision Vision Changes Comments Pt was experiencing double vision, had appt with neurological engagement engineer last month and now fitted with prism which has corrected her vision. Assessment Assessment Assessment Pt returns to OP OT for driving assessment. Pt scored in normal range on cognitive assessment, on MoCA. Pt completed scanning activity with no errors, able to complete toe taps in 5 sec, <6 sec considered safe for driving. Pt demonstrating normal visual field, visual acuity and visuospatial skills . Pt demonstrated adequate motor skills for head and neck rotation, MMT WNL. Pt completed [place] MAZE in 31 secs with no errors, >60 and >2 errors indicated safety with driving. OT recommending resumption to previous driving patterns with MD approval. Occupational Therapy Treatment Plan - OP Goals Goals 1. Pt will participate in cognitive/driving assessment and verbalize understanding of results in one session. Treatment Plan Comments one time OT driving assessment Certification Certification Information Clinic ID # [id number] Provider Signature Required Yes Provider Signature Shows Agreement With POC & Medical Necessity Physician NPI Number Write NPI# Here Physician Comment/Change Comment or Changes Physician Signature & Date Requested Please Sign/Date Here
== END 2024-06-22 07:36 | disposition home or self-care (01) ==
PROVIDERS: PCP Family Medicine; Visit Provider Family Medicine
DX: I63.9 Cerebral infarction, unspecified (principal); R41.89 Other symptoms and signs involving cognitive functions and awareness; Z86.73 Personal history of transient ischemic attack (TIA), and cerebral infarction without residual deficits; R26.81 Unsteadiness on feet; R26.9 Unspecified abnormalities of gait and mobility; R27.9 Unspecified lack of coordination; Z91.89 Other specified personal risk factors, not elsewhere classified; Z51.89 Encounter for other specified aftercare
CPT/HCPCS: 92507; 92523; 97110; 97112; 97116; 97162; 97164; 97165; 97166; 97535; X5282

== ENCOUNTER 2024-08-23 13:13 | Emergency (ER) | payer MEDICARE, BC, SELFPAY ==
[2024-08-23] VITALS (12 sets, daily range): BP systolic 119–153; BP diastolic 66–97; PULSE 59–61; RESP 12; TEMP 35.7; O2SAT 96–97; BMI 24.4
--- OUTSIDE RECORDS SUMMARY | 2024-08-23 13:15 | XMS_ITS | Clinical Summary ---
Author Organization [employer] [facility] [employer] [facility] Address [address] [place] [address] Care Team Providers Care Processing Spec Name Role Phone Chelsy Chinchilla MD Unavailable [phone] Margaret Allen DO Primary Care Provider [phone] Zainab Reyes RN Unavailable [phone] Allergies Active Allergy Reactions Criticality Noted Date Comments Lisinopril Cough 06/15/2023 Sulfa (Sulfonamide Antibiotics) Hives 10/12 Medications ascorbic acid, vitamin C, (VITAMIN C) 500 mg tablet Take 500 mg by mouth once daily. Active artificial tears, peg 400 0.4%-propylene glycol 0.3%, (SYSTANE) ophthalmicIndicat ions:Acute CVA (cerebrovascular accident) (HC) Place 1-2 Drops into both eyes three times daily. 30 mL 09/20/19 24 5:00 PM CDT 024 Active omeprazole (PRILOSEC) 20 mg Delayed-Release capsuleIndication s:Gastroesophagea l reflux disease without esophagitis Take 1 Capsule (20 mg) by mouth once daily before a meal. Take at least 30min prior to eating 90 Capsule 3 024 Active magnesium chloride (MAG-DELAY) 64 mg delayed release tabletIndications :Magnesium deficiency Take 2 Tablets by mouth once daily. 180 Tablet 3 024 Active Walker - 4 wheelsIndications :History of recent stroke For home use. Length of need: lifetime 1 Each 024 Active clopidogreL (PLAVIX) 75 mg tabletIndications :Acute CVA (cerebrovascular accident) (HC) Take 1 Tablet (75 mg) by mouth every morning. 90 Tablet 3 024 Active potassium chloride (KLOR-CON M20) 20 mEq extended-release tablet (part/cryst)Indic ations:Hypokalemi a Take 1 Tablet (20 mEq) by mouth once daily with a meal. 90 Tablet 3 024 Active calcium with vitamin D3 (OS-CESAR 500 + D) tabletIndications :Health care maintenance Take 1 Tablet by mouth once daily. 90 Tablet 3 024 Active melatonin 1 mg tabletIndications :Insomnia, unspecified type Take 2 Tablets (2 mg) by mouth at bedtime. 180 Tablet 3 024 Active loperamide (IMODIUM) 2 mg capsuleIndication s:Chronic diarrhea Take 2mg daily. May take additional 2mg after loose stool each day if needed. Max 16mg in 24 hours 90 Capsule 3 024 Active multivitamin folic acid 0.4 mgIndications:[facility] care maintenance Take 1 Tablet by mouth once daily. 90 Tablet 3 024 Active escitalopram oxalate (LEXAPRO) 10 mg tabletIndications :Stress reaction Take 1 Tablet (10 mg) by mouth once daily in the morning. 90 Tablet 3 024 Active ezetimibe (ZETIA) 10 mg tabletIndications :Dyslipidemia Take 1 Tablet (10 mg) by mouth once daily. 90 Tablet 3 024 Active propranolol ER (INDERAL LA) 80 mg Cs24 Sustained-Release capsuleIndication s:Essential tremor,Paroxysmal atrial flutter (HC) Take 1 Capsule (80 mg) by mouth once daily. 90 Capsule 3 024 Active acyclovir (ZOVIRAX) 400 mg tabletIndications :Cold sore TAKE 1 TABLET BY MOUTH THREE TIMES A DAY FOR 5 DAYS NEEDED FOR COLD SORES 45 Tablet 3 024 Active rosuvastatin (CRESTOR) 40 mg tabletIndications :Hyperlipidemia, unspecified hyperlipidemia type Take 1 Tablet (40 mg) by mouth at bedtime. 90 Tablet 2 024 Active acetaminophen (Tylenol Extra Strength) 500 mg tablet Take 500 mg by mouth at bedtime. Max acetaminophen dose: 4000mg in 24 hrs. Active warfarin (COUMADIN) 2 mg tabletIndications :Paroxysmal atrial flutter (HC),Thrombosis involving cardiac device, sequela,Anticoagu lation monitoring, INR range 2-3 Take by mouth 2 mg (2 mg x 1) every Tue, Bhumika, Sat; 1 mg (2 mg x 0.5) all other days in the evening OR as directed 65 Tablet 025 Active warfarin (COUMADIN) 2 mg tabletIndications :Paroxysmal atrial flutter (HC),Thrombosis involving cardiac device, sequela Take by mouth 2 mg (2 mg x 1) every Tue, Bhumika, Sat; 1 mg (2 mg x 0.5) all other days in the evening OR as directed 65 Tablet 024 2024 Discontinued Active Problems Patient Care Coordination No te Formatting of this note migh t be different from the original. HF/Structural/Prevention Research Eligibility Review Date: 07/20/19 Upcoming Visit Location: [facility] Age: 78 y.o. 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 Dexa due 07/2024 Aortic stenosis 06/18/2022 Benign essential tremor 10/25/2020 Atrial flutter with rapid ventricular response 0 10/23/2020 DNR (do not resuscitate) 10/23/2020 E. coli UTI (urinary tract infection) 10/23/2020 Cardiac pacemaker in situ 10/23/2020 History of prolonged Q-T interval on ECG 021 Overview (10/08/2020): After 0.5 mg ibutilide (EKG 10/08/2020). As a result, I would avoid sotalol and dofetilide. SSS (sick sinus syndrome) 10/08/2020 KEVIN 02/12/2020 AHI-11.6 04/29/2020 Colon polyp 12/05/2019 Overview (12/05/2019): Colonoscopy 11/2019 colon polyp, lymphocytic colitis, repeat in 5 years Lymphocytic colitis 12/05/2019 Overview (12/05/2019): Colonoscopy 11/2019 colon polyp, lymphocytic colitis, repeat in 5 years Pulmonary hypertension 08/06/2019 Dyspnea on exertion 08/06/2019 Paroxysmal atrial fibrillation 08/06/2019 ASHD (arteriosclerotic heart disease) 08/06/2019 ACP (advance care planning) 04/17/2013 Overview (11/01/2023): DNR as of 10/2023, POLST scanned in GERD (gastroesophageal reflux disease) 2 Overview (04/06/2012): EGD 03/2012 Reactive gastropathy Adjustment disorder with depressed mood 04/03/20 09 Fibromyalgia 04/11/2007 Unspecified essential hypertension 04/11/2007 Other and unspecified hyperlipidemia 04/11/2007 Essential and other specified forms of tremor Resolved Problems Problem Noted Date Diagnosed Date Resolved Date Cerumen impaction 04/17/2013 06/26/2014 Inclusion cyst 05/13/2009 06/26/2014 Encounters Date Type Department Care Team Description 08/21/2024 Orders Only [facility] Scanner 1 scan: (1-Ord) RCM, EYLEA PF OS INJ, 08/21/2024 08/11/2024 Refill [facility] [address] [facility] [address] Margaret Allen, Refill Request (Warfarin) 08/08/2024 10:15 AM STAIN REMOVER Orders Only [facility] [address] [place] [address] Lab, [place] [facility] 08/08/2024 Anticoagulation (warfarin) [facility] [address] [facility] [address] 1, [place] [facility] Anticoagulation 08/08/2024 Travel 07/17/2024 Telephone [facility] [place] [address] [address] Margaret Allen, Error-please disregard 07/11/2024 12:45 PM STAIN REMOVER Orders Only [facility] [place] [address] [address] Lab, [place] [facility] 07/11/2024 Anticoagulation (warfarin) [facility] [address] [place] [address] 1, [place] [facility] Anticoagulation 07/11/2024 Telephone [facility] [place] [address] [address] Margaret Allen, Follow Up 07/11/2024 Travel 06/26/2024 10:00 AM STAIN REMOVER Ancillary Procedure [facility] [id number] [place] [address] [address] [place] [address] 06/26/2024 Travel 06/20/2024 10:40 AM STAIN REMOVER Ancillary Procedure [facility] [address] [facility] [address] 06/20/2024 Travel 06/14/2024 10:50 AM STAIN REMOVER Office Visit [facility] [place] [address] Margaret Allen DO Follow Up (SOB and sweats x 2 months ) 06/14/2024 Anticoagulation (warfarin) [facility] [place] [place] [address] 1, [place] [facility] Anticoagulation 06/14/2024 Travel 06/11/2024 11:30 AM STAIN REMOVER Office Visit [facility] [address] [place] [address] Torres Fong MD Sleep Follow-up 06/11/2024 Travel 05/28/2024 12:45 PM STAIN REMOVER Office Visit [facility] [address] [facility] [address] [place] [address] Marlene May MD Follow Up (Stroke/) 05/28/2024 10:00 AM STAIN REMOVER Orders Only [facility] [address] [place] [address] Lab, [place] [facility] 05/28/2024 Anticoagulation (warfarin) [facility] [address] [facility] [place] [address] 1, [place] [facility] Anticoagulation 05/28/2024 Travel from Last 3 Months Immunizations Immunization Administration Dates Next Due AMB INFLUENZA IIV3 (AGE 65+ YRS) PF (Flu Clinic Only) 03/31/2018,03/30/2017 AMB Influenza, IIV3 (Age >=3 years)(Flu Clinic Only) 03/30/2011,04/14/2010 Amb Influenza, Inact (High-d ose) (Flu Clinic Only) 04/23/2016,03/21/2015,03/19/2014 COVID-19 vaccine (Secerno-Bio NTech 30mcg/0.3mL) PF, MDV 03/11/2021,08/19/2020,07/29/2020 Hepatitis A (Adult) 11/23/2000,05/25/2000 Hepatitis B (Adult) 11/23/2000,04/06/2000,1999 Influenza A (H1N1), Inactivated 06/10/2009 Influenza A (H1N1), Inactiva bianka (Age >=3 Years) 06/10/2009 Influenza, High-dose Inactivated 020,03/27/2019,04/23/2016,03/21,03/19/2014 Influenza, High-dose Quadriv alent Inactivated 02/28/2023,02/19/2022 Influenza, IIV3 (Age 6-35 mos) 03/30/2011 Influenza, IIV3 (Age >=3 years) 04/17/20 13,03/07/2012,04/14/2010,03/17,04/16/2008,04/11/2007,04/20/2006 ,04/06/2003 Influenza, Inactivated AIIV4 (Age 65+ Years) Preserv Free 03/11/2021,03/24/2020 Influenza, Inactivated IIV3 (Age 65+ Years) Preserv Free 02/21/2024 Lyme Disease Vaccine 10/22/1999,11/17/1998,10/15 Pneumococcal Poly,23-Valent (Pneumovax) [...] Never Smokeless Tobacco: Never Tobacco Cessation:Counseling Given: Yes Alcohol Use Standard Drinks/Week Comments Not Currently 3 (1 standard drink = 0.6 oz pur e alcohol) PHQ-2 Answer Date Recorded PHQ-2 TOTAL SCORE 0 04/12/2024 Social Connections Answer Date Recorded Do you often feel lonely or isolated from those around you? 0 09/06/2023 Alcohol Use Answer Date Recorded How often [...] file 02/04/2023 Food Insecurity Answer Date Recorded Do you worry your food will run out before you are able to buy more? 1 09/06/2023 Transportation Needs Answer Date Record ed Does lack of transportation keep you from medica l appointments? 1 09/06/2023 Does lack of transportation keep you from work, meetings or getting things that you need? 1 09/06/2023 Housing Stability Answer Date Recorded What is your housing situation today? 1 09/06/2023 Interpersonal Safety Answer Date Record ed Are you being hit, kicked, p ushed or yelled at (see row info)? No 09/07/2023 Interpersonal Safety Abuse 12 - 18 Not on file 09/07/2023 Interpersonal Safety Ambulatory Vulnerability No t on file 09/07/2023 Utilities Answer Date Recorded Do you have trouble paying f or utilities (for example, heat, electricity, water, phone)? 1 09/06/2023 Comments No Sex and Gender Information Value Date Recorded Sex Assigned at Not on file Legal Sex Female 6:50 AM STAIN REMOVER Gender Identity Not on file Sexual Orientation Not on file Obstetrics History Last Filed Vital Signs Vital Sign Reading Time Taken Comments Blood Pressure 110/62 06/14/2024 11:01 AM STAIN REMOVER Pulse 64 06/14/2024 11:01 AM STAIN REMOVER Temperature 37.2 C (99 F) 05/28/2024 12:50 PM STAIN REMOVER Respiratory Rate 16 11/17/2023 9:49 AM CDT Oxygen Saturation 98% 06/14/2024 11:01 AM STAIN REMOVER Inhaled Oxygen Concentration - - Weight 56.2 kg (124 lb) 06/14/2024 11:01 AM STAIN REMOVER Height 152.4 cm (5') 06/11/2024 11:33 AM STAIN REMOVER Body Mass Index 24.22 06/11/2024 11:33 AM STAIN REMOVER Plan of Treatment Upcoming Encounters Date Type Department Care Team (Late st Contact Info) Description 09/03/2024 12:30 PM CDT Orders Only [address] [place] [address] Lab, [place] 10/16/2024 10:25 AM CDT Office Visit [facility] [address] [place] [address] Margaret Allen DO [address] [place] [address] 10/17/2024 12:00 PM CDT Appointment [facility] [place] [address] [place] [address] Ailin Berger, OT [address] [place] [address] 10/17/2024 1:30 PM CDT Appointment [facility] [place] [address] [place] [address] Ailin Berger, OT [address] [place] [address] 12/18/2024 11:30 AM CDT Cardiac Device Check [facility] [place] [facility] [address] [place] [phone] Health Maintenance Due Date Last Done Comments COVID-19 vaccine series ( season) 2024 03/10/2024, 04/07/2023, 02/19/2022, Additional history exists Depression screening for age 12+ 04/13/2025 04/13/2024, 04/13/2024, 04/13/2024, Additional history exists Medicare Wellness for age 65+ 04/13/2025, 04/04/2023, 07/08/2020, Additional history exists BMI (ht and wt on same day) for age 18+ 06/11/2025 06/11/2024, 05/28/2024, 05/22/2024, Additional history exists Tetanus booster 07/01/2025 07/01/2015, 0201/2006, 03/30/1995 Tdap Completed 07/21/2005 Pneumococcal series for age 50+ Completed 5, 04/18/2007 Zoster (shingles) series for age 50+ Completed 11/16/2018, 08/14/2018, 04/28/2006 DEXA/DXA scan for age 65+ Completed 2022, 05/21/2019, 08/12/2016, Additional history exists RSV vaccine for adults or Completed 04/07/2023 Influenza Vaccine Completed 02/21/2024, , 03/24/2020, Additional history exists Procedures Procedure Name Priority Date/Time Associated Diagnosis Comments SCAN-OPERATIVE/PRO CEDURE REPORT 08/21/2024 12:00 AM CDT INR,POCT Routine 08/08/2024 10:17 AM STAIN REMOVER Paroxysmal atrial flutter (HC) Thrombosis involving cardiac device, sequela INR,POCT Routine 07/11/2024 12:46 PM STAIN REMOVER Paroxysmal atrial flutter (HC) Thrombosis involving cardiac device, sequela ECHO TTE COMPLETE WO CONTRAST Routine 06/26/2024 10:35 AM STAIN REMOVER 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), bioprosthetic XR MAMMO MARLA BILAT SCREEN Routine 06/20/2024 10:41 AM STAIN REMOVER Visit for screening mammogram INR,POCT Routine 06/14/2024 12:19 PM STAIN REMOVER Paroxysmal atrial flutter (HC) Thrombosis involving cardiac device, sequela INR,POCT Routine 05/28/2024 10:05 AM STAIN REMOVER Paroxysmal atrial flutter (HC) Thrombosis involving cardiac device, sequela XR DXA BONE DENSITY 2 SITES AXIAL Routine 08/09/2022 10:21 AM STAIN REMOVER Osteoporosis, unspecified osteoporosis type, unspecified pathological fracture presence from Last 3 Months or Most Recently Relevant to Health Maintenance Results * SCAN-OPERATIVE/PROCEDURE REPORT (08/21/2024 12:00 AM CDT) us Scanner OTHER Final Result * (ABNORMAL) INR - POCT [[id number]] - Standing Order (08/08/2024 10:17 AM STAIN REMOVER) Only the most recent of4 resultswithin the time period is included. INR 2.0(H) ratio [facility] Comment: INRs >2.9 may be falsely elevated in patients receiving either unfractionated Heparin or Low Molecular Weight Heparin. Follow up testing in a hospital laboratory may be helpful if clinically indicated. INR results of > or = 5.0 should be verified using the standard venipuncture procedure. Reference Range 0.9-1.1 Moderate-intensity Warfarin Therapy 2.0-3.0 Higher-intensity Warfarin Therapy 3.0-4.0 PROTHROMBIN TIMEP 23.7(H) 10.5 - 13.1 sec [facility] Comment: Point of care fingerstick Prothrombin Time/INR results may vary from venous Prothrombin Time/INR methodologies. Any results exhibiting inconsistency with the patient's clinical status should be repeated using a venous Prothrombin Time/INR method. Blood BLOOD SPECIMEN / Unknown 08/08/2024 10:17 AM STAIN REMOVER 08/08/2024 10:18 AM STAIN REMOVER Margaret Allen DO LABORATORY Final Resu lt [facility] [address] [place] [address], [facility] [address] [place] [address] * ECHO TTE COMPLETE WO CONTRAST (06/26/2024 10:35 AM STAIN REMOVER) AORTIC VALVE MEAN PG 7 mmHg PEAK TR VELOCITY 2.8 m/s LVEDD 4.0 cm MITRAL VALVE MR ERO 33 mm2 EJECTION FRACTION 55 - 60% Anatomical Region Laterality Modality Ultrasound 06/26/2024 9:55 AM STAIN REMOVER Narrative 06/26/2024 12:55 PM STAIN REMOVER ECHOCARDIOGRAM VALARIE HUANG : 1940 83 years Study Date: 06/26/2024 9:55:55 AM Gender: F BP: 110/62 mmHg Height: 152.40 cm BSA: 1.52 m Weight: 56.25 kg Tech: ERICA Referring MD: HARDEEP SUAZO Site: [facility] Reading Location: [facility] Patient Location: Procedure: 2D, Color Doppler and Spectral Doppler. Indication for study: S/P TAVR Cardiac Rhythm: Normal sinus and with premature atrial contractions.Study quality: Good. Final Impressions: 1. Normal LV size, borderline wall thickness, normal global systolic function with an estimated EF of 55 - 60%. 2. Severely enlarged left atrium. 3. 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 , no stenosis and trivial regurgitation. The aortic valve peak velocity is 1.6 m/s, the peak gradient is 11 mmHg, and the mean gradient is 7 mmHg. The aortic valve area is 2.12 cm with a dimensionless index of 0.56. The stroke volume index is 53.9 ml/m . 4. The mitral valve is sclerotic, moderate mitral regurgitation. 5. Mild-moderate tricuspid regurgitation. 6. Borderline increased estimated pulmonary pressures by tricuspid regurgitation velocity and right atrial pressure (31 mmHg plus RAP). 7. Grade 2 pattern of LV diastolic filling. Chamber Sizes and Function Normal left ventricular size, borderline wall thickness, normal global systolic function with an estimated EF of 55 - 60%. No resting regional wall motion abnormality visualized. Left atrial size is severely enlarged. Right ventricular cavity size is normal, global systolic RV function is normal. RV wall thickness is normal. Pacing wire/catheter visualized in the right ventricle and pacing wire/catheter visualized in the right atrium. The right atrium is normal. The pulmonary artery is of normal size and origin. The sinus of Valsalva is not well visualized. The ascending aorta is normal sized. Valves, RV Pressures and Diastolic Function The aortic valve is Status post 26-mm Medtronic Evolut FX Pro Plus transcatheter aortic valve replacement (07/12/2022). , no stenosis and trivial regurgitation. The mitral valve is sclerotic, moderate mitral regurgitation. (PISA ERO 33 mm and RV of 54 ml). Spectral Doppler shows Grade 2 pattern of LV diastolic filling. The tricuspid valve is normal in structure. Tricuspid regurgitation is mild- moderate. The tricuspid regurgitant velocity is 2.8 m/s, the estimated right ventricular systolic pressure is 31 mmHg plus right atrial pressure. There is borderline increased estimated pulmonary pressure by tricuspid regurgitation velocity and right atrial pressure. The pulmonic valve is normal. Mild-moderate pulmonary regurgitation. Masses, Effusion, Shunts There is no pericardial effusion. The inferior vena cava is normal sized, respiratory size variation greater than 50%. No left to right shunting was detected by limited color flow Doppler interrogation of the interatrial septum. MEASUREMENTS AND CALCULATIONS 2-D Measurements and LV Function: LVID (d) 4.0 cm LV FS% (2D) 43 % LVID (s) 2.3 cm LVOT diameter 2.2 cm IVS (d) 1.1 cm HR 80 bpm LVPW (d) 0.9 cm LA Vol index 48 ml/m2 Asc Ao 3.3 cm Diastology: Mitral Tissue Doppler E Peak 1.1 m/s e', Septum 0.05 m/s A Peak 0.4 m/s e', Lateral 0.08 m/s E/A 3.2 E/e' Average 17.35 DT 186 msec Aortic Valve: Vmax 1.6 m/s FABIAN (V) 2.19 cm VTI 0.39 m FABIAN (I) 2.12 cm LVOT V max 0.9 m/s Max PG 11 mmHg LVOT VTI 0.22 m Mean PG 7 mmHg SV 82 ml Dim Index 0.56 SV index 54 ml/m CO 6.6 l/min CI 4.3 l/min/m Mitral Valve: MVA 4.1 cm MR ERO 0.33 cm MV P 1/2 54 msec MR Vol. 54 ml MV Mean G 2 mmHg MR TVI 1.64 m Tricuspid Valve and estimated PA pressures: TR Vmax 2.8 m/s TAPSE 1.8 cm TR maxG 31 mmHg . This study was interpreted by an [facility] accredited facility. Final Procedure Note Narayan Chapman MD - 06/26/2024 ECHOCARDIOGRAM VALARIE HUANG : 1940 83 years Study Date: 06/26/2024 9:55:55 AM Gender: F BP: 110/62 mmHg Height: 152.40 cm BSA: 1.52 m Weight: 56.25 kg Tech: ERICA Referring MD: HARDEEP SUAZO Site: [facility] Reading Location: [facility] Patient Location: Procedure: 2D, Color Doppler and Spectral Doppler. Indication for study: S/P TAVR Cardiac Rhythm: Normal sinus and with premature atrial contractions.Studyquality: Good. Final Impressions: 1. Normal LV size, borderline wall thickness, normal global systolicfunction with an estimated EF of 55 - 60%. 2. Severely enlarged left atrium. 3. The aortic valve is Status post 26-mm Medtronic Evolut FX Pro Plustranscatheter aortic valve replacement (07/12/2022). , no stenosis andtrivial regurgitation. The aortic valve peak velocity is 1.6 m/s, the peakgradient is 11 mmHg, and the mean gradient is 7 mmHg. The aortic valvearea is 2.12 cm with a dimensionless index of 0.56. The stroke volumeindex is 53.9 ml/m . 4. The mitral valve is sclerotic, moderate mitral regurgitation. 5. Mild-moderate tricuspid regurgitation. 6. Borderline increased estimated pulmonary pressures by tricuspidregurgitation velocity and right atrial pressure (31 mmHg plus RAP). 7. Grade 2 pattern of LV diastolic filling. Chamber Sizes and Function Normal left ventricular size, borderline wall thickness, normal globalsystolic function with an estimated EF of 55 - 60%. No resting regionalwall motion abnormality visualized. Left atrial size is severely enlarged.Right ventricular cavity size is normal, global systolic RV function isnormal. RV wall thickness is normal. Pacing wire/catheter visualized inthe right ventricle and pacing wire/catheter visualized in the rightatrium. The right atrium is normal. The pulmonary artery is of normal sizeand origin. The sinus of Valsalva is not well visualized. The ascendingaorta is normal sized. Valves, RV Pressures and Diastolic Function The aortic valve is Status post 26-mm Medtronic Evolut FX Pro Plustranscatheter aortic valve replacement (07/12/2022). , no stenosis andtrivial regurgitation. The mitral valve is sclerotic, moderate mitralregurgitation. (PISA ERO 33 mm and RV of 54 ml). Spectral Doppler showsGrade 2 pattern of LV diastolic filling. The tricuspid valve is normal instructure. Tricuspid regurgitation is mild-moderate. The tricuspidregurgitant velocity is 2.8 m/s, the estimated right ventricular systolicpressure is 31 mmHg plus right atrial pressure. There is borderlineincreased estimated pulmonary pressure by tricuspid regurgitation velocityand right atrial pressure. The pulmonic valve is normal. Mild-moderatepulmonary regurgitation. Masses, Effusion, Shunts There is no pericardial effusion. The inferior vena cava is normal sized,respiratory size variation greater than 50%. No left to right shunting wasdetected by limited color flow Doppler interrogation of the interatrialseptum. MEASUREMENTS AND CALCULATIONS 2-D Measurements and LV Function: LVID (d) 4.0 cm LV FS% (2D) 43 % LVID (s) 2.3 cm LVOT diameter 2.2 cm IVS (d) 1.1 cm HR 80 bpm LVPW (d) 0.9 cm LA Vol index 48 ml/m2 Asc Ao 3.3 cm Diastology: Mitral Tissue Doppler E Peak 1.1 m/s e', Septum 0.05 m/s A Peak 0.4 m/s e', Lateral 0.08 m/s E/A 3.2 E/e' Average 17.35 DT 186 msec Aortic Valve: Vmax 1.6 m/s FABIAN (V) 2.19 cm VTI 0.39 m FABIAN (I) 2.12 cm LVOT V max 0.9 m/s Max PG 11 mmHg LVOT VTI 0.22 m Mean PG 7 mmHg SV 82 ml Dim Index 0.56 SV index 54 ml/m CO 6.6 l/min CI 4.3 l/min/m Mitral Valve: MVA 4.1 cm MR ERO 0.33 cm MV P 1/2 54 msec MR Vol. 54 ml MV Mean G 2 mmHg MR TVI 1.64 m Tricuspid Valve and estimated PA pressures: TR Vmax 2.8 m/s TAPSE 1.8 cm TR maxG 31 mmHg . This study was interpreted by an [facility] accredited facility. Final Hardeep Suazo MD ECHO ORD Final Result * XR MAMMO MARLA BILAT SCREEN (06/20/2024 10:41 AM STAIN REMOVER) Anatomical Region Laterality Modality BREASTS, Breast Left, Breast Right Bilateral Mammography Impressions 06/20/2024 3:33 PM STAIN REMOVER There is no radiographic evidence for malignancy. Recommend annual mammograms. MAMMOGRAM ASSESSMENT: ACR 1 Negative PATIENTS: You will also receive a letter with your examination results in an easy to read format. If you have questions about your results, please contact your referring provider. Narrative 06/20/2024 3:33 PM STAIN REMOVER For Patients: As a result of the Century Cures Act, medical imaging exams and procedure reports are released immediately into your electronic medical record. You may view this report before your referring provider. If you have questions, please contact your health care provider. XR MAMMO MARLA BILAT SCREEN [[id number]] CLINICAL HISTORY: This is an asymptomatic 83 y.o. patient. INDICATION FOR EXAM: Mammogram Screening. TECHNIQUE: CC & MLO views were obtained. This study was evaluated with the assistance of Computer-Aided Detection. Breast Tomosynthesis was used in interpretation. COMPARISON FILM: Yes 04/19/23 [employer] 08/09/22 [employer] FINDINGS: There are scattered areas of fibroglandular density. There are no dominant masses, suspicious micro calcifications or areas of architectural distortion. Margaret Allen DO MAMMO Final Resu lt * (ABNORMAL) XR DXA BONE DENSITY 2 SITES AXIAL (08/09/2022 10:21 AM STAIN REMOVER) Anatomical Region Laterality Modality Spine, HIPS, HIPL, HIPR Other Impressions 08/10/2022 3:48 PM STAIN REMOVER Osteoporosis. RECOMMENDATIONS: The National Osteoporosis Foundation recommends [...] exercise. Continue current Alendronate (Fosamax) medication treatment. Recheck in 2 years. Consider a drug holiday if on Fosamax greater than 5 years. Roz Perrin PA-C [facility] 08/10/2022 Narrative 08/10/2022 3:48 PM STAIN REMOVER For Patients: Results are automatically released to your [facility] account once available, in compliance with federal regulations. This means that you may see your results before your provider has had a chance to review them. Please allow 2-3 business days for your provider to comment on the results. XR DXA Bone Mineral Density (BMD) EXAM LOCATION: [facility] [address] [facility] [id number] PATIENT NAME: Valarie Huang DATE OF : 1940 EXAM DATE: 08/09/2022 REQUESTING PROVIDER: Margaret Allen DO GENDER AT : female HEIGHT: 5' (07/29/2022) WEIGHT: 126 lb 6.4 oz (07/29/2022) MENOPAUSAL STATUS: Postmenopausal [...] two scanners are made by the same 4th grade teacher. PROCEDURE: Dual-energy x-ray absorptiometry performed with routine technique. Reporting is completed in the form of a T-score. The T-score represents the standard deviation from peak bone mass based on young healthy adult. A Z-score is used for diagnosis in premenopausal women, and for men under the age of 50. FINDINGS: RESULT LUMBAR SPINE L1 - L4 and L2 - L4 BMD: 1.346 g/cm2 T-Score: + 1.0 Z-Score: + 3.2 Change from prior in 2006: Increase 4.8%. RESULTS FEMUR Left femoral neck BMD: 0.808 g/cm2 T-Score: - 1.7 Z-Score: + 0.7 Change from prior in 2019: Increase 7.0%. Right femoral neck BMD: 0.636 g/cm2 T-Score: - 2.9 Z-Score: - 0.5 Change from prior in 2019: Decrease 2.9%. Left hip BMD: 0.807 g/cm2 T-Score: - 1.6 Z-Score: + 0.6 Change from prior in 2019: Decrease 2.2%. Right hip BMD: 0.808 g/cm2 T-Score: - 1.6 Z-Score: + 0.7 Change from prior in 2019: Decrease 3.6%. WHO criteria: Normal: T-score at or above -1 SD Osteopenia: T-score between -1.1 and -2.4 SD Osteoporosis: T-score at or below -2.5 SD Margaret Allen DO DEXA Final Resu lt from Last 3 Months or Most Recently Relevant to Health Maintenance Insurance [employer] [place] BL[place] HB ONLY MEDICARE PART B HB ONLY MEDICARE PART A HB ONLY [employer] [employer] [place] BL[place] MR PB ONLY MEDICARE PPS [employer] [place] BLUE HB ONLY Advance Directives Documents on File Type Date Recorded Patient Drawing Tracer Expl anation HARRY 10/14/2023 Healthcare Directive 08/16/2016 11:07 AM STACEY, [...] Code Status Discussion: Reviewed Preferences Care Teams Processing Spec Relationship Specialty Start Date End Date Margaret Allen DO [address] [place] [address] PCP - General Family Practice 03/10/17 Chelsy Chinchilla MD Ophthalmology Surgery 04/17/13 Zainab Reyes, ANNELIESE [address] [place] [address] Core Inserter Registered Nurse 09/23/23
--- OUTSIDE RECORDS SUMMARY | 2024-08-23 13:15 | XMS_ITS | Referral Summary ---
Author Organization [facility] Address [address] [place] [address] Care Team Providers Care Double Needle Operator Name Role Phone CryscarleeMargaret Primary Care Provider [phone]- [phone] Stephanie Byrd MD Unavailable Encounters Date Type Department Care Team Description 08/23/2024 10:15 AM CDT Office Visit [address] [phone] Stephanie Byrd MD Double vision; History of ischemic stroke 05/25/2024 11:15 AM FELT MACHINE MECHANIC Office Visit [address] [phone] Stephanie Byrd MD History of ischemic stroke (Primary Dx); Double vision from Last 3 Months Allergies Active Allergy Reactions Criticality Noted Date Comments Lisinopril Cough 06/15/2023 Sulfa (Sulfonamide Antibiotics) Hives 10/12 Medications acyclovir (ZOVIRAX) 400 mg oral tablet Take by mouth as needed. 07/28/2023 Active ascorbic acid, vitamin C, 500 mg oral tablet Take 1 tablet (500 mg) by mouth Daily. Active clopidogrel (PLAVIX) 75 mg oral tablet Take 1 tablet (75 mg) by mouth Daily. 10/15/2023 Active escitalopram oxalate (LEXAPRO) 10 mg oral tablet Take 1 tablet (10 mg) by mouth Daily. 01/10/2024 Active ezetimibe (ZETIA) 10 mg oral tablet Take 1 tablet (10 mg) by mouth Daily. 02/22/2024 Active Magnesium Chloride 64 mg oral delayed release tablet Take 2 tablets (128 mg) by mouth Daily. 09/27/2023 Active loperamide (IMODIUM) 2 mg oral capsule Take 1 capsule (2 mg) by mouth once daily. 11/02/2023 Active melatonin 1 mg oral tablet Take 2 tablets (2 mg) by mouth Daily. 10/26/2023 Active multivitamin (ONE-A-DAY ESSENTIAL) oral tablet Take 1 tablet by mouth Daily. 10/26/2023 Active omeprazole (PRILOSEC) 20 mg oral delayed release capsule Take 1 capsule (20 mg) by mouth Daily. 09/26/2023 Active potassium chloride (K-DUR) 20 mEq oral extended release tablet Take 1 tablet (20 mEq) by mouth Daily. 10/15/2023 Active propranoloL (INDERAL LA) 80 mg oral extended release capsule 24 HR Take 1 capsule (80 mg) by mouth Daily. 02/22/2024 Active rosuvastatin (CRESTOR) 40 mg oral tablet Take 1 tablet (40 mg) by mouth Daily. 04/04/2023 Active peg 400-propylene glycol (SYSTANE) 0.4-0.3 % Opht Drop ophthalmic (EYE) drops Instill 1-2 drops into the eye four times a day. 09/20/2023 Active warfarin (COUMADIN) 2 mg oral tablet Take 1 tablet (2 mg) by mouth as directed. 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 Dexa due 07/2024 Aortic stenosis 06/18/2022 Atrial flutter with rapid ventricular response 0 10/23/2020 Cardiac pacemaker in situ 10/23/2020 DNR (do not resuscitate) 10/23/2020 E. coli UTI (urinary tract infection) 10/23/2020 History of prolonged Q-T interval on ECG 021 Overview (02/23/2024): After 0.5 mg ibutilide (EKG 10/08/2020). As a result, I would avoid sotalol and dofetilide. SSS (sick sinus syndrome) 10/08/2020 KEVIN (obstructive sleep apnea) 04/29/2020 Colon polyp 12/05/2019 Overview (02/23/2024): Colonoscopy 11/2019 colon polyp, lymphocytic colitis, repeat in 5 years Lymphocytic colitis 12/05/2019 Overview (02/23/2024): Colonoscopy 11/2019 colon polyp, lymphocytic colitis, repeat in 5 years ASHD (arteriosclerotic heart disease) 08/06/2019 Dyspnea on exertion 08/06/2019 Paroxysmal atrial fibrillation 08/06/2019 Pulmonary hypertension 08/06/2019 GERD (gastroesophageal reflux disease) 2 Overview (02/23/2024): EGD 03/2012 Reactive gastropathy Adjustment disorder with depressed mood 04/03/20 09 Essential hypertension 04/11/2007 Essential tremor 04/11/2007 Fibromyalgia 04/11/2007 Hyperlipidemia 04/11/2007 Social History Tobacco Use Types Packs/Day Years Used Date Smoking Tobacco: Never Assessed Comments Unknown Sex and Gender Information Value Date Recorded Sex Assigned at Not on file Legal Sex Female 1:08 PM CDT Gender Identity Not on file Sexual Orientation Not on file Plan of Treatment Not on file Insurance MEDICARE PART A & B [employer] [place] [employer] Care Teams Double Needle Operator Relationship Specialty Start Date End Date Margaret Allen DO [address] [place] [address] PCP - General Family Medicine 11/23/23 Stephanie Byrd MD [address] [facility] [address] [place] [address] Neurology 02/23/24
--- OUTSIDE RECORDS SUMMARY | 2024-08-23 13:15 | XMS_ITS | Clinical Summary ---
Author Organization [facility] Address [address] [place] [address] Care Team Providers Care Clerical Clerk Name Role Phone AlejandroMargaret Vannesa HARDING Primary Care Provider [phone]- [phone] Stephanie Byrd MD Unavailable Allergies Active Allergy Reactions Criticality Noted Date [...] Essential tremor 04/11/2007 Fibromyalgia 04/11/2007 Hyperlipidemia 04/11/2007 Encounters Date Type Department Care Team Description 08/23/2024 10:15 AM CDT Office Visit [address] [phone] Stephanie Byrd MD Double vision; History of ischemic stroke 05/25/2024 11:15 AM SEWING TEACHER Office Visit [address] [phone] Stephanie Byrd MD History of ischemic stroke (Primary Dx); Double vision from Last 3 Months Social History Tobacco Use Types Packs/Day Years Used Date Smoking Tobacco: Never Assessed Comments Unknown Sex and Gender Information Value Date Recorded Sex Assigned at Not on file Legal Sex Female 1:08 PM CDT Gender Identity Not on file Sexual Orientation Not on file Plan of Treatment Health Maintenance Due Date Last Done Comments Colonoscopy 1940 Depression Follow-Up (PHQ-9) 1942 Yearly Review of HCD 1991 Osteoporosis Screening 08/09/2024 , 05/21/2019, 08/12/2016, Additional history exists Medicare Wellness Visit 04/12/2025 04/12/2024, 04/04, 07/08/2020 Adult Tetanus Booster 07/01/2025 07/01/2015, 006, 03/30/1995 Pneumococcal 50+ Years Completed 06/26/2014, 2006 Zoster Vaccine Completed 11/16/2018, 08/14/2018, RSV Vaccines Completed 04/07/2023 Influenza Vaccine Completed 02/21/2024, , 02/19/2022, Additional history exists COVID-19 Vaccine Completed 03/10/2024, , 02/19/2022, Additional history exists Insurance MEDICARE PART A & B [facility] [place] BLUE Care Teams Clerical Clerk Relationship Specialty Start Date End Date Margaret Allen DO [address] [place] [address] PCP - General Family Medicine 11/23/23 Stephanie Byrd MD [address] [facility] [address] [place] [address] Neurology 02/23/24
--- OUTSIDE RECORDS SUMMARY | 2024-08-23 13:15 | XMS_ITS | Encounter Summary ---
Author Organization [facility] Address [address] [place] [id number] Care Team Providers Care Warehouse Delivery Driver Name Role Phone Margaret Allen Primary Care Provider [phone] Stephanie Byrd MD Unavailable Reason for Referral * Other (Routine) - Open Specialty Diagnoses / Procedures Referred By Fabiano jeronimo Referred To Contact Diagnoses Double vision History of ischemic stroke Procedures [facility]POINTMENT Stephanie Byrd MD [address] [place] [address] [address] [place] [address] Phone: tel: fax: Referral ID Status Reason Start Date Expiration Date Visits Re quested Visits Authorized [id number] Open 11/23/2024 1 1 Reason for Visit * Reason Comments Follow up 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 * Other (Routine) - Open Specialty Diagnoses / Procedures Referred By Fabiano jeronimo Referred To Contact Diagnoses Double vision History of ischemic stroke Procedures [facility] Stephanie Byrd MD [address] [place] [address] [address] [place] [address] Phone: tel: fax: Referral ID Status Reason Start Date Expiration Date Visits Re quested Visits Authorized [id number] Open 08/23/2024 1 1 Encounter Details Date Type Department Care Team (Late st Contact Info) Description 08/23/2024 10:15 AM CDT Office Visit [facility] - [address] [place] [id number] Stephanie Byrd MD [address] [place] [address] [address] [place] [address] Double vision; History of ischemic stroke Social History Tobacco Use Types Packs/Day Years Used Date Smoking Tobacco: Never Assessed Comments Unknown Sex and Gender Information Value Date Recorded Sex Assigned at Not on file Legal Sex Female 1:08 PM CDT Gender Identity Not on file Sexual Orientation Not on file documented as of this encounter Progress Notes * Stephanie Byrd MD - 08/23/2024 10:15 AM CDT Neuro-ophthalmology Clinic Note HPI: This is a very pleasant 84 y.o.year old female with history of CVA, Atrial fibrillation on warfarin,s/p ablation, aortic stenosis s/p TAVR 2022, moderate carotid stenosis, TIA, GERD, essential tremor, hypertension, hyperlipidemia, fibromyalgia, KEVIN, pulmonary hypertension, CAD, lymphocytic colitis,sick sinus syndrome - s/p pacemaker placement, aortic stenosis - s/p TAVR, age related osteoporosis, history of prolonged QT interval, colon polyp, adjustment disorder with depressed mood, 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 Avastin) who presents today for Follow up (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) . Patient is a kind referral from Dr.Diane Aislnin May of [facility]. She is accompanied by her [id number] and also brother today, who are very supportive. Interim history 08/23/2024 Since last visit, there is no changes of double vision. Fresnel prism continues working well. She does not have double vision when she is using it. However she still has double vision when she takes off glasses. She has voluntarily stopped driving. She just had left eye injection for central retinal vein occlusion yesterday. She feels left eye isbruised. Interim history: 05/25/2024 Since last visit, the Fresnel prism continues working well. She does not have double vision when she is using it. However she still have double vision when she takes off glasses although the image separation becomes less pronounced. Her OT has improved her driving. However she had recent neuropsychological evaluation on 05/08/2024who recommended her to have road driving test. They also concern of possible cognitive changes related to sleep apnea and she will have sleep evaluation soon. Since last visit she was find to have chronic thrombosis and is now on warfarin and Plavix. Her walking is better. She is not using walker today. She does not always use it at home either. Note from last visit on 02/23/2024 On 09/01/2023, the patient presented to [place] ED with visual disturbances noted while playing bingo, also left facial droop and left tingling sensation in the left side of her mouth. She had trouble seeing the bingo card due to double vision . 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 She was transferred to due to a pacemaker (PPM). An MRI brain scan indicated late acute to early subacute infarction involving the right cerebral tera and anterior right thalamus. The patient was already on Eliquis 2.5 mg twice daily before presentation, and Plavix was added to her regimen after the stroke. As part of her stroke workup, a carotid ultrasound was performed, revealing right ICA stenosis. Vascular surgery evaluated the patient and recommended outpatient follow-up with the vascular clinic in 3 months. She continued on her home dose of rosuvastatin 40 mg, with an LDL of 75, and Zetia was added later by her block engraver. The patient has a history of essential tremor and has been on propranolol for a long time. Metoprolol was added to her regimen but was laterdiscontinued due to low blood pressure. Currently, she is undergoing physical therapy and has graduated from occupational therapy and speech therapy. The patient describes her double vision as diagonal binocular double vision, with no noted improvement since the stroke. She had a routine eye exam on 08/01/2023, prior to the stroke. Her best-corrected vision at that time was 20/20 in the right eye and 20/100 in the left eye, which was her baseline. Per the record, shehas a history of central retinal vein occlusion (CRVO) left eye and has received Eylea injections, which helped. She also has a left eye lamellar macular hole, epiretinal membrane and ocular migraine. She is followed by Dr. Aubrey Benavides of [facility]. Her most recent visit with the retinal specialist was on 11/22/2023, when her vision was 20/25 -2 in the right eye and 20/150in the left eye, which could be improved with pinhole to 20/70+1. Her macula was stable at that time. 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 coli UTI (urinary tract infection) Essential hypertension Essential tremor Fibromyalgia GERD (gastroesophageal reflux disease) History of prolonged Q-T interval on ECG Hyperlipidemia Lymphocytic colitis KEVIN (obstructive sleep apnea) , (HCC) Pulmonary hypertension (HCC) SSS (sick sinus syndrome) (HCC) Stenosis of right internal carotid artery Social history: Social History Socioeconomic History Marital status: Spouse name: Not on file Number of children: Not on file Years of education: Not on file Highest education level: Not on file Occupational History Not on file Tobacco Use Smoking status: Not on file Smokeless tobacco: Not on file Substance and Sexual Activity Alcohol use: Not on file Drug use: Not on file Sexual activity: Not on file Other Topics Concern Not on file Social History Narrative Not on file Social Drivers of Health Financial Resource Strain: Low Risk (02/04/2023) Received from [facility] Financial Resource Strain Difficulty of Paying Living Expenses: 3 Difficulty of Paying Living Expenses: Not on file Food Insecurity: No Food Insecurity (09/06/2023) Received from [facility] Food Insecurity Do you worry your food will run out before you are able to buy more?: 1 Transportation Needs: No Transportation Needs (09/06/2023) Received from [facility] Transportation Needs Does lack of transportation keep you from medical appointments?: 1 Does lack of transportation keep you from work, meetings or getting things that you need?: 1 Physical Activity: Not on file Stress: Not on file Social Connections: Socially Integrated (09/06/2023) Received from [facility] Social Connections Do you often feel lonely or isolated from those around you?: 0 Intimate Partner Violence: Not on file Housing Stability: Low Risk (09/06/2023) Received from [facility] Housing Stability What is your housing situation today?: 1 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 ascorbic acid, vitamin C, 500 mg oral tablet Take 1 tablet (500 mg) by mouth Daily. clopidogrel (PLAVIX) 75 mg oral tablet Take 1 tablet (75 mg) by mouth Daily. escitalopram oxalate (LEXAPRO) 10 mg oral tablet Take 1 tablet (10 mg) by mouth Daily. ezetimibe (ZETIA) 10 mg oral tablet Take 1 tablet (10 mg) by mouth Daily. loperamide (IMODIUM) 2 mg oral capsule Take 1 capsule (2 mg) by mouth once daily. Magnesium Chloride 64 mg oral delayed release tablet Take 2 tablets (128 mg) by mouth Daily. melatonin 1 mg oral tablet Take 2 tablets (2 mg) by mouth Daily. multivitamin (ONE-A-DAY ESSENTIAL) oral tablet Take 1 tablet by mouth Daily. omeprazole (PRILOSEC) 20 mg oral delayed release capsule Take 1 capsule (20 mg) by mouth Daily. peg 400-propylene glycol (SYSTANE) 0.4-0.3 % Opht Drop ophthalmic (EYE) drops Instill 1-2 drops into the eye four times a day. potassium chloride (K-DUR) 20 mEq oral extended release tablet Take 1 tablet (20 mEq) by mouth Daily. propranoloL (INDERAL LA) 80 mg oral extended release capsule 24 HR Take 1 capsule (80 mg) by mouth Daily. rosuvastatin (CRESTOR) 40 mg oral tablet Take 1 tablet (40 mg) by mouth Daily. warfarin (COUMADIN) 2 mg oral tablet Take 1 tablet (2 mg) by mouth as directed. No current facility-administered medications on file prior to visit. Allergies: Allergies Allergen Reactions Lisinopril Cough Sulfa (Sulfonamide Antibiotics) Hives Exam: GENERAL: Showed a well-developed, well-nourished, comfortable sitting without distress. HEENT: normocephalic, atraumatic.+ Head tremor NECK: supple,no nuchal rigidity LUNGS: No stress with room air HEART: Regular rhythm. No pitting edema ABDOMEN: no distention EXTREMITIES: Showed no deformity or edema. NEURO Examination: Mental status: AO X 4. Normal speech, language, memory, attention, fund of knowledge. CN nerves: See ophthalmology exam Face is symmetrical, no facial droop. Facial sensation is symmetrically normal Shoulder shrugging movement symmetric Motor exam:Drift - None, Normal tone, bulk and strength Sensory exam: Light touch : Intact Coordination: Finger to nose: mild difficulty with left Gait: no walker today, mild difficulty with tandem gait,normal toe and heel walking Ophthalmology exam: Distance VA: (Snellen with glasses, Fresnel on left lens) OD 20/20-2 OS 20/150 (with and without glasses) Current glasses OD [place] -1.25 x 110 ADD: +3.25 OS [place] -1.00x 0 30 ADD: +3.25 8 BD Frensle prism Confrontation field OD: Full OS: Full Pupil: PERRL-APD Extraocular movement: She reports double vision with all gazes except right gaze OD full OS full Nystagmus: No Bey Sage exam: 08/23/2024 without glasses 1X 8 LH 6E 6 LH 0.5E 7 LH 4E 8 LH 7 LH 1 E 5 LH 8 LH Bey Sage exam: 05/25/2024 without glasses 8 LH 4E 5.5 LH 1E 6 LH 6E 6 LH 7 LH 3E 5.5 LH 5.5 LH Bey Sage exam: 05/25/2024 with glasses (in prism) 8 LH Bey Sage exam: 02/23/2024: 10 base-down prism on the left eye can get rid of primary gaze double vision 10 LH 2E 5.5 LH 2X 11 LH 1.5E 12 LH 10 LH 5.5 LH 6 LH External OD: WNL OS: WNL Slit lamp: OD Lid & Lash: clean and clear Conj : clear Cornea: clear AC: deep and quiet Iris: intact Rolf: PCIOL in place OS Lid & Lash: clean and clear Conj : clear Cornea: clear AC: deep and quiet Iris: intact Rolf: PCIOL in place Fundus exam: non dilation OD: Optic disc: pink, sharp margin C/D: 0.3/0.3 Macula: clear Vessels: WNL OS: Optic disc: pink, sharp margin C/D: 0.3/0.3 Macula: clear Vessels: WNL Labs: I have reviewed the patient's clinical lab test results. See HPI Imaging: I have personally reviewed the patient's imaging MRI brain with without contrast 09/02/2023 1. Late acute to early subacute infarction involving the right cerebral tera and anterior right thalamus. 2. No additional acute intracranial abnormality. 3. Moderate presumed chronic small vessel ischemic changes. Carotid ultrasound 12/07/2023 1. Based on the ICA velocities, ICA/CCA ratio, and 2D images there is plaque causing 50-69% stenosis in the right internal carotid artery and there is plaque causing <50% stenosis in the left internal carotid artery. 2. Normal antegrade flow within bilateral vertebral arteries. 3. Multiphasic flow within bilateral subclavian arteries. Assessment and Plan 84 y.o.year old female with history of CVA, Atrial fibrillation on warfarin,s/p ablation, aortic stenosis s/p TAVR 2022, moderate carotid stenosis, TIA, GERD, essential tremor, hypertension, hyperlipidemia, fibromyalgia, KEVIN, pulmonary hypertension, CAD, lymphocytic colitis, sick sinus syndrome - s/p pacemaker placement, aortic stenosis - s/p TAVR, age related osteoporosis, history of prolonged QT interval, colon polyp, adjustment disorder with depressed mood, left eye CRVO on injection, laminar macular hole who presents today for follow- up (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). Today, the patient's pinhole vision can reach 20/20-2 in the right eye and 20/150 in the left eye. Left eye is worse due to injection yesterday. Right eye has improved. Her confrontation visual peña are full. Pupils are normal and reactive, with no RAPD. Bey sage testing shows a left hyperdeviation that does not align with a cranial nerve palsy, which is attributed to her ischemic stroke involving the right cerebral tera and anterior right thalamus. The measurement improved last visit is stable this visit. 10PD base-down prism was needed in initial visit, since yesterday 8PD base-down prism is needed. Currently, it is 12 months post-stroke. The double vision is stable. Plan: We discussed possible surgery although she has to hold warfarin before surgery, which will increaseher risk of stroke. Patient would like to have permanent prism glasses instead. She has just had injection yesterday and her left vision is blurry. I would like to see her back in 3 months to update her glasses by repeat refraction. As far as driving, even though she passed the OT driving evaluation but neuropsychologist concerns and she will have road driving test. From vision standpoint, there is no limitation. Double vision does not restrict her from driving. Patient has driving voluntarily. Thank you for getting me involved in this patient's care. Stephanie Byrd MD Neuro-ophthalmology [facility] Neurology MIPS 2024: Documentation of current mediations reviewed every visit 2. Does patient use tobacco? No 3. Patient has had no falls in calendar year 4. Does patient have Dementia? No I spent _42__ minutes on the date of the encounter with for this patient consisting of activities before, during and after the encounter including time spent: Preparing to see the patient including review of the chart, tests, and/or outside records. Reviewing and verifying information regarding the chief complaint and history already recorded by ancillary staff and/or the patient. Obtaining history and performing medically appropriate evaluation. Counseling the patient regarding the diagnosis, additional diagnostic considerations, possible diagnostic testing, and any potential options for therapy, including conservative/lifestyle measures and pharmacotherapy including risks/benefits, side effects and adverse effects. I also counseled the patient on how to contact me with any questions or concerns, new or worsening symptoms. Ordering medications, tests, and/or procedures, and documenting the chart. documented in this encounter Plan of Treatment Not on file documented as of this encounter Visit Diagnoses Diagnosis Double vision Diplopia History of ischemic stroke documented in this encounter Care Teams Warehouse Delivery Driver Relationship Specialty Start Date End Date Margaret Allen DO [address] [place] [address] PCP - General Family Medicine 11/23/23 Stephanie Byrd MD [address] [facility] [address] [place] [address] Neurology 02/23/24 documented as of this encounter
--- NOTE | 2024-08-23 13:29 | CRLHL7_ITS ---
For Patients: As a result of the Century Cures Act, medical imaging exams and procedure reports are released immediately into your electronic medical record. You may view this report before your referring provider. If you have questions, please contact your health care provider. INDICATION: Fall, hit back of head TECHNIQUE: CT head without contrast. COMPARISON: None. FINDINGS: CSF spaces: Within normal limits for age. Brain parenchyma: Diffuse cerebral atrophy with low-density in the deep white matter. [place] calcification without mass effect in the right frontal subependymal region. Old right thalamic lacunar infarct. Old right external capsule lacunar infarct. Skull base and calvarium: The visualized paranasal sinuses and mastoid air cells demonstrate no acute or significant findings. The visualized orbits are grossly unremarkable. No skull fractures. Posterior scalp hematoma. Atherosclerosis. Mild left temporomandibular joint osteoarthritis. IMPRESSION: 1. Posterior scalp hematoma without calvarial fracture or intracranial bleed. 2. Old right thalamic and external capsule lacunar infarcts. 3. Cerebral atrophy with nonspecific white matter disease, likely microangiopathy. 4. [place] calcification in the right frontal subependymal region, likely dystrophic calcification. Differential diagnosis would include a vascular malformation. Please note that all CT scans at this facility use dose modulation, iterative reconstruction, and/or weight-based dosing when appropriate to reduce radiation dose to as low as reasonably achievable. Dictated by Dario Ivan MD @ 08/23/2024 2:08:10 PM (Electronically Signed)
--- NOTE | 2024-08-23 13:33 | CRLHL7_ITS ---
For Patients: As a result of the Century Cures Act, medical imaging exams and procedure reports are released immediately into your electronic medical record. You may view this report before your referring provider. If you have questions, please contact your health care provider. INDICATION: Fall, hit head TECHNIQUE: CT cervical spine without contrast. COMPARISON: None FINDINGS: Vertebrae: Alignment is normal. There are no fractures or suspicious bony lesions. Discs and facet joints: Facet hypertrophy C2-3 without significant stenosis. Facet hypertrophy at C3-4 without significant stenosis. Facet hypertrophy C4-5 with mild right foraminal stenosis. Disc space narrowing and facet hypertrophy C5-6 without significant stenosis. Posterior osteophytes at C6-7 causing mild bilateral foraminal stenosis. Facet hypertrophy C7-T1 without significant stenosis. Extraspinal findings: Atherosclerosis. IMPRESSION: Multilevel degenerative changes cervical spine without evidence of cervical spine fracture. Please note that all CT scans at this facility use dose modulation, iterative reconstruction, and/or weight-based dosing when appropriate to reduce radiation dose to as low as reasonably achievable. Dictated by Dario Ivan MD @ 08/23/2024 2:24:12 PM (Electronically Signed)
--- NOTE | 2024-08-23 13:53 | CRLHL7_ITS ---
For Patients: As a result of the Cures Act, medical imaging exams and procedure reports are released immediately into your electronic medical record. You may view this report before your referring provider. If you have questions, please contact your health care provider. Indication: injury; fell hit left arm and head Technique: Two views of the left reverse Comparison: None Findings/Impression: Mildly comminuted olecranon fracture displaced by approximately 2.7 centimeters posteriorly. Moderate associated adjacent soft tissue edema. No suspicious osseous lesions. Dictated by Jalen Edmonds MD @ 08/23/2024 2:33:18 PM (Electronically Signed)
--- NOTE | 2024-08-23 13:54 | ED_ITS ---
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 She slid and landed on her back. She hit her head and does have some bleeding from a wound on the backside of her head. She did not have loss of consciousness. She also comes in with swelling and pain in her left elbow. She is on anticoagulants. She does not describe a headache. Her primary complaint is left elbow pain. Related Data Home Medications ?Medication ?Instructions ?Recorded ?Confirmed acyclovir 400 mg tablet 400 mg PO 3XD PRN 09/08/22 09/24/23 omeprazole 20 mg capsule,delayed 20 mg PO DAILY 09/08/22 09/24/23 release propranolol 80 mg capsule,24 80 mg PO DAILY 09/08/22 08/23/24 hr,extended release apixaban 5 mg tablet (Eliquis) 5 mg PO BID 10/11/22 09/24/23 aspirin 81 mg chewable tablet 81 mg PO DAILY 10/11/22 09/24/23 (Aspirin Childrens) calcium 500 mg (as 1 tab PO DAILY 10/11/22 09/24/23 carbonate)-vitamin D3 3.125 mcg (125 unit) tablet cholecalciferol (vitamin D3) 25 25 mcg PO DAILY 10/11/22 09/24/23 mcg (1,000 unit) capsule coenzyme Q10 100 mg capsule 100 mg PO DAILY 10/11/22 09/24/23 fexofenadine 180 mg tablet 180 mg PO DAILY 10/11/22 09/24/23 (Karolyn Allergy) fluticasone propionate 50 2 spray intranasal DAILY PRN 10/11/22 10/13/22 mcg/actuation nasal spray,suspension magnesium oxide 400 mg PO DAILY 10/11/22 09/24/23 metoprolol tartrate 25 mg tablet 12.5 - 25 mg PO DAILY PRN 10/11/22 09/24/23 multivitamin 1 tab PO DAILY 10/11/22 09/24/23 rosuvastatin 40 mg tablet (Crestor) 40 mg PO DAILY 10/11/22 08/23/24 clopidogrel 75 mg tablet 75 mg PO DAILY 09/24/23 08/23/24 losartan 25 mg tablet 12.5 mg PO DAILY 09/24/23 ofloxacin 0.3 % eye drops 1 drp ophthalmic (eye) QID 09/24/23 09/24/23 potassium chloride 20 mEq 20 meq PO DAILY 09/24/23 08/23/24 tablet,extended release(part/cryst) propranolol 20 mg tablet 20 mg PO DAILY 09/24/23 09/24/23 escitalopram oxalate 10 mg tablet 10 mg PO QAM 08/23/24 08/23/24 ezetimibe 10 mg tablet 10 mg PO DAILY 08/23/24 08/23/24 magnesium chloride 64 mg 128 mg PO DAILY 08/23/24 08/23/24 (magnesium chloride) tablet,delayed release (Mag-Delay) warfarin 2 mg tablet mg 08/23/24 Previous Rx's ?Medication ?Instructions ?Recorded hydrocodone 5 mg-acetaminophen 325 1 tab PO Q4-6H PRN pain #20 tabs 08/23/24 mg tablet Allergies Allergy/AdvReac Type Severity Reaction Status Date / Time Sulfa (Sulfonamide Allergy Verified 09/24/23 12:32 Antibiotics) Review of Systems Status of ROS: Reports: 10 or more systems reviewed and unremarkable except as noted in History and below Narrative: Constitutional: No fevers, no weight gain or loss. Eyes: No discharge. No vision changes. HENT: No congestion, no sore throat, no ear pain. Cardiovascular: No chest pain, no palpitations. Respiratory: No shortness of breath, no wheezes, no cough. Gastrointestinal: No abdominal pain, no vomiting, no diarrhea. Genitourinary: No dysuria, no hematuria. Musculoskeletal: Left elbow injury. Skin: No rashes, no pruritis. Neurological: No dizziness, weakness, sensory change, speech change. Endo/Heme/Allergies: No bruising or bleeding. No polydipsia. Pysch: no suicidality, no anxiety, no insomnia. All other systems reviewed and are negative. [facility] Medical History Aortic stenosis ?I35.0 - Nonrheumatic aortic (valve) stenosis (ICD-10) Cardiac pacemaker in situ ?Z95.0 - Presence of cardiac pacemaker (ICD-10) E. coli UTI ?N39.0 - Urinary tract infection, site not specified (ICD-10) ?B96.20 - Unspecified Escherichia coli [E. coli] as the cause of diseases classified elsewhere (ICD-10) SSS (sick sinus syndrome) ?I49.5 - Sick sinus syndrome (ICD-10) Prolonged Q-T interval on ECG ?R94.31 - Abnormal electrocardiogram [ECG] [EKG] (ICD-10) KEVIN (obstructive sleep apnea) ?G47.33 - Obstructive sleep apnea (adult) (pediatric) (ICD-10) ASHD (arteriosclerotic heart disease) ?I25.10 - Atherosclerotic heart disease of [place] coronary artery without angina pectoris (ICD-10) Paroxysmal atrial fibrillation ?I48.0 - Paroxysmal atrial fibrillation (ICD-10) Dyspnea on exertion ?R06.09 - Other forms of dyspnea (ICD-10) Pulmonary hypertension ?I27.20 - Pulmonary hypertension, unspecified (ICD-10) Adjustment disorder with depressed mood ?F43.21 - Adjustment disorder with depressed mood (ICD-10) Essential and other specified forms of tremor ?G25.0 - Essential tremor (ICD-10) ?G25.2 - Other specified forms of tremor (ICD-10) Unspecified essential hypertension ?I10 - Essential (primary) hypertension (ICD-10) Fibromyalgia ?M79.7 - Fibromyalgia (ICD-10) GERD (gastroesophageal reflux disease) ?K21.9 - Gastro-esophageal reflux disease without esophagitis (ICD-10) Surgical History History of YAG laser capsulotomy of lens of left eye ?Z98.42 - Cataract extraction status, left eye (ICD-10) Hx of tubal ligation ?Z98.51 - Tubal ligation status (ICD-10) Hx of cataract extraction ?Z98.49 - Cataract extraction status, unspecified eye (ICD-10) Social History Smoking Status: Former smoker Do you use any of these nicotine containing products: None Second hand tobacco smoke exposure: No How often do you have a drink containing alcohol: 2-3 times a week How many standard drinks containing alcohol do you have on a typical day: 3 or 4 How often do you have six or more drinks on one occasion: Never AUDIT-C Alcohol total score: 4 Non-prescribed substance use: denies use Caffeine: Yes service: No Exam Narrative: Exam Narrative: Constitutional: Well-developed, well-nourished, no acute distress. HEENT: Neck: Normal range of motion. Nontender. Supple. Heart: Regular. No murmurs. Normal rate. Intact distal pulses. Lungs: Clear to auscultation. No chest discomfort. No wheezes, rhonchi, or rales. Abdomen: Normal bowel sounds. Nontender. No rebound tenderness. Genitalia: Deferred. Back: No midline tenderness. Normal range of motion. Extremities: Swelling around the region of the left elbow joint. Pain with any range of motion. Skin: Intact. No rash. Warm. No erythema or pallor. Neurologic: No altered sensation. No weakness. Alert and oriented. Psychiatric: No suicidality. No anxiety or depression. No insomnia. Nursing notes and vitals signs are reviewed. Const: Vital Signs, click to edit/add: Vital Signs - 24 hr 08/23/24 13:23 Temperature 96.3 F L Pulse Rate [Pulse Oximeter] 61 Respiratory Rate 12 Blood Pressure [Ri t Upper Arm] 119/73 Pulse Oximetry 97 Oxygen Delivery Me thod Room Air Course Vital Signs Vital signs: Initial Vital Signs Temperature 96.3 F L 08/23/24 13:23 Temperature Source Temporal Artery Scan 08/23/24 13:23 Pulse Rate 61 08/23/24 13:23 Respiratory Rate 12 08/23/24 13:23 Blood Pressure 119/73 08/23/24 13:23 Blood Pressure Mean 88 08/23/24 13:23 Blood Pressure Position Supine 08/23/24 13:23 Pulse Oximetry 97 08/23/24 13:23 Oxygen Delivery Method Room Air 08/23/24 13:23 Vital Signs Temperature 96.3 F L 08/23/24 13:23 Pulse Rate 61 08/23/24 13:23 Respiratory Rate 12 08/23/24 13:23 Blood Pressure 119/73 08/23/24 13:23 Pulse Oximetry 97 08/23/24 13:23 Oxygen Delivery Method Room Air 08/23/24 13:23 Temperature 96.3 F L 08/23/24 13:23 Pulse Rate 61 08/23/24 13:23 Respiratory Rate 12 08/23/24 13:23 Blood Pressure 119/73 08/23/24 13:23 Pulse Oximetry 97 08/23/24 13:23 Oxygen Delivery Method Room Air 08/23/24 13:23 Medications Administered Medications: Discontinued Medications Generic Name Dose Route Start Last Admin Trade Name Tim PRN Reason Stop Dose Admin Hydrocodone Bitart/Acetaminophen 1 tab 08/23/24 14:37 08/23/24 14:43 Hydrocodone-Acetamin 5-325 Mg 1 Tab PO 08/23/24 14:38 1 tab ONCE ONE Administration MDM - Fall MDM Narrative Medical decision making narrative: This patient comes in for evaluation of injuries from a fall that occurred just prior to arrival. She did fall backwards and hit her head. She does have a scalp hematoma and a bit of blood in her occiput area. This wound was cleansed and there is no laceration requiring repair. There is no ongoing active bleeding. CT imaging of the head and C-spine returned with no acute findings. X-ray of the left elbow does show a fracture of the olecranon. I contacted the Orthopedic Department and they indicate that this will require surgery. The patient was placed in a posterior splint using ortho glass material. She is also placed in a sling. She did receive 1 tablet of [place] orally here. A prescription for the same is provided. The orthopedic department will contact her for a follow-up appointment and arrange for surgery. Imaging Data CT cervical spine: Radiologist's impression: Multilevel degenerative changes cervical spine without evidence of cervical spine fracture. CT scan - head: Radiologist's impression: 1. Posterior scalp hematoma without calvarial fracture or intracranial bleed. 2. Old right thalamic and external capsule lacunar infarcts. 3. Cerebral atrophy with nonspecific white matter disease, likely microangiopathy. 4. [place] calcification in the right frontal subependymal region, likely dystrophic calcification. Differential diagnosis would include a vascular malformation. XR L Elbow: Radiologist's impression: Mildly comminuted olecranon fracture displaced by approximately 2.7 centimeters posteriorly. Moderate associated adjacent soft tissue edema. Discharge Plan Discharge Clinical Impression: Elbow fracture, left, Closed head injury Patient Disposition: Home w/ Parent or Adult Condition: Stable Additional Instructions: Wear splint and sling. Orthopedic clinic will give a call to arrange for a follow-up appointment. Use pain medicine as needed and directed. Return if worsening symptoms occur. Prescriptions: New hydrocodone-acetaminophen 5-325 mg tablet 1 tab PO Q4-6H PRN (Reason: pain) Qty: 20 0RF No Action ofloxacin 0.3 % drops 1 drp ophthalmic (eye) QID clopidogrel 75 mg tablet 75 mg PO DAILY potassium chloride 20 mEq tablet,ER particles/crystals 20 meq PO DAILY losartan 25 mg tablet 12.5 mg PO DAILY propranolol 20 mg tablet 20 mg PO DAILY Eliquis 5 mg tablet 5 mg PO BID aspirin [Aspirin Childrens] 81 mg tablet,chewable 81 mg PO DAILY calcium carbonate-vitamin D3 500 mg-3.125 mcg (125 unit) tablet 1 tab PO DAILY cholecalciferol (vitamin D3) 25 mcg (1,000 unit) capsule 25 mcg PO DAILY coenzyme Q10 100 mg capsule 100 mg PO DAILY fexofenadine [Karolyn Allergy] 180 mg tablet 180 mg PO DAILY fluticasone propionate 50 mcg/actuation spray,suspension 2 spray intranasal DAILY PRN Rx Instructions: administer into each nostril magnesium oxide 400 mg magnesium capsule 400 mg PO DAILY metoprolol tartrate 25 mg tablet 12.5 - 25 mg PO DAILY PRN multivitamin Tablet 1 tab PO DAILY rosuvastatin [Crestor] 40 mg tablet 40 mg PO DAILY acyclovir 400 mg tablet 400 mg PO 3XD PRN propranolol 80 mg capsule,extended release 24hr 80 mg PO DAILY omeprazole 20 mg capsule,delayed release(DR/EC) 20 mg PO DAILY warfarin 2 mg tablet Patient Comments: TAKE 1 TABLET BY MOUTH EVERY E, RAMIN, SAT; TAKE 1/2 TAB ALL OTHER DAYS IN THE EVENING OR DIRECTED* escitalopram oxalate 10 mg tablet 10 mg PO QAM ezetimibe 10 mg tablet 10 mg PO DAILY magnesium chloride [Mag-Delay] 64 mg tablet,delayed release (DR/EC) 128 mg PO DAILY Follow Up/Referrals: Margaret Allen DO [Primary Care Provider] - Stand Alone Forms: [facility] Inst[facility]
--- OUTSIDE RECORDS SUMMARY | 2024-08-23 14:30 | XMS_ITS | Referral Summary ---
Author Organization [facility] Address [address] [place] [id number] Care Team Providers Care Store Specialist Name Role Phone CryscarleeMargaret Primary Care Provider [phone] Stephanie Byrd MD Unavailable Encounters Date Type Department Care Team Description 08/23/2024 10:15 AM CDT Office Visit [address] [phone] Stephanie Byrd MD Double vision; History of ischemic stroke 05/25/2024 11:15 AM CHASER HELPER Office Visit [address] [phone] Stephanie Byrd MD History of ischemic stroke [...] Insurance MEDICARE PART A & B [employer] [place] Care Teams Store Specialist Relationship Specialty Start Date End Date Margaret Allen DO [address] [place] [address] PCP - General Family Medicine 11/23/23 Stephanie Byrd MD [id number] [facility] [address] [place] [address] Neurology 02/23/24
--- OUTSIDE RECORDS SUMMARY | 2024-08-23 14:30 | XMS_ITS | Clinical Summary ---
Author Organization [facility] Address [address] [place] [address] Care Team Providers Care Coremaker Machine Name Role Phone Chelsy Chinchilla MD Unavailable [phone] Margaret Allen DO Primary Care Provider [phone] Zainab Reyes RN Unavailable [phone] Allergies Active Allergy Reactions Criticality Noted Date [...] 024 Active multivitamin folic acid 0.4 mgIndications:[facility] care maintenance Take 1 Tablet by [...] Eligibility Review Date: 07/20/19 Upcoming Visit Location: [facility] Age: 78 y.o. Research Purpose Insurance Type: Medicare/Medicaid Comments: This patient was indicated to be a potential candidate and pre-screened for the following studies: Echo - 07/13/2019 No , Mild AR, Mild-Mod MR, Moderate TR Altflow - no d/t mild-mod MR, no As, Mild AR Triluminate - Potential Lipids - 05/26/2019 Non - HDL - 137 LDL - 101 Vesalius - Potential No ND or Stroke Problem Noted Date Diagnosed Date [...] Department Care Team Description 08/21/[address] [facility] Scanner 1 scan: (1-Ord) RCM, EYLEA PF OS INJ, 08/21/2024 08/11/2024 Refill [facility] [address] [facility] [address] Margaret Allen, Refill Request (Warfarin) 08/08/2024 10:15 AM NET APPLICATION SUPPORT SPECIALIST Orders Only [facility] [address] [place] [address] Lab, [place] [facility] 08/08/2024 Anticoagulation (warfarin) [facility] [address] [facility] [address] 1, [facility] Anticoagulation 08/08/2024 Travel 07/17/2024 [place] [address] Margaret Allen, Error-please disregard 07/11/2024 12:45 PM NET APPLICATION SUPPORT SPECIALIST Orders [place] [place] [address] Lab, [place] [facility] 07/11/2024 Anticoagulation (warfarin) [facility] [address] [place] [address] 1, [place] Anticoagulation 07/11/[address]24 [address] [facility] [place] [address] Margaret Allen, Follow Up 07/11/2024 Travel 06/26/2024 10:00 AM NET APPLICATION SUPPORT SPECIALIST Ancillary Procedure [facility] [id number] [place] [address] [address] [place] [address] 06/26/2024 Travel 06/20/2024 10:40 AM NET APPLICATION SUPPORT SPECIALIST Ancillary Procedure [facility] [facility] [address] 06/20/2024 Travel 06/14/2024 10:50 AM NET APPLICATION SUPPORT SPECIALIST Office Visit [facility] [place] [address] Margaret Allen DO Follow Up (SOB and sweats x 2 months ) 06/14/2024 Anticoagulation (warfarin) [facility] [place] [address] 1, [facility] Anticoagulation 06/14/2024 Travel 06/11/2024 11:30 AM NET APPLICATION SUPPORT SPECIALIST Office Visit [facility] [address] [place] [address] Torres Fong MD Sleep Follow-up 06/11/2024 Travel 05/28/2024 12:45 PM NET APPLICATION SUPPORT SPECIALIST Office Visit [facility] [address] [email or web address] [address] [place] [address] Marlene May MD Follow Up (Stroke/) 05/28/2024 10:00 AM NET APPLICATION SUPPORT SPECIALIST Orders Only [facility] [address] [place] [address] Lab, [place] [facility] 05/28/2024 Anticoagulation (warfarin) [facility] [address] [place] [address] 1, [place] [facility] Anticoagulation 05/28/2024 Travel from Last 3 Months Immunizations Immunization Administration Dates Next Due AMB INFLUENZA IIV3 (AGE 65+ YRS) PF (Flu Clinic Only) 03/31/2018,03/30/2017 AMB Influenza, IIV3 (Age >=3 years)(Flu Clinic Only) 03/30/2011,04/14/2010 Amb Influenza, Inact (High-d ose) (Flu Clinic Only) 04/23/2016,03/21/2015,03/19/2014 COVID-19 vaccine ([employer] 30mcg/0.3mL) PF, MDV 03/11/2021,08/19/2020,07/29/2020 Hepatitis A [...] on file Legal Sex Female 6:50 AM NET APPLICATION SUPPORT SPECIALIST Gender Identity Not on file Sexual Orientation Not on file Obstetrics History Last Filed Vital Signs Vital Sign Reading Time Taken Comments Blood Pressure 110/62 06/14/2024 11:01 AM NET APPLICATION SUPPORT SPECIALIST Pulse 64 06/14/2024 11:01 AM NET APPLICATION SUPPORT SPECIALIST Temperature 37.2 C (99 F) 05/28/2024 12:50 PM NET APPLICATION SUPPORT SPECIALIST Respiratory Rate 16 11/17/2023 9:49 AM CDT Oxygen Saturation 98% 06/14/2024 11:01 AM NET APPLICATION SUPPORT SPECIALIST Inhaled Oxygen Concentration - - Weight 56.2 kg (124 lb) 06/14/2024 11:01 AM NET APPLICATION SUPPORT SPECIALIST Height 152.4 cm (5') 06/11/2024 11:33 AM NET APPLICATION SUPPORT SPECIALIST Body Mass Index 24.22 06/11/2024 11:33 AM NET APPLICATION SUPPORT SPECIALIST Plan of Treatment Upcoming Encounters Date Type Department Care Team (Late st Contact Info) Description 09/03/2024 12:30 PM CDT Orders Only [address] [place] [address] Lab, [place] 10/16/2024 10:25 AM CDT Office Visit [facility] [address] [place] [address] Margaret Allen DO [address] [place] [address] 10/17/2024 12:00 PM CDT Appointment [facility] [place] [address] [place] [address] Ailin Berger, OT [address] [place] [address] 10/17/2024 1:30 PM CDT [facility] [place] [address] [place] [address] Ailin Berger, OT [address] [place] [address] 12/18/2024 11:30 AM CDT Cardiac Device Check [facility] [address] [place] [phone] Health Maintenance Due Date Last Done Comments [...] AM CDT INR,POCT Routine 08/08/2024 10:17 AM NET APPLICATION SUPPORT SPECIALIST Paroxysmal atrial flutter (HC) Thrombosis involving cardiac device, sequela INR,POCT Routine 07/11/2024 12:46 PM NET APPLICATION SUPPORT SPECIALIST Paroxysmal atrial flutter (HC) Thrombosis involving cardiac device, sequela ECHO TTE COMPLETE WO CONTRAST Routine 06/26/2024 10:35 AM NET APPLICATION SUPPORT SPECIALIST 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), bioprosthetic XR MAMMO MARLA BILAT SCREEN Routine 06/20/2024 10:41 AM NET APPLICATION SUPPORT SPECIALIST Visit for screening mammogram INR,POCT Routine 06/14/2024 12:19 PM NET APPLICATION SUPPORT SPECIALIST Paroxysmal atrial flutter (HC) Thrombosis involving cardiac device, sequela INR,POCT Routine 05/28/2024 10:05 AM NET APPLICATION SUPPORT SPECIALIST Paroxysmal atrial flutter (HC) Thrombosis involving cardiac device, sequela XR DXA BONE DENSITY 2 SITES AXIAL Routine 08/09/2022 10:21 AM NET APPLICATION SUPPORT SPECIALIST Osteoporosis, unspecified osteoporosis type, unspecified pathological fracture presence from Last 3 Months or Most Recently Relevant to Health Maintenance Results * SCAN-OPERATIVE/PROCEDURE REPORT (08/21/2024 12:00 AM CDT) us Scanner OTHER Final Result * (ABNORMAL) INR - POCT [63640.2] - Standing Order (08/08/2024 10:17 AM NET APPLICATION SUPPORT SPECIALIST) Only the most recent of4 resultswithin the time period is included. INR 2.0(H) ratio [facility] Comment: INRs >2.9 may be falsely elevated [...] PROTHROMBIN TIMEP 23.7(H) 10.5 - 13.1 sec [facility] Comment: Point of care fingerstick Prothrombin Time/INR results may vary from venous Prothrombin Time/INR methodologies. Any results exhibiting inconsistency with the patient's clinical status should be repeated using a venous Prothrombin Time/INR method. Blood BLOOD SPECIMEN / Unknown 08/08/2024 10:17 AM NET APPLICATION SUPPORT SPECIALIST 08/08/2024 10:18 AM NET APPLICATION SUPPORT SPECIALIST Margaret Allen DO LABORATORY Final Resu lt [facility] [address] [place] [address], [facility] [address] [place] [address] * ECHO TTE COMPLETE WO CONTRAST (06/26/2024 10:35 AM NET APPLICATION SUPPORT SPECIALIST) AORTIC VALVE MEAN PG 7 mmHg PEAK TR VELOCITY 2.8 m/s LVEDD 4.0 cm MITRAL VALVE MR ERO 33 mm2 EJECTION FRACTION 55 - 60% Anatomical Region Laterality Modality Ultrasound 06/26/2024 9:55 AM NET APPLICATION SUPPORT SPECIALIST Narrative 06/26/2024 12:55 PM NET APPLICATION SUPPORT SPECIALIST ECHOCARDIOGRAM VALARIE HUANG : 1940 83 years Study Date: 06/26/2024 9:55:55 AM Gender: F BP: 110/62 mmHg Height: 152.40 cm BSA: 1.52 m Weight: 56.25 kg Tech: ERICA Referring MD: HARDEEP SUAZO Site: [facility] Reading Location: [facility] Patient Location: Procedure: 2D, Color Doppler and [...] . This study was interpreted by an [facility] accredited facility. Final Procedure Note Narayan Chapman MD - 06/26/2024 ECHOCARDIOGRAM VALARIE HUANG : 1940 83 years Study Date: 06/26/2024 9:55:55 AM Gender: F BP: 110/62 mmHg Height: 152.40 cm BSA: 1.52 m Weight: 56.25 kg Tech: ERICA Referring MD: HARDEEP SUAZO Site: [facility] Reading Location: [facility] Patient Location: Procedure: 2D, Color Doppler and [...] . This study was interpreted by an [facility] accredited facility. Final Hardeep Suazo MD ECHO ORD Final Result * XR MAMMO MARLA BILAT SCREEN (06/20/2024 10:41 AM NET APPLICATION SUPPORT SPECIALIST) Anatomical Region Laterality Modality BREASTS, Breast Left, Breast Right Bilateral Mammography Impressions 06/20/2024 3:33 PM NET APPLICATION SUPPORT SPECIALIST There is no radiographic evidence for malignancy. Recommend annual mammograms. MAMMOGRAM ASSESSMENT: ACR 1 Negative PATIENTS: You will also receive a letter with your examination results in an easy to read format. If you have questions about your results, please contact your referring provider. Narrative 06/20/2024 3:33 PM NET APPLICATION SUPPORT SPECIALIST For Patients: As a result of the Century Cures Act, medical imaging exams and procedure reports are released immediately into your electronic medical record. You may view this report before your referring provider. If you have questions, please contact your health care provider. XR MAMMO MARLA BILAT SCREEN [[id number]] CLINICAL HISTORY: This is an asymptomatic 83 y.o. patient. INDICATION FOR EXAM: Mammogram Screening. TECHNIQUE: CC & MLO views were obtained. This study was evaluated with the assistance of Computer-Aided Detection. Breast Tomosynthesis was used in interpretation. COMPARISON FILM: Yes 04/19/23 [email or web address] 08/09/22 [email or web address] FINDINGS: There are scattered areas of fibroglandular density. There are no dominant masses, suspicious micro calcifications or areas of architectural distortion. Margaret Allen DO MAMMO Final Resu lt * (ABNORMAL) XR DXA BONE DENSITY 2 SITES AXIAL (08/09/2022 10:21 AM NET APPLICATION SUPPORT SPECIALIST) Anatomical Region Laterality Modality Spine, HIPS, HIPL, HIPR Other Impressions 08/10/2022 3:48 PM NET APPLICATION SUPPORT SPECIALIST Osteoporosis. RECOMMENDATIONS: The National Osteoporosis Foundation recommends [...] greater than 5 years. Roz Perrin PA-C [facility] 08/10/2022 Narrative 08/10/2022 3:48 PM NET APPLICATION SUPPORT SPECIALIST For Patients: Results are automatically released to your [facility]) account once available, in compliance with federal regulations. This means that you may see your results before your provider has had a chance to review them. Please allow 2-3 business days for your provider to comment on the results. XR DXA Bone Mineral Density (BMD) EXAM LOCATION: [facility] [address] [facility] [address] PATIENT NAME: Valarie Huang DATE OF : [...] two scanners are made by the same associate creative director. PROCEDURE: Dual-energy x-ray absorptiometry performed with routine [...] Relevant to Health Maintenance Insurance [place] HB ONLY MEDICARE PART B HB ONLY MEDICARE PART A HB ONLY [place] MR PB ONLY MEDICARE PPS [place] HB ONLY Advance Directives Documents on File Type Date Recorded Patient Chief Building Inspector Expl anation HARRY 10/14/2023 Healthcare Directive 08/16/2016 [...] Status Discussion: Reviewed Preferences Care Teams Coremaker Machine Relationship Specialty Start Date End Date Margaret Allen DO [address] [place] [address] PCP - General Family Practice 03/10/17 Chelsy Chinchilla MD Ophthalmology Surgery 04/17/13 Zainab Reyes, ANNELIESE [address] [place] [address] [place] Registered Nurse 09/23/23
--- OUTSIDE RECORDS SUMMARY | 2024-08-23 14:30 | XMS_ITS | Encounter Summary ---
Author Organization [facility] Address [address] [place] [address] Care Team Providers Care Manufacturing Project Engineer Name Role Phone Margaret Allen Primary Care Provider [phone] Stephanie Byrd MD Unavailable Reason for Referral * Other (Routine) - Open Specialty Diagnoses / Procedures Referred By Fabiano jeronimo Referred To Contact Diagnoses Double vision History of ischemic stroke Procedures [facility] APPOINTMENT Stephanie Byrd MD [address] [place] [address] [address] [place] [address] Phone: tel: fax: Referral ID Status Reason Start Date Expiration Date Visits Re quested Visits Authorized [id number] Open 11/23/2024 1 1 Reason for Visit * Reason Comments Follow up 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 * Other (Routine) - Open Specialty Diagnoses / Procedures Referred By Fabiano jeronimo Referred To Contact Diagnoses Double vision History of ischemic stroke Procedures [facility] APPOINTMENT Stephanie Byrd MD [address] [place] [address] [address] [place] [address] Phone: tel: fax: Referral ID Status Reason Start Date Expiration Date Visits Re quested Visits Authorized [id number] Open 08/23/2024 1 1 Encounter Details Date Type Department Care Team (Late st Contact Info) Description 08/23/2024 10:15 AM CDT Office Visit [facility] - [address] [place] [phone] Stephanie Byrd MD [address] [place] [address] [address] [place] [address] Double vision; History of ischemic stroke Social [...] Patient is a kind referral from Dr.Diane Aislinn May of [facility]. She is accompanied by her vlshex-ft-suz and also brother today, who are very [...] 02/23/2024 On 09/01/2023, the patient presented to [place] ED with visual disturbances noted while playing bingo, also left facial droop and left tingling sensation in the left side of her mouth. She had trouble seeing the bingo card due to double vision . 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 She was transferred to [facility] due to a pacemaker (PPM). An MRI [...] and Zetia was added later by her book solicitor. The patient has a history of essential [...] Dr. Aubrey Benavides of [facility]. Her most recent visit with the retinal [...] Resource Strain: Low Risk (02/04/2023) Received from [facility] Financial Resource Strain Difficulty of Paying Living Expenses: 3 Difficulty of Paying Living Expenses: Not on file Food Insecurity: No Food Insecurity (09/06/2023) Received from [facility] [employer] [facility] Food Insecurity Do you worry your food will run out before you are able to buy more?: 1 Transportation Needs: No Transportation Needs (09/06/2023) Received from [facility] [employer] [facility] Transportation Needs Does lack of transportation keep you from medical appointments?: 1 Does lack of transportation keep you from work, meetings or getting things that you need?: 1 Physical Activity: Not on file Stress: Not on file Social Connections: Socially Integrated (09/06/2023) Received from [facility] [employer] [facility] Social Connections Do you often feel lonely or isolated from those around you?: 0 Intimate Partner Violence: Not on file Housing Stability: Low Risk (09/06/2023) Received from [facility] [employer] [facility] Housing Stability What is your housing situation today?: 1 GENERAL OFFICE ASSOCIATE Meds: Current Outpatient Medications on File Prior [...] (with and without glasses) Current glasses OD [place] -1.25 x 110 ADD: +3.25 OS [place] -1.00x 0 30 ADD: +3.25 8 BD [...] this patient's care. Stephanie Byrd MD Neuro-ophthalmology [facility] MIPS 2024: Documentation of current mediations [...] stroke documented in this encounter Care Teams Manufacturing Project Engineer Relationship Specialty Start Date End Date Margaret Allen DO [address] [place] [address] PCP - General Family Medicine 11/23/23 Stephanie Byrd MD [address] [facility] [address] [place] [address] Neurology 02/23/24 documented as of this encounter
--- OUTSIDE RECORDS SUMMARY | 2024-08-23 14:30 | XMS_ITS | Clinical Summary ---
Author Organization [facility] Address [address] [place] [address] Care Team Providers Care Legal Secretary Name Role Phone AlejandroMargaret Vannesa HARDING Primary Care Provider [phone]- [phone] Stephanie Byrd MD Unavailable Allergies Active Allergy [...] Description 08/23/2024 10:15 AM CDT Office Visit [address] [address] Stephanie Byrd MD Double vision; History of ischemic stroke 05/25/2024 11:15 AM TURN OUT WORKER Office Visit [address] [address] Stephanie Byrd MD History of ischemic stroke [...] exists Insurance MEDICARE PART A & B [facility] Care Teams Legal Secretary Relationship Specialty Start Date End Date Margaret Allen DO [address] [place] [address] PCP - General Family Medicine 11/23/23 Stephanie Byrd MD [address] [facility] [address] [place] [address] Neurology 02/23/24
--- OUTSIDE RECORDS SUMMARY | 2024-08-23 14:30 | XMS_ITS | Clinical Summary ---
Author Organization [facility] Address [address] [facility] , [address] [place] [address] Phone Care Team Providers Care Assistant Plant Control Operator Name Role Phone Garcia Galvez Unavailable Conditions or Problems Problem Name Problem Code Onset Date Status Entry Date Provider Comment Standard Description Annotate Paresthesias 83417496 (SNOMED CT) 08/20 Active 08/20 Gaston Pineda MD Paresthesia Essential tremor 562159222 (SNOMED CT) 06/23 Active 06/23 Fantasma Maxwell MD Hereditary essential tremor Cerebrovascula r disease 54826736 (SNOMED CT) 06/23 Active 06/23 Fantasma Maxwell MD Cerebrovascular disease Memory problems 56806862 (SNOMED CT) 06/23 Active 06/23 Fantasma Maxwell MD Dementia Balance problem 836954803 (SNOMED CT) 06/23 Active 06/23 Fantasma Maxwell MD Impairment of balance Medications Medication Instructions Start Date Stop Date Generic Name NDC Provider TOPAMAX 25 MG TABS Take as directed Take 1/2 q hs for 1 week, Then continue 1/2 BID. topiramate [id number] Aislinn Celis RN TOPAMAX 25 MG TABS Take as directed Take 1/2 q hs for 1 week, Then continue 1/2 BID. topiramate [id number] Maynor Gant MD FLECAINIDE ACETATE 50 MG TABS flecainide 90555101723 Fantasma Maxwell MD ELIQUIS 5 MG TABS apixaban 49823841114 Fantasma Maxwell MD FLUTICASONE PROPIONATE 50 MCG/ACT SUSP fluticasone propionate 42261821221 Fantasma Maxwell MD ROSUVASTATIN CALCIUM 40 MG TABS rosuvastatin 65007736281 Fantasma Maxwell MD OMEPRAZOLE 20 MG CPDR omeprazole 85190116626 Fantasma Maxwell MD FLECAINIDE ACETATE 50 MG TABS flecainide 48170349295 Fantasma Maxwell MD PROPRANOLOL HCL ER 80 MG [id number] TAKE 1 CAPSULE BY MOUTH ONCE A DAY propranolol 79703216620 Fantasma Maxwell MD ALENDRONATE SODIUM 70 MG TABS alendronate 81676531766 Fantasma Maxwell MD Medications Administered No information available. Allergies, Adverse Reactions, Alerts Allergy Name Reaction Description Start Date Severity Statu s Provider SULFA Moderate Active Fantasma Maxwell MD Results Date Name Value Unit Range Flag Description Lab Report: 04/27/20 - ABSOLUTE MON 0.8 10*3/uL Monocyte s [#/volume] in Blood GLOBULIN SER 2.6 Globulin , Serum PH, URINE 7.0 PH, URINE EGFR NOT AFA >60 mL/min/1. 73m2 Glomerular filtratio n rate/1.73 sq M.predicted among non-blacks [Volume Rate/Area] in Serum, Plasma or Blood by Creatinine-based formula (MDRD) LEUES Large Leukocyte est erase [Presence] in Urine by Test strip ABS EOS 0.2 {Cells}/u L Eosinophils [#/volume] in Blood CA 9.3 mg/dL Calcium [Mass /volume] in Serum or Plasma KETONES UA Negative mg/dL Ketones [ Mass/volume] in Urine by Test strip ABSOLUTE BAS normal 10*3/uL Basophil s [#/volume] in Blood URBC 6-10 /[HPF] Erythrocytes [#/area] in Urine sediment by Microscopy high power field ABS LYMPHOCY 2.5 10*3/uL Absolute Lymphocytes ABS NEUTROPH 3.6 10*3/uL Neutroph ils [#/volume] in Blood GFR >60 mL/min Glomerular fi ltration rate/1.73 sq M.predicted among non-blacks [Volume Rate/Area] in Serum, Plasma or Blood by Creatinine-based formula (MDRD) BLD STL Moderate Hemoglobin.g astrointe stinal [Presence] in Stool % BASO AUTO 0.7 % basophils as percent of blood leukocytes, automated count % EOS AUTO 2.5 % Eosinophil s/100 leukocytes in Blood by Automated count CO2 TOTAL 29 mmol/L carbon diox bhavesh, serum, total GLUCOSE SER 108 mg/dL Glucose [ Mass/volume] in Serum or Plasma BILI INDIREC 1.0 mg/dL bilirubi n, serum, indirect MPV 10.9 fL Platelet mean volume [Entitic volume] in Blood by Elly UA COLOR Yellow Color of Uri ne BUN/CREAT 15 Urea nitrogen/Creatinine [Mass Ratio] in Serum or Plasma MONOCYTE % 11.0 % Monocytes/ 100 leukocytes in Blood by Automated count BACTERIA URN Many Bacteria [#/area] in Urine sediment by Microscopy high power field MCH 30.8 pg MCH [Entitic mass] by Automated count RDW 12.4 % Erythrocyte distribution width [Ratio] by Automated count MCHC 33.3 % MCHC [Mass/vo lume] by Automated count WBCS MICRO U >100 {Cells}/[ HPF] WBC urine on microscopy NITRITE URN Positive Nitrite [Presence] in Urine by Test strip PMN % 50.7 % Neutrophils/1 00 leukocytes in Blood by Automated count MCV 92 fL MCV [Entitic volume] by Automated count ANION GAP 8 Anion gap 4 in Serum or Plasma SODIUM 141 mmol/L Sodium [Moles /volume] in Serum or Plasma A/G RATIO 1.7 Albumin/Chika bulin [Mass Ratio] in Serum or Plasma WBC 7.1 10*3/mm3 Leukocytes [ #/volume] in Blood by Automated count RBC 4.06 10*6/mm3 Erythrocytes [#/volume] in Blood by Automated count PLATELETS 196 10*3/mm3 Platelets [#/volume] in Blood by Automated count HGB 12.5 g/dL Hemoglobin [Mass/volume] in Blood HCT 37.5 % Hematocrit [V olume Fraction] of Blood by Automated count BILI TOTAL 1.5 mg/dL Bilirubin. total [Mass/volume] in Serum or Plasma SGPT (ALT) 14 U/L Alanine aminotransferase [Enzymatic activity/volume] in Serum or Plasma SGOT (AST) 28 U/L Aspartate aminotransferase [Enzymatic activity/volume] in Serum or Plasma PROTEIN, TOT 6.9 g/dL Protein [Mass/volume] in Serum or Plasma POTASSIUM 3.9 mmol/L Potassium [Moles/volume] in Serum or Plasma MAGNESIUM 2.0 mg/dL Magnesium [Moles/volume] in Serum or Plasma TSH 1.64 u[iU]/mL Thyrotropin [Units/volume] in Serum or Plasma BILI DIRECT 0.5 mg/dL Bilirubin .direct [Mass/volume] in Serum or Plasma CREATININE 0.71 mg/dL Creatinine [Mass/volume] in Serum or Plasma CHLORIDE 104 mmol/L Chloride [Moles/volume] in Serum or Plasma BUN 11 mg/dL Urea nitrogen [Mass/volume] in Serum or Plasma B-12 378 pg/mL Cobalamin (Vi tamin B12) [Mass/volume] in Serum or Plasma ALK PHOS 56 U/L Alkaline keturah sphatase [Enzymatic activity/volume] in Blood ALBUMIN 4.3 g/dL Albumin [Mass /volume] in Serum or Plasma Office Visit: BALANCE PROBLE M, TREMOR 04/23/21 07:47- 04/23/21 07:47 REFER... SMOK STATUS former smoker Tob acco smoking status Internal Other: Authorizatio n - OBS [id number] Yes GE use only - for LinkLogic import when terms are not otherwise specified Office Visit: ZAIN Follow Up 01/27/22 fax^ MEDS REVIEW Done Documenta tion of current medications (procedure) Internal Other: Authorizatio n - OBS [id number] Yes Authoriza tion: Release of Information - Authorize [facility] - Payment and Healthcare Operations ROIAUTHOTHER Yes Authoriz ation: Release of Information - Authorize Others/Insurance - Payment and Healthcare Operations HIECONSENT Yes Consent To Release information to the Health Information Exchange (HIE) [email or web address] Yes Authorizat ion: Authorization for [facility] to leave messages, voicemail, send text messages, send emails AUTHRELHCARE Yes Authoriz ation: Release/Retrieval of Information to/from Healthcare Facilities, Pharmacy Benefit Payers and Providers AUTHPRIVPRAC Yes Authoriz ation: Notice of privacy practices AUTHBENEFIT Yes Authoriza tion: Assignment of Benefits and Payment Agreement Internal Other: Verbal Autho rization/Emergency Contact - OBS VERBAL_EMER Done Verbal au thorization and emergency contact Plan of Care Type Date Detail Pending order Follow up Pending order Follow up Pending order PTH Intact & José cium Pending order TSH Pending order Folate (Folic Ac id) Serum Pending order Methylmalonic Ac id Serum (MMA) Pending order Vitamin B1 (Thia mine) - fasting after midnight Pending order Vitamin B12 Pending order Vitamin E Pending order Obtain outside r ecords Pending order Patient Instruct ions Pending order PTH Intact & José cium Pending order TSH Pending order Patient Instruct ions Pending order Folate (Folic Ac id) Serum Pending order Methylmalonic Ac id Serum (MMA) Pending order Vitamin B1 (Thia mine) - fasting after midnight Pending order Vitamin B12 Pending order Vitamin E Pending order Patient Instruct ions Pending order Patient Instruct ions Pending order Obtain outside r ecords Pending order Follow up in [place] or telemedicine Pending order Follow up in [place] or telemedicine Pending order We will contact you with test results Pending order MRI-Cervical W/O Pending order MRI-Thoracic W/O Pending order Follow up Pending order Skin Biopsy Pending order Occupational The rapy Pending order Physical Therapy Pending order EMG bilateral lo w ext Pending order EMG bilateral up per ext Pending order MRI-Brain W/WO Pending order MRA-Head W/O Pending order MRA-Neck W/WO Pending order TSH Pending order Vitamin B12 Pending order Methylmalonic Ac id Serum (MMA) Pending order T4 Free Direct Pending order Lipid Panel with LDL/HDL Ratio Pending order Hemoglobin A1C Pending order Follow up ZAIN af ter testing Procedures Code Procedure Name Date Entry Date ORDERS We will contact you with test results 202 07/18/16 [id number] MRI-Thoracic W/O [id number] MRI-Cervical W/O [id number] Documentation of current medicatio ns ORDERS Follow up CPT-06586 Skin Biopsy, 1 lesion (2018) CPT-32766 Skin Biopsy, each additional lesion (2018 ) ORDERS Skin Biopsy ORDERS Physical Therapy ORDERS Occupational Therapy ORDERS Follow up ZAIN after testing ORDERS EMG bilateral low ext 06/23 ORDERS EMG bilateral upper ext 2020 CPT-70526 Nerve Conduction 9-10 studies CPT-00654 EMG with NCS (5+ muscles) - 2 limbs 07/03 [id number] MRI-Brain W/WO [id number] MRA-Neck W/WO [id number] MRA-Head W/O ORDERS Methylmalonic Acid Serum (MMA) ORDERS T4 Free Direct ORDERS TSH ORDERS Vitamin B12 ORDERS Lipid Panel with LDL/HDL Ratio ORDERS Hemoglobin A1C [id number] Documentation of current medicatio ns Vital Signs Date Name Value Unit Description Height 60 [in_us] height E&M BMI (Body Mass Index) 25.68 kg/m2 Bod y Mass Index (Ratio) Weight Measured 59.55 kg weight in kilograms E&M Weight Measured 131 [lb_av] weight E& M Body Temperature 36.56 [degF] temperat ure E&M BP Diastolic 67 mm[Hg] blood pressu re, diastolic BP Systolic 134 mm[Hg] blood pressur e, systolic Heart Rate 73 /min pulse rate Respiratory Rate 18 /min respirat ory rate E&M Immunizations No information available. Advance Directives No information available.
[2024-08-23] MEDS: HYDROCODONE-ACETAMIN 5-325 MG 1 TAB PO (14:43)
--- NOTE | 2024-08-23 14:43 | CRLHL7_ITS ---
For Patients: As a result of the Century Cures Act, medical imaging exams and procedure reports are released immediately into your electronic medical record. You may view this report before your referring provider. If you have questions, please contact your health care provider. Indication: Fall Technique: Left humerus 3 views Comparison: Same-day left elbow radiographs Findings: Bones: Acute comminuted olecranon fracture displaced approximately 1.6 cm posteriorly Joint spaces: No dislocation. Small joint effusion Soft tissues: Moderate soft tissue swelling about the elbow. Impression: Acute comminuted olecranon fracture displaced approximately 1.6 cm posteriorly Dictated by Nancy Maddox MD @ 08/23/2024 3:14:48 PM (Electronically Signed)
== END 2024-08-23 16:16 | disposition home or self-care (01) ==
PROVIDERS: Emergency Provider Emergency Medicine Emergency Medical Services; PCP Family Medicine
DX: S00.03XA Contusion of scalp, initial encounter (principal); W01.0XXA Fall on same level from slipping, tripping and stumbling without subsequent striking against object, initial encounter; Y92.481 Parking lot as the place of occurrence of the external cause; S52.024A Nondisplaced fracture of olecranon process without intraarticular extension of right ulna, initial encounter for closed fracture
CPT/HCPCS: 29105; 70450; 72125; 73060; 73080; 99284; A9270

== ENCOUNTER 2024-08-25 17:48 | Outpatient (CLI) | payer MEDICARE, BC, SELFPAY | END 2024-08-25 17:49 | disposition home or self-care (01) | LOC: AMB 08-27 11:27 | PROVIDERS: PCP Family Medicine; Visit Provider Family Medicine | DX: R53.1 Weakness (principal); R11.2 Nausea with vomiting, unspecified | CPT/HCPCS: A0425; A0427 ==

== ENCOUNTER 2024-08-25 18:19 | Inpatient (IN) | payer MEDICARE, BC, SELFPAY ==
[2024-08-25] VITALS (30 sets, daily range): BP systolic 98–160; BP diastolic 47–81; PULSE 67–91; RESP 8–30; TEMP 36.6–37.7; O2SAT 87–98; BMI 24.4; BMI 25.8
--- OUTSIDE RECORDS SUMMARY | 2024-08-25 18:22 | XMS_ITS | Clinical Summary ---
Author Organization [facility] Address [address] [facility] , [address] [place] [address] Phone Care Team Providers Care Chha Name Role Phone Garcia Galvez Unavailable Conditions or Problems Problem Name Problem Code Onset Date Status Entry Date Provider Comment Standard Description Annotate Paresthesias 03057298 (SNOMED CT) 08/20 Active 08/20 Gaston Pineda MD Paresthesia Essential tremor 754889350 (SNOMED CT) 06/23 Active 06/23 Fantasma Maxwell MD Hereditary essential tremor Cerebrovascula r disease 11846754 (SNOMED CT) 06/23 Active 06/23 Fantasma Maxwell MD Cerebrovascular disease Memory problems 35410204 (SNOMED CT) 06/23 Active 06/23 Fantasma Maxwell MD Dementia Balance problem 241194522 (SNOMED CT) 06/23 Active 06/23 Fantasma Maxwell MD Impairment of balance Medications Medication Instructions Start Date Stop Date Generic Name NDC Provider TOPAMAX 25 MG TABS Take as directed Take 1/2 q hs for 1 week, Then continue 1/2 BID. topiramate [id number] Aislinn Celis RN TOPAMAX 25 MG TABS Take as directed Take 1/2 q hs for 1 week, Then continue 1/2 BID. topiramate [id number] Maynor Gant MD FLECAINIDE ACETATE 50 MG TABS flecainide 06453279653 Fantasma Maxwell MD ELIQUIS 5 MG TABS apixaban 69255843300 Fantasma Maxwell MD FLUTICASONE PROPIONATE 50 MCG/ACT SUSP fluticasone propionate 55719988038 Fantasma Maxwell MD ROSUVASTATIN CALCIUM 40 MG TABS rosuvastatin 80442433929 Fantasma Maxwell MD OMEPRAZOLE 20 MG CPDR omeprazole 16448020503 Fantasma Maxwell MD FLECAINIDE ACETATE 50 MG TABS flecainide 94067051540 Fantasma Maxwell MD PROPRANOLOL HCL ER 80 MG [id number] TAKE 1 CAPSULE BY MOUTH ONCE A DAY propranolol 61856674577 Fantasma Maxwell MD ALENDRONATE SODIUM 70 MG TABS alendronate 10944360033 Fantasma Maxwell MD Medications Administered No information [...] contact you with test results 202 07/18/16 [id number] MRI-Thoracic W/O [id number] MRI-Cervical W/O [id number] Documentation of current medicatio ns ORDERS Follow up CPT-58779 Skin Biopsy, 1 lesion (2018) CPT-74829 Skin Biopsy, each additional lesion (2018 ) ORDERS Skin Biopsy ORDERS Physical Therapy ORDERS Occupational Therapy ORDERS Follow up Z[facility] after testing ORDERS EMG bilateral low ext 06/23 ORDERS EMG bilateral upper ext 2020 CPT-25882 Nerve Conduction 9-10 studies CPT-93703 EMG with NCS (5+ muscles) - 2 limbs 07/03 [id number] MRI-Brain W/WO [id number] MRA-Neck W/WO [id number] MRA-Head W/O ORDERS Methylmalonic Acid Serum (MMA) ORDERS T4 Free Direct ORDERS TSH ORDERS Vitamin B12 ORDERS Lipid Panel with LDL/HDL Ratio ORDERS Hemoglobin A1C [id number] Documentation of current medicatio ns Vital Signs Date Name Value Unit Description Height 60 [in_us] height E&M BMI (Body Mass Index) 25.68 kg/m2 Bod y Mass Index (Ratio) Weight Measured 59.55 kg weight in kilograms E&M Weight Measured 131 [lb_av] weight E& M Weight Measured 131 [lb_av] weight E& M Body Temperature 36.56 [degF] temperat ure E&M BP Diastolic 67 mm[Hg] blood pressu re, diastolic BP Systolic 134 mm[Hg] blood pressur e, systolic Heart Rate 73 /min pulse rate Respiratory Rate 18 /min respirat ory rate E&M Immunizations No information available. Advance Directives No information available.
--- OUTSIDE RECORDS SUMMARY | 2024-08-25 18:22 | XMS_ITS | Referral Summary ---
Author Organization [facility] Address [address] [place] [address] Care Team Providers Care Green Chain Operator Name Role Phone AlejandroMargaret Vannesa HARDING Primary Care Provider +1- [phone] Stephanie Byrd MD Unavailable Encounters Date Type Department Care Team Description 08/23/2024 10:15 AM CDT Office Visit [facility] [address] [address] Stephanie Byrd MD Double vision; History of ischemic stroke from Last 3 Months Allergies Active Allergy [...] gastropathy Adjustment disorder with depressed mood 04/03/20 Essential hypertension 04/11/2007 Essential tremor 04/11/2007 Fibromyalgia [...] file Insurance MEDICARE PART A & B [employer] [place] [employer] Care Teams Green Chain Operator Relationship Specialty Start Date End Date Margaret Allen DO [address] [place] [address] PCP - General Family Medicine 11/23/23 Stehpanie Byrd MD [address] [facility] [address] [place] [address] Neurology 02/23/24
--- OUTSIDE RECORDS SUMMARY | 2024-08-25 18:22 | XMS_ITS | Encounter Summary ---
Author Organization [facility] Address [address] [place] [address] Care Team Providers Care Cardiology Physician Assistant Name Role Phone Margaret Allen Primary Care Provider +1- [phone] Stephanie Byrd MD Unavailable Reason for Referral * Other (Routine) - Open Specialty Diagnoses / Procedures Referred By Fabiano jeronimo Referred To Contact Diagnoses Double vision History of ischemic stroke Procedures [facility] O[facility]TH APPOINTMENT Stephanie Byrd MD [address] [place] [address] [address] [place] [address] Phone: tel: fax: Referral ID Status Reason Start Date Expiration Date Visits Re quested Visits Authorized [id number] Open 11/23/2024 1 1 Reason for Visit * Reason Comments Follow up 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 * Other (Routine) - Open Specialty Diagnoses / Procedures Referred By Fabiano jeronimo Referred To Contact Diagnoses Double vision History of ischemic stroke Procedures [facility] APPOINTMENT Stephanie Byrd MD [address] [place] [address] [address] [place] [address] Phone: tel: fax: Referral ID Status Reason Start Date Expiration Date Visits Re quested Visits Authorized [id number] Open 08/23/2024 1 1 Encounter Details Date Type Department Care Team (Late st Contact Info) Description 08/23/2024 10:15 AM CDT [facility] [address] [place] [phone] Stephanie Byrd MD [address] [place] [address] [place] [address] [place] [address] Double vision; History of ischemic stroke Social [...] kind referral from Dr.Diane Aislinn May of [facility]. She is accompanied by her lodssc-uo-ppk and also brother today, who are very [...] 02/23/2024 On 09/01/2023, the patient presented to [facility] with visual disturbances noted while playing bingo, also left facial droop and left tingling sensation in the left side of her mouth. She had trouble seeing the bingo card due to double vision . A CT head scan was negative for acute findings, buta CT angiogram showed severe stenosis in the left SKID [address] MAN and moderate bilateral carotid stenosis. She was transferred to [facility] due to a pacemaker (PPM). An MRI [...] and Zetia was added later by her child welfare manager. The patient has a history of essential [...] Dr. Aubrey Benavides of [facility]. Her most recent visit with the retinal [...] Resource Strain: Low Risk (02/04/2023) Received from [facility] Financial Resource Strain Difficulty of Paying Living Expenses: 3 Difficulty of Paying Living Expenses: Not on file Food Insecurity: No Food Insecurity (09/06/2023) Received from [facility] Food Insecurity Do you worry your food will run out before you are able to buy more?: 1 Transportation Needs: No Transportation Needs (09/06/2023) Received from [facility] Transportation Needs Does lack of transportation keep you from medical appointments?: 1 Does lack of transportation keep you from work, meetings or getting things that you need?: 1 Physical Activity: Not on file Stress: Not on file Social Connections: Socially Integrated (09/06/2023) Received from [facility] Social Connections Do you often feel lonely or isolated from those around you?: 0 Intimate Partner Violence: Not on file Housing Stability: Low Risk (09/06/2023) Received from [facility] Housing Stability What is your housing situation today?: 1 [employer] Meds: Current Outpatient Medications on File Prior [...] (with and without glasses) Current glasses OD [place] -1.25 x 110 ADD: +3.25 OS [place] -1.00x 0 30 ADD: +3.25 8 BD [...] clear AC: deep and quiet Iris: intact Rlof: PCIOL in place Fundus exam: non dilation [...] this patient's care. Stephanie Byrd MD Neuro-ophthalmology [facility] MIPS 2024: Documentation of current mediations [...] stroke documented in this encounter Care Teams Cardiology Physician Assistant Relationship Specialty Start Date End Date Margaret Allen DO [address] [place] [address] PCP - General Family Medicine 11/23/23 Stephanie Byrd MD [address] [facility] [place] [place] [address] Neurology 02/23/24 documented as of this encounter
--- OUTSIDE RECORDS SUMMARY | 2024-08-25 18:22 | XMS_ITS | Clinical Summary ---
Author Organization [employer] [facility] [employer] [facility] Address [address] [place] [address] Care Team Providers Care Election Judge Name Role Phone Chelsy Chinchilla MD Unavailable [phone] Margaret Allen DO Primary Care Provider [phone] Zainab Reyes RN Unavailable [phone] Allergies Active Allergy Reactions Criticality Noted Date [...] 024 Active multivitamin folic acid 0.4 mgIndications:[facility] care maintenance Take 1 Tablet by mouth [...] Eligibility Review Date: 07/20/19 Upcoming Visit Location: [facility] Age: 78 y.o. Research Purpose Insurance Type: Medicare/Medicaid Comments: This patient was indicated to be a potential candidate and pre-screened for the following studies: Echo - 07/13/2019 No , Mild AR, Mild-Mod MR, Moderate TR Altflow - no d/t mild-mod MR, no As, Mild AR Triluminate - Potential Lipids - 05/26/2019 Non - HDL - 137 LDL - 101 Vesalius - Potential No PA or Stroke Problem Noted Date Diagnosed Date [...] Date Type Department Care Team Description 08/23/2024 Orders Only [facility] Scanner 1 scan: (1-Ord) JAIR IBARRA LT, 08/23/2024 08/23/2024 Orders Only [facility] Scanner 1 scan: (1-Ord) [facility], CERVICAL SPINE WO CON, 08/23/2024 08/23/2024 Orders Only [facility] Scanner 1 scan: (1-Ord) [facility] 08/21/2024 Orders Only [facility] Scanner 1 scan: (1-Ord) JESSICA REINA PF OS INJ, 08/21/2024 08/11/2024 Refill [facility] [address] [place] [address] Margaret Allen DO Refill Request (Warfarin) 08/08/2024 10:15 AM TRADE MANAGER Orders Only [facility] [facility] [address] Lab, [facility] 08/08/2024 Anticoagulation (warfarin) [facility] [address] [place] [address] 1, [facility]ticoagulation 08/08/2024 Travel 07/17/2024 Telephone [facility] [address] [facility] [address] Margaret Allen, Error-please disregard 07/11/2024 12:45 PM TRADE MANAGER Orders Only [facility] [address] [facility] [address] Lab[facility] 07/11/2024 Anticoagulation (warfarin) [facility] [address] [facility] [address] 1, [facility] Anticoagulation 07/11/2024 Telephone [facility] [address] [place] [address] Margaret Allen, Follow Up 07/11/2024 Travel 06/26/2024 10:00 AM TRADE MANAGER Ancillary Procedure [facility] [address] [facility] [address] [place] [address] 06/26/2024 Travel 06/20/2024 10:40 AM TRADE MANAGER Ancillary Procedure [facility] [address] [facility] [address] 06/20/2024 Travel 06/14/2024 10:50 AM TRADE MANAGER Office Visit [facility] [address] [place] [address] Margaret Allen DO Follow Up (SOB and sweats x 2 months ) 06/14/2024 Anticoagulation (warfarin) [facility] [address] [facility] [address] 1, [facility]tico[facility] 06/14/2024 Travel 06/11/2024 11:30 AM TRADE MANAGER Office Visit [facility] [address] [place] [address] Torres Fong MD Sleep Follow-up 06/11/2024 Travel 05/28/2024 12:45 PM TRADE MANAGER Office Visit [facility] [address] [facility] [address] [place] [address] Marlene May MD Follow Up (Stroke/) 05/28/2024 10:00 AM TRADE MANAGER Orders Only [facility] [address] [facility] [address] Lab, [facility] 05/28/2024 Anticoagulation (warfarin) [facility] [address] [place] [address] 1, [facility] Anticoagulation 05/28/2024 Travel from Last 3 Months Immunizations Immunization Administration Dates Next Due AMB INFLUENZA IIV3 (AGE 65+ YRS) PF (Flu Clinic Only) 03/31/2018,03/30/2017 AMB Influenza, IIV3 (Age >=3 years)(Flu Clinic Only) 03/30/2011,04/14/2010 Amb Influenza, Inact (High-d ose) (Flu Clinic Only) 04/23/2016,03/21/2015,03/19/2014 COVID-19 vaccine (Estech NTWhistlestop 30mcg/0.3mL) TASIA BELLA 03/11/2021,08/19/2020,07/29/2020 Hepatitis A (Adult) [...] on file Legal Sex Female 6:50 AM TRADE MANAGER Gender Identity Not on file Sexual Orientation Not on file Obstetrics History Last Filed Vital Signs Vital Sign Reading Time Taken Comments Blood Pressure 110/62 06/14/2024 11:01 AM TRADE MANAGER Pulse 64 06/14/2024 11:01 AM TRADE MANAGER Temperature 37.2 C (99 F) 05/28/2024 12:50 PM TRADE MANAGER Respiratory Rate 16 11/17/2023 9:49 AM CDT Oxygen Saturation 98% 06/14/2024 11:01 AM TRADE MANAGER Inhaled Oxygen Concentration - - Weight 56.2 kg (124 lb) 06/14/2024 11:01 AM TRADE MANAGER Height 152.4 cm (5') 06/11/2024 11:33 AM TRADE MANAGER Body Mass Index 24.22 06/11/2024 11:33 AM TRADE MANAGER Plan of Treatment Upcoming Encounters Date Type Department Care Team (Late st Contact Info) Description 09/03/2024 12:30 PM CDT Orders Only [facility] [address] [place] [address] [facility], [place] 10/16/2024 10:25 AM CDT Office Visit [facility] [address] [place] [address] Margaret Allen DO [address] [place] [address] 10/17/2024 12:00 PM CDT Appointment [facility] [place] [address] [facility] [address] [place] [address] Ailin Berger, OT [address] [place], [place] [address] 10/17/2024 1:30 PM CDT Appointment [facility] [place] [address] [facility] [address] [place] [address] Ailin Berger, OT [address] [place] [address] 12/18/2024 11:30 AM CDT Cardiac Device Check [facility] [address] [place] [phone] Health Maintenance Due Date Last Done Comments [...] Procedure Name Priority Date/Time Associated Diagnosis Comments SCAN-EYE EXAM 08/23/2024 12:00 AM CDT SCAN-RADIOLOGY REPORT 08/23/2024 12:00 AM CDT SCAN-CT INTERPRETATION 12:00 AM CDT SCAN-OPERATIVE/PROCEDU RE REPORT 08/21/2024 12:00 AM CDT INR,POCT Routine 08/08/2024 10:17 AM TRADE MANAGER Paroxysmal atrial flutter (HC) Thrombosis involving cardiac device, sequela INR,POCT Routine 07/11/2024 12:46 PM TRADE MANAGER Paroxysmal atrial flutter (HC) Thrombosis involving cardiac device, sequela ECHO TTE COMPLETE WO CONTRAST Routine 06/26/2024 10:35 AM TRADE MANAGER 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), bioprosthetic XR MAMMO MARLA BILAT SCREEN Routine 06/20/2024 10:41 AM TRADE MANAGER Visit for screening mammogram INR,POCT Routine 06/14/2024 12:19 PM TRADE MANAGER Paroxysmal atrial flutter (HC) Thrombosis involving cardiac device, sequela INR,POCT Routine 05/28/2024 10:05 AM TRADE MANAGER Paroxysmal atrial flutter (HC) Thrombosis involving cardiac device, sequela XR DXA BONE DENSITY 2 SITES AXIAL Routine 08/09/2022 10:21 AM TRADE MANAGER Osteoporosis, unspecified osteoporosis type, unspecified pathological fracture presence from Last 3 Months or Most Recently Relevant to Health Maintenance Results * SCAN-EYE EXAM (08/23/2024 12:00 AM CDT) us Scanner OTHER Final Result * SCAN-RADIOLOGY REPORT (08/23/2024 12:00 AM CDT) Anatomical Region Laterality Modality Other us Scanner OTHER Final Result * SCAN-CT INTERPRETATION (08/23/2024 12:00 AM CDT) Anatomical Region Laterality Modality Other us Scanner OTHER Final Result * SCAN-OPERATIVE/PROCEDURE REPORT (08/21/2024 12:00 AM CDT) us Scanner OTHER Final Result * (ABNORMAL) INR - POCT [[id number]] - Standing Order (08/08/2024 10:17 AM TRADE MANAGER) Only the most recent of4 resultswithin the time period is included. INR 2.0(H) ratio [facility] Comment: INRs >2.9 may be falsely elevated [...] PROTHROMBIN TIMEP 23.7(H) 10.5 - 13.1 sec [facility] Comment: Point of care fingerstick Prothrombin Time/INR results may vary from venous Prothrombin Time/INR methodologies. Any results exhibiting inconsistency with the patient's clinical status should be repeated using a venous Prothrombin Time/INR method. Blood BLOOD SPECIMEN / Unknown 08/08/2024 10:17 AM TRADE MANAGER 08/08/2024 10:18 AM TRADE MANAGER Margaret Allen DO LABORATORY Final Resu lt [facility] [address] [place] [address], [facility] [address] [place] [address] * ECHO TTE COMPLETE WO CONTRAST (06/26/2024 10:35 AM TRADE MANAGER) AORTIC VALVE MEAN PG 7 mmHg PEAK TR VELOCITY 2.8 m/s LVEDD 4.0 cm MITRAL VALVE MR ERO 33 mm2 EJECTION FRACTION 55 - 60% Anatomical Region Laterality Modality Ultrasound 06/26/2024 9:55 AM TRADE MANAGER Narrative 06/26/2024 12:55 PM TRADE MANAGER ECHOCARDIOGRAM VALARIE HUANG : 1940 83 years Study Date: 06/26/2024 9:55:55 AM Gender: F BP: 110/62 mmHg Height: 152.40 cm BSA: 1.52 m Weight: 56.25 kg Tech: ERICA Referring MD: HARDEEP SUAZO Site: [facility] Reading Location: [facility] Patient Location: Procedure: 2D, Color Doppler and [...] . This study was interpreted by an [facility] accredited facility. Final Procedure Note Narayan Chapman MD - 06/26/2024 ECHOCARDIOGRAM VALARIE HUANG : 1940 83 years Study Date: 06/26/2024 9:55:55 AM Gender: F BP: 110/62 mmHg Height: 152.40 cm BSA: 1.52 m Weight: 56.25 kg Tech: ERICA Referring MD: HARDEEP SUAZO Site: [facility] Reading Location: [facility] Patient Location: Procedure: 2D, Color Doppler and [...] . This study was interpreted by an [facility] accredited facility. Final us Hardeep Suazo MD ECHO ORD Final Result * XR MAMMO MARLA BILAT SCREEN (06/20/2024 10:41 AM TRADE MANAGER) Anatomical Region Laterality Modality BREASTS, Breast Left, Breast Right Bilateral Mammography Impressions 06/20/2024 3:33 PM TRADE MANAGER There is no radiographic evidence for malignancy. Recommend annual mammograms. MAMMOGRAM ASSESSMENT: ACR 1 Negative PATIENTS: You will also receive a letter with your examination results in an easy to read format. If you have questions about your results, please contact your referring provider. Narrative 06/20/2024 3:33 PM TRADE MANAGER For Patients: As a result of the Century Cures Act, medical imaging exams and procedure reports are released immediately into your electronic medical record. You may view this report before your referring provider. If you have questions, please contact your health care provider. XR MAMMO MARLA BILAT SCREEN [[id number]] CLINICAL HISTORY: This is an asymptomatic 83 y.o. patient. INDICATION FOR EXAM: Mammogram Screening. TECHNIQUE: CC & MLO views were obtained. This study was evaluated with the assistance of Computer-Aided Detection. Breast Tomosynthesis was used in interpretation. COMPARISON FILM: Yes 04/19/23 [facility] 08/09/22 [facility] FINDINGS: There are scattered areas of fibroglandular density. There are no dominant masses, suspicious micro calcifications or areas of architectural distortion. us Margaret Allen DO MAMMO Final Resu lt * (ABNORMAL) XR DXA BONE DENSITY 2 SITES AXIAL (08/09/2022 10:21 AM TRADE MANAGER) Anatomical Region Laterality Modality Spine, HIPS, HIPL, HIPR Other Impressions 08/10/2022 3:48 PM TRADE MANAGER Osteoporosis. RECOMMENDATIONS: The National Osteoporosis Foundation [...] greater than 5 years. Roz Perrin PA-C [facility] 08/10/2022 Narrative 08/10/2022 3:48 PM TRADE MANAGER For Patients: Results are automatically released to your [facility] account once available, in compliance with federal regulations. This means that you may see your results before your provider has had a chance to review them. Please allow 2-3 business days for your provider to comment on the results. XR DXA Bone Mineral Density (BMD) EXAM LOCATION: [address] [address] PATIENT NAME: Valarie Huang DATE OF : [...] two scanners are made by the same geosciences faculty member. PROCEDURE: Dual-energy x-ray absorptiometry performed with routine [...] T-score at or below -2.5 SD Margaret Vannesa Stortz DO DEXA Final Resu lt from Last 3 Months or Most Recently Relevant to Health Maintenance Insurance [place] HB ONLY MEDICARE PART B HB ONLY MEDICARE PART A HB ONLY [place] BLUE MR PB ONLY [place] [id number] MEDICARE PPS [place] [id number] Advance Directives Documents on File Type Date Recorded Patient Wireless Telegrapher Expl anation POLST 10/14/2023 Healthcare Directive 08/16/2016 11:07 AM LORENE IBARRA, [...] Code Status Discussion: Reviewed Preferences Care Teams Election Judge Relationship Specialty Start Date End Date Margaret Allen [place] [address] PCP - General Family Practice 03/10/17 Chelsy Chinchilla MD Ophthalmology Surgery 04/17/13 Zainab Reyes, RN [address] [place] [address] Refrigeration Specialist Registered Nurse 09/23/23
--- OUTSIDE RECORDS SUMMARY | 2024-08-25 18:22 | XMS_ITS | Clinical Summary ---
Author Organization [facility] Address [address] [place] [address] Care Team Providers Care Treasurer Name Role Phone AlejandroMargaret Vannesa HARDING Primary Care Provider [phone] Stephanie Byrd MD Unavailable Allergies Active Allergy [...] Description 08/23/2024 10:15 AM CDT Office Visit [facility] [address] [phone] Stephanie Byrd MD Double vision; History of ischemic stroke from Last 3 Months Social History Tobacco [...] exists Insurance MEDICARE PART A & B [facility] [place] [id number] Care Teams Treasurer Relationship Specialty Start Date End Date Margaret Allen DO [address] [place] [address] PCP - General Family Medicine 11/23/23 Stephanie Byrd MD [address] [place] [address] [address] [address] Neurology 02/23/24
--- NOTE | 2024-08-25 18:30 | ED.GENADULT ---
HPI - General Adult General Time Seen by Provider: 18:31 Date Seen: 08/25/24 Chief complaint: Nausea/Vomiting Stated complaint: Vomiting, lack of appetite Time Seen by Provider: 08/25/24 18:20 Source: patient, EMS, RN notes reviewed and old records reviewed Mode of arrival: EMS Limitations: no limitations History of Present Illness HPI narrative: This 84-year-old female had a fall on August 23, was prescribed Vicodin for an elbow fracture. She did have head and neck CT imaging done that day as she is on anticoagulants. Her chart lists both Eliquis and Coumadin, I do have an INR pending. She does states she is on blood thinners though. She started having vomiting yesterday. EMS reported they did give her some IV fluids in route as she had not taken much in. She notes her stools have been a little softer the last couple days but denies any abdominal pain. She was unaware of fevers but on arrival here her temperature was 100? F. she does have some headache, unsure if that could be illness, post concussion or late traumatic head injury. She is not coughing. She does states she felt a little short of breath earlier today. EMS did note that her oxygen saturation was low in the mid 80s, did put her on oxygen. We did do a trial off oxygen on arrival here and she did go back down to 87%. She has not had any [place] in the last 2 days given the concerned that this might be causing her nausea and vomiting, has not seemed to change her symptoms. Her fall was on 08/23, happened from tripping on a curb from review of the note. Related Data Home Medications ?Medication ?Instructions ?Recorded ?Confirmed acyclovir 400 mg tablet 400 mg PO 3XD PRN 09/08/22 08/25/24 omeprazole 20 mg capsule,delayed 20 mg PO DAILY 09/08/22 08/25/24 release propranolol 80 mg capsule,24 80 mg PO DAILY 09/08/22 08/25/24 hr,extended release apixaban 5 mg tablet (Eliquis) 5 mg PO BID 10/11/22 08/25/24 aspirin 81 mg chewable tablet 81 mg PO DAILY 10/11/22 08/25/24 (Aspirin Childrens) calcium 500 mg (as 1 tab PO DAILY 05/01/23 03/15/25 carbonate)-vitamin D3 3.125 mcg (125 unit) tablet cholecalciferol (vitamin D3) 25 25 mcg PO DAILY 10/11/22 08/25/24 mcg (1,000 unit) capsule coenzyme Q10 100 mg capsule 100 mg PO DAILY 10/11/22 08/25/24 fexofenadine 180 mg tablet 180 mg PO DAILY 10/11/22 08/25/24 (Karolyn Allergy) fluticasone propionate 50 2 spray intranasal DAILY PRN 10/11/22 08/25/24 mcg/actuation nasal spray,suspension magnesium oxide 400 mg PO DAILY 10/11/22 08/25/24 metoprolol tartrate 25 mg tablet 12.5 - 25 mg PO DAILY PRN 10/11/22 08/25/24 multivitamin 1 tab PO DAILY 10/11/22 08/25/24 rosuvastatin 40 mg tablet (Crestor) 40 mg PO DAILY 10/11/22 08/25/24 clopidogrel 75 mg tablet 75 mg PO DAILY 09/24/23 08/25/24 losartan 25 mg tablet 12.5 mg PO DAILY 09/24/23 08/25/24 ofloxacin 0.3 % eye drops 1 drp ophthalmic (eye) QID 09/24/23 08/25/24 potassium chloride 20 mEq 20 meq PO DAILY 09/24/23 08/25/24 tablet,extended release(part/cryst) propranolol 20 mg tablet 20 mg PO DAILY 09/24/23 08/25/24 escitalopram oxalate 10 mg tablet 10 mg PO QAM 08/23/24 08/25/24 ezetimibe 10 mg tablet 10 mg PO DAILY 08/23/24 08/25/24 magnesium chloride 64 mg 128 mg PO DAILY 08/23/24 08/25/24 (magnesium chloride) tablet,delayed release (Mag-Delay) warfarin 2 mg tablet mg 08/23/24 Previous Rx's ?Medication ?Instructions ?Recorded hydrocodone 5 mg-acetaminophen 325 1 tab PO Q4-6H PRN pain #20 tabs 08/23/24 mg tablet Allergies Allergy/AdvReac Type Severity Reaction Status Date / Time Sulfa (Sulfonamide Allergy Verified 08/25/24 20:51 Antibiotics) Review of Systems Status of ROS: Reports: 6 or more systems reviewed and unremarkable except as noted in History and below [facility] Medical History Aortic stenosis ?I35.0 - Nonrheumatic aortic (valve) stenosis (ICD-10) Cardiac pacemaker in situ ?Z95.0 - Presence of cardiac pacemaker (ICD-10) E. coli UTI ?N39.0 - Urinary tract infection, site not specified (ICD-10) ?B96.20 - Unspecified Escherichia coli [E. coli] as the cause of diseases classified elsewhere (ICD-10) SSS (sick sinus syndrome) ?I49.5 - Sick sinus syndrome (ICD-10) Prolonged Q-T interval on ECG ?R94.31 - Abnormal electrocardiogram [ECG] [EKG] (ICD-10) KEVIN (obstructive sleep apnea) ?G47.33 - Obstructive sleep apnea (adult) (pediatric) (ICD-10) ASHD (arteriosclerotic heart disease) ?I25.10 - Atherosclerotic heart disease of [place] coronary artery without angina pectoris (ICD-10) Paroxysmal atrial fibrillation ?I48.0 - Paroxysmal atrial fibrillation (ICD-10) Dyspnea on exertion ?R06.09 - Other forms of dyspnea (ICD-10) Pulmonary hypertension ?I27.20 - Pulmonary hypertension, unspecified (ICD-10) Adjustment disorder with depressed mood ?F43.21 - Adjustment disorder with depressed mood (ICD-10) Essential and other specified forms of tremor ?G25.0 - Essential tremor (ICD-10) ?G25.2 - Other specified forms of tremor (ICD-10) Unspecified essential hypertension ?I10 - Essential (primary) hypertension (ICD-10) Fibromyalgia ?M79.7 - Fibromyalgia (ICD-10) GERD (gastroesophageal reflux disease) ?K21.9 - Gastro-esophageal reflux disease without esophagitis (ICD-10) Surgical History H/O breast biopsy ?Z98.890 - Other specified postprocedural states (ICD-10) History of YAG laser capsulotomy of lens of left eye ?Z98.42 - Cataract extraction status, left eye (ICD-10) Hx of tubal ligation ?Z98.51 - Tubal ligation status (ICD-10) Hx of cataract extraction ?Z98.49 - Cataract extraction status, unspecified eye (ICD-10) Social History Smoking Status: Former smoker Do you use any of these nicotine containing products: None Second hand tobacco smoke exposure: No How often do you have a drink containing alcohol: 2-3 times a week How many standard drinks containing alcohol do you have on a typical day: 3 or 4 How often do you have six or more drinks on one occasion: Never AUDIT-C Alcohol total score: 4 Non-prescribed substance use: denies use Caffeine: Yes service: No Exam Const: Vital Signs, click to edit/add: Vital Signs - 24 hr 08/25/24 18:20 08/25/24 18:31 08/25/24 18:31 Temperature 100 F H Pulse Rate Pulse Rate [Right Pulse Oximeter] 91 Respiratory Rate 18 Blood Pressure Blood Pressure [Ri ght Upper Arm] 160/81 H Pulse Oximetry 87 L 91 92 Oxygen Delivery Me thod Room Air Room Air Oxygen Flow Rate 08/25/24 18:42 08/25/24 18:42 08/25/24 18:45 Temperature Pulse Rate 74 70 Pulse Rate [Right Pulse Oximeter] Respiratory Rate 12 Blood Pressure Blood Pressure [Ri ght Upper Arm] Pulse Oximetry 98 92 94 Oxygen Delivery Me thod Nasal Cannula Nasal Cannula Oxygen Flow Rate 2 1 08/25/24 18:51 08/25/24 19:00 08/25/24 19:23 Temperature Pulse Rate 70 71 Pulse Rate [Right Pulse Oximeter] Respiratory Rate 26 H Blood Pressure Blood Pressure [Ri ght Upper Arm] Pulse Oximetry 92 91 94 Oxygen Delivery Me thod Nasal Cannula Oxygen Flow Rate 08/25/24 19:30 08/25/24 19:42 08/25/24 19:43 Temperature Pulse Rate 70 72 69 Pulse Rate [Right Pulse Oximeter] Respiratory Rate 14 14 22 Blood Pressure 105/75 Blood Pressure [Ri ght Upper Arm] Pulse Oximetry 93 93 93 Oxygen Delivery Me thod Oxygen Flow Rate 08/25/24 19:55 08/25/24 20:25 08/25/24 20:30 Temperature Pulse Rate 73 77 76 Pulse Rate [Right Pulse Oximeter] Respiratory Rate 22 12 Blood Pressure Blood Pressure [Ri ght Upper Arm] Pulse Oximetry 92 96 97 Oxygen Delivery Me thod Oxygen Flow Rate 08/25/24 20:31 08/25/24 20:32 03/15/25 20:45 Temperature Pulse Rate 74 70 71 Pulse Rate [Right Pulse Oximeter] Respiratory Rate 14 13 Blood Pressure 109/66 Blood Pressure [Ri ght Upper Arm] Pulse Oximetry 96 95 93 Oxygen Delivery Me thod Oxygen Flow Rate 08/25/24 21:00 08/25/24 21:01 08/25/24 21:02 Temperature Pulse Rate 72 72 72 Pulse Rate [Right Pulse Oximeter] Respiratory Rate 13 Blood Pressure 114/57 L Blood Pressure [Ri ght Upper Arm] Pulse Oximetry 92 91 91 Oxygen Delivery Me thod Oxygen Flow Rate 08/25/24 21:15 08/25/24 21:30 08/25/24 21:31 Temperature Pulse Rate 72 72 73 Pulse Rate [Right Pulse Oximeter] Respiratory Rate 15 18 27 H Blood Pressure 121/66 Blood Pressure [Ri ght Upper Arm] Pulse Oximetry 88 90 93 Oxygen Delivery Me thod Oxygen Flow Rate Patient is alert, interactive and in no apparent distress. She is able to speak in complete sentences. Face atraumatic, posterior scalp has some bruising, no active bleeding. Pupils equal round reactive, sq clear, symmetrical facial function. She is able to sit up, does have some kyphosis but lungs are clear, good air entry, no wheezing crackles, no tachypnea or accessory muscle use. CV has what sounds to be occasional ectopy, mostly regular, no significant murmur, normal S1-S2. Her left arm is in a posterior splint, do see use some bruising on the dorsum of her left hand, she has good cap refill of these fingers in this left hand and normal sensation of the fingers. Abdomen is soft, nontender, nondistended, no organomegaly at this point. Bowel sounds seem slightly distant but are present. She has no lower extremity edema, moves both legs. Documenting provider has reviewed patient's vital signs: yes Course Course ED Course: Patient would seemingly have infectious agent as the cause for her symptoms but do need to keep in mind that she had a recent fall in is reportedly on blood thinners. Given her presentation, doubt acute active intracranial bleeding given her stability and lack of neurologic findings but still possible. Will redo imaging of her head with noncontrast CT. Is very likely that she has an acute illness that is responsible for the nausea vomiting. She is also mildly hypoxic, 2 of the viruses such as COVID and influenza come to mind with the cross of respiratory and GI symptoms. Will also look at a portable chest x-ray. Need to try to look at records more closely to see if she is actually on Eliquis or Coumadin. Patient will be supported with oxygen at this time, will get EKG, full complement of labs and have her on pulse oximetry and cardiac monitoring. Patient could have gastrointestinal issue, subsequent aspiration pneumonia as a complication of this. Could be many possible infectious scenarios here that may need to be considered. Reevaluation(s) Time of Reevaluation #1: 22:13 Reevaluation #1: Patient has been updated, agrees on hospitalization. Consultations Consultation #1: Have reviewed with Dr. De Dios the hospitalist, he accepts. We did discuss the findings on this patient. Will initiate IV Rocephin, ?UTI, ?pneumonia. Have done lab add ons for direct bilirubin (if normal and other liver tests normal with normal CT findings, probably benign; patient had elevated total bilirubin in 2022). She had no abdominal pain on evaluation, no CT evidence of any biliary/gallbladder/pancreatic issues. He will order other antibiotics as indicated. Blood pressure is better after 1500ml of fluids, first dose of Rocephin is ordered. Patient could have early sepsis, will certainly need ongoing monitoring in hospital setting. Time: 22:06 Vital Signs Vital signs: Initial Vital Signs Pulse Oximetry 87 L 08/25/24 18:20 Oxygen Delivery Method Room Air 08/25/24 18:20 Vital Signs Pulse Oximetry 87 L 08/25/24 18:20 Oxygen Delivery Method Room Air 08/25/24 18:20 Temperature 100 F H 08/25/24 18:31 Pulse Rate 73 08/25/24 21:31 Respiratory Rate 27 H 08/25/24 21:31 Blood Pressure 121/66 08/25/24 21:31 Pulse Oximetry 93 08/25/24 21:31 Oxygen Delivery Method Nasal Cannula 08/25/24 18:51 Oxygen Flow Rate 1 08/25/24 18:45 Medications Administered Medications: Generic Name Dose Route Start Last Admin Trade Name Freq PRN Reason Stop Dose Admin Sodium Chloride 1,000 mls @ 500 mls/hr 08/25/24 20:32 08/25/24 20:43 0.9 % Sodium Chloride 1000 Ml IV 08/25/24 22:31 500 mls/hr .Q2H TEQUILA Administration Discontinued Medications Generic Name Dose Route Start Last Admin Trade Name Freq PRN Reason Stop Dose Admin Sodium Chloride 500 mls @ 500 mls/hr 08/25/24 19:33 08/25/24 20:33 0.9 % Sodium Chloride 500 Ml IV 08/25/24 20:32 Infused .Q1H ONE Infusion Medical Decision Making Lab Data Lab results reviewed: Yes I reviewed the patient's lab results Labs: Lab Results 08/25/24 08/25/24 08/25/24 Range/Units 18:35 18:37 18:50 WBC 12.46 H (4.50-11.00) K/uL RBC 3.82 L (4.00-5.20) m/uL Hgb 11.5 L (12.0-16.0) gm/dL Hct 34.7 (33.0-51.0) % MCV 91 (80-100) fL MCH 30 (26-34) pg MCHC 33 (32-36) gm/dL RDW Coeff of Liza 12.2 (11.5-15.5) % Plt Count 135 L (140-440) K/uL Neut % (Auto) 85.7 H (42.0-72.0) % Lymph % (Auto) 5.5 L (20-44) % [place] % (Auto) 8.3 (0.0-11.0) % Eos % (Auto) 0.2 (0.0-7.0) % Baso % (Auto) 0.1 (0.0-3.0) % Neut # (Auto) 10.70 H (1.7-7.0) K/uL Lymph # (Auto) 0.70 L (0.90-2.90) K/uL [place] # (Auto) 1.00 H (0.00-0.90) K/UL Eos # (Auto) 0.00 (0.00-0.50) K/uL Baso # (Auto) 0.00 (0.00-0.30) K/uL Abs Immat Gran (auto) 0.00 (0.00-0.30) K/uL Imm/Tot Granulo (auto) 0.2 % INR 2.42 H (0.91-1.10) VBG pH 7.417 (7.32-7.43) VBG pCO2 38 L (40-50) mmHG VBG pO2 < 30.1 (25-47) mmHG VBG HCO3 25 (21-28) mmol/L Sodium 130 L (135-149) mmol/L Potassium 3.9 (3.6-5.1) mmol/L Chloride 98 (96-114) mmol/L Carbon Dioxide 23 (20-32) mmol/L Anion Gap 9 (7-15) mEq/L BUN 11 (7-30) mg/dL Creatinine 0.4 L (0.5-1.5) mg/dL Estimated Creat Clear 30.62 Estimated GFR 98 ml/min Glucose 131 H (60-115) mg/dL Lactate 2.0 H (0.5-1.9) mmol/L Calcium 8.5 (8.4-10.6) mg/dL Total Bilirubin 4.6 H (0.1-1.5) mg/dL AST 29 (12-35) U/L ALT 14 (4-35) U/L Alkaline Phosphatase 48 (40-150) U/L Troponin I < 0.01 L (0.01-0.04) ng/mL C-Reactive Protein 5.9 H (0.5-1.0) mg/dL Total Protein 7.1 (6.0-8.3) g/dL Albumin 4.3 (3.3-5.0) g/dL Lipase 36 (23-300) U/L Urine Color (Yellow) Urine Appearance (Clear) Urine pH (5.0-8.5) Ur Specific [place] (1.000-1.030) Urine Protein (Negative) Urine Glucose (UA) (Negative) Urine Ketones (Negative) Urine Blood (Negative) Urine Nitrite (Negative) Urine Bilirubin (Negative) Urine Urobilinogen (0.2-1.0) Ur Leukocyte Esterase (Negative) Urine RBC (0-2) Urine WBC (0-5) Ur Squamous Epith Cells (None-Few) Urine Bacteria (None) SARS-CoV-2 (PCR) Negative SARS-CoV-2 (Negative) Influenza Type A (PCR) Negative PCR FLU A (Negative) Influenza Type B (PCR) Negative PCR FLU B (Negative) RSV (PCR) Negative PCR RSV (Negative) Lab Acknowledgement Test Added 08/25/24 Range/Units 19:30 WBC (4.50-11.00) K/uL RBC (4.00-5.20) m/uL Hgb (12.0-16.0) gm/dL Hct (33.0-51.0) % MCV (80-100) fL MCH (26-34) pg MCHC (32-36) gm/dL RDW Coeff of Liza (11.5-15.5) % Plt Count (140-440) K/uL Neut % (Auto) (42.0-72.0) % Lymph % (Auto) (20-44) % [place] % (Auto) (0.0-11.0) % Eos % (Auto) (0.0-7.0) % Baso % (Auto) (0.0-3.0) % Neut # (Auto) (1.7-7.0) K/uL Lymph # (Auto) (0.90-2.90) K/uL [place] # (Auto) (0.00-0.90) K/UL Eos # (Auto) (0.00-0.50) K/uL Baso # (Auto) (0.00-0.30) K/uL Abs Immat Gran (auto) (0.00-0.30) K/uL Imm/Tot Granulo (auto) % INR (0.91-1.10) VBG pH (7.32-7.43) VBG pCO2 (40-50) mmHG VBG pO2 (25-47) mmHG VBG HCO3 (21-28) mmol/L Sodium (135-149) mmol/L Potassium (3.6-5.1) mmol/L Chloride (96-114) mmol/L Carbon Dioxide (20-32) mmol/L Anion Gap (7-15) mEq/L BUN (7-30) mg/dL Creatinine (0.5-1.5) mg/dL Estimated Creat Clear Estimated GFR ml/min Glucose (60-115) mg/dL Lactate (0.5-1.9) mmol/L Calcium (8.4-10.6) mg/dL Total Bilirubin (0.1-1.5) mg/dL AST (12-35) U/L ALT (4-35) U/L Alkaline Phosphatase (40-150) U/L Troponin I (0.01-0.04) ng/mL C-Reactive Protein (0.5-1.0) mg/dL Total Protein (6.0-8.3) g/dL Albumin (3.3-5.0) g/dL Lipase (23-300) U/L Urine Color Yellow (Yellow) Urine Appearance Cloudy A (Clear) Urine pH 6.0 (5.0-8.5) Ur Specific [place] 1.020 (1.000-1.030) Urine Protein 1+ A (Negative) Urine Glucose (UA) Negative (Negative) Urine Ketones 2+ A (Negative) Urine Blood Trace-intact A (Negative) Urine Nitrite Negative (Negative) Urine Bilirubin Negative (Negative) Urine Urobilinogen 0.2 (0.2-1.0) Ur Leukocyte Esterase 1+ A (Negative) Urine RBC 0-2 (0-2) Urine WBC 25-50 A (0-5) Ur Squamous Epith Cells None (None-Few) Urine Bacteria Many A (None) SARS-CoV-2 (PCR) (Negative) Influenza Type A (PCR) (Negative) Influenza Type B (PCR) (Negative) RSV (PCR) (Negative) Lab Acknowledgement Imaging Data CT scan - head: Attestation: I have reviewed the pertinent imaging results. My impression: Did visualize her head CT and note no acute traumatic change in my preliminary review, obviously will be waiting radiology over read on this study. Radiologist's impression: Patient: VALARIE HUANG Facility:?[facility] Patient ID:?[id number] Site Patient ID:?[id number]. Site :?[id number] Study:?CT-Head w/o-08/25/2024 7:23:43 PM Ordering Physician:?Ivy Pacsual Final Report: INDICATION: Fall. On blood thinners. TECHNIQUE: CT of the head without contrast. Coronal and sagittal reformats are included. COMPARISON: Head CT from 08/23/2024. FINDINGS: No acute intracranial hemorrhage. No mass effect or midline shift. No hydrocephalus or extra-axial collections. 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 Scattered white matter hypoattenuation, typical for chronic microvascular ischemic change. A calcification along the right frontal horn. Intracranial vascular calcifications. No acute osseous abnormalities. Mastoid air cells and paranasal sinuses are clear. A parietal scalp contusion. IMPRESSION: IMPRESSION: 1. No acute intracranial abnormalities. Please note that all CT scans at this facility use dose modulation, iterative reconstruction, and/or weight-based dosing when appropriate to reduce radiation dose to as low as reasonably achievable. Dictated by Johnathon Romano MD @ 08/25/2024 7:55:28 PM (Electronic Signature) Chest x-ray: Attestation: I have reviewed the pertinent imaging results. My impression: I do not appreciate any definitive infiltrate on my preliminary visualization. Radiologist's impression: Patient: VALARIE HUANG Facility:?[facility] Patient ID:?[id number] Site Patient ID:?[id number]. Site :?[id number] Study:?XRay-Chest 1V-08/25/2024 7:19:42 PM Ordering Physician:?Ivy Pascual Final Report: INDICATION: Fever, fall on 08/23, now nausea/vomiting. TECHNIQUE: Chest 1 view. COMPARISON: Chest radiograph 01/30/2023. FINDINGS: Cardiovascular: Cardiomegaly. Pulmonary vasculature is within normal limits. TAVR. Left chest pacemaker with leads in stable position. Lungs and pleural spaces: Linear atelectasis or scarring right mid lung. No focal consolidation. No sign of pleural effusion. No pneumothorax identified. Bones and soft tissues: Elevation of the right hemidiaphragm. No acute osseous abnormality identified. IMPRESSION: 1. No acute cardiopulmonary findings. 2. Stable cardiomegaly. Dictated by Aleisha Armendariz MD @ 08/25/2024 8:35:26 PM (Electronic Signature) CT Chest/Ab/Pelvis: Attestation: I have reviewed the pertinent imaging results. Radiologist's impression: Patient: VALARIE HUANG Facility:?[facility] Patient ID:?[id number] Site Patient ID:?[id number]. Site :?1940 Study:?CT-Chest/Abd/Pelvis 62CC ISOVUE 370-08/25/2024 8:26:36 PM Ordering Physician:?Ivy Pascual Final Report: INDICATION: N/V; LOOSE STOOLS. TECHNIQUE: CT chest, abdomen and pelvis acquired 62 cc Isovue 370 IV contrast. COMPARISON: Same day chest radiograph. FINDINGS: CHEST: Cardiovascular structures: Redemonstrated prosthetic aortic valve. Likely biatrial enlargement. Left chest pacemaker. Thoracic aorta is normal in caliber. The main pulmonary artery is dilated to 3.4 cm, which is nonspecific, but can be seen in the setting of pulmonary hypertension. Mediastinum and katelin: No mass or adenopathy. Lungs and pleura: Mosaic attenuation bilaterally. Subsegmental bibasilar atelectasis/scarring. No suspicious nodules, infiltrates, or effusions. No pneumothorax. Chest wall and axilla: No mass or adenopathy. Bones: No suspicious bone lesions. Unremarkable for age. ABDOMEN AND PELVIS: Liver: Left hepatic lobe cystic focus. No acute findings. Gallbladder and bile ducts: Unremarkable. Pancreas: Mild calcifications in the pancreatic body may reflect the sequela of prior pancreatitis. Spleen: Unremarkable. Adrenal glands: Unremarkable. Kidneys: Symmetric enhancement. No hydroureteronephrosis. No evident urolithiasis. GI tract: Small hiatal hernia. The bowel is normal in caliber without evidence of obstruction. Vascular structures: Unremarkable. Lymph nodes: Unremarkable. Peritoneum/Retroperitoneum/Abdominal Wall: Unremarkable. No free air or significant free fluid. Pelvic Organs: Unremarkable. Bones and superficial soft tissues: No suspicious bone lesions. Unremarkable for age. IMPRESSION: 1. There is mosaic attenuation bilaterally in the lungs, which may reflect small airway disease or small vessel disease. 2. Otherwise, no acute findings in the chest, abdomen, or pelvis. Please note that all CT scans at this facility use dose modulation, iterative reconstruction, and/or weight-based dosing when appropriate to reduce radiation dose to as low as reasonably achievable. Dictated by Elder Carlisle MD @ 08/25/2024 9:43:52 PM (Electronic Signature) ECG Data Attestation: I personally reviewed and interpreted this ECG as follows: (Sinus rhythm with occasional pacer spike noted. Q-waves anterior precordial leads without any active ST segment changes.) Prior ECG tracings: available for review Discharge Plan Discharge Clinical Impression: Fever Qualifiers: Fever type: unspecified Qualified Code(s): R50.9 - Fever, unspecified Nausea and vomiting Qualifiers: Vomiting type: unspecified Qualified Code(s): R11.2 - Nausea with vomiting, unspecified Patient Disposition: Admitted As Observation Prescriptions: No Action ofloxacin 0.3 % drops 1 drp ophthalmic (eye) QID clopidogrel 75 mg tablet 75 mg PO DAILY potassium chloride 20 mEq tablet,ER particles/crystals 20 meq PO DAILY losartan 25 mg tablet 12.5 mg PO DAILY propranolol 20 mg tablet 20 mg PO DAILY Eliquis 5 mg tablet 5 mg PO BID aspirin [Aspirin Childrens] 81 mg tablet,chewable 81 mg PO DAILY calcium carbonate-vitamin D3 500 mg-3.125 mcg (125 unit) tablet 1 tab PO DAILY cholecalciferol (vitamin D3) 25 mcg (1,000 unit) capsule 25 mcg PO DAILY coenzyme Q10 100 mg capsule 100 mg PO DAILY fexofenadine [Karolyn Allergy] 180 mg tablet 180 mg PO DAILY fluticasone propionate 50 mcg/actuation spray,suspension 2 spray intranasal DAILY PRN Rx Instructions: administer into each nostril magnesium oxide 400 mg magnesium capsule 400 mg PO DAILY metoprolol tartrate 25 mg tablet 12.5 - 25 mg PO DAILY PRN multivitamin Tablet 1 tab PO DAILY rosuvastatin [Crestor] 40 mg tablet 40 mg PO DAILY acyclovir 400 mg tablet 400 mg PO 3XD PRN propranolol 80 mg capsule,extended release 24hr 80 mg PO DAILY omeprazole 20 mg capsule,delayed release(DR/EC) 20 mg PO DAILY warfarin 2 mg tablet Patient Comments: TAKE 1 TABLET BY MOUTH EVERY E, RAMIN, SAT; TAKE 1/2 TAB ALL OTHER DAYS IN THE EVENING OR DIRECTED* escitalopram oxalate 10 mg tablet 10 mg PO QAM ezetimibe 10 mg tablet 10 mg PO DAILY magnesium chloride [Mag-Delay] 64 mg tablet,delayed release (DR/EC) 128 mg PO DAILY hydrocodone-acetaminophen 5-325 mg tablet 1 tab PO Q4-6H PRN (Reason: pain) Qty: 20 0RF Follow Up/Referrals: Margaret Allen DO [Primary Care Provider] -
--- NOTE | 2024-08-25 18:31 | CRLHL7_ITS ---
For Patients: As a result of the Century Cures Act, medical imaging exams and procedure reports are released immediately into your electronic medical record. You may view this report before your referring provider. If you have questions, please contact your health care provider. INDICATION: Fever, fall on 08/23, now nausea/vomiting. TECHNIQUE: Chest 1 view. COMPARISON: Chest radiograph 01/30/2023. FINDINGS: Cardiovascular: Cardiomegaly. Pulmonary vasculature is within normal limits. TAVR. Left chest pacemaker with leads in stable position. Lungs and pleural spaces: Linear atelectasis or scarring right mid lung. No focal consolidation. No sign of pleural effusion. No pneumothorax identified. Bones and soft tissues: Elevation of the right hemidiaphragm. No acute osseous abnormality identified. IMPRESSION: 1. No acute cardiopulmonary findings. 2. Stable cardiomegaly. Dictated by Aleisha Armendariz MD @ 08/25/2024 8:35:26 PM (Electronically Signed)
--- NOTE | 2024-08-25 18:31 | CRLHL7_ITS ---
For Patients: As a result of the Century Cures Act, medical imaging exams and procedure reports are released immediately into your electronic medical record. You may view this report before your referring provider. If you have questions, please contact your health care provider. INDICATION: Fall. On blood thinners. TECHNIQUE: CT of the head without contrast. Coronal and sagittal reformats are included. COMPARISON: Head CT from 08/23/2024. FINDINGS: No acute intracranial hemorrhage. No mass effect or midline shift. No hydrocephalus or extra-axial collections. 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 Scattered white matter hypoattenuation, typical for chronic microvascular ischemic change. A calcification along the right frontal horn. Intracranial vascular calcifications. No acute osseous abnormalities. Mastoid air cells and paranasal sinuses are clear. A parietal scalp contusion. IMPRESSION: IMPRESSION: 1. No acute intracranial abnormalities. Please note that all CT scans at this facility use dose modulation, iterative reconstruction, and/or weight-based dosing when appropriate to reduce radiation dose to as low as reasonably achievable. Dictated by Johnathon Romano MD @ 08/25/2024 7:55:28 PM (Electronically Signed)
[2024-08-25 18:55] LABS: HCO3 VBG 25 mmol/L (21-28); PCO2 VBG 38 mmHG (40-50); PO2 VBG < 30.1 mmHG (25-47); pH VBG 7.417 (7.32-7.43)
[2024-08-25 18:57] LABS: Basophils Percent Auto 0.1 % (0.0-3.0); Eosinophils Percent Auto 0.2 % (0.0-7.0); Hematocrit 34.7 % (33.0-51.0); Hemoglobin* 11.5 gm/dL (12.0-16.0); Immature Granulocytes Pct Auto 0.2 %; Lymphocytes Percent Auto 5.5 % (20-44); Mean Corpuscular HGB Conc 33 gm/dL (32-36); Mean Corpuscular Hemoglobin 30 pg (26-34); Mean Corpuscular Volume 91 fL (80-100); Monocytes Percent Auto 8.3 % (0.0-11.0); Neutrophils Percent Auto 85.7 % (42.0-72.0); Platelet Count* 135 K/uL (140-440); RDW Coefficient of Variation % 12.2 % (11.5-15.5); Red Blood Count 3.82 m/uL (4.00-5.20); White Blood Count* 12.46 K/uL (4.50-11.00)
[2024-08-25 18:58] LABS: Slide Review Reflex No
[2024-08-25 19:12] LABS: Chloride* 98 mmol/L (96-114)
[2024-08-25 19:13] LABS: Albumin* 4.3 g/dL (3.3-5.0); Potassium* 3.9 mmol/L (3.6-5.1); Sodium* 130 mmol/L (135-149)
[2024-08-25 19:15] LABS: Blood Urea Nitrogen* 11 mg/dL (7-30); Creatinine* 0.4 mg/dL (0.5-1.5); Est. Creatinine Clearance* 30.62; Estimated Glomerular Filt Rate 98 ml/min
[2024-08-25 19:16] LABS: Alanine Aminotransferase* 14 U/L (4-35); Alkaline Phosphatase* 48 U/L (40-150); Anion Gap 9 mEq/L (7-15); Aspartate Amino Transferase* 29 U/L (12-35); Bilirubin Total* 4.6 mg/dL (0.1-1.5); Calcium* 8.5 mg/dL (8.4-10.6); Carbon Dioxide* 23 mmol/L (20-32); Glucose* 131 mg/dL (60-115); Lipase* 36 U/L (23-300); Total Protein* 7.1 g/dL (6.0-8.3)
[2024-08-25 19:19] LABS: C Reactive Protein* 5.9 mg/dL (0.5-1.0)
[2024-08-25 19:19] LABS: PCR FLU A Negative PCR FLU A (Negative); PCR FLU B Negative PCR FLU B (Negative); PCR RSV Negative PCR RSV (Negative); SARS PCR* Negative SARS-CoV-2 (Negative)
[2024-08-25 19:24] LABS: INR 2.42 (0.91-1.10); Prothrombin Time 27.5 Seconds
[2024-08-25 19:28] LABS: Troponin I* < 0.01 ng/mL (0.01-0.04)
--- NOTE | 2024-08-25 19:30 | CRLHL7_ITS ---
For Patients: As a result of the Century Cures Act, medical imaging exams and procedure reports are released immediately into your electronic medical record. You may view this report before your referring provider. If you have questions, please contact your health care provider. INDICATION: N/V; LOOSE STOOLS. TECHNIQUE: CT chest, abdomen and pelvis acquired 62 cc Isovue 370 IV contrast. COMPARISON: Same day chest radiograph. FINDINGS: CHEST: Cardiovascular structures: Redemonstrated prosthetic aortic valve. Likely biatrial enlargement. Left chest pacemaker. Thoracic aorta is normal in caliber. The main pulmonary artery is dilated to 3.4 cm, which is nonspecific, but can be seen in the setting of pulmonary hypertension. Mediastinum and katelin: No mass or adenopathy. Lungs and pleura: Mosaic attenuation bilaterally. Subsegmental bibasilar atelectasis/scarring. No suspicious nodules, infiltrates, or effusions. No pneumothorax. Chest wall and axilla: No mass or adenopathy. Bones: No suspicious bone lesions. Unremarkable for age. ABDOMEN AND PELVIS: Liver: Left hepatic lobe cystic focus. No acute findings. Gallbladder and bile ducts: Unremarkable. Pancreas: Mild calcifications in the pancreatic body may reflect the sequela of prior pancreatitis. Spleen: Unremarkable. Adrenal glands: Unremarkable. Kidneys: Symmetric enhancement. No hydroureteronephrosis. No evident urolithiasis. GI tract: Small hiatal hernia. The bowel is normal in caliber without evidence of obstruction. Vascular structures: Unremarkable. Lymph nodes: Unremarkable. Peritoneum/Retroperitoneum/Abdominal Wall: Unremarkable. No free air or significant free fluid. Pelvic Organs: Unremarkable. Bones and superficial soft tissues: No suspicious bone lesions. Unremarkable for age. IMPRESSION: 1. There is mosaic attenuation bilaterally in the lungs, which may reflect small airway disease or small vessel disease. 2. Otherwise, no acute findings in the chest, abdomen, or pelvis. Please note that all CT scans at this facility use dose modulation, iterative reconstruction, and/or weight-based dosing when appropriate to reduce radiation dose to as low as reasonably achievable. Dictated by Elder Carlisle MD @ 08/25/2024 9:43:52 PM (Electronically Signed)
--- OUTSIDE RECORDS SUMMARY | 2024-08-25 19:33 | XMS_ITS | Referral Summary ---
Author Organization [facility] Address [address] [place] [address] Care Team Providers Care Drilling Field Specialist Name Role Phone AlejandroMargaret Vannesa HARDING Primary Care Provider [phone]- [phone] Stephanie Byrd MD Unavailable Encounters Date Type Department Care Team Description 08/23/2024 10:15 AM CDT Office Visit [facility] [address] [address] Stephanie Byrd MD Double vision; [...] Insurance MEDICARE PART A & B BC [place] Care Teams Drilling Field Specialist Relationship Specialty Start Date End Date Margaret Allen DO [address] [place] [address] PCP - General Family Medicine 11/23/23 Stephanie Byrd MD [address] [employer] [address] [place] [address] Neurology 02/23/24
--- OUTSIDE RECORDS SUMMARY | 2024-08-25 19:34 | XMS_ITS | Clinical Summary ---
Author Organization [facility] Address [address] [place] [address] Care Team Providers Care Sash Sticker Name Role Phone Chelsy Chinchilla MD Unavailable [phone] Margaret Allen DO Primary Care Provider [phone] Zainab Reyes RN Unavailable [phone] Allergies Active Allergy Reactions Criticality Noted Date [...] 024 Active multivitamin folic acid 0.4 mgIndications:[facility] care maintenance Take 1 Tablet [...] Eligibility Review Date: 07/20/19 Upcoming Visit Location: [facility] Age: 78 y.o. Research Purpose Insurance [...] LDL - 101 Vesalius - Potential No MT or Stroke Problem Noted Date Diagnosed Date [...] Department Care Team Description 08/23/2024 Orders Only [facility] Scanner 1 scan: (1-Ord) JAIR IBARRA LT, 08/23/2024 08/23/2024 Orders Only [facility] Scanner 1 scan: (1-Ord) [facility], CERVICAL SPINE WO CON, 08/23/2024 08/23/2024 Orders Only [facility] Scanner 1 scan: (1-Ord) [email or web address] 08/21/2024 Orders Only [facility] Scanner 1 scan: (1-Ord) JESSICA REINA PF OS INJ, 08/21/2024 08/11/2024 Refill [facility] [address] [place] [address] [place] Allen DO Refill Request (Warfarin) 08/08/2024 10:15 AM PRINCIPAL TRAINER Orders Only [facility] Karina [address] [facility] [place] [address] Lab, [facility] 08/08/2024 Anticoagulation (warfarin) [facility] [address] [place] [address] 1, [facility] Anticoagulation 08/08/2024 Travel 07/17/2024 Telephone [facility] [address] [place] [address] [place] Allen, Error-please disregard 07/11/2024 12:45 PM PRINCIPAL TRAINER Orders Only [facility] [address] [place] [address] Lab, [facility] 07/11/2024 Anticoagulation (warfarin) [facility] [address] [facility] [place] [address] 1, [facility] Anticoagulation 07/11/2024 Telephone [facility] [address] [facility] [place] [address] [place] Allen, Follow Up 07/11/2024 Travel 06/26/2024 10:00 AM PRINCIPAL TRAINER Ancillary Procedure [facility] [address] [facility] [address] [place] [address] 06/26/2024 Travel 06/20/2024 10:40 AM PRINCIPAL TRAINER Ancillary Procedure [facility] [address] [facility] [place] [address] 06/20/2024 Travel 06/14/2024 10:50 AM PRINCIPAL TRAINER Office Visit [facility] [address] [place] [address] [place] Allen DO Follow Up (SOB and sweats x 2 months ) 06/14/2024 Anticoagulation (warfarin) [facility] [address] [facility] [place] [address] 1, [facility] Anticoagulation 06/14/2024 Travel 06/11/2024 11:30 AM PRINCIPAL TRAINER Office Visit [facility] [address] [place] [address] Torres Fong MD Sleep Follow-up 06/11/2024 Travel 05/28/2024 12:45 PM PRINCIPAL TRAINER Office Visit [facility] [address] [facility] [address] [place] [address] Marlene May MD Follow Up (Stroke/) 05/28/2024 10:00 AM PRINCIPAL TRAINER Orders Only [facility] [address] [facility] [place] [address] Lab, [facility] 05/28/2024 Anticoagulation (warfarin) [facility] [address] [place] [address] 1, [facility] Anticoagulation 05/28/2024 Travel from Last 3 Months Immunizations Immunization Administration Dates Next Due AMB INFLUENZA IIV3 (AGE 65+ YRS) PF (Flu Clinic Only) 03/31/2018,03/30/2017 AMB Influenza, IIV3 (Age >=3 years)(Flu Clinic Only) 03/30/2011,04/14/2010 Amb Influenza, Inact (High-d ose) (Flu Clinic Only) 04/23/2016,03/21/2015,03/19/2014 COVID-19 vaccine (Carmolex, NTSeiratherm 30mcg/0.3mL) TASIA BELLA 03/11/2021,08/19/2020,07/29/2020 Hepatitis A (Adult) [...] on file Legal Sex Female 6:50 AM PRINCIPAL TRAINER Gender Identity Not on file Sexual Orientation Not on file Obstetrics History Last Filed Vital Signs Vital Sign Reading Time Taken Comments Blood Pressure 110/62 06/14/2024 11:01 AM PRINCIPAL TRAINER Pulse 64 06/14/2024 11:01 AM PRINCIPAL TRAINER Temperature 37.2 C (99 F) 05/28/2024 12:50 PM PRINCIPAL TRAINER Respiratory Rate 16 11/17/2023 9:49 AM CDT Oxygen Saturation 98% 06/14/2024 11:01 AM PRINCIPAL TRAINER Inhaled Oxygen Concentration - - Weight 56.2 kg (124 lb) 06/14/2024 11:01 AM PRINCIPAL TRAINER Height 152.4 cm (5') 06/11/2024 11:33 AM PRINCIPAL TRAINER Body Mass Index 24.22 06/11/2024 11:33 AM PRINCIPAL TRAINER Plan of Treatment Upcoming Encounters Date Type Department Care Team (Late st Contact Info) Description 09/03/2024 12:30 PM CDT Orders Only [facility] [address] [place] [address] [facility], Jammie 10/16/2024 10:25 AM CDT Office Visit [facility] [address] [place] [address] Margaret Allen DO [address] [place] [address] 10/17/2024 12:00 PM CDT Appointment [facility] [place] [address] [facility] [address] [place] [address] Ailin Berger, OT [address] [place], [place] [address] 10/17/2024 1:30 PM CDT Appointment [facility] [place] [address] [facility] [address] [place] [address] Ailin Berger, OT [address] [place] [address] 12/18/2024 11:30 AM CDT Cardiac Device Check [facility] [address] [place] [phone] Health Maintenance Due Date Last Done Comments [...] AM CDT INR,POCT Routine 08/08/2024 10:17 AM PRINCIPAL TRAINER Paroxysmal atrial flutter (HC) Thrombosis involving cardiac device, sequela INR,POCT Routine 07/11/2024 12:46 PM PRINCIPAL TRAINER Paroxysmal atrial flutter (HC) Thrombosis involving cardiac device, sequela ECHO TTE COMPLETE WO CONTRAST Routine 06/26/2024 10:35 AM PRINCIPAL TRAINER 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), bioprosthetic XR MAMMO MARLA BILAT SCREEN Routine 06/20/2024 10:41 AM PRINCIPAL TRAINER Visit for screening mammogram INR,POCT Routine 06/14/2024 12:19 PM PRINCIPAL TRAINER Paroxysmal atrial flutter (HC) Thrombosis involving cardiac device, sequela INR,POCT Routine 05/28/2024 10:05 AM PRINCIPAL TRAINER Paroxysmal atrial flutter (HC) Thrombosis involving cardiac device, sequela XR DXA BONE DENSITY 2 SITES AXIAL Routine 08/09/2022 10:21 AM PRINCIPAL TRAINER Osteoporosis, unspecified osteoporosis type, unspecified pathological fracture [...] Final Result * (ABNORMAL) INR - POCT [84231.2] - Standing Order (08/08/2024 10:17 AM PRINCIPAL TRAINER) Only the most recent of4 resultswithin the time period is included. INR 2.0(H) ratio [facility] Comment: INRs >2.9 may be [...] PROTHROMBIN TIMEP 23.7(H) 10.5 - 13.1 sec [facility] Comment: Point of care fingerstick Prothrombin Time/INR results may vary from venous Prothrombin Time/INR methodologies. Any results exhibiting inconsistency with the patient's clinical status should be repeated using a venous Prothrombin Time/INR method. Blood BLOOD SPECIMEN / Unknown 08/08/2024 10:17 AM PRINCIPAL TRAINER 08/08/2024 10:18 AM PRINCIPAL TRAINER [place] Allen DO LABORATORY Final Resu lt [facility] [address] [place] [address], [facility] [address] [place] [address] * ECHO TTE COMPLETE WO CONTRAST (06/26/2024 10:35 AM PRINCIPAL TRAINER) AORTIC VALVE MEAN PG 7 mmHg PEAK TR VELOCITY 2.8 m/s LVEDD 4.0 cm MITRAL VALVE MR ERO 33 mm2 EJECTION FRACTION 55 - 60% Anatomical Region Laterality Modality Ultrasound 06/26/2024 9:55 AM PRINCIPAL TRAINER Narrative 06/26/2024 12:55 PM PRINCIPAL TRAINER ECHOCARDIOGRAM VALARIE HUANG : 1940 83 years Study Date: 06/26/2024 9:55:55 AM Gender: F BP: 110/62 mmHg Height: 152.40 cm BSA: 1.52 m Weight: 56.25 kg Tech: ERICA Referring MD: HARDEEP SUAZO Site: [facility] Reading Location: [facility] Patient Location: Procedure: 2D, Color Doppler and [...] . This study was interpreted by an [facility] accredited facility. Final Procedure Note Narayan Chapman MD - 06/26/2024 ECHOCARDIOGRAM VALARIE HUANG : 1940 83 years Study Date: 06/26/2024 9:55:55 AM Gender: F BP: 110/62 mmHg Height: 152.40 cm BSA: 1.52 m Weight: 56.25 kg Tech: ERICA Referring MD: HARDEEP SUAZO Site: [facility] Reading Location: [facility] Patient Location: Procedure: 2D, Color Doppler and [...] . This study was interpreted by an [facility] accredited facility. Final us Hardeep Suazo MD ECHO ORD Final Result * XR MAMMO MARLA BILAT SCREEN (06/20/2024 10:41 AM PRINCIPAL TRAINER) Anatomical Region Laterality Modality BREASTS, Breast Left, Breast Right Bilateral Mammography Impressions 06/20/2024 3:33 PM PRINCIPAL TRAINER There is no radiographic evidence for malignancy. Recommend annual mammograms. MAMMOGRAM ASSESSMENT: ACR 1 Negative PATIENTS: You will also receive a letter with your examination results in an easy to read format. If you have questions about your results, please contact your referring provider. Narrative 06/20/2024 3:33 PM PRINCIPAL TRAINER For Patients: As a result of the Century Cures Act, medical imaging exams and procedure reports are released immediately into your electronic medical record. You may view this report before your referring provider. If you have questions, please contact your health care provider. XR MAMMO MARLA BILAT SCREEN [[id number]] CLINICAL HISTORY: This is an asymptomatic 83 y.o. patient. INDICATION FOR EXAM: Mammogram Screening. TECHNIQUE: CC & MLO views were obtained. This study was evaluated with the assistance of Computer-Aided Detection. Breast Tomosynthesis was used in interpretation. COMPARISON FILM: Yes 04/19/23 [facility] 08/09/22 [facility] FINDINGS: There are scattered areas of fibroglandular density. There are no dominant masses, suspicious micro calcifications or areas of architectural distortion. us [place] Allen DO MAMMO Final Resu lt * (ABNORMAL) XR DXA BONE DENSITY 2 SITES AXIAL (08/09/2022 10:21 AM PRINCIPAL TRAINER) Anatomical Region Laterality Modality Spine, HIPS, HIPL, HIPR Other Impressions 08/10/2022 3:48 PM PRINCIPAL TRAINER Osteoporosis. RECOMMENDATIONS: The National Osteoporosis Foundation recommends [...] [facility] Hospital 08/10/2022 Narrative 08/10/2022 3:48 PM PRINCIPAL TRAINER For Patients: Results are automatically released to your [facility] ([employer]) account once available, in compliance with federal regulations. This means that you may see your results before your provider has had a chance to review them. Please allow 2-3 business days for your provider to comment on the results. XR DXA Bone Mineral Density (BMD) EXAM LOCATION: [address] [address] PATIENT NAME: Valarie Huang DATE OF : [...] two scanners are made by the same core drill operator. PROCEDURE: Dual-energy x-ray absorptiometry performed with routine [...] Relevant to Health Maintenance Insurance [place] ONLY MEDICARE PART B HB ONLY MEDICARE PART A HB ONLY [employer] [place] MR PB ONLY [place] [id number] MEDICARE PPS [place] [address] Advance Directives Documents on File Type Date Recorded Patient Liquor Rectifier Expl anation POLST 10/14/2023 Healthcare Directive 08/16/2016 [...] Code Status Discussion: Reviewed Preferences Care Teams Sash Sticker Relationship Specialty Start Date End Date [place] [address] PCP - General Family Practice 03/10/17 Chelsy Chinchilla MD Ophthalmology Surgery 04/17/13 Zainab Reyes, RN [address] [place] [address] Transformer Assembler Registered Nurse 09/23/23
--- OUTSIDE RECORDS SUMMARY | 2024-08-25 19:34 | XMS_ITS | Clinical Summary ---
Author Organization [facility] Address [address] [place] [address] Care Team Providers Care Transportation Maintenance Specialist Name Role Phone AlejandroMargaret Vannesa HARDING Primary Care Provider [phone]- [phone] Stephanie Byrd MD Unavailable Allergies Active Allergy [...] Description 08/23/2024 10:15 AM CDT Office Visit [facility] [address] [address] Stephanie Byrd MD Double vision; History of [...] exists Insurance MEDICARE PART A & B [facility] [place] [facility] [place] [id number] Care Teams Transportation Maintenance Specialist Relationship Specialty Start Date End Date [place] Allen DO [address] [place] [address] PCP - General Family Medicine 11/23/23 Stephanie Byrd MD [address] [place] [address] [address] [place] [address] Neurology 02/23/24
--- OUTSIDE RECORDS SUMMARY | 2024-08-25 19:34 | XMS_ITS | Encounter Summary ---
Author Organization [facility] Address [address] [place] [address] Care Team Providers Care Feed Mixer Name Role Phone [place] Allen Primary Care Provider [phone] Stephanie Byrd MD Unavailable Reason for Referral * Other (Routine) - Open Specialty Diagnoses / Procedures Referred By Fabiano jeronimo Referred To Contact Diagnoses Double vision History of ischemic stroke Procedures [facility] OPHTH APPOINTMENT Stephanie Byrd MD [address] [place] [address] [address] [place] [address] Phone: tel: fax: Referral ID Status Reason Start Date Expiration Date Visits Re quested Visits Authorized [id number] Open 11/23/2024 1 1 Reason for Visit * Reason Comments Follow up 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 * Other (Routine) - Open Specialty Diagnoses / Procedures Referred By Fabiano jeronimo Referred To Contact Diagnoses Double vision History of ischemic stroke Procedures [facility] NE[facility]O OPH[facility] APPOINTMENT Stephanie Byrd MD [address] [place] [address] [address] [place] [address] Phone: tel: fax: Referral ID Status Reason Start Date Expiration Date Visits Re quested Visits Authorized [id number] Open 08/23/2024 1 1 Encounter Details Date Type Department Care Team (Late st Contact Info) Description 08/23/2024 10:15 AM CDT Office Visit [facility] - [address] [place] [phone] Stephanie Byrd MD [address] [place] [address] [place] [address] [place] [address] Double vision; History of ischemic stroke Social [...] kind referral from Dr.Diane Aislinn May of [facility], [facility]. She is accompanied by her [id number] and also brother today, who are very [...] 02/23/2024 On 09/01/2023, the patient presented to [place] ED with visual disturbances noted while playing bingo, also left facial droop and left tingling sensation in the left side of her mouth. She had trouble seeing the bingo card due to double vision . 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 She was transferred to [facility] due to a pacemaker (PPM). An MRI [...] and Zetia was added later by her rn clinical documentation specialist. The patient has a history of essential [...] Dr. Aubrey Benavides of [facility]. Her most recent visit with the retinal [...] Resource Strain: Low Risk (02/04/2023) Received from [facility] Financial Resource Strain Difficulty of Paying Living Expenses: 3 Difficulty of Paying Living Expenses: Not on file Food Insecurity: No Food Insecurity (09/06/2023) Received from [facility] Food Insecurity Do you worry your food will run out before you are able to buy more?: 1 Transportation Needs: No Transportation Needs (09/06/2023) Received from [facility] Transportation Needs Does lack of transportation keep you from medical appointments?: 1 Does lack of transportation keep you from work, meetings or getting things that you need?: 1 Physical Activity: Not on file Stress: Not on file Social Connections: Socially Integrated (09/06/2023) Received from [facility] Social Connections Do you often feel lonely or isolated from those around you?: 0 Intimate Partner Violence: Not on file Housing Stability: Low Risk (09/06/2023) Received from [facility] Housing Stability 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 Stephanie Byrd MD Neuro-ophthalmology [facility] MIPS 2024: Documentation of current mediations [...] stroke documented in this encounter Care Teams Feed Mixer Relationship Specialty Start Date End Date [place] Allen DO [address] [place] [address] PCP - General Family Medicine 11/23/23 Stephanie Byrd MD [address] [facility] [address] [place] [address] Neurology 02/23/24 documented as of this encounter
--- OUTSIDE RECORDS SUMMARY | 2024-08-25 19:34 | XMS_ITS | Clinical Summary ---
Author Organization [facility] Address [address] , [address] [place] [address] Phone Care Team Providers Care Welfare Eligibility Interviewer Name Role Phone Garcia Galvez Unavailable Conditions or Problems Problem Name Problem Code Onset Date Status Entry Date Provider Comment Standard Description Annotate Paresthesias 76932229 (SNOMED CT) 08/20 Active 08/20 Gaston Pineda MD Paresthesia Essential tremor 160474357 (SNOMED CT) 06/23 Active 06/23 Fantasma Maxwell MD Hereditary essential tremor Cerebrovascula r disease 42661585 (SNOMED CT) 06/23 Active 06/23 Fantasma Maxwell MD Cerebrovascular disease Memory problems 98749471 (SNOMED CT) 06/23 Active 06/23 Fantasma Maxwell MD Dementia Balance problem 157028976 (SNOMED CT) 06/23 Active 06/23 Fantasma Maxwell MD Impairment of balance Medications Medication Instructions Start Date Stop Date Generic Name NDC Provider TOPAMAX 25 MG TABS Take as directed Take 1/2 q hs for 1 week, Then continue 1/2 BID. topiramate [id number] Aislinn Celis RN TOPAMAX 25 MG TABS Take as directed Take 1/2 q hs for 1 week, Then continue 1/2 BID. topiramate [id number] Maynor Gant MD FLECAINIDE ACETATE 50 MG TABS flecainide [id number] Fantasma Maxwell MD ELIQUIS 5 MG TABS apixaban [id number] Fantasma Maxwell MD FLUTICASONE PROPIONATE 50 MCG/ACT SUSP fluticasone propionate [id number] Fantasma Maxwell MD ROSUVASTATIN CALCIUM 40 MG TABS rosuvastatin [id number] Fantasma Maxwell MD OMEPRAZOLE 20 MG CPDR omeprazole 24771339336 Fantasma Maxwell MD FLECAINIDE ACETATE 50 MG TABS flecainide 18593313153 Fantasma Maxwell MD PROPRANOLOL HCL ER 80 MG [id number] TAKE 1 CAPSULE BY MOUTH ONCE A DAY propranolol [id number] Fantasma Maxwell MD ALENDRONATE SODIUM 70 MG TABS alendronate [id number] Fantasma Maxwell MD Medications Administered No information [...] contact you with test results 202 07/18/16 [id number] MRI-Thoracic W/O [id number] MRI-Cervical W/O [id number] Documentation of current medicatio ns ORDERS Follow up CPT-13853 Skin Biopsy, 1 lesion (2018) CPT-63434 Skin Biopsy, each additional lesion (2018 ) ORDERS Skin Biopsy ORDERS Physical Therapy ORDERS Occupational Therapy ORDERS Follow up ZAIN after testing ORDERS EMG bilateral low ext 06/23 ORDERS EMG bilateral upper ext 2020 CPT-76552 Nerve Conduction 9-10 studies CPT-61435 EMG with NCS (5+ muscles) - 2 limbs 07/03 [id number] MRI-Brain W/WO [id number] MRA-Neck W/WO [id number] MRA-Head W/O ORDERS Methylmalonic Acid Serum (MMA) ORDERS T4 Free Direct ORDERS TSH ORDERS Vitamin B12 ORDERS Lipid Panel with LDL/HDL Ratio ORDERS Hemoglobin A1C [id number] Documentation of current medicatio ns Vital Signs [...]
[2024-08-25] MEDS: 0.9 % SODIUM CHLORIDE 500 ML 500 ML IV (19:39)
[2024-08-25 19:59] LABS: Appearance Urine Cloudy (Clear); Bilirubin Urine Negative (Negative); Blood Urine Trace-intact (Negative); Color Urine Yellow (Yellow); Glucose Urine Negative (Negative); Ketones Urine 2+ (Negative); Leukocyte Esterase Urine 1+ (Negative); Nitrite Urine Negative (Negative); Protein Urine 1+ (Negative); Urobilinogen Urine 0.2 (0.2-1.0)
[2024-08-25 20:09] LABS: Bacteria Urine Many; RBC Urine 0-2 (0-2); WBC Urine 25-50 (0-5)
[2024-08-25] MEDS: 0.9 % SODIUM CHLORIDE 1000 ml 1,000 ML 500 ML IV (20:43)
[2024-08-25] MEDS: cefTRIAXone 1 GM in 0.9 % SODIUM CHLORIDE Mini-bag 100 ML IVPB (22:28)
[2024-08-25 22:32] LABS: Bilirubin Direct* 0.8 mg/dL (0.0-0.5)
[2024-08-25 22:46] LABS: NT Pro B Type NatriureticPept* 1880 pg/mL
--- NOTE | 2024-08-25 23:10 | P.IMHP_ITS ---
Hospitalist- H&P: HPI History of Present Illness Date Seen: 08/25/24 Chief complaint: Vomiting, lack of appetite Narrative: Devi Givens is a 84 year old woman who presents to the [facility] ED this evening with CC of decreased appetite, nausea, vomiting, orthostasis for the past 24 hours. Denies fever, rigors, diaphoresis. Denies cough. Acknowledges baseline, chronic level of dyspnea with exertion, particularly when bending forward. Denies aspiration. Has been striving diligently to stay hydrated by trying to drink plenty of water. Stopped taking her [place] 5/325 for left elbow pain (prescribed 2 days ago for L olecranon fx s/p fall) thinking this might be causing some of her nausea. Has been using acetaminophen only for pain since yesterday evening with fair success. Review of Systems Status of ROS: Reports: 6 or more systems reviewed and unremarkable except as noted in History and below Narrative: Denies chest heaviness, tightness, pressure, or pain. No edema. No diarrhea. Some abdominal discomfort with vomiting, otherwise to abdominal pain per se. Has had dysuria off and on for the past 3 days. Denies hematuria, urgency, or frequency. Left olecranon fx s/p standing fall on 08/23/24. Also his head at time of fall. CT head negative on 08/23 and today, is chronically anticoagulated with warfarin with INR goal of 2-3. Historically anticoagulated with apixapan, but this was changed to warfarin in 04/05 due to suspicion that she was having thrombus formation on TAVR despite apixaban therapy and that she might be having embolic strokes. Follows with neuro-ophthalmology due to diplopia s/p stroke 09/03. [facility] Medical History Aortic stenosis ?I35.0 - Nonrheumatic aortic (valve) stenosis (ICD-10) Cardiac pacemaker in situ ?Z95.0 - Presence of cardiac pacemaker (ICD-10) E. coli UTI ?N39.0 - Urinary tract infection, site not specified (ICD-10) ?B96.20 - Unspecified Escherichia coli [E. coli] as the cause of diseases classified elsewhere (ICD-10) SSS (sick sinus syndrome) ?I49.5 - Sick sinus syndrome (ICD-10) Prolonged Q-T interval on ECG ?R94.31 - Abnormal electrocardiogram [ECG] [EKG] (ICD-10) KEVIN (obstructive sleep apnea) ?G47.33 - Obstructive sleep apnea (adult) (pediatric) (ICD-10) ASHD (arteriosclerotic heart disease) ?I25.10 - Atherosclerotic heart disease of [place] coronary artery without angina pectoris (ICD-10) Paroxysmal atrial fibrillation ?I48.0 - Paroxysmal atrial fibrillation (ICD-10) Dyspnea on exertion ?R06.09 - Other forms of dyspnea (ICD-10) Pulmonary hypertension ?I27.20 - Pulmonary hypertension, unspecified (ICD-10) Adjustment disorder with depressed mood ?F43.21 - Adjustment disorder with depressed mood (ICD-10) Essential and other specified forms of tremor ?G25.0 - Essential tremor (ICD-10) ?G25.2 - Other specified forms of tremor (ICD-10) Unspecified essential hypertension ?I10 - Essential (primary) hypertension (ICD-10) Fibromyalgia ?M79.7 - Fibromyalgia (ICD-10) GERD (gastroesophageal reflux disease) ?K21.9 - Gastro-esophageal reflux disease without esophagitis (ICD-10) Surgical History H/O breast biopsy ?Z98.890 - Other specified postprocedural states (ICD-10) History of YAG laser capsulotomy of lens of left eye ?Z98.42 - Cataract extraction status, left eye (ICD-10) Hx of tubal ligation ?Z98.51 - Tubal ligation status (ICD-10) Hx of cataract extraction ?Z98.49 - Cataract extraction status, unspecified eye (ICD-10) Social History Narrative: Lives independently with support of family. DNR/DNI resuscitation status. Designates brother, Brady, as primary decision maker for her health care should she be unable to speak on her own behalf, , and her [id number]-sv-evr, Carolina, Brady's , as her secondary decision maker for her health care should she be unable to speak on her own behalf, . Primary care physician is Dr. Margaret Allen, [facility]. What is your current living situation?: I presently have a place to live Problems where you live: no known problems Problems where you live details: N/A In the past 12 months, utilities in danger of being shut off: no In past 12 months, lack of transportation kept you from medical appts, meetings, work, or getting things needed for daily living: no In the past 12 mos, have been you worried that your food would run out before you had money to buy more?: never true In the past 12 mos, the food you bought just didn't last and you didn't have money to buy more?: never true Highest level of school completed/degree received: high school graduate Smoking Status: Former smoker Do you use any of these nicotine containing products: None Second hand tobacco smoke exposure: No How often do you have a drink containing alcohol: 2-3 times a week Alcohol type: beer How many standard drinks containing alcohol do you have on a typical day: 3 or 4 How often do you have six or more drinks on one occasion: Never AUDIT-C Alcohol total score: 4 Non-prescribed substance use: denies use Caffeine: Yes How often does anyone, including family, friends and others, physically hurt you : never How often does anyone, including family, friends and others, insult or talk down to you: never How often does anyone, including family, friends and others, threaten you with harm: never How often does anyone, including family, friends and others, scream or curse at you: never service: No Meds Home Medications and Allergies Home Medications ?Medication ?Instructions ?Recorded ?Confirmed ?Type acyclovir 400 mg tablet 400 mg PO 3XD PRN 09/08/22 08/25/24 History omeprazole 20 mg capsule,delayed 20 mg PO DAILY 09/08/22 08/25/24 History release propranolol 80 mg capsule,24 80 mg PO DAILY 09/08/22 08/25/24 History hr,extended release apixaban 5 mg tablet (Eliquis) 5 mg PO BID 10/11/22 08/25/24 History aspirin 81 mg chewable tablet 81 mg PO DAILY 10/11/22 08/25/24 History (Aspirin Childrens) calcium 500 mg (as 1 tab PO DAILY 10/11/22 08/25/24 History carbonate)-vitamin D3 3.125 mcg (125 unit) tablet cholecalciferol (vitamin D3) 25 25 mcg PO DAILY 10/11/22 08/25/24 History mcg (1,000 unit) capsule coenzyme Q10 100 mg capsule 100 mg PO DAILY 10/11/22 08/25/24 History fexofenadine 180 mg tablet 180 mg PO DAILY 10/11/22 08/25/24 History (Karolyn Allergy) fluticasone propionate 50 2 spray intranasal DAILY PRN 10/11/22 08/25/24 History mcg/actuation nasal spray,suspension magnesium oxide 400 mg PO DAILY 10/11/22 08/25/24 History metoprolol tartrate 25 mg tablet 12.5 - 25 mg PO DAILY PRN 10/11/22 08/25/24 History multivitamin 1 tab PO DAILY 10/11/22 08/25/24 History rosuvastatin 40 mg tablet (Crestor) 40 mg PO DAILY 10/11/22 08/25/24 History clopidogrel 75 mg tablet 75 mg PO DAILY 09/24/23 08/25/24 History losartan 25 mg tablet 12.5 mg PO DAILY 09/24/23 08/25/24 History ofloxacin 0.3 % eye drops 1 drp ophthalmic (eye) QID 09/24/23 08/25/24 History potassium chloride 20 mEq 20 meq PO DAILY 09/24/23 08/25/24 History tablet,extended release(part/cryst) propranolol 20 mg tablet 20 mg PO DAILY 09/24/23 08/25/24 History escitalopram oxalate 10 mg tablet 10 mg PO QAM 08/23/24 08/25/24 History ezetimibe 10 mg tablet 10 mg PO DAILY 08/23/24 08/25/24 History magnesium chloride 64 mg 128 mg PO DAILY 08/23/24 08/25/24 History (magnesium chloride) tablet,delayed release (Mag-Delay) warfarin 2 mg tablet mg 08/23/24 History Allergies Allergy/AdvReac Type Severity Reaction Status Date / Time Sulfa (Sulfonamide Allergy Verified 08/25/24 20:51 Antibiotics) Exam Narrative: Exam Narrative: Appears comfortable, no acute distress. Laying on exam bed in ED with head of bead elevated 30 degrees. Vision and hearing seem adequate, although I do repeat myself for her to hear me at times. TMs normal bilaterally. Conjugate gaze. No icterus. midline nasal septum. Dry buccal mucosa. Dentition fair repair. Neck is supple. Midline trachea. No JVD or HJR. No head and neck lymphadenopathy. Lungs are clear to auscultation, without wheezing, rhonchi or rales. Chest wall excursions are full. No CVA tenderness. Heart tones with regular rhythm, normal S1S2, without gallop or rub. PMI not laterally displaced. Abdomen with active bowel sounds, soft, non-tender. Extremities with out edema. Moves all 4 extremities. CN III-XII grossly normal. Skin is intact. Const: Vital Signs, click to edit/add: Vital Signs - 24 hr 08/25/24 18:20 08/25/24 18:31 08/25/24 18:31 Temperature 100 F H Pulse Rate Pulse Rate [Right Pulse Oximeter] 91 Respiratory Rate 18 Blood Pressure Blood Pressure [Ri ght Upper Arm] 160/81 H Pulse Oximetry 87 L 91 92 Oxygen Delivery Me thod Room Air Room Air Oxygen Flow Rate 08/25/24 18:42 08/25/24 18:42 08/25/24 18:45 Temperature Pulse Rate 74 70 Pulse Rate [Right Pulse Oximeter] Respiratory Rate 12 Blood Pressure Blood Pressure [Ri ght Upper Arm] Pulse Oximetry 98 92 94 Oxygen Delivery Me thod Nasal Cannula Nasal Cannula Oxygen Flow Rate 2 1 08/25/24 18:51 08/25/24 19:00 08/25/24 19:23 Temperature Pulse Rate 70 71 Pulse Rate [Right Pulse Oximeter] Respiratory Rate 26 H Blood Pressure Blood Pressure [Ri ght Upper Arm] Pulse Oximetry 92 91 94 Oxygen Delivery Me thod Nasal Cannula Oxygen Flow Rate 08/25/24 19:30 08/25/24 19:42 08/25/24 19:43 Temperature Pulse Rate 70 72 69 Pulse Rate [Right Pulse Oximeter] Respiratory Rate 14 14 22 Blood Pressure 105/75 Blood Pressure [Ri ght Upper Arm] Pulse Oximetry 93 93 93 Oxygen Delivery Me thod Oxygen Flow Rate 08/25/24 19:55 08/25/24 20:25 08/25/24 20:30 Temperature Pulse Rate 73 77 76 Pulse Rate [Right Pulse Oximeter] Respiratory Rate 22 12 Blood Pressure Blood Pressure [Ri ght Upper Arm] Pulse Oximetry 92 96 97 Oxygen Delivery Me thod Oxygen Flow Rate 08/25/24 20:31 08/25/24 20:32 08/25/24 20:45 Temperature Pulse Rate 74 70 71 Pulse Rate [Right Pulse Oximeter] Respiratory Rate 14 13 Blood Pressure 109/66 Blood Pressure [Ri ght Upper Arm] Pulse Oximetry 96 95 93 Oxygen Delivery Me thod Oxygen Flow Rate 08/25/24 21:00 08/25/24 21:01 08/25/24 21:02 Temperature Pulse Rate 72 72 72 Pulse Rate [Right Pulse Oximeter] Respiratory Rate 13 Blood Pressure 114/57 L Blood Pressure [Ri ght Upper Arm] Pulse Oximetry 92 91 91 Oxygen Delivery Me thod Oxygen Flow Rate 08/25/24 21:15 08/25/24 21:30 08/25/24 21:31 Temperature Pulse Rate 72 72 73 Pulse Rate [Right Pulse Oximeter] Respiratory Rate 15 18 27 H Blood Pressure 121/66 Blood Pressure [Ri ght Upper Arm] Pulse Oximetry 88 90 93 Oxygen Delivery Me thod Oxygen Flow Rate 08/25/24 21:32 08/25/24 21:45 08/25/24 22:00 Temperature Pulse Rate 70 74 74 Pulse Rate [Right Pulse Oximeter] Respiratory Rate 28 H 30 H 17 Blood Pressure Blood Pressure [Ri ght Upper Arm] Pulse Oximetry 91 91 Oxygen Delivery Me thod Oxygen Flow Rate 08/25/24 22:02 08/25/24 22:15 Temperature Pulse Rate 71 72 Pulse Rate [Right Pulse Oximeter] Respiratory Rate 21 8 L Blood Pressure 124/47 L Blood Pressure [Ri ght Upper Arm] Pulse Oximetry 88 94 Oxygen Delivery Me thod Oxygen Flow Rate Hospitalist - H&P: Result Labs Labs: Short CBC 08/25/24 Range/Units 18:50 WBC 12.46 H (4.50-11.00) K/uL Hgb 11.5 L (12.0-16.0) gm/dL Hct 34.7 (33.0-51.0) % Plt Count 135 L (140-440) K/uL BMP 08/25/24 18:50 Sodium 130 L Potassium 3.9 Chloride 98 Carbon Dioxide 23 BUN 11 Creatinine 0.4 L Glucose 131 H Calcium 8.5 Cardiac Enzymes 08/25/24 Range/Units 18:50 Troponin I < 0.01 L (0.01-0.04) ng/mL Liver Function 03/15/25 Range/Units 18:50 Total Bilirubin 4.6 H (0.1-1.5) mg/dL Direct Bilirubin 0.8 H (0.0-0.5) mg/dL AST 29 (12-35) U/L ALT 14 (4-35) U/L Alkaline Phosphatase 48 (40-150) U/L Albumin 4.3 (3.3-5.0) g/dL Urine 08/25/24 Range/Units 19:30 Urine Color Yellow (Yellow) Urine Appearance Cloudy A (Clear) Urine pH 6.0 (5.0-8.5) Ur Specific [place] 1.020 (1.000-1.030) Urine Protein 1+ A (Negative) Urine Glucose (UA) Negative (Negative) ECG Attestation: I personally reviewed and interpreted this ECG as follows: Interpretation: NSR with occasional atrial pacemaker spikes. Imaging elbow x-ray, left: Attestation: I have reviewed the pertinent imaging results. Radiologist's impression: Impression: Acute comminuted olecranon fracture displaced approximately 1.6 cm posteriorly Chest x-ray: Attestation: I have reviewed the pertinent imaging results. Radiologist's impression: IMPRESSION: 1. No acute cardiopulmonary findings. 2. Stable cardiomegaly. CT scan - head: Attestation: I have reviewed the pertinent imaging results. Radiologist's impression: No acute intracranial abnormalities 08/25 and 08/23. CT Chest/Ab/Pelvis: Attestation: I have reviewed the pertinent imaging results. Radiologist's impression: IMPRESSION: 1. There is mosaic attenuation bilaterally in the lungs, which may reflect small airway disease or small vessel disease. 2. Otherwise, no acute findings in the chest, abdomen, or pelvis. Assessment and Plan Assessment and plan (1) Nausea and vomiting: Problem comment: - etiology uncertain: viral gastroenteritis, iatrogenic due to meds, secondary to UTI, multifactorial Status: Acute (2) Dehydration: Problem comment: - IVF and monitor Status: Acute (3) Orthostasis: Problem comment: - IVF and monitor Status: Acute (4) UTI (urinary tract infection): Problem comment: - UA demonstrates leukocyte esterase, WBCs, and bacteria - await UC - empiric coverage with ceftriaxone for now Status: Acute (5) Acute hypoxic respiratory failure: Problem comment: - suspect acute on chronic - CT of chest today without contrast demonstrates mosaic attenuation bilaterally in the lungs, which may reflect small airway disease or small vessel disease. - Oxygen supplementation and monitor - for the time being I am treating with azithromycin for possible atypical CAP Status: Acute (6) Indirect hyperbilirubinemia: Problem comment: - most likely due to dehydration Status: Acute (7) Leukocytosis: Problem comment: - suspect demargination from N/V, dehydration rather than infection - monitor Status: Acute (8) Abnormal chest CT: Problem comment: - see acute hypoxic resp failure, above Status: Acute (9) Fever: Problem comment: - Tmax 100 degrees Fahrenheit Status: Acute (10) Elbow fracture, left: Problem comment: - Fx 08/23 s/p standing fall - Orthopedic surg consult - OT and PT consult Status: Acute Plan 1. Reviewed with patient and her lshvma-[id number]-noc and answered their questions 2. Pharmacy to assist with warfarin dosing in hospital 3. Continue supportive efforts 4. They are agreeable to above stated plans and recommendations Total Time Spent Total Time Spent: 70 minutes
[2024-08-26] VITALS (10 sets, daily range): BP systolic 89–135; BP diastolic 55–78; PULSE 61–79; RESP 16–18; TEMP 36.4–36.7; O2SAT 91–99
[2024-08-26] MEDS: 0.9 % SODIUM CHLORIDE 1000 ml 1,000 ML 125 ML IV (00:02)
[2024-08-26] MEDS: AZITHROMYCIN 250 MG TABLET 500 MG PO (00:02)
--- NOTE | 2024-08-26 04:20 | PC.NURSE ---
Shift note: Patient arrived to the floor at 2230 on a wheelchair accompanied a staff from the ED. Conscious, alert and oriented. Left arm was in a splint on arrival and IV saline bolus was infusing. Sensation intact. capillary refill <3 minutes. However, dorsal palm appeared bruised. Patient denied pain on arrival. She ambulated with A1 to and from the BR. Vitally stable. At 0230, patient had 1 loose stool, appeared confused, stated that there is some images on the wall. Refused Oxycodone for possible pain. Patient slept very late at 0330. Droplet precaution put in place.
[2024-08-26] MEDS: OXYCODONE 5 MG TABLET 2.5 MG PO (05:53)
[2024-08-26 07:01] LABS: Lactate* 1.8 mmol/L (0.5-1.9)
[2024-08-26 07:09] LABS: Hematocrit 31.6 % (33.0-51.0); Hemoglobin* 10.3 gm/dL (12.0-16.0); Mean Corpuscular HGB Conc 33 gm/dL (32-36); Mean Corpuscular Hemoglobin 30 pg (26-34); Mean Corpuscular Volume 93 fL (80-100); Platelet Count* 136 K/uL (140-440); Red Blood Count 3.39 m/uL (4.00-5.20); White Blood Count* 8.71 K/uL (4.50-11.00)
[2024-08-26 07:18] LABS: Chloride* 103 mmol/L (96-114)
[2024-08-26 07:19] LABS: Sodium* 132 mmol/L (135-149)
[2024-08-26 07:21] LABS: Anion Gap 8 mEq/L (7-15); Bilirubin Direct* 0.4 mg/dL (0.0-0.5); Bilirubin Total* 2.9 mg/dL (0.1-1.5); Blood Urea Nitrogen* 10 mg/dL (7-30); Carbon Dioxide* 21 mmol/L (20-32); Creatinine* 0.4 mg/dL (0.5-1.5); Est. Creatinine Clearance* 30.62; Estimated Glomerular Filt Rate 98 ml/min
[2024-08-26 07:22] LABS: Calcium* 7.8 mg/dL (8.4-10.6); Glucose* 98 mg/dL (60-115); Magnesium* 1.8 mg/dL (1.5-2.6); Phosphorus* 2.8 mg/dL (2.5-4.5)
[2024-08-26 07:26] LABS: Slide Review Reflex No
[2024-08-26 07:41] LABS: Troponin I* 0.09 ng/mL (0.01-0.04)
[2024-08-26 07:52] LABS: INR 2.28 (0.91-1.10); Prothrombin Time 26.2 Seconds
--- NOTE | 2024-08-26 08:47 | P.IMPN_ITS ---
Progress Note: A&P Assessment and plan (1) Nausea and vomiting: Problem details: - etiology uncertain: viral gastroenteritis, iatrogenic due to meds (recently started on [place] 2/ elbow fracture), atypical ACS, UTI - improved 08/26 and tolerating po intake Status: Acute (2) Elevated troponin: Problem details: - negative 08/25, 0.09 on 08/26 - no acute changes on EKG, telemetry has been reassuring (difficult to interpret given essential tremor) - follow to peak, repeat TTE Status: Acute (3) (HFpEF) heart failure with preserved ejection fraction: Problem details: - last TTE 06/2024 with results below, will repeat given elevated troponin + dyspnea Final Impressions: 1. Normal LV size, borderline wall thickness, normal global systolic function with an estimated EF of 55 - 60%. 2. Severely enlarged left atrium. 3. 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 , no stenosis and trivial regurgitation. The aortic valve peak velocity is 1.6 m/s, the peak gradient is 11 mmHg, and the mean gradient is 7 mmHg. The aortic valve area is 2.12 cm?? with a dimensionless index of 0.56. The stroke volume index is 53.9 ml/m??. 4. The mitral valve is sclerotic, moderate mitral regurgitation. 5. Mild-moderate tricuspid regurgitation. 6. Borderline increased estimated pulmonary pressures by tricuspid regurgitation velocity and right atrial pressure (31 mmHg plus RAP). 7. Grade 2 pattern of LV diastolic filling. Status: Acute (4) Elbow fracture, left: Problem details: - Fx 08/23 s/p standing fall - Orthopedic surg consult - OT and PT following Status: Acute (5) Acute hypoxic respiratory failure: Problem details: - suspect acute on chronic - ddx: atypical CAP, anemia, cardiac disease/HF - CT of chest 08/25 without contrast demonstrates mosaic attenuation bilaterally in the lungs, which may reflect small airway disease or small vessel disease. - Oxygen supplementation as needed - Azithromycin was d/c'd 08/26 given afebrile status, reassuring exam, no cough - no further need for supplemental oxygen on 08/26, following troponin and TTE Status: Acute (6) Normocytic anemia: Problem details: - Hgb 10.3 on 08/26, baseline 12- - no evidence of acute bleeding, INR therapeutic - continue to follow Status: Acute (7) Dehydration: Problem details: - IVFs on admission, d/c'd on 08/26 given po intake, normalized lactate Status: Acute (8) Orthostasis: Problem details: - monitor Status: Acute (9) UTI (urinary tract infection): Problem details: - UA 08/25 demonstrates leukocyte esterase, WBCs, and bacteria - culture pending - empiric coverage with ceftriaxone for now Status: Acute (10) Indirect hyperbilirubinemia: Problem details: - most likely due to dehydration, improved 08/26 Status: Acute (11) Leukocytosis: Problem details: - suspect demargination from N/V, dehydration rather than infection - normalized 08/26, monitor Status: Acute (12) Abnormal chest CT: Problem details: - see acute hypoxic resp failure, above Status: Acute Plan - per above (follow troponin to peak, TTE, advance diet as tolerated) - symptomatic HENDERSON requires at least 1-2 more days of evaluation Subjective Date Seen: 08/26/24 Interval history: Devi was admitted to the hospital yesterday for nausea and vomiting in addition to acute hypoxic respiratory failure and dyspnea on exertion. Imaging in the emergency room revealed mosaic attenuation bilaterally in the lungs, possibly reflecting small airway disease. Tmax 100, Azithromycin initiated empirically to cover atypical CAP. UA was positive and ceftriaxone was initiated empirically. Her GI symptoms have improved and she has ordered breakfast this morning. She has not had chest pain, but notes dyspnea, particularly with exertion. No longer requiring supplemental oxygen, no further fevers. No orthopnea, no PND, no lower extremity edema. 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 This morning, troponin increased to 0.09 (was negative in the emergency room). No chest pain, no acute changes on EKG. Fell at home 08/23 and sustained a L elbow fracture, has f/u scheduled with Ortho 08/27. Exam Narrative: Exam Narrative: GEN: Alert and oriented, sitting comfortably in bedside chair HEENT: EOMIs bilaterally, no scleral icterus CV: RRR, soft systolic murmur without concerning features R: LCTA bilaterally without concerning wheezing, rales, or rhonchi Ext: Splint and sling on left upper extremity; edema of left fingers with normal range of motion, sensation, and capillary refill Skin: No concerning skin lesions or rashes on exposed skin Neuro: Essential tremor, baseline. No focal deficits Psych: Appropriate Const: Vital Signs, click to edit/add: Vital Signs - 24 hr 08/25/24 18:20 08/25/24 18:31 08/25/24 18:31 Temperature 100 F H Pulse Rate Pulse Rate [Right Pulse Oximeter] 91 Pulse Rate [orthos tatic lying Right Pulse Oximeter] Pulse Rate [orthos tatic sitting Righ t Pulse Oximeter] Pulse Rate [orthos tatic standing Rig ht Pulse Oximeter] Respiratory Rate 18 Blood Pressure Blood Pressure [Ri ght Arm] Blood Pressure [Ri ght Upper Arm] 160/81 H Blood Pressure [or thostatic lying Ri ght Arm] Blood Pressure [or thostatic sitting Right Arm] Blood Pressure [or thostatic standing Right Arm] Pulse Oximetry 87 L 91 92 Oxygen Delivery Me thod Room Air Room Air Oxygen Flow Rate 08/25/24 18:42 08/25/24 18:42 08/25/24 18:45 Temperature Pulse Rate 74 70 Pulse Rate [Right Pulse Oximeter] Pulse Rate [orthos tatic lying Right Pulse Oximeter] Pulse Rate [orthos tatic sitting Righ t Pulse Oximeter] Pulse Rate [orthos tatic standing Rig ht Pulse Oximeter] Respiratory Rate 12 Blood Pressure Blood Pressure [Ri ght Arm] Blood Pressure [Ri ght Upper Arm] Blood Pressure [or thostatic lying Ri ght Arm] Blood Pressure [or thostatic sitting Right Arm] Blood Pressure [or thostatic standing Right Arm] Pulse Oximetry 98 92 94 Oxygen Delivery Me thod Nasal Cannula Nasal Cannula Oxygen Flow Rate 2 1 08/25/24 18:51 08/25/24 19:00 08/25/24 19:23 Temperature Pulse Rate 70 71 Pulse Rate [Right Pulse Oximeter] Pulse Rate [orthos tatic lying Right Pulse Oximeter] Pulse Rate [orthos tatic sitting Righ t Pulse Oximeter] Pulse Rate [orthos tatic standing Rig ht Pulse Oximeter] Respiratory Rate 26 H Blood Pressure Blood Pressure [Ri ght Arm] Blood Pressure [Ri ght Upper Arm] Blood Pressure [or thostatic lying Ri ght Arm] Blood Pressure [or thostatic sitting Right Arm] Blood Pressure [or thostatic standing Right Arm] Pulse Oximetry 92 91 94 Oxygen Delivery Me thod Nasal Cannula Oxygen Flow Rate 08/25/24 19:30 08/25/24 19:42 08/25/24 19:43 Temperature Pulse Rate 70 72 69 Pulse Rate [Right Pulse Oximeter] Pulse Rate [orthos tatic lying Right Pulse Oximeter] Pulse Rate [orthos tatic sitting Righ t Pulse Oximeter] Pulse Rate [orthos tatic standing Rig ht Pulse Oximeter] Respiratory Rate 14 14 22 Blood Pressure 105/75 Blood Pressure [Ri ght Arm] Blood Pressure [Ri ght Upper Arm] Blood Pressure [or thostatic lying Ri ght Arm] Blood Pressure [or thostatic sitting Right Arm] Blood Pressure [or thostatic standing Right Arm] Pulse Oximetry 93 93 93 Oxygen Delivery Me thod Oxygen Flow Rate 08/25/24 19:55 08/25/24 20:25 08/25/24 20:30 Temperature Pulse Rate 73 77 76 Pulse Rate [Right Pulse Oximeter] Pulse Rate [orthos tatic lying Right Pulse Oximeter] Pulse Rate [orthos tatic sitting Righ t Pulse Oximeter] Pulse Rate [orthos tatic standing Rig ht Pulse Oximeter] Respiratory Rate 22 12 Blood Pressure Blood Pressure [Ri ght Arm] Blood Pressure [Ri ght Upper Arm] Blood Pressure [or thostatic lying Ri ght Arm] Blood Pressure [or thostatic sitting Right Arm] Blood Pressure [or thostatic standing Right Arm] Pulse Oximetry 92 96 97 Oxygen Delivery Me thod Oxygen Flow Rate 08/25/24 20:31 08/25/24 20:32 08/25/24 20:45 Temperature Pulse Rate 74 70 71 Pulse Rate [Right Pulse Oximeter] Pulse Rate [orthos tatic lying Right Pulse Oximeter] Pulse Rate [orthos tatic sitting Righ t Pulse Oximeter] Pulse Rate [orthos tatic standing Rig ht Pulse Oximeter] Respiratory Rate 14 13 Blood Pressure 109/66 Blood Pressure [Ri ght Arm] Blood Pressure [Ri ght Upper Arm] Blood Pressure [or thostatic lying Ri ght Arm] Blood Pressure [or thostatic sitting Right Arm] Blood Pressure [or thostatic standing Right Arm] Pulse Oximetry 96 95 93 Oxygen Delivery Me thod Oxygen Flow Rate 08/25/24 21:00 08/25/24 21:01 08/25/24 21:02 Temperature Pulse Rate 72 72 72 Pulse Rate [Right Pulse Oximeter] Pulse Rate [orthos tatic lying Right Pulse Oximeter] Pulse Rate [orthos tatic sitting Righ t Pulse Oximeter] Pulse Rate [orthos tatic standing Rig ht Pulse Oximeter] Respiratory Rate 13 Blood Pressure 114/57 L Blood Pressure [Ri ght Arm] Blood Pressure [Ri ght Upper Arm] Blood Pressure [or thostatic lying Ri ght Arm] Blood Pressure [or thostatic sitting Right Arm] Blood Pressure [or thostatic standing Right Arm] Pulse Oximetry 92 91 91 Oxygen Delivery Me thod Oxygen Flow Rate 08/25/24 21:15 08/25/24 21:30 08/25/24 21:31 Temperature Pulse Rate 72 72 73 Pulse Rate [Right Pulse Oximeter] Pulse Rate [orthos tatic lying Right Pulse Oximeter] Pulse Rate [orthos tatic sitting Righ t Pulse Oximeter] Pulse Rate [orthos tatic standing Rig ht Pulse Oximeter] Respiratory Rate 15 18 27 H Blood Pressure 121/66 Blood Pressure [Ri ght Arm] Blood Pressure [Ri ght Upper Arm] Blood Pressure [or thostatic lying Ri ght Arm] Blood Pressure [or thostatic sitting Right Arm] Blood Pressure [or thostatic standing Right Arm] Pulse Oximetry 88 90 93 Oxygen Delivery Me thod Oxygen Flow Rate 08/25/24 21:32 08/25/24 21:45 08/25/24 22:00 Temperature Pulse Rate 70 74 74 Pulse Rate [Right Pulse Oximeter] Pulse Rate [orthos tatic lying Right Pulse Oximeter] Pulse Rate [orthos tatic sitting Righ t Pulse Oximeter] Pulse Rate [orthos tatic standing Rig ht Pulse Oximeter] Respiratory Rate 28 H 30 H 17 Blood Pressure Blood Pressure [Ri ght Arm] Blood Pressure [Ri ght Upper Arm] Blood Pressure [or thostatic lying Ri ght Arm] Blood Pressure [or thostatic sitting Right Arm] Blood Pressure [or thostatic standing Right Arm] Pulse Oximetry 91 91 Oxygen Delivery Me thod Oxygen Flow Rate 08/25/24 22:02 08/25/24 22:15 08/25/24 23:09 Temperature 97.9 F Pulse Rate 71 72 Pulse Rate [Right Pulse Oximeter] 72 Pulse Rate [orthos tatic lying Right Pulse Oximeter] Pulse Rate [orthos tatic sitting Righ t Pulse Oximeter] Pulse Rate [orthos tatic standing Rig ht Pulse Oximeter] Respiratory Rate 21 8 L 18 Blood Pressure 124/47 L Blood Pressure [Ri ght Arm] 98/77 Blood Pressure [Ri ght Upper Arm] Blood Pressure [or thostatic lying Ri ght Arm] Blood Pressure [or thostatic sitting Right Arm] Blood Pressure [or thostatic standing Right Arm] Pulse Oximetry 88 94 92 Oxygen Delivery Me thod Room Air Oxygen Flow Rate 08/25/24 23:20 08/25/24 23:39 08/26/24 00:10 Temperature Pulse Rate 69 Pulse Rate [Right Pulse Oximeter] Pulse Rate [orthos tatic lying Right Pulse Oximeter] 67 Pulse Rate [orthos tatic sitting Righ t Pulse Oximeter] 71 Pulse Rate [orthos tatic standing Rig ht Pulse Oximeter] 70 Respiratory Rate 18 Blood Pressure Blood Pressure [Ri ght Arm] Blood Pressure [Ri ght Upper Arm] Blood Pressure [or thostatic lying Ri ght Arm] 108/63 Blood Pressure [or thostatic sitting Right Arm] 111/61 Blood Pressure [or thostatic standing Right Arm] 112/56 L Pulse Oximetry 92 Oxygen Delivery Me thod Room Air Oxygen Flow Rate 08/26/24 02:18 08/26/24 05:37 08/26/24 07:00 Temperature 97.9 F Pulse Rate Pulse Rate [Right Pulse Oximeter] 71 79 Pulse Rate [orthos tatic lying Right Pulse Oximeter] 70 Pulse Rate [orthos tatic sitting Righ t Pulse Oximeter] 69 Pulse Rate [orthos tatic standing Rig ht Pulse Oximeter] 71 Respiratory Rate 18 16 Blood Pressure Blood Pressure [Ri ght Arm] 98/75 Blood Pressure [Ri ght Upper Arm] Blood Pressure [or thostatic lying Ri ght Arm] 102/57 L Blood Pressure [or thostatic sitting Right Arm] 135/69 Blood Pressure [or thostatic standing Right Arm] 119/61 Pulse Oximetry 93 Oxygen Delivery Me thod Room Air Oxygen Flow Rate 08/26/24 07:00 08/26/24 07:00 Temperature 98.1 F Pulse Rate Pulse Rate [Right Pulse Oximeter] 79 Pulse Rate [orthos tatic lying Right Pulse Oximeter] Pulse Rate [orthos tatic sitting Righ t Pulse Oximeter] Pulse Rate [orthos tatic standing Rig ht Pulse Oximeter] Respiratory Rate 16 16 Blood Pressure Blood Pressure [Ri ght Arm] 123/78 Blood Pressure [Ri ght Upper Arm] Blood Pressure [or thostatic lying Ri ght Arm] Blood Pressure [or thostatic sitting Right Arm] Blood Pressure [or thostatic standing Right Arm] Pulse Oximetry 94 94 Oxygen Delivery Me thod Room Air Room Air Oxygen Flow Rate Labs Labs: Laboratory Results - last 24 hr 08/25/24 08/25/24 08/25/24 18:35 18:37 18:50 WBC 12.46 H RBC 3.82 L Hgb 11.5 L Hct 34.7 MCV 91 MCH 30 MCHC 33 RDW Coeff of Liza 12.2 Plt Count 135 L Neut % (Auto) 85.7 H Lymph % (Auto) 5.5 L [place] % (Auto) 8.3 Eos % (Auto) 0.2 Baso % (Auto) 0.1 Neut # (Auto) 10.70 H Lymph # (Auto) 0.70 L [place] # (Auto) 1.00 H Eos # (Auto) 0.00 Baso # (Auto) 0.00 Abs Immat Gran (auto) 0.00 Imm/Tot Granulo (auto) 0.2 INR 2.42 H VBG pH 7.417 VBG pCO2 38 L VBG pO2 < 30.1 VBG HCO3 25 Sodium 130 L Potassium 3.9 Chloride 98 Carbon Dioxide 23 Anion Gap 9 BUN 11 Creatinine 0.4 L Estimated Creat Clear 30.62 Estimated GFR 98 Glucose 131 H Lactate 2.0 H Calcium 8.5 Phosphorus Magnesium Total Bilirubin 4.6 H Direct Bilirubin 0.8 H AST 29 ALT 14 Alkaline Phosphatase 48 Troponin I < 0.01 L C-Reactive Protein 5.9 H NT-Pro-B Natriuret Pep 1880 Total Protein 7.1 Albumin 4.3 Lipase 36 TSH Urine Color Urine Appearance Urine pH Ur Specific [place] Urine Protein Urine Glucose (UA) Urine Ketones Urine Blood Urine Nitrite Urine Bilirubin Urine Urobilinogen Ur Leukocyte Esterase Urine RBC Urine WBC Ur Squamous Epith Cells Urine Bacteria SARS-CoV-2 (PCR) Negative SARS-CoV-2 Influenza Type A (PCR) Negative PCR FLU A Influenza Type B (PCR) Negative PCR FLU B RSV (PCR) Negative PCR RSV Lab Acknowledgement Test Added 08/25/24 08/25/24 08/26/24 19:30 22:04 05:44 WBC 8.71 RBC 3.39 L Hgb 10.3 L Hct 31.6 L MCV 93 MCH 30 MCHC 33 RDW Coeff of Liza Plt Count 136 L Neut % (Auto) Lymph % (Auto) [place] % (Auto) Eos % (Auto) Baso % (Auto) Neut # (Auto) Lymph # (Auto) [place] # (Auto) Eos # (Auto) Baso # (Auto) Abs Immat Gran (auto) Imm/Tot Granulo (auto) INR 2.28 H VBG pH VBG pCO2 VBG pO2 VBG HCO3 Sodium 132 L Potassium 4.0 Chloride 103 Carbon Dioxide 21 Anion Gap 8 BUN 10 Creatinine 0.4 L Estimated Creat Clear 30.62 Estimated GFR 98 Glucose 98 Lactate 1.8 Calcium 7.8 L Phosphorus 2.8 Magnesium 1.8 Total Bilirubin 2.9 H Direct Bilirubin 0.4 AST ALT Alkaline Phosphatase Troponin I 0.09 H* C-Reactive Protein NT-Pro-B Natriuret Pep Total Protein Albumin Lipase TSH 1.630 Urine Color Yellow Urine Appearance Cloudy A Urine pH 6.0 Ur Specific [place] 1.020 Urine Protein 1+ A Urine Glucose (UA) Negative Urine Ketones 2+ A Urine Blood Trace-intact A Urine Nitrite Negative Urine Bilirubin Negative Urine Urobilinogen 0.2 Ur Leukocyte Esterase 1+ A Urine RBC 0-2 Urine WBC 25-50 A Ur Squamous Epith Cells None Urine Bacteria Many A SARS-CoV-2 (PCR) Influenza Type A (PCR) Influenza Type B (PCR) RSV (PCR) Lab Acknowledgement Test Added
[2024-08-26] MEDS: CLOPIDOGREL 75 MG TABLET PO (08:58)
[2024-08-26] MEDS: ACETAMINOPHEN 325 MG TABLET 650 MG PO ×4 (08:58→20:43)
[2024-08-26] MEDS: ESCITALOPRAM 10 MG TABLET PO (08:59)
[2024-08-26] MEDS: OMEPRAZOLE 20 MG CAPSULE DR PO (08:59)
[2024-08-26] MEDS: POTASSIUM CHLORIDE 10 MEQ CAPSULE ER 20 MEQ PO (08:59)
[2024-08-26] MEDS: PROPRANOLOL ER 80 MG CAP PO (08:59)
[2024-08-26] MEDS: MAGNESIUM OXIDE 400 MG TABLET PO (08:59)
[2024-08-26] MEDS: EZETIMIBE 10 MG TABLET PO (08:59)
[2024-08-26] MEDS: SODIUM CHLORIDE 0.9 % (FLUSH) 10 ML SYRINGE 5 ML IVF ×2 (09:00→20:44)
[2024-08-26] MEDS: ROSUVASTATIN CALCIUM 10 MG TABLET 40 MG PO (09:00)
[2024-08-26 12:42] LABS: Troponin I* 0.08 ng/mL (0.01-0.04)
[2024-08-26] MEDS: WARFARIN 2 MG TABLET PO (16:57)
[2024-08-26] MEDS: cefTRIAXone 1 GM in 0.9 % SODIUM CHLORIDE Mini-bag 100 ML IVPB (17:59)
--- NOTE | 2024-08-26 19:06 | PC.NURSE ---
End of shift: patient's VSS, denies n
--- NOTE | 2024-08-26 19:08 | PC.NURSE ---
End of shift: Patient alert and oriented, VSS. RA, Afebrile this shift. IV patent and SL. Tolerating a reg. diet but does not have much of an appetite. Ambulating with SBA w/cane to BR. Swelling to left hand noted, w/some bruising. Left arm splinted and wrapped with KALEY in a sling. Patient denies N/V/SOB and pain.
[2024-08-27] VITALS (7 sets, daily range): BP systolic 87–130; BP diastolic 41–83; PULSE 60–64; RESP 16–19; TEMP 36.6–36.8; O2SAT 91–97
[2024-08-27] MEDS: MELATONIN 3 MG TABLET PO (00:58)
--- NOTE | 2024-08-27 06:09 | PC.NURSE ---
Addendum entered by Leanne Ramsey RN 08/27/24 06:43: Pt transfers/ambulates with SBA, gait belt & SPC. Original Note: End of shift note [id number]: Pt A&Ox4 though does have intermittent forgetfulness noted. VSS. Pt has been afebrile and on RA throughout the shift. She has been denying pain throughout the shift. No CP or N/V noted. Pt transfers with SBA using gait belt. Splint and sling in place to L arm with CMS intact. Pt does have trace edema and slight bruising noted to L hand with elevation encouraged and performed. She has been continent of bladder. Pills administered whole in applesauce. PRN Melatonin administered as pt noted to have poor sleep at [facility] effective upon followup. Bed alarm on and call light within reach. Pt did not use call light most of shift despite repeated reminders.
[2024-08-27 06:30] LABS: Basophils Absolute Auto 0.04 K/uL (0.00-0.30); Basophils Percent Auto 0.5 % (0.0-3.0); Eosinophils Absolute Auto 0.19 K/uL (0.00-0.50); Eosinophils Percent Auto 2.6 % (0.0-7.0); Hematocrit 30.9 % (33.0-51.0); Hemoglobin* 10.1 gm/dL (12.0-16.0); Immature Granulocytes Abs Auto 0.03 K/uL (0.00-0.30); Immature Granulocytes Pct Auto 0.4 %; Lymphocytes Percent Auto 14.2 % (20-44); Mean Corpuscular HGB Conc 33 gm/dL (32-36); Mean Corpuscular Hemoglobin 30 pg (26-34); Mean Corpuscular Volume 93 fL (80-100); Monocytes Percent Auto 14.1 % (0.0-11.0); Neutrophils Percent Auto 68.2 % (42.0-72.0); Platelet Count* 139 K/uL (140-440); RDW Coefficient of Variation % 12.6 % (11.5-15.5); Red Blood Count 3.33 m/uL (4.00-5.20); White Blood Count* 7.33 K/uL (4.50-11.00)
[2024-08-27 06:32] LABS: Slide Review Reflex No
[2024-08-27 06:45] LABS: Chloride* 105 mmol/L (96-114); Potassium* 3.9 mmol/L (3.6-5.1); Sodium* 135 mmol/L (135-149)
[2024-08-27 06:48] LABS: Anion Gap 7 mEq/L (7-15); Blood Urea Nitrogen* 11 mg/dL (7-30); Carbon Dioxide* 23 mmol/L (20-32); Creatinine* 0.5 mg/dL (0.5-1.5); Est. Creatinine Clearance* 30.62; Estimated Glomerular Filt Rate 93 ml/min; Glucose* 86 mg/dL (60-115)
[2024-08-27 06:49] LABS: Calcium* 8.2 mg/dL (8.4-10.6)
[2024-08-27 07:03] LABS: Albumin* 3.4 g/dL (3.3-5.0)
[2024-08-27 07:06] LABS: Alanine Aminotransferase* 17 U/L (4-35); Alkaline Phosphatase* 52 U/L (40-150); Aspartate Amino Transferase* 33 U/L (12-35); Bilirubin Direct* 0.5 mg/dL (0.0-0.5); Bilirubin Total* 2.1 mg/dL (0.1-1.5); Total Protein* 5.7 g/dL (6.0-8.3)
[2024-08-27 07:07] LABS: Prothrombin Time 25.6 Seconds
[2024-08-27] MEDS: ROSUVASTATIN CALCIUM 10 MG TABLET 40 MG PO (08:50)
[2024-08-27] MEDS: ACETAMINOPHEN 325 MG TABLET 650 MG PO ×3 (08:52→20:42)
[2024-08-27] MEDS: ESCITALOPRAM 10 MG TABLET PO (08:53)
[2024-08-27] MEDS: CLOPIDOGREL 75 MG TABLET PO (08:54)
[2024-08-27] MEDS: MAGNESIUM OXIDE 400 MG TABLET PO (08:54)
[2024-08-27] MEDS: OMEPRAZOLE 20 MG CAPSULE DR PO (08:54)
[2024-08-27] MEDS: EZETIMIBE 10 MG TABLET PO (08:54)
[2024-08-27] MEDS: POTASSIUM CHLORIDE 10 MEQ CAPSULE ER 20 MEQ PO (08:55)
[2024-08-27] MEDS: FUROSEMIDE 20 MG TABLET PO (09:04)
[2024-08-27] MEDS: PROPRANOLOL ER 80 MG CAP PO (09:04)
[2024-08-27] MEDS: SODIUM CHLORIDE 0.9 % (FLUSH) 10 ML SYRINGE 5 ML IVF (09:30)
--- NOTE | 2024-08-27 10:45 | P.IMPN_ITS ---
Progress Note: A&P Assessment and plan (1) Nausea and vomiting: Problem details: - etiology uncertain: viral gastroenteritis, iatrogenic due to meds (recently started on [place] / elbow fracture), atypical ACS, UTI - RESOLVED 08/26 and tolerating po intake Status: Acute (2) Elevated troponin: Problem details: - negative 08/25, peaked at 0.09 on 08/26 - no acute changes on EKG, telemetry has been reassuring (difficult to interpret given essential tremor) - TTE results below Final Impressions: 1. Normal left ventricular size, borderline wall thickness, low normal global systolic function, calculated EF of 53 %. 2. Right ventricular pressure overload. 3. Right ventricular cavity size is mildly enlarged, global systolic RV function is borderline reduced. 4. 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 , no stenosis and no regurgitation. There is no paravalvular regurgitation. 5. The mitral valve is sclerotic, mild mitral regurgitation. 6. Tricuspid valve is normal and moderate tricuspid regurgitation. 7. Moderately increased estimated pulmonary pressures by tricuspid regurgitation velocity and right atrial pressure (48 mmHg plus RAP). Status: Acute (3) (HFpEF) heart failure with preserved ejection fraction: Problem details: - last TTE 06/2024 with results below, will repeat given elevated troponin + dyspnea Final Impressions: 1. Normal LV size, borderline wall thickness, normal global systolic function with an estimated EF of 55 - 60%. 2. Severely enlarged left atrium. 3. 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 , no stenosis and trivial regurgitation. The aortic valve peak velocity is 1.6 m/s, the peak gradient is 11 mmHg, and the mean gradient is 7 mmHg. The aortic valve area is 2.12 cm?? with a dimensionless index of 0.56. The stroke volume index is 53.9 ml/m??. 4. The mitral valve is sclerotic, moderate mitral regurgitation. 5. Mild-moderate tricuspid regurgitation. 6. Borderline increased estimated pulmonary pressures by tricuspid regurgitation velocity and right atrial pressure (31 mmHg plus RAP). 7. Grade 2 pattern of LV diastolic filling. Status: Acute (4) Elbow fracture, left: Problem details: - Fx 08/23 s/p standing fall - Orthopedic surgery following; plans ORIF 08/29. HOLDING Warfarin and Plavix - OT and PT following Status: Acute (5) Acute hypoxic respiratory failure: Problem details: - suspect acute on chronic - ddx: atypical CAP, anemia, cardiac disease/pulmonary HTN - CT of chest 08/25 without contrast demonstrates mosaic attenuation bilaterally in the lungs, which may reflect small airway disease or small vessel disease. - Oxygen supplementation as needed - Azithromycin was d/c'd 08/26 given afebrile status, reassuring exam, no cough - no further need for supplemental oxygen on 08/26, following troponin and TTE Status: Acute (6) Normocytic anemia: Problem details: - Hgb 10.3 on 08/26, baseline - - no evidence of acute bleeding, INR therapeutic - continue to follow Status: Acute (7) Dehydration: Problem details: - RESOLVED - IVFs on admission, d/c'd on 08/26 given po intake, normalized lactate Status: Acute (8) Orthostasis: Problem details: - monitor Status: Acute (9) UTI (urinary tract infection): Problem details: - Klebsiella on culture, continue Ceftriaxone (08/25) Status: Acute (10) Indirect hyperbilirubinemia: Problem details: - most likely due to dehydration, trending downward, no abdominal pain Status: Acute (11) Leukocytosis: Problem details: - suspect demargination from N/V, dehydration rather than infection - normalized 08/26, monitor Status: Acute (12) Abnormal chest CT: Problem details: - see acute hypoxic resp failure, above Status: Acute Plan - per above - continue to monitor fluid balance and VS with new diuretic - will likely need SNF after surgery Subjective Date Seen: 08/27/24 Interval history: Devi was admitted to the hospital yesterday for nausea and vomiting in addition to acute hypoxic respiratory failure and dyspnea on exertion. Imaging in the emergency room revealed mosaic attenuation bilaterally in the lungs, possibly reflecting small airway disease. No evidence of acute pulmonary infectious disease. UA +, culture growing Klebsiella, on Ceftriaxone. Her GI symptoms have improved and she is tolerating po intake. Continues to have significant HENDERSON. No chest pain, no orthopnea, no PND, no lower extremity edema. Troponin peaked at 0.09. TTE results below (increased pulmonary pressures), no acute EKG changes during stay. Amenable to adding diuretics to current medication regimen. Given Lasix this morning, BP after this was 87/41. TTE 08/26/24: Final Impressions: 1. Normal left ventricular size, borderline wall thickness, low normal global systolic function, calculated EF of 53 %. 2. Right ventricular pressure overload. 3. Right ventricular cavity size is mildly enlarged, global systolic RV function is borderline reduced. 4. 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 , no stenosis and no regurgitation. There is no paravalvular regurgitation. 5. The mitral valve is sclerotic, mild mitral regurgitation. 6. Tricuspid valve is normal and moderate tricuspid regurgitation. 7. Moderately increased estimated pulmonary pressures by tricuspid regurgitation velocity and right atrial pressure (48 mmHg plus RAP). In addition, patient fell at home 08/23 and sustained a L elbow fracture, this requires an ORIF and is currently planned for 08/[address] White. 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 Current INR 2.2 Exam Narrative: Exam Narrative: GEN: Alert and oriented, nontoxic HEENT: EOMIs bilaterally, no scleral icterus CV: RRR, soft systolic murmur without concerning features R: LCTA bilaterally without concerning wheezing, rales, or rhonchi Ext: Splint and sling on left upper extremity; + edema of left fingers. Normal ROM, sensation, and capillary refill Skin: No concerning skin lesions or rashes on exposed skin Neuro: Essential tremor, baseline. No focal deficits Psych: Appropriate Const: Vital Signs, click to edit/add: Vital Signs - 24 hr 08/26/24 11:00 08/26/24 15:00 08/26/24 15:00 Temperature 98.1 F Pulse Rate [Right Pulse Oximeter] 64 72 Respiratory Rate 18 16 16 Blood Pressure [Ri ght Arm] 103/66 Pulse Oximetry 96 92 Oxygen Delivery Me thod Room Air Room Air 08/26/24 15:00 08/26/24 20:02 08/26/24 20:06 Temperature 97.6 F 97.9 F Pulse Rate [Right Pulse Oximeter] 72 61 67 Respiratory Rate 16 16 16 Blood Pressure [Ri ght Arm] 127/73 89/55 L 105/55 L Pulse Oximetry 92 91 99 Oxygen Delivery Me thod Room Air Room Air Room Air 08/26/24 22:28 08/26/24 22:51 08/26/24 22:51 Temperature 98.1 F Pulse Rate [Right Pulse Oximeter] 67 63 Respiratory Rate 16 16 16 Blood Pressure [Ri ght Arm] 126/66 Pulse Oximetry 96 96 Oxygen Delivery Me thod Room Air Room Air 08/27/24 03:46 08/27/24 08:30 08/27/24 08:30 Temperature 97.8 F 97.9 F Pulse Rate [Right Pulse Oximeter] 64 62 Respiratory Rate 18 16 16 Blood Pressure [Ri t Arm] 123/55 L 130/83 Pulse Oximetry 91 96 96 Oxygen Delivery Me thod Room Air Room Air Room Air Labs Labs: Laboratory Results - last 24 hr 08/26/24 08/27/24 12:01 06:05 WBC 7.33 RBC 3.33 L Hgb 10.1 L Hct 30.9 L MCV 93 MCH 30 MCHC 33 RDW Coeff of Liza 12.6 Plt Count 139 L Neut % (Auto) 68.2 Lymph % (Auto) 14.2 L [place] % (Auto) 14.1 H Eos % (Auto) 2.6 Baso % (Auto) 0.5 Neut # (Auto) 5.00 Lymph # (Auto) 1.00 [place] # (Auto) 1.00 H Eos # (Auto) 0.19 Baso # (Auto) 0.04 Abs Immat Gran (auto) 0.03 Imm/Tot Granulo (auto) 0.4 INR 2.20 H Sodium 135 Potassium 3.9 Chloride 105 Carbon Dioxide 23 Anion Gap 7 BUN 11 Creatinine 0.5 Estimated Creat Clear 30.62 Estimated GFR 93 Glucose 86 Calcium 8.2 L Total Bilirubin 2.1 H Direct Bilirubin 0.5 AST 33 ALT 17 Alkaline Phosphatase 52 Troponin I 0.08 H* Total Protein 5.7 L Albumin 3.4
--- NOTE | 2024-08-27 10:45 | SLP.SEVAL ---
Discharge Planning: ? ?? SW met with patient to discuss rehab placement. Patient expresses that she feels she needs this as she isn't able to meet all her needs at home due to her arm. Patient states she is interested in staying local for rehab and would like referrals to [facility] and [facility] in [place] when she is ready for placement. SW to continue to follow and place referrals when ready.
--- NOTE | 2024-08-27 14:16 | PC.SOCIAL ---
Discharge Planning: SW met with patient to discuss rehab placement. Patient expresses that she feels she needs this as she isn't able to meet all her needs at home due to her arm. Patient states she is interested in staying local for rehab and would like referrals to [facility] and [facility] in [place] when she is ready for placement. SW to continue to follow and place referrals when ready.
[2024-08-27] MEDS: cefTRIAXone 1 GM in 0.9 % SODIUM CHLORIDE Mini-bag 100 ML IVPB (17:57)
--- NOTE | 2024-08-27 19:35 | PC.NURSE ---
End of Shift: The patient is pleasant and cooperative with cares. VSS on RA, although one hypotensive episode this afternoon, with no symptoms. L arm in sling, wrapped in KALEY bandage. Bruising to L hand with 2+ edema. reports minimal pain only when she has to move it. Does well with SBA w/ cane. Warfarin and plavix on hold for surgery on tuesday. Will need rehab stay and the patient is accepting of this. Call light within reach.
[2024-08-28] VITALS (8 sets, daily range): BP systolic 119–178; BP diastolic 67–86; PULSE 60–80; RESP 18–20; TEMP 36.7–37.1; O2SAT 90–97
[2024-08-28] MEDS: OXYCODONE 5 MG TABLET 2.5 MG PO ×2 (04:26→11:25)
--- NOTE | 2024-08-28 05:55 | PC.NURSE ---
Shift note (): Patient admitted from ED at 2038. Pleasant, alert and oriented. Was given pain medication before arriving on unit. Rated abdominal pain 2-4/10 during shift. Bowel sounds active. Denies nausea. Ambulated independently in room.?
--- NOTE | 2024-08-28 06:04 | PC.NURSE ---
Shift note ([id number]): Patient pleasant, alert and cooperative. Some confusion at times during the night. Ambulated with walker and stand by assist. Took pills whole in applesauce. Given PRN oxycodone for left upper arm pain rated 9/10 during shift.?
[2024-08-28 07:15] LABS: Basophils Absolute Auto 0.05 K/uL (0.00-0.30); Basophils Percent Auto 0.7 % (0.0-3.0); Eosinophils Absolute Auto 0.19 K/uL (0.00-0.50); Eosinophils Percent Auto 2.6 % (0.0-7.0); Hematocrit 30.5 % (33.0-51.0); Hemoglobin* 10.1 gm/dL (12.0-16.0); Immature Granulocytes Abs Auto 0.02 K/uL (0.00-0.30); Immature Granulocytes Pct Auto 0.3 %; Lymphocytes Percent Auto 10.6 % (20-44); Mean Corpuscular HGB Conc 33 gm/dL (32-36); Mean Corpuscular Hemoglobin 31 pg (26-34); Mean Corpuscular Volume 93 fL (80-100); Monocytes Percent Auto 11.7 % (0.0-11.0); Neutrophils Percent Auto 74.1 % (42.0-72.0); Platelet Count* 155 K/uL (140-440); RDW Coefficient of Variation % 12.7 % (11.5-15.5); Red Blood Count 3.29 m/uL (4.00-5.20); White Blood Count* 7.29 K/uL (4.50-11.00)
[2024-08-28 07:18] LABS: Slide Review Reflex No
[2024-08-28 07:36] LABS: Chloride* 104 mmol/L (96-114); Potassium* 3.7 mmol/L (3.6-5.1); Sodium* 135 mmol/L (135-149)
[2024-08-28 07:39] LABS: Blood Urea Nitrogen* 8 mg/dL (7-30); Creatinine* 0.5 mg/dL (0.5-1.5); Est. Creatinine Clearance* 30.62; Estimated Glomerular Filt Rate 93 ml/min; INR 2.25 (0.91-1.10)
[2024-08-28 07:40] LABS: Anion Gap 9 mEq/L (7-15); Calcium* 8.1 mg/dL (8.4-10.6); Carbon Dioxide* 22 mmol/L (20-32); Glucose* 109 mg/dL (60-115)
--- NOTE | 2024-08-28 07:40 | PM.IMPN1 ---
Progress Note: A&P Assessment and plan (1) Elbow fracture, left: Problem details: - DOI: 08/23/24, plan for ORIF with Dr. White of Orthopedic Surgery 08/28 Status: Acute (2) Acute hypoxic respiratory failure: Problem details: - suspect acute on chronic - ddx: atypical CAP, anemia, cardiac disease/pulmonary HTN - CT of chest 08/25 without contrast demonstrates mosaic attenuation bilaterally in the lungs, which may reflect small airway disease or small vessel disease - Oxygen supplementation as needed - Azithromycin was d/c'd 08/26 given afebrile status, reassuring exam, no cough - no further need for supplemental oxygen on 08/26, following troponin and TTE Status: Acute (3) (HFpEF) heart failure with preserved ejection fraction: Problem details: - chronic without exacerbation, TTE obtained given elevated troponin and + dyspnea, results below: - added Furosemide to regimen 08/27 given increased pulmonary pressures Final Impressions: 1. Normal left ventricular size, borderline wall thickness, low normal global systolic function, calculated EF of 53 %. 2. Right ventricular pressure overload. 3. Right ventricular cavity size is mildly enlarged, global systolic RV function is borderline reduced. 4. 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 , no stenosis and no regurgitation. There is no paravalvular regurgitation. 5. The mitral valve is sclerotic, mild mitral regurgitation. 6. Tricuspid valve is normal and moderate tricuspid regurgitation. 7. Moderately increased estimated pulmonary pressures by tricuspid regurgitation velocity and right atrial pressure (48 mmHg plus RAP). Status: Acute (4) UTI (urinary tract infection): Problem details: - Klebsiella on culture, continue Ceftriaxone (08/25) Status: Acute (5) Elevated troponin: Problem details: - negative 08/25, peaked at 0.09 on 08/26 - no acute changes on EKG, telemetry has been reassuring (difficult to interpret given essential tremor) - TTE results below Final Impressions: 1. Normal left ventricular size, borderline wall thickness, low normal global systolic function, calculated EF of 53 %. 2. Right ventricular pressure overload. 3. Right ventricular cavity size is mildly enlarged, global systolic RV function is borderline reduced. 4. 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 , no stenosis and no regurgitation. There is no paravalvular regurgitation. 5. The mitral valve is sclerotic, mild mitral regurgitation. 6. Tricuspid valve is normal and moderate tricuspid regurgitation. 7. Moderately increased estimated pulmonary pressures by tricuspid regurgitation velocity and right atrial pressure (48 mmHg plus RAP). Status: Acute (6) Orthostasis: Problem details: - noted, improving Status: Acute (7) Chronic anticoagulation: Problem details: - Coumadin for TAVR history and previous h/o a fib (s/p ablation) - also on Plavix for history of intracranial atherosclerosis - HOLDING anticoagulation as of 08/27 for upcoming ORIF - received 2.5mg of Vitamin K 08/28 Status: Acute (8) Hypoattenuated leaflet thickening (HALT): Problem details: - follows with Cardiology, s/p TAVR 07/14/22 - 07/15 this is on Warfarin instead of Apixaban Status: Acute (9) Indirect hyperbilirubinemia: Problem details: - most likely due to dehydration, trending downward, no abdominal pain Status: Acute (10) Normocytic anemia: Problem details: - Hgb 10.3 on 08/26, baseline 12-13 - no evidence of acute bleeding, INR therapeutic - continue to follow Status: Acute (11) Nausea and vomiting: Problem details: - etiology uncertain: viral gastroenteritis, iatrogenic due to meds (recently started on [place] 2/ elbow fracture), atypical ACS, UTI - RESOLVED 08/26 and tolerating po intake Status: Acute (12) Leukocytosis: Problem details: - suspect demargination from N/V, dehydration rather than infection - RESOLVED 08/26, monitor Status: Acute (13) Dehydration: Problem details: - RESOLVED - IVFs on admission, d/c'd on 08/26 given po intake, normalized lactate Status: Acute Plan - per above (Vitamin K today, surgery tomorrow) - plan for SNF postoperatively Subjective Date Seen: 08/28/24 Interval history: Devi was admitted to the hospital on 08/25 for nausea and vomiting in addition to acute hypoxic respiratory failure and dyspnea on exertion. Imaging in the emergency room revealed mosaic attenuation bilaterally in the lungs, possibly reflecting small airway disease. No evidence of acute pulmonary infectious disease, has intermittently required low dose supplemental O2 during stay. UA +, culture growing Klebsiella, on Ceftriaxone (08/26/24). In addition, patient fell at home 08/23 and sustained a L elbow fracture which requires ORIF and is currently planned for 08/[address] White. History of TAVR, anticoagulated on Coumadin, also on Plavix for history of cerebrovascular disease. As of 08/27/24, holding Plavix and Coumadin for surgery, receiving 2.5mg of oral Vitamin K on 08/28. Since admission, GI symptoms have improved and she is tolerating po intake. Continues to have significant HENDERSON (history of this, per chart review). No chest pain, no orthopnea, no PND, no lower extremity edema. Troponin peaked at 0.09. TTE results below (increased pulmonary pressures), no acute EKG changes during stay. Furosemide has been added to medication regimen, lytes and creatinine remain stable. TTE 08/26/24: Final Impressions: 1. Normal left ventricular size, borderline wall thickness, low normal global systolic function, calculated EF of 53 %. 2. Right ventricular pressure overload. 3. Right ventricular cavity size is mildly enlarged, global systolic RV function is borderline reduced. 4. 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 , no stenosis and no regurgitation. There is no paravalvular regurgitation. 5. The mitral valve is sclerotic, mild mitral regurgitation. 6. Tricuspid valve is normal and moderate tricuspid regurgitation. 7. Moderately increased estimated pulmonary pressures by tricuspid regurgitation velocity and right atrial pressure (48 mmHg plus RAP). Therapies following, plan SNF stay postoperatively given HENDERSON, limited mobility with LUE injury and planned surgery. This morning, Devi endorses feeling a little confused upon awakening, but knows where she is and remembers her history. She became more lucid as we discussed her hospital stay and plan further. 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 Exam Narrative: Exam Narrative: GEN: Awake and sitting up in bed HEENT: Normal external ears, EOMIs bilaterally, no scleral icterus CV: RRR, soft systolic murmur R: LCTA bilaterally without concerning wheezing Ext: No LE edema, + edema of L fingers, normal ROM and capillary refill Skin: Bruising over fingers of L hand, no other concerning skin lesions Neuro: No focal deficits, ambulating with walker in hallway Psych: Initially confused, improves during our visit Const: Vital Signs, click to edit/add: Vital Signs - 24 hr 08/27/24 08:30 08/27/24 08:30 08/27/24 10:57 Temperature 97.9 F Pulse Rate [Right Pulse Oximeter] 62 63 Respiratory Rate 16 16 18 Blood Pressure [Ri ght Arm] 130/83 87/41 L Pulse Oximetry 96 96 97 Oxygen Delivery Me thod Room Air Room Air Room Air 08/27/24 11:56 08/27/24 15:00 08/27/24 16:17 Temperature 98.2 F Pulse Rate [Right Pulse Oximeter] 60 Respiratory Rate 18 Blood Pressure [Ri ght Arm] 116/69 106/50 L Pulse Oximetry 95 96 Oxygen Delivery Me thod Room Air Room Air 08/27/24 19:00 08/28/24 02:03 08/28/24 02:03 Temperature 98.3 F 98.3 F Pulse Rate [Right Pulse Oximeter] 61 63 Respiratory Rate 19 18 18 Blood Pressure [Ri ght Arm] 106/50 L 145/74 H Pulse Oximetry 93 97 97 Oxygen Delivery Me thod Room Air Room Air Room Air 08/28/24 04:36 Temperature 98.6 F Pulse Rate [Right Pulse Oximeter] 62 Respiratory Rate 19 Blood Pressure [Ri ght Arm] 157/72 H Pulse Oximetry 96 Oxygen Delivery Me thod Room Air Labs Labs: Laboratory Results - last 24 hr 08/28/24 06:12 WBC 7.29 RBC 3.29 L Hgb 10.1 L Hct 30.5 L MCV 93 MCH 31 MCHC 33 RDW Coeff of Liza 12.7 Plt Count 155 Neut % (Auto) 74.1 H Lymph % (Auto) 10.6 L [place] % (Auto) 11.7 H Eos % (Auto) 2.6 Baso % (Auto) 0.7 Neut # (Auto) 5.40 Lymph # (Auto) 0.80 L [place] # (Auto) 0.90 Eos # (Auto) 0.19 Baso # (Auto) 0.05 Abs Immat Gran (auto) 0.02 Imm/Tot Granulo (auto) 0.3 Sodium 135 Potassium 3.7 Chloride 104
[2024-08-28] MEDS: ESCITALOPRAM 10 MG TABLET PO (08:52)
[2024-08-28] MEDS: MAGNESIUM OXIDE 400 MG TABLET PO (08:52)
[2024-08-28] MEDS: ACETAMINOPHEN 325 MG TABLET 650 MG PO ×3 (08:52→19:05)
[2024-08-28] MEDS: POTASSIUM CHLORIDE 10 MEQ CAPSULE ER 20 MEQ PO (08:53)
[2024-08-28] MEDS: ROSUVASTATIN CALCIUM 10 MG TABLET 40 MG PO (08:53)
[2024-08-28] MEDS: OMEPRAZOLE 20 MG CAPSULE DR PO (08:53)
[2024-08-28] MEDS: EZETIMIBE 10 MG TABLET PO (08:53)
[2024-08-28] MEDS: FUROSEMIDE 20 MG TABLET PO (08:53)
[2024-08-28] MEDS: PROPRANOLOL ER 80 MG CAP PO (08:53)
[2024-08-28] MEDS: SODIUM CHLORIDE 0.9 % (FLUSH) 10 ML SYRINGE 5 ML IVF (08:54)
--- NOTE | 2024-08-28 11:21 | PM.ORCN ---
History of Present Illness HPI Time Seen by Provider: 11:00 Date Seen: 08/28/24 Consult date: 08/28/24 Requesting physician: Cathie Diallo Chief complaint: Left elbow fracture Narrative: Devi is a pleasant 84 year-old female that was admitted with an acute, comminuted, moderately displaced, intra-articular left olecranon fracture. DOI: 08/23/24. While walking out of a restaurant, Devi tripped over a concrete slab in the parking area and fell. The same-day, she presented to [facility], where imaging showed an acute olecranon fracture. Devi was placed in a left upper extremity posterior splint. She was discharged to home, but returned to [facility] ED on 08/25/24 due to severe nausea and vomiting. Orthopedic consult requested by Dr. Diallo. This morning, Devi is resting comfortably in bed. Devi c/o mild-moderate left elbow pain that increases with movement. Also c/o low back pain from her initial fall. Pain is well managed with Tylenol during the day and Dilaudid in the night. Devi reports her nausea and vomiting has improved and attributes this to Register. No numbness/tingling distally. Devi is scheduled for left elbow olecranon fracture open reduction internal fixation 08/29/[address] Robert White. Accompanied by a family friend, Carolina. [facility] Medical History (Updated 08/28/24 @ 11:33 by Deborah Adams PA-C) (HFpEF) heart failure with preserved ejection fraction ?I50.30 - Unspecified diastolic (congestive) heart failure (ICD-10) Aortic stenosis ?I35.0 - Nonrheumatic aortic (valve) stenosis (ICD-10) Cardiac pacemaker in situ ?Z95.0 - Presence of cardiac pacemaker (ICD-10) E. coli UTI ?N39.0 - Urinary tract infection, site not specified (ICD-10) ?B96.20 - Unspecified Escherichia coli [E. coli] as the cause of diseases classified elsewhere (ICD-10) SSS (sick sinus syndrome) ?I49.5 - Sick sinus syndrome (ICD-10) Prolonged Q-T interval on ECG ?R94.31 - Abnormal electrocardiogram [ECG] [EKG] (ICD-10) KEVIN (obstructive sleep apnea) ?G47.33 - Obstructive sleep apnea (adult) (pediatric) (ICD-10) ASHD (arteriosclerotic heart disease) ?I25.10 - Atherosclerotic heart disease of [place] coronary artery without angina pectoris (ICD-10) Paroxysmal atrial fibrillation ?I48.0 - Paroxysmal atrial fibrillation (ICD-10) Dyspnea on exertion ?R06.09 - Other forms of dyspnea (ICD-10) Pulmonary hypertension ?I27.20 - Pulmonary hypertension, unspecified (ICD-10) Adjustment disorder with depressed mood ?F43.21 - Adjustment disorder with depressed mood (ICD-10) Essential and other specified forms of tremor ?G25.0 - Essential tremor (ICD-10) ?G25.2 - Other specified forms of tremor (ICD-10) Unspecified essential hypertension ?I10 - Essential (primary) hypertension (ICD-10) Fibromyalgia ?M79.7 - Fibromyalgia (ICD-10) GERD (gastroesophageal reflux disease) ?K21.9 - Gastro-esophageal reflux disease without esophagitis (ICD-10) Surgical History H/O breast biopsy ?Z98.890 - Other specified postprocedural states (ICD-10) History of YAG laser capsulotomy of lens of left eye ?Z98.42 - Cataract extraction status, left eye (ICD-10) Hx of tubal ligation ?Z98.51 - Tubal ligation status (ICD-10) Hx of cataract extraction ?Z98.49 - Cataract extraction status, unspecified eye (ICD-10) Social History Narrative: Lives independently with support of family. DNR/DNI resuscitation status. Designates brother, Brady, as primary decision maker for her health care should she be unable to speak on her own behalf, , and her vszfag-wf-vyl, Carolina, Brady's , as her secondary decision maker for her health care should she be unable to speak on her own behalf, . Primary care physician is Dr. Margaret Allen, [facility]. What is your current living situation?: I presently have a place to live Problems where you live: no known problems Problems where you live details: N/A In the past 12 months, utilities in danger of being shut off: no In past 12 months, lack of transportation kept you from medical appts, meetings, work, or getting things needed for daily living: no In the past 12 mos, have been you worried that your food would run out before you had money to buy more?: never true In the past 12 mos, the food you bought just didn't last and you didn't have money to buy more?: never true Highest level of school completed/degree received: high school graduate Smoking Status: Former smoker Do you use any of these nicotine containing products: None Second hand tobacco smoke exposure: No How often do you have a drink containing alcohol: 2-3 times a week Alcohol type: beer How many standard drinks containing alcohol do you have on a typical day: 3 or 4 How often do you have six or more drinks on one occasion: Never AUDIT-C Alcohol total score: 4 Non-prescribed substance use: denies use Caffeine: Yes How often does anyone, including family, friends and others, physically hurt you: never How often does anyone, including family, friends and others, insult or talk down to you: never How often does anyone, including family, friends and others, threaten you with harm: never How often does anyone, including family, friends and others, scream or curse at you: never service: No Meds Home Medications and Allergies Home Medications ?Medication ?Instructions ?Recorded ?Confirmed ?Type acyclovir 400 mg tablet 400 mg PO 3XD PRN 09/08/22 08/26/24 History omeprazole 20 mg capsule,delayed 20 mg PO DAILY 09/08/22 08/25/24 History release propranolol 80 mg capsule,24 80 mg PO DAILY 09/08/22 08/25/24 History hr,extended release calcium 500 mg (as 1 tab PO DAILY 10/11/22 08/25/24 History carbonate)-vitamin D3 3.125 mcg (125 unit) tablet rosuvastatin 40 mg tablet (Crestor) 40 mg PO DAILY 10/11/22 08/25/24 History clopidogrel 75 mg tablet 75 mg PO DAILY 09/24/23 08/25/24 History potassium chloride 20 mEq 20 meq PO DAILY 09/24/23 08/25/24 History tablet,extended release(part/cryst) ezetimibe 10 mg tablet 10 mg PO DAILY 08/23/24 08/25/24 History magnesium chloride 64 mg 128 mg PO DAILY 08/23/24 08/25/24 History (magnesium chloride) tablet,delayed release (Mag-Delay) warfarin 2 mg tablet 1 - 2 mg PO .UD 08/23/24 08/26/24 History acetaminophen 500 mg tablet 500 mg PO Q6H PRN 08/26/24 08/26/24 History (Acetaminophen Extra Strength) escitalopram oxalate 10 mg tablet 10 mg PO QAM 08/26/24 08/26/24 History loperamide 2 mg capsule 2 mg PO DAILY PRN 08/26/24 08/26/24 History melatonin 1 mg tablet 2 mg PO HS 08/26/24 08/26/24 History peg 400-propylene glycol (PF) 0.4 1 - 2 drp ophthalmic (eye) TID 08/26/24 08/26/24 History %-0.3 % eye drops in a dropperette (Systane (PF)) Allergies Allergy/AdvReac Type Severity Reaction Status Date / Time Sulfa (Sulfonamide Allergy Verified 08/25/24 20:51 Antibiotics) Ortho Exam Narrative Exam Narrative: Patient is alert and oriented x3. No acute distress. Converses with nonlabored breathing. Posterior splint and sling left in place during our visit. Left upper extremity exam: No erythema or cutaneous changes over left hand/digits. Diffuse left hand/digit swelling. Able to make full composite fist. Sports Analyst strength 4/5. 2+ radial pulse with pink, warm digits with brisk capillary refill. Sensation intact distally. Const Vital Signs, click to edit/add: Vital Signs - 24 hr 08/27/24 11:56 08/27/24 15:00 08/27/24 16:17 Temperature 98.2 F Pulse Rate [Right Pulse Oximeter] 60 Respiratory Rate 18 Blood Pressure [Right Arm] 116/69 106/50 L Pulse Oximetry 95 96 Oxygen Delivery Method Room Air Room Air 08/27/24 19:00 08/28/24 02:03 08/28/24 02:03 Temperature 98.3 F 98.3 F Pulse Rate [Right Pulse Oximeter] 61 63 Respiratory Rate 19 18 18 Blood Pressure [Right Arm] 106/50 L 145/74 H Pulse Oximetry 93 97 97 Oxygen Delivery Method Room Air Room Air Room Air 08/28/24 04:36 08/28/24 07:00 08/28/24 07:00 Temperature 98.6 F Pulse Rate [Right Pulse Oximeter] 62 60 Respiratory Rate 19 20 20 Blood Pressure [Right Arm] 157/72 H Pulse Oximetry 96 93 Oxygen Delivery Method Room Air Room Air 08/28/24 08:46 Temperature Pulse Rate [Right Pulse Oximeter] 60 Respiratory Rate 20 Blood Pressure [Right Arm] 119/80 Pulse Oximetry 90 Oxygen Delivery Method Room Air Results Labs Labs: Laboratory Results - last 48 hr 08/26/24 08/27/24 08/28/24 12:01 06:05 06:12 WBC 7.33 7.29 RBC 3.33 L 3.29 L Hgb 10.1 L 10.1 L Hct 30.9 L 30.5 L MCV 93 93 MCH 30 31 MCHC 33 33 RDW Coeff of Liza 12.6 12.7 Plt Count 139 L 155 Neut % (Auto) 68.2 74.1 H Lymph % (Auto) 14.2 L 10.6 L Sutter % (Auto) 14.1 H 11.7 H Eos % (Auto) 2.6 2.6 Baso % (Auto) 0.5 0.7 Neut # (Auto) 5.00 5.40 Lymph # (Auto) 1.00 0.80 L Sutter # (Auto) 1.00 H 0.90 Eos # (Auto) 0.19 0.19 Baso # (Auto) 0.04 0.05 Abs Immat Gran (auto) 0.03 0.02 Imm/Tot Granulo (auto) 0.4 0.3 INR 2.20 H 2.25 H Sodium 135 135 Potassium 3.9 3.7 Chloride 105 104 Carbon Dioxide 23 22 Anion Gap 7 9 BUN 11 8 Creatinine 0.5 0.5 Estimated Creat Clear 30.62 30.62 Estimated GFR 93 93 Glucose 86 109 Calcium 8.2 L 8.1 L Total Bilirubin 2.1 H Direct Bilirubin 0.5 AST 33 ALT 17 Alkaline Phosphatase 52 Troponin I 0.08 H* Total Protein 5.7 L Albumin 3.4 Diagnostic results Elbow x-ray: report reviewed and image reviewed (3-view left elbow images were reviewed from [facility] dated 08/23/24. These show: an acute, comminuted, moderately displaced, intra-articular left olecranon fracture. Moderate soft tissue swelling. ) Assessment and Plan Assessment and plan (1) Elbow fracture, left: Problem comment: DOI: 08/23/24. Status: Acute Assessment and Plan: Devi and I reviewed her images together. Surgical intervention is recommended: left elbow olecranon fracture open reduction internal fixation. Tentative surgery date 08/29/[address] White[address] Dr. White will meet Devi tomorrow morning and again discuss the surgical plan, recovery, and risks and benefits. We will continue to hold Warfarin and Plavix. INR this AM: 2.25. Left upper extremity splint will remain in place. Finger motion as tolerated. For pain management, oral analgesics PRN. We may also consider prescribing an antiemetic postoperatively. All questions were answered to patient's satisfaction. Total time spent: Total time spent is greater than 50% in coordination of care (as documented) at patient's floor/unit and/or counseling patient: 20 minutes.
[2024-08-28] MEDS: PHYTONADIONE (VIT K1) 5 MG TABLET 2.5 MG PO (14:32)
--- NOTE | 2024-08-28 15:48 | PC.SOCIAL ---
Discharge Planning: SW sent referral to [facility] for rehab and is awaiting response.
[2024-08-28] MEDS: cefTRIAXone 1 GM in 0.9 % SODIUM CHLORIDE Mini-bag 100 ML IVPB (19:06)
--- NOTE | 2024-08-28 19:19 | PC.NURSE ---
Nursing Care Hours: [id number] Pt this shift calm and cooperative, alert and oriented. Pain treated with PO pain meds per eMAR. CMS to L hand intact. Radial pulse present. Bruising throughout front and back of hand, splint being used, arm elevated on pillow while in bed. Eating less than 50% of meals. SBA, gait steady. IV patent.
[2024-08-29] VITALS (25 sets, daily range): BP systolic 100–172; BP diastolic 48–117; PULSE 59–64; RESP 13–19; TEMP 36.2–37.2; O2SAT 90–99
[2024-08-29] MEDS: ACETAMINOPHEN 325 MG TABLET 650 MG PO (00:12)
[2024-08-29] MEDS: SODIUM CHLORIDE 0.9 % (FLUSH) 10 ML SYRINGE 5 ML IVF ×2 (00:13→20:52)
[2024-08-29] MEDS: LACTATED RINGERS 1000 ML 1,000 ML 50 ML IV (00:14)
--- NOTE | 2024-08-29 04:33 | PC.NURSE ---
Shift note ([id number]): Patient pleasant, alert and cooperative. More alert tonight with mild forgetfulness. Ambulated with cane and stand by assist. Took Tylenol in bites of applesauce with a drink of water at 0015. Has been NPO since that time. LR currently infusing?at 50mL/hr.?
[2024-08-29 06:53] LABS: Basophils Absolute Auto 0.05 K/uL (0.00-0.30); Basophils Percent Auto 0.8 % (0.0-3.0); Eosinophils Absolute Auto 0.17 K/uL (0.00-0.50); Eosinophils Percent Auto 2.8 % (0.0-7.0); Hematocrit 31.1 % (33.0-51.0); Hemoglobin* 10.2 gm/dL (12.0-16.0); Immature Granulocytes Abs Auto 0.01 K/uL (0.00-0.30); Immature Granulocytes Pct Auto 0.2 %; Lymphocytes Percent Auto 15.8 % (20-44); Mean Corpuscular HGB Conc 33 gm/dL (32-36); Mean Corpuscular Hemoglobin 30 pg (26-34); Mean Corpuscular Volume 92 fL (80-100); Monocytes Percent Auto 13.8 % (0.0-11.0); Neutrophils Absolute Auto 4.06 K/uL (1.7-7.0); Neutrophils Percent Auto 66.6 % (42.0-72.0); Platelet Count* 188 K/uL (140-440); RDW Coefficient of Variation % 12.7 % (11.5-15.5); Red Blood Count 3.39 m/uL (4.00-5.20); White Blood Count* 6.09 K/uL (4.50-11.00)
[2024-08-29 07:06] LABS: Slide Review Reflex No
[2024-08-29 07:23] LABS: Chloride* 105 mmol/L (96-114); Potassium* 3.8 mmol/L (3.6-5.1); Sodium* 133 mmol/L (135-149)
[2024-08-29 07:26] LABS: Blood Urea Nitrogen* 6 mg/dL (7-30); Creatinine* 0.5 mg/dL (0.5-1.5); Est. Creatinine Clearance* 30.62; Estimated Glomerular Filt Rate 93 ml/min
[2024-08-29 07:27] LABS: Anion Gap 6 mEq/L (7-15); Calcium* 8.3 mg/dL (8.4-10.6); Carbon Dioxide* 22 mmol/L (20-32); Glucose* 95 mg/dL (60-115)
[2024-08-29 07:29] LABS: INR 1.65 (0.91-1.10); Prothrombin Time 20.5 Seconds
--- NOTE | 2024-08-29 09:00 | CRLHL7_ITS ---
For Patients: As a result of the Cures Act, medical imaging exams and procedure reports are released immediately into your electronic medical record. You may view this report before your referring provider. If you have questions, please contact your health care provider. Indication: ORIF LEFT ELBOW, OLECRANON Technique: Two fluoroscopic images of the left elbow. Fluoroscopic time 52.9 seconds. IMPRESSION: Fluoroscopic guidance for open reduction internal fixation olecranon fracture. Dictated by Aubrey Handy MD @ 08/29/2024 12:28:57 PM (Electronically Signed)
[2024-08-29 09:23] LABS: INR 1.42 (0.91-1.10); Prothrombin Time 18.3 Seconds
[2024-08-29] MEDS: fentaNYL 100 MCG/2 ML inj IVP (09:29)
[2024-08-29] MEDS: MIDAZOLAM HCL 1 MG/ML inj IVP (09:29)
--- NOTE | 2024-08-29 09:38 | SUR.PREOP ---
TIME?OUT:?927 PT/RN/MDA?VERIFICATION?OF?SURGICAL?SITE,?PROCEDURE,?AND?CONSENT OBTAINED?PRIOR?TO?INVASIVE?PROCEDURE.
--- NOTE | 2024-08-29 10:15 | P.ANES_ITS ---
Anesthesia Charges Start Date/Time Anesthesia Start Date: 08/29/24 Anesthesia Start Time: 10:27 Stop Date/Time Anesthesia Stop Date: 08/29/24 Anesthesia Stop Time: 13:10 Summary Extremes of Age - Over 70 or under 1: MDA Coding CPT Codes CPT Codes: ANESTH UPPER ARM SURGERY - 89677 ([id number]) P3 - PATIENT W/SEVERE SYS DISEASE, QK - BOMB SQUAD COMMANDER 2-4 CNCRNT ANES PROC, QX - INSURANCE VERIFIER SVC W/ MD MED DIRECTION Additional Codes: Summary - Extremes of Age - Over 70 or under 1: MDA ([id number])
--- NOTE | 2024-08-29 10:15 | P.NB_ITS ---
Nerve Block Nerve Block Time Seen by Provider: 09:30 Date Seen: 08/29/24 Type of block requested by surgeon for post-operative analgesia: supraclavicular Side: left Time out performed: Yes Verification of patient name: Yes Verification of date of : Yes Site marking: site marked Name of person performing procedure: Daren Continuous monitoring Was continuous monitoring of O2 sat, B/P, car worker helper, recorded every 15 minutes?: Yes Procedure Checklist: sterile prep, needles and gloves Ultrasound guided. Images saved: Yes Medications given in 5ml increments after negative aspiration: Ropivicaine %: 0.5 mL: 20 Needle gauge: 22 Precedex (mcg): 25 Patient tolerated procedure well: Yes Block Charges Block Charge (with Pro Fee): Brachial Plexus Use of Ultrasound Machine for Block: Yes- US Guidance/pain block
--- NOTE | 2024-08-29 10:15 | W.ANESCHARGE ---
Anesthesia Charges Start Date/Time Anesthesia Start Date: 08/29/24 Anesthesia Start Time: 10:27 Stop Date/Time Anesthesia Stop Date: 08/29/24 Anesthesia Stop Time: 13:10 Summary Extremes of Age - Over 70 or under 1: MDA Coding CPT Codes CPT Codes: ANESTH UPPER ARM SURGERY - 19866 ([id number]) P3 - PATIENT W/SEVERE SYS DISEASE, QK - SERVER SERVICE ASSISTANT 2-4 CNCRNT ANES PROC, QX - BOILERS INSPECTOR SVC W/ MD MED DIRECTION Additional Codes: Summary - Extremes of Age - Over 70 or under 1: MDA ([id number])
--- NOTE | 2024-08-29 10:35 | PM.ORPRC ---
Procedure Note Date of procedure: 08/29/24 Procedure: PREOPERATIVE DIAGNOSIS: 1. Left olecranon fracture, closed, displaced POSTOPERATIVE DIAGNOSIS: 1. Left olecranon fracture, closed, displaced PROCEDURE: 1. Left olecranon open reduction internal fixation SURGEON: Robert White MD. MARINE RAILWAY OPERATOR: Deborah Adams P.A.-C. - An high school assistant principal was critical for this case to aid in patient positioning, tissue retraction, limb manipulation/positioning, and closure. ANESTHESIA: General anesthetic with supraclavicular nerve block IMPLANTS: Synthes 2.7 mm/3.5 mm variable angle LCP olecranon plate (2 hole, left); 2.7 mm locking screws, 3.5 mm locking screw, and 3.5 mm nonlocking screw TOURNIQUET: 71 minutes at 250 mmHg ESTIMATED BLOOD LOSS: 20 mL COMPLICATIONS: None INDICATIONS: The patient is a pleasant 84-year-old female who sustained a closed, displaced olecranon fracture following a ground level fall. Recommendation was subsequently made for surgical intervention consisting of left olecranon open reduction internal fixation to allow for healing in a more anatomic position. Prior to surgery, risks of the procedure to include but not limited to infection, neurovascular injury, malunion nonunion, wound healing complications, elbow stiffness, hardware complications, need for hardware removal, heart attack, stroke, and were discussed with patient and all questions were answered. After discussion, patient was in agreement with plan informed consent was obtained. FINDINGS: Closed, displaced, mildly comminuted intra-articular olecranon fracture. DESCRIPTION OF PROCEDURE: Following a thorough discussion of risks, benefits, and alternatives to surgery; surgical consent was obtained and the operative site was marked. Preoperatively, a supraclavicular nerve block was performed by anesthesia staff. The patient was then brought to the operating room and placed supine on the operating table and general anesthesia was obtained. 1 g IV Ancef was administered within 1 hr of incision preoperatively. Patient was then rotated into the right lateral decubitus position and held in position with a beanbag. All bony prominences were well padded. A tourniquet was placed on the patient's right upper arm. The operative extremity was then prepped and draped in usual sterile fashion. A surgical time-out was then performed confirming patient identity, surgical site, and surgical procedure. Left upper extremity was elevated exsanguinated with Esmarch, and tourniquet was inflated to 250 mmHg. A longitudinal incision measuring approximately 10 cm was made along the border of the proximal ulna and extended curvilinearly around the radial side of the elbow and proximally over the distal triceps insertion. Dissection was carried through the subcutaneous tissues. The fracture and deep fascial layer work were identified. The fracture site ulnar humeral joint were debrided of fracture hematoma and thoroughly irrigated with normal saline. The periosteum near the fracture and was released. The fracture was then reduced and provisionally fixed with a K-wire. Fluoroscopic images were obtained which confirmed near anatomic reduction. A Synthes variable angle LCP olecranon plate was then selected and provisionally fixed to the proximal ulna with K-wire. Fluoroscopic images confirmed satisfactory plate size and position. The plate was then fixed distally with a 3.5 mm nonlocking screw. Plate was then fixed proximally with multiple 2.7 mm unicortical locking screws. Fluoroscopic imaging was used to confirm that screws did not penetrate the articular surface, remaining in the subchondral bone. Plate was then fixed distally with an additional 2.7 mm locking screw and a 3.5 mm bicortical locking screw. Elbow was then put through range of motion and fracture was confirmed to be stable with passive elbow flexion and extension. Final fluoroscopic imaging in AP and lateral planes confirmed anatomic reduction of the fracture with excellent placement of the plate and screws. Surgical wound was then irrigated copious amounts of normal saline. The fascia was closed with #0 Vicryl [id number] interrupted stitches. Tourniquet was then released. Total tourniquet time was 71 minutes. Hemostasis was achieved with electrocautery. Wound was again irrigated with normal saline. Skin was closed with 2-0 Vicryl [id number] interrupted subcutaneous stitches followed by running 3-0 Stratafix subcuticular stitches and Dermabond. Sterile dressings were applied followed by a well-padded posterior long-arm splint with the elbow in 70-80 degrees of flexion. The patient was then rotated back to the supine position. She was awoken from anesthesia and transferred to the recovery room in stable condition. Sponge and needle counts were correct. PLAN: 1. Nonweightbearing left upper extremity. 2. Keep splint clean and dry. Sling as needed for comfort. 3. Ice and elevation as needed for pain and swelling. 4. Tylenol and oxycodone as needed for pain control 5. Follow-up in orthopedic clinic in 10-14 days for splint removal and wound check. Will begin elbow range of motion at that time.
[2024-08-29] MEDS: CEFAZOLIN 1 GM inj IVP (10:58)
[2024-08-29] MEDS: BUPIVACAINE 0.25 %/EPI 1:200K 30 ml 10 ML INJECTION (12:35)
--- NOTE | 2024-08-29 13:14 | P.ANES_ITS ---
Anesthesia Charges Start Date/Time Anesthesia Start Date: 08/29/24 Anesthesia Start Time: 10:27 Stop Date/Time Anesthesia Stop Date: 08/29/24 Anesthesia Stop Time: 13:10 Summary Extremes of Age - Over 70 or under 1: BREWMASTER Coding CPT Codes CPT Codes: ANESTH UPPER ARM SURGERY - 98631 ([id number]) P3 - PATIENT W/SEVERE SYS DISEASE, QK - SENIOR COGNOS DEVELOPER 2-4 CNCRNT ANES PROC, QX - BREWMASTER SVC W/ MD MED DIRECTION Additional Codes: Summary - Extremes of Age - Over 70 or under 1: BREWMASTER ([id number])
--- NOTE | 2024-08-29 13:14 | W.ANESCHARGE ---
Anesthesia Charges Start Date/Time Anesthesia Start Date: 08/29/24 Anesthesia Start Time: 10:27 Stop Date/Time Anesthesia Stop Date: 08/29/24 Anesthesia Stop Time: 13:10 Summary Extremes of Age - Over 70 or under 1: FIBERGLASS GRINDER Coding CPT Codes CPT Codes: ANESTH UPPER ARM SURGERY - 33009 ([id number]) P3 - PATIENT W/SEVERE SYS DISEASE, QK - BULKING MACHINE OPERATOR 2-4 CNCRNT ANES PROC, QX - FIBERGLASS GRINDER SVC W/ MD MED DIRECTION Additional Codes: Summary - Extremes of Age - Over 70 or under 1: FIBERGLASS GRINDER ([id number])
--- NOTE | 2024-08-29 13:52 | SUR.PHASEI ---
patient met discharge criteria per anesthesia
[2024-08-29] MEDS: LACTATED RINGERS 1000 ML 1,000 ML 35 ML IV (14:00)
[2024-08-29] MEDS: POTASSIUM CHLORIDE 10 MEQ CAPSULE ER 20 MEQ PO (14:13)
[2024-08-29] MEDS: PROPRANOLOL ER 80 MG CAP PO (14:13)
[2024-08-29] MEDS: FUROSEMIDE 20 MG TABLET PO (14:13)
[2024-08-29] MEDS: OMEPRAZOLE 20 MG CAPSULE DR PO (14:13)
--- NOTE | 2024-08-29 14:33 | PC.SOCIAL ---
Discharge planning: SW contacted [facility] to determine if there is placement for patient. [facility] states that they need postop notes. Patient returned to the floor later in the afternoon, so SW unable to send notes on 08/29. SW to send [facility] updated notes on 08/29. STEVE spoke with patient's ysxhps-ry-pda Carolina ([phone]) to determine if she would be able to give patient a ride to rehab when ready for discharge. Carolina states that she will be able to do that and just needs to know the day and time. SW to continue to work on discharge planning.
--- NOTE | 2024-08-29 14:47 | PC.PHA ---
Warfarin consult note: Reason for warfarin: POST TAVR INR goal requested by the provider: 2.5 Most recent INR: 08/29/24 1.42 Usual home dose (if any): 1-2 MG DAILY Today's dose ordered: 2 MG Vitamin K given: 2.5 MG ON 08/28 @1200 Comments:
--- NOTE | 2024-08-29 15:56 | PM.IMPN1 ---
Assessment and Plan Assessment and plan (1) Elbow fracture, left: Problem comment: - DOI: - ORIF: 08/29/24 Status: Acute (2) Acute hypoxic respiratory failure: Problem comment: - suspect acute on chronic - ddx: atypical CAP, anemia, cardiac disease/pulmonary HTN - CT of chest 08/25 without contrast demonstrates mosaic attenuation bilaterally in the lungs, which may reflect small airway disease or small vessel disease - Oxygen supplementation as needed - Azithromycin was d/c'd 08/26 given afebrile status, reassuring exam, no cough - no further need for supplemental oxygen on 08/26 Status: Acute (3) (HFpEF) heart failure with preserved ejection fraction: Problem comment: - chronic without exacerbation, TTE obtained given elevated troponin and + dyspnea, results below: - added Furosemide to regimen 08/27 given increased pulmonary pressures Final Impressions: 1. Normal left ventricular size, borderline wall thickness, low normal global systolic function, calculated EF of 53 %. 2. Right ventricular pressure overload. 3. Right ventricular cavity size is mildly enlarged, global systolic RV function is borderline reduced. 4. 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 , no stenosis and no regurgitation. There is no paravalvular regurgitation. 5. The mitral valve is sclerotic, mild mitral regurgitation. 6. Tricuspid valve is normal and moderate tricuspid regurgitation. 7. Moderately increased estimated pulmonary pressures by tricuspid regurgitation velocity and right atrial pressure (48 mmHg plus RAP). Status: Acute (4) UTI (urinary tract infection): Problem comment: - Klebsiella on culture - rec'd rocephin x 4 doses, ancef x 3 doses (ortho protocol) - no further abx needed Status: Acute (5) Elevated troponin: Problem comment: - negative 08/25, peaked at 0.09 on 08/26 - no acute changes on EKG, telemetry has been reassuring (difficult to interpret given essential tremor) - TTE results below Final Impressions: 1. Normal left ventricular size, borderline wall thickness, low normal global systolic function, calculated EF of 53 %. 2. Right ventricular pressure overload. 3. Right ventricular cavity size is mildly enlarged, global systolic RV function is borderline reduced. 4. 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 , no stenosis and no regurgitation. There is no paravalvular regurgitation. 5. The mitral valve is sclerotic, mild mitral regurgitation. 6. Tricuspid valve is normal and moderate tricuspid regurgitation. 7. Moderately increased estimated pulmonary pressures by tricuspid regurgitation velocity and right atrial pressure (48 mmHg plus RAP). Status: Acute (6) Orthostasis: Problem comment: - noted, improving Status: Acute (7) Chronic anticoagulation: Problem comment: - Coumadin for TAVR history and previous h/o a fib (s/p ablation) - also on Plavix for history of intracranial atherosclerosis - HOLDING anticoagulation as of 08/27 for upcoming ORIF - received 2.5mg of Vitamin K 08/28 - restarted coumadin 08/29 pm, plavix 08/30. will likely need lovenox bridge. Status: Acute (8) Hypoattenuated leaflet thickening (HALT): Problem comment: - follows with Cardiology, s/p TAVR 07/14/22 - 07/15 this is on Warfarin instead of Apixaban Status: Acute (9) Indirect hyperbilirubinemia: Problem comment: - most likely due to dehydration, trending downward, no abdominal pain Status: Acute (10) Normocytic anemia: Problem comment: - Hgb 10.3 on 08/26, baseline 12- - no evidence of acute bleeding, INR therapeutic - continue to follow Status: Acute (11) Nausea and vomiting: Problem comment: - etiology uncertain: viral gastroenteritis, iatrogenic due to meds (recently started on [place] 2/2 elbow fracture), atypical ACS, UTI - RESOLVED 08/26 and tolerating po intake Status: Acute (12) Leukocytosis: Problem comment: - suspect demargination from N/V, dehydration rather than infection - RESOLVED 08/26, monitor Status: Acute (13) Dehydration: Problem comment: - RESOLVED - IVFs on admission, d/c'd on 08/26 given po intake, normalized lactate Status: Acute Subjective Date Seen: 08/29/24 Interval history: Daily Progress Note - Hospital Medicine Day #: 5 Post-op today: Left olecranon open reduction internal fixation CC: fall at home, broken left olecranon, n/v and mild respiratory distress. UTI 24 HOUR UPDATE: Stable night. Went to the OR this morning for an ORIF of her olecranon fracture, left elbow. Return from surgery late afternoon and is doing well postoperatively. We are restarting her Coumadin tonight. We will start Plavix in the morning. We will be checking INRs and covering her with Lovenox as needed. Notable Labs, Micro, Rads, Interventions: Objective: Vitals: see above Lungs: Clear. Cardiac: S1S2. Disposition/Potential discharge - Today I spent 50minutes seeing the patient, reviewing Expanse and EPIC notes/diagnostics, discussing the care plan with our care time that includes social work, PT/OT, pharmacy, RT, chcf and documenting my impressions and plan in the medical record. Therapies following, plan SNF stay postoperatively given [place], limited mobility with LUE injury and planned surgery. This morning, Devi endorses feeling a little confused upon awakening, but knows where she is and remembers her history. She became more lucid as we discussed her hospital stay and plan further. 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 Exam Const: Vital Signs, click to edit/add: Vital Signs - 24 hr 08/28/24 19:00 08/28/24 23:00 08/28/24 23:00 Temperature 98.7 F 98.0 F Pulse Rate Pulse Rate [Right Pulse Oximeter] 62 80 Respiratory Rate 20 18 Blood Pressure Blood Pressure [Ri ght Arm] 134/86 178/81 H Pulse Oximetry 94 97 97 Oxygen Delivery Me thod Room Air Room Air Room Air Oxygen Flow Rate 08/29/24 02:31 08/29/24 07:00 08/29/24 07:00 Temperature 98.2 F 98.9 F Pulse Rate Pulse Rate [Right Pulse Oximeter] 64 61 Respiratory Rate 19 18 18 Blood Pressure Blood Pressure [Ri ght Arm] 162/75 H 163/101 H Pulse Oximetry 97 96 96 Oxygen Delivery Me thod Room Air Room Air Room Air Oxygen Flow Rate 08/29/24 07:00 08/29/24 09:29 08/29/24 09:35 Temperature Pulse Rate Pulse Rate [Right Pulse Oximeter] 60 62 60 Respiratory Rate 18 16 16 Blood Pressure Blood Pressure [Ri ght Arm] 172/83 H 156/70 H Pulse Oximetry 95 98 Oxygen Delivery Me thod Nasal Cannula Nasal Cannula Oxygen Flow Rate 3 3 08/29/24 09:40 08/29/24 13:05 08/29/24 13:10 Temperature 97.4 F L 97.4 F L Pulse Rate 60 59 L Pulse Rate [Right Pulse Oximeter] 60 Respiratory Rate 14 16 18 Blood Pressure 138/63 123/62 Blood Pressure [Ri ght Arm] 168/75 H Pulse Oximetry 99 94 91 Oxygen Delivery Me thod Nasal Cannula Nasal Cannula Nasal Cannula Oxygen Flow Rate 3 2 2 08/29/24 13:15 08/29/24 13:20 08/29/24 13:25 Temperature 97.4 F L 97.4 F L 97.4 F L Pulse Rate 60 59 L 60 Pulse Rate [Right Pulse Oximeter] Respiratory Rate 16 13 13 Blood Pressure 129/65 133/66 134/68 Blood Pressure [Ri ght Arm] Pulse Oximetry 90 93 93 Oxygen Delivery Me thod Nasal Cannula Nasal Cannula Nasal Cannula Oxygen Flow Rate 2 2 2 08/29/24 13:30 08/29/24 13:42 08/29/24 13:45 Temperature 97.6 F 97.2 F L 97.1 F L Pulse Rate 60 61 60 Pulse Rate [Right Pulse Oximeter] Respiratory Rate 17 16 16 Blood Pressure 115/65 142/96 H 134/71 Blood Pressure [Ri ght Arm] Pulse Oximetry 90 93 94 Oxygen Delivery Me thod Room Air Room Air Nasal Cannula Oxygen Flow Rate 2 08/29/24 14:00 08/29/24 14:15 Temperature 97.3 F L Pulse Rate 60 60 Pulse Rate [Right Pulse Oximeter] Respiratory Rate 16 Blood Pressure 132/61 140/64 H Blood Pressure [Ri ght Arm] Pulse Oximetry 91 Oxygen Delivery Me thod Nasal Cannula Nasal Cannula Oxygen Flow Rate 1 2 Labs Labs: Laboratory Results - last 24 hr 08/29/24 08/29/24 06:23 08:53 WBC 6.09 RBC 3.39 L Hgb 10.2 L Hct 31.1 L MCV 92 MCH 30 MCHC 33 RDW Coeff of Liza 12.7 Plt Count 188 Neut % (Auto) 66.6 Lymph % (Auto) 15.8 L [place] % (Auto) 13.8 H Eos % (Auto) 2.8 Baso % (Auto) 0.8 Neut # (Auto) 4.06 Lymph # (Auto) 1.00 [place] # (Auto) 0.80 Eos # (Auto) 0.17 Baso # (Auto) 0.05 Abs Immat Gran (auto) 0.01 Imm/Tot Granulo (auto) 0.2 INR 1.65 H 1.42 H Sodium 133 L Potassium 3.8 Chloride 105 Carbon Dioxide 22 Anion Gap 6 L BUN 6 L Creatinine 0.5 Estimated Creat Clear 30.62 Estimated GFR 93 Glucose 95 Calcium 8.3 L
[2024-08-29] MEDS: CEFAZOLIN 1 GM in 0.9 % SODIUM CHLORIDE Mini-bag 100 ML IVPB (16:53)
[2024-08-29] MEDS: WARFARIN 2 MG TABLET PO (16:53)
--- NOTE | 2024-08-29 19:24 | PC.NURSE ---
End of Shift: Patient pleasant and cooperative, A&O but after surgery has been forgetful. VSS, afebrile. Patient has been on 2L nasal canula to remain above 90%. Dressing to left arm C/D/I. Patient denies pain this shift. Tolerating regular diet. SBA with cane and gait belt. Bed alarm on, call light within reach.
[2024-08-29] MEDS: MELATONIN 3 MG TABLET PO (20:51)
[2024-08-29] MEDS: HYDROCODONE-ACETAMIN 5-325 MG 1 TAB PO (23:57)
[2024-08-30] MEDS: CEFAZOLIN 1 GM in 0.9 % SODIUM CHLORIDE Mini-bag 100 ML IVPB (00:37)
[2024-08-30] MEDS: SODIUM CHLORIDE 0.9 % (FLUSH) 10 ML SYRINGE 5 ML IVF ×2 (00:39→09:16)
[2024-08-30] MEDS: LACTATED RINGERS 1000 ML 1,000 ML 35 ML IV (01:15)
[2024-08-30 03:47] VITALS: BP 110/55; PULSE 66; RESP 16; TEMP 37.1; O2SAT 92
--- NOTE | 2024-08-30 06:27 | PC.NURSE ---
End of shift note [id number]: Pt A&Ox4 though does have intermittent forgetfulness noted and needs reminders. She is transferring/ambulating to and from bathroom with SBA using SPC and gait belt. CMS to LUE intact with splint and sling in place. PRN [place] administered for moderate pain to L arm. Pt continent of bladder using bathroom. VSS- pt has been afebrile and on RA throughout the shift. No c/o CP with no N/V noted. PRN Melatonin administered last evening as pt noted to have poor sleep. Bed alarm on and call light within reach. ??
[2024-08-30 07:00] VITALS: BP 116/52; PULSE 60; RESP 18; TEMP 36.7; O2SAT 96
[2024-08-30 07:02] LABS: Hematocrit 30.8 % (33.0-51.0); Mean Corpuscular HGB Conc 33 gm/dL (32-36); Mean Corpuscular Hemoglobin 30 pg (26-34); Mean Corpuscular Volume 94 fL (80-100); Platelet Count* 221 K/uL (140-440); Red Blood Count 3.29 m/uL (4.00-5.20); White Blood Count* 9.16 K/uL (4.50-11.00)
[2024-08-30 07:05] LABS: Slide Review Reflex No
[2024-08-30 07:19] LABS: Chloride* 101 mmol/L (96-114)
[2024-08-30 07:20] LABS: Albumin* 3.6 g/dL (3.3-5.0); Potassium* 3.9 mmol/L (3.6-5.1); Sodium* 136 mmol/L (135-149)
[2024-08-30 07:22] LABS: INR 1.17 (0.91-1.10); Prothrombin Time 15.8 Seconds
[2024-08-30 07:23] LABS: Alanine Aminotransferase* 18 U/L (4-35); Alkaline Phosphatase* 51 U/L (40-150); Anion Gap 9 mEq/L (7-15); Aspartate Amino Transferase* 32 U/L (12-35); Bilirubin Total* 1.4 mg/dL (0.1-1.5); Blood Urea Nitrogen* 9 mg/dL (7-30); Carbon Dioxide* 26 mmol/L (20-32); Creatinine* 0.6 mg/dL (0.5-1.5); Est. Creatinine Clearance* 30.62; Estimated Glomerular Filt Rate 89 ml/min; Total Protein* 6.1 g/dL (6.0-8.3)
[2024-08-30 07:24] LABS: Calcium* 8.8 mg/dL (8.4-10.6); Glucose* 98 mg/dL (60-115)
--- NOTE | 2024-08-30 08:25 | P.ORPN_ITS ---
Subjective Subjective Time Seen by Provider: 08:15 Date Seen: 08/30/24 Principal diagnosis: Day 1 s/p left olceranon fracture open reduction internal fixation Interval history: Devi is doing very well. Resting comfortably in her recliner and eating breakfast. Devi reports minimal to no left upper extremity pain that is well managed with [place] PRN. [place] was last given overnight at midnight. Her supraclavicular block is beginning to wear off. Devi c/o tingling within her left thumb. Denies postoperative chest pain, fever, chills. Admits to mild shortness of breath with ambulation. Left posterior upper arm splint in place and is clean, dry and intact. No falls postoperatively. Devi remains nonweightbearing left upper extremity. Ortho Exam Narrative Exam Narrative: Patient is alert and oriented x3. No acute distress. Converses with nonlabored breathing. Posterior splint and sling in place and was not removed during our visit. Diffuse swelling within left hand/digits. Dorsal hand ecchymosis present as well. CMS intact with 2+ radial pulse. [place], warm digits with brisk capillary refill. Decreased sensation noted in left thumb. Sensation intact 2nd-5th digits. Const Vital Signs, click to edit/add: Vital Signs - 24 hr 08/29/24 09:29 08/29/24 09:35 08/29/24 09:40 Temperature Pulse Rate Pulse Rate [Right Pulse Oximeter] 62 60 60 Respiratory Rate 16 16 14 Blood Pressure Blood Pressure [Right Arm] 172/83 H 156/70 H 168/75 H Pulse Oximetry 95 98 99 Oxygen Delivery Method Nasal Cannula Nasal Cannula Nasal Cannula Oxygen Flow Rate 3 3 3 08/29/24 13:05 08/29/24 13:10 08/29/24 13:15 Temperature 97.4 F L 97.4 F L 97.4 F L Pulse Rate 60 59 L 60 Pulse Rate [Right Pulse Oximeter] Respiratory Rate 16 18 16 Blood Pressure 138/63 123/62 129/65 Blood Pressure [Right Arm] Pulse Oximetry 94 91 90 Oxygen Delivery Method Nasal Cannula Nasal Cannula Nasal Cannula Oxygen Flow Rate 2 2 2 08/29/24 13:20 08/29/24 13:25 08/29/24 13:30 Temperature 97.4 F L 97.4 F L 97.6 F Pulse Rate 59 L 60 60 Pulse Rate [Right Pulse Oximeter] Respiratory Rate 13 13 17 Blood Pressure 133/66 134/68 115/65 Blood Pressure [Right Arm] Pulse Oximetry 93 93 90 Oxygen Delivery Method Nasal Cannula Nasal Cannula Room Air Oxygen Flow Rate 2 2 08/29/24 13:42 08/29/24 13:42 08/29/24 13:45 Temperature 97.2 F L 97.2 F L 97.1 F L Pulse Rate 61 61 60 Pulse Rate [Right Pulse Oximeter] Respiratory Rate 16 16 16 Blood Pressure 142/96 H 142/96 H 134/71 Blood Pressure [Right Arm] Pulse Oximetry 93 93 94 Oxygen Delivery Method Room Air Nasal Cannula Nasal Cannula Oxygen Flow Rate 2 2 08/29/24 14:00 08/29/24 14:15 08/29/24 14:30 Temperature 97.3 F L 97.2 F L Pulse Rate 60 60 60 Pulse Rate [Right Pulse Oximeter] Respiratory Rate 16 16 Blood Pressure 132/61 140/64 H 118/56 L Blood Pressure [Right Arm] Pulse Oximetry 91 92 Oxygen Delivery Method Nasal Cannula Nasal Cannula Nasal Cannula Oxygen Flow Rate 1 2 2 08/29/24 15:00 08/29/24 15:00 08/29/24 15:00 Temperature 97.6 F Pulse Rate 60 Pulse Rate [Right Pulse Oximeter] Respiratory Rate 16 16 16 Blood Pressure 142/117 H Blood Pressure [Right Arm] Pulse Oximetry 92 92 Oxygen Delivery Method Nasal Cannula Nasal Cannula Oxygen Flow Rate 2 2 08/29/24 15:30 08/29/24 16:00 08/29/24 17:00 Temperature 97.9 F 98.1 F 98.1 F Pulse Rate 62 60 60 Pulse Rate [Right Pulse Oximeter] Respiratory Rate 16 16 16 Blood Pressure 128/60 153/52 H 148/112 H Blood Pressure [Right Arm] Pulse Oximetry 92 92 92 Oxygen Delivery Method Nasal Cannula Nasal Cannula Nasal Cannula Oxygen Flow Rate 2 2 2 08/29/24 18:00 08/29/24 19:00 08/29/24 19:00 Temperature 97.8 F 99.0 F 99.0 F Pulse Rate 60 59 L Pulse Rate [Right Pulse Oximeter] 59 L Respiratory Rate 16 16 16 Blood Pressure 100/48 L 110/61 Blood Pressure [Right Arm] 110/61 Pulse Oximetry 93 91 91 Oxygen Delivery Method Nasal Cannula Nasal Cannula Room Air Oxygen Flow Rate 2 08/29/24 23:00 08/29/24 23:20 08/29/24 23:21 Temperature 98.2 F Pulse Rate Pulse Rate [Right Pulse Oximeter] 60 60 Respiratory Rate 16 16 16 Blood Pressure Blood Pressure [Right Arm] 106/69 Pulse Oximetry 92 92 Oxygen Delivery Method Room Air Room Air Oxygen Flow Rate 08/30/24 03:47 08/30/24 07:00 08/30/24 07:00 Temperature 98.8 F 98.1 F Pulse Rate Pulse Rate [Right Pulse Oximeter] 66 60 Respiratory Rate 16 18 18 Blood Pressure Blood Pressure [Right Arm] 110/55 L 116/52 L Pulse Oximetry 92 96 96 Oxygen Delivery Method Room Air Room Air Room Air Oxygen Flow Rate Assessment and Plan Assessment and plan (1) Elbow fracture, left: Problem details: Day 1 s/o left olecranon fracture ORIF (DOS: 08/29/24, Dr. Robert White). Status: Acute Assessment and Plan: Devi is doing well postoperatively. Pain is well managed with [place] PRN. I encouraged Devi to elevate left upper extremity more frequently and massage edema proximally in her digits/hand. Her well-padding posterior splint with sling remains in place. She will remain non-weightbearing left upper extremity. Regarding Devi's shortness of breath with ambulation, this may be her baseline. She denies SOB at rest. I recommend adding incentive spirometry and encouraging her to use this once/hour if possible. Devi will follow-up with myself in 7-10 days for splint removal, wound check and initiation of Occupational Therapy. Discharge timing and location unknown at this time.
[2024-08-30] MEDS: PROPRANOLOL ER 80 MG CAP PO (09:13)
[2024-08-30] MEDS: ENOXAPARIN 60 MG/0.6 ML INJ SUBCUT (09:13)
[2024-08-30] MEDS: POTASSIUM CHLORIDE 10 MEQ CAPSULE ER 20 MEQ PO ×2 (09:13)
[2024-08-30] MEDS: CLOPIDOGREL 75 MG TABLET PO (09:14)
[2024-08-30] MEDS: HYDROCODONE-ACETAMIN 5-325 MG 1 TAB PO (09:14)
[2024-08-30] MEDS: MAGNESIUM OXIDE 400 MG TABLET PO (09:15)
[2024-08-30] MEDS: ROSUVASTATIN CALCIUM 10 MG TABLET 40 MG PO (09:15)
[2024-08-30] MEDS: FUROSEMIDE 20 MG TABLET PO (09:15)
[2024-08-30] MEDS: OMEPRAZOLE 20 MG CAPSULE DR PO (09:16)
[2024-08-30] MEDS: ESCITALOPRAM 10 MG TABLET PO (09:16)
[2024-08-30] MEDS: EZETIMIBE 10 MG TABLET PO (09:17)
[2024-08-30 10:36] LABS: SARS Antigen* Negative (Negative)
--- NOTE | 2024-08-30 11:35 | PC.SOCIAL ---
Addendum entered by OVIDIO Dhillon 08/30/24 11:44: Discharge planning: Pre-admission screening was also completed on the pt and the results were secure emailed to Nathan at [facility]. [id number]. Social work to follow-up as needed. Original Note: Discharge planning: social worker aide met with pt and informed her that [facility] can take her today for short-term rehab. Pt was pleased with this news. [facility] did require that the pt have a COVID test before coming to their facility. The COVID test was negative and the results were secure emailed to Nathan at [facility]. Pt's discharge orders were also secure emailed to Nathan at [facility]. Pt was provided with another copy of The Important Message from Medicare form and expressed that she has no plans to appeal her discharge and is in agreement with her discharge plan. Pt's brother and [id number] will be able to transport the pt at noon. Social work to follow-up as needed.
--- NOTE | 2024-08-30 16:11 | P.DS_ITS ---
DS: Providers Provider Date Seen: 08/30/24 Date of admission: 08/26/24 08:49 Primary care physician: Margaret Allen DO Admitting Clinician: Oz De Dios MD Consults: 08/25/24 23:24 Consult to Occupational Therapy [CONS] Routine Comment: Reason(s) for OT Consult:: Evaluate and Treat Any Restrictions?:: Non Wt Bearing Comment: left upper extremity Consult to Physical Therapy [CONS] Routine Comment: Reason(s) for PT Consult:: Evaluate and Treat Any Restrictions?:: Non Wt Bearing Comment: left upper extremity Consult to Physician [CONS] Routine Comment: Consulting Provider: Leif Morse Has provider been notified: No 08/29/24 13:50 Consult to Physical Therapy [CONS] Routine Comment: Reason(s) for PT Consult:: Evaluate and Treat Any Restrictions?:: Non Wt Bearing Comment: s/p left olecranon ORIF Consult to Cash Controller [CONS] Routine Comment: Reason for Consult:: Discharge Planning Needs Attending Physician on discharge: Denisse White MD [facility] Date of Discharge: 08/30/24 DS: Diagnosis Discharge Diagnosis (1) Elbow fracture, left: Status: Acute Problem details: Day 1 s/o left olecranon fracture ORIF (DOS: 08/29/24, Dr. Robert White). (2) Acute hypoxic respiratory failure: Status: Acute Problem details: - suspect acute on chronic with daily improvement while hospitalized. - ddx: atypical CAP, anemia, cardiac disease/pulmonary HTN - Oxygen supplementation early in hospitalization was weaned to room air prior to discharge - Azithromycin was d/c'd 08/26 given afebrile status, reassuring exam, no cough - no further need for supplemental oxygen on 08/26 (3) (HFpEF) heart failure with preserved ejection fraction: Status: Acute Problem details: - chronic without exacerbation, TTE obtained given elevated troponin and + dyspnea, results below: - added Furosemide to regimen 08/27 given increased pulmonary pressures Final Impressions: 1. Normal left ventricular size, borderline wall thickness, low normal global systolic function, calculated EF of 53 %. 2. Right ventricular pressure overload. 3. Right ventricular cavity size is mildly enlarged, global systolic RV function is borderline reduced. 4. 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 , no stenosis and no regurgitation. There is no paravalvular regurgitation. 5. The mitral valve is sclerotic, mild mitral regurgitation. 6. Tricuspid valve is normal and moderate tricuspid regurgitation. 7. Moderately increased estimated pulmonary pressures by tricuspid regurgitation velocity and right atrial pressure (48 mmHg plus RAP). (4) UTI (urinary tract infection): Status: Acute Problem details: - Klebsiella on culture - rec'd rocephin x 4 doses, ancef x 3 doses (ortho protocol) - no further abx needed (5) Elevated troponin: Status: Acute Problem details: - negative 08/25, peaked at 0.09 on 08/26 - no acute changes on EKG, telemetry has been reassuring (difficult to interpret given essential tremor) - TTE results below Final Impressions: 1. Normal left ventricular size, borderline wall thickness, low normal global systolic function, calculated EF of 53 %. 2. Right ventricular pressure overload. 3. Right ventricular cavity size is mildly enlarged, global systolic RV function is borderline reduced. 4. 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 , no stenosis and no regurgitation. There is no paravalvular regurgitation. 5. The mitral valve is sclerotic, mild mitral regurgitation. 6. Tricuspid valve is normal and moderate tricuspid regurgitation. 7. Moderately increased estimated pulmonary pressures by tricuspid regurgitation velocity and right atrial pressure (48 mmHg plus RAP). (6) Orthostasis: Status: Acute Problem details: - noted, improving (7) Chronic anticoagulation: Status: Acute Problem details: - Coumadin for TAVR history and HALT - also on Plavix for history of intracranial atherosclerosis - received 2.5mg of Vitamin K 08/28 - restarted coumadin 08/29 pm, plavix 08/30. Lovenox bridge until INR is 2.5-3.0. (8) Hypoattenuated leaflet thickening (HALT): Status: Acute Problem details: - follows with Cardiology, s/p TAVR 07/14/22 - 07/15 this is on Warfarin instead of Apixaban (9) Indirect hyperbilirubinemia: Status: Acute Problem details: - most likely due to dehydration, trending downward, no abdominal pain (10) Normocytic anemia: Status: Acute Problem details: - Hgb 10.3 on 08/26, baseline 12-13 - no evidence of acute bleeding, INR therapeutic - continue to follow (11) Nausea and vomiting: Status: Acute Problem details: - etiology uncertain: viral gastroenteritis, iatrogenic due to meds (recently started on [place] 2/2 elbow fracture), atypical ACS, UTI - RESOLVED 08/26 and tolerating po intake (12) Leukocytosis: Status: Acute Problem details: - suspect demargination from N/V, dehydration rather than infection - RESOLVED 08/26, monitor (13) Dehydration: Status: Acute Problem details: - RESOLVED - IVFs on admission, d/c'd on 08/26 given po intake, normalized lactate DS: Summary Hospital Course Hospital Course: FINAL DIAGNOSIS/FOLLOW UP ISSUES: 1. Acute on chronic respiratory failure: Multifactorial and likely due to mild anemia, known cardiac disease with a mild exacerbation of heart failure and possibly an atypical CAP. Patient received a couple of doses of azithromycin but this was then discontinued. She was weaned from oxygen did well. 2. Acute left olecranon fracture - she sustained this fracture with a fall at home prior to admission. ORIF completed on 08/29/2024. 3. UTI: Culture demonstrated Klebsiella and she received adequate antibiotics while inpatient. No antibiotic on discharge. 4. Acute weakness: Her symptoms of dyspnea, nausea, vomiting, orthostasis and weakness with evidence of dehydration, elevated troponin and hypoxia all resolved but not unified by 1 diagnosis. As above at this was likely multifactorial given her baseline anemia, known cardiac disease, advanced age and a viral pneumonia/bronchitis. BRIEF HOSPITAL COURSE: Patient was admitted for 6 days. Synopsis of acute inpatient issues are outlined above. Chronic medical conditions with notable findings outlined above. Initially, Ancelmo presented with an array of symptoms that included dyspnea, nausea and vomiting, orthostasis and weakness. The symptoms demonstrated objectively as dehydration, elevated troponin and hypoxia. While they did not all unify under 1 diagnosis we felt that this was likely related to a viral bronchitis/community-acquired pneumonia, mild exacerbation of heart failure, mild anemia and advanced age. Complicating this picture she did have evidence of a UTI that was treated with IV antibiotics while she was admitted. She also had a fall prior to admission and broke her left olecranon. She underwent an ORIF on 08/29/2024 with our orthopedic colleagues. She discharged on 08/30 doing well postoperatively. She was off oxygen, off antibiotics and in good spirits. DISCHARGE MEDICATIONS: See Reconciled list - SIGNIFICANT CHANGES: New medication will be furosemide, 20 mg daily Lovenox bridge at 60 mg b.i.d. subQ until INR is greater than 2.5 Specific instructions to the patient and follow-up are outlined below. REVIEW OF SYSTEMS No new chest pain or dyspnea Pain controlled No voiding difficulties Tolerating diet challenge PHYSICAL EXAM: CONSTITUTIONAL: Conversive, good historian. A/O. Knows setting and context. GENERAL: Well-developed and above ideal body weight, in no respiratory distress. VITAL SIGNS: see record. HEENT: Sclerae are anicteric. No petechiae. CARDIAC: rhythm is regular. There is no S3 or rub. No harsh murmurs. Extremities show trace edema with symmetrical pulses. PULM: good air entry with no wheeze. E XT: Left arm is Fl[place] wrapped in a splint. Her distal neurologic exam of the left hand is intact without deficit. NEURO: Speech is fluent. A brief neurologic exam is negative. SKIN: No rashes, petechiae, concerning changes PSYCHIATRIC: Euthymic. DISPOSITION: [facility] rehab Time spent on discharge 37 minutes. Status at Discharge Functional status at discharge: uses cane/walker Overall status at discharge: patient is progressing back to baseline Time Spent with Patient Time attestation: Total time spent providing and/or coordinating discharge services: Exam Const: Vital Signs, click to edit/add: Vital Signs - 24 hr 08/29/24 17:00 08/29/24 18:00 08/29/24 19:00 Temperature 98.1 F 97.8 F 99.0 F Pulse Rate 60 60 Pulse Rate [Right Pulse Oximeter] 59 L Respiratory Rate 16 16 16 Blood Pressure 148/112 H 100/48 L Blood Pressure [Ri ght Arm] 110/61 Pulse Oximetry 92 93 91 Oxygen Delivery Me thod Nasal Cannula Nasal Cannula Nasal Cannula Oxygen Flow Rate 2 2 08/29/24 19:00 08/29/24 23:00 08/29/24 23:20 Temperature 99.0 F Pulse Rate 59 L Pulse Rate [Right Pulse Oximeter] 60 Respiratory Rate 16 16 16 Blood Pressure 110/61 Blood Pressure [Ri ght Arm] Pulse Oximetry 91 92 Oxygen Delivery Me thod Room Air Room Air Oxygen Flow Rate 08/29/24 23:21 08/30/24 03:47 08/30/24 07:00 Temperature 98.2 F 98.8 F Pulse Rate Pulse Rate [Right Pulse Oximeter] 60 66 Respiratory Rate 16 16 18 Blood Pressure Blood Pressure [Ri ght Arm] 106/69 110/55 L Pulse Oximetry 92 92 96 Oxygen Delivery Me thod Room Air Room Air Room Air Oxygen Flow Rate 08/30/24 07:00 Temperature 98.1 F Pulse Rate Pulse Rate [Right Pulse Oximeter] 60 Respiratory Rate 18 Blood Pressure Blood Pressure [Ri ght Arm] 116/52 L Pulse Oximetry 96 Oxygen Delivery Me thod Room Air Oxygen Flow Rate DS: Data Data Completed and Pending Labs on day of discharge: Labs from last 24 hours 08/30/24 08/30/24 09:16 06:10 WBC 9.16 RBC 3.29 L Hgb 10.0 L Hct 30.8 L MCV 94 MCH 30 MCHC 33 Plt Count 221 INR 1.17 H Sodium 136 Potassium 3.9 Chloride 101 Carbon Dioxide 26 Anion Gap 9 BUN 9 Creatinine 0.6 Estimated Creat Clear 30.62 Estimated GFR 89 Glucose 98 Calcium 8.8 Total Bilirubin 1.4 AST 32 ALT 18 Alkaline Phosphatase 51 Total Protein 6.1 Albumin 3.6 SARS-CoV-2 Ag (Rapid) Negative Discharge Plan Discharge Disposition: [facility] Date of Admission: 08/26/24 08:49 Attending Provider on Discharge: Denisse White Consulting Providers: Leif Morse Primary Care Provider: Margaret Allen Discharge Medications: New enoxaparin [Lovenox] 60 mg/0.6 mL Syringe 60 mg subcut Q12H Qty: 10 0RF furosemide 20 mg tablet 20 mg PO DAILY Qty: 30 0RF Continued clopidogrel 75 mg tablet 75 mg PO DAILY potassium chloride 20 mEq tablet,ER particles/crystals 20 meq PO DAILY calcium carbonate-vitamin D3 500 mg-3.125 mcg (125 unit) tablet 1 tab PO DAILY rosuvastatin [Crestor] 40 mg tablet 40 mg PO DAILY acyclovir 400 mg tablet 400 mg PO 3XD PRN Rx Instructions: for 5 days propranolol 80 mg capsule,extended release 24hr 80 mg PO DAILY omeprazole 20 mg capsule,delayed release(DR/EC) 20 mg PO DAILY warfarin 2 mg tablet 1 - 2 mg PO .UD Patient Comments: TAKE 1 TABLET BY MOUTH EVERY TUE, RAMIN, SAT; TAKE 1/2 TAB ALL OTHER DAYS IN THE EVENING OR DIRECTED* ezetimibe 10 mg tablet 10 mg PO DAILY magnesium chloride [Mag-Delay] 64 mg tablet,delayed release (DR/EC) 128 mg PO DAILY loperamide 2 mg capsule 2 mg PO DAILY PRN Patient Comments: TAKE ONE CAPSULE BY MOUTH DAILY NEEDED^MAY TAKE ADDITIONAL CAP AFTER EACH LOOSE STOOL. MAX 8 CAPS PER DAY* melatonin 1 mg tablet 2 mg PO HS escitalopram oxalate 10 mg tablet 10 mg PO QAM Systane (PF) 0.4-0.3 % dropperette 1 - 2 drp ophthalmic (eye) TID acetaminophen [Acetaminophen Extra Strength] 500 mg tablet 500 mg PO Q6H PRN hydrocodone-acetaminophen 5-325 mg tablet 1 tab PO Q4-6H PRN (Reason: pain) Qty: 60 0RF Discharge Orders: Discharge Order (Routine); Ordered 08/30/24 Ordered By: Denisse White Consulting provider completed their portion of the discharge: Yes Additional Instructions: PT/OT for her left upper extremity She has to take warfarin (not Eliquis or Xarelto) for her heart valve. She was given Vit K reversal of warfarin before her elbow fracture surgery and that is why her INR is so low. She is back on warfarin but will need Lovenox bridge (60 mg SQ BID) until INR is 2.5 - 3.0 INR daily until goal. Then q4-7 days for warfarin monitoring. The plavix is daily and that is for cerebrovascular disease progression Activity Level: No Weight Bearing Activity Detail: - For pain management, ice, elevation, [place] and/or acetaminophen PRN. - Non-weightbearing left upper extremity. - Splint will remain in place until her first postop Ortho visit. Keep splint clean and dry. - For swelling reduction, massage edema in hand/digits proximally and elevate above heart. - Devi will follow-up with Deborah Adams PA-C in 7-10 days for splint removal, wound check and initiation of outpatient OT. Discharge Diet: Regular Follow Up Appointments: Deborah Adams PA-C [Physician Firer Helper] - (7-10 days) Margaret Allen DO [Primary Care Provider] - (1 month) Forms: PinPay Info Instructions Admit to: SNF Discharge Potential: Good Length of Stay: <30 days Can use facility standing orders?: Yes Code Status: DNR/DNI Rehab Potential: Good Therapy: Physical Therapy and Occupational Therapy Therapy Orders: Evaluate and Treat Oxygen: No Urinary Catheter: No INR Goal: 2.5-3.0 Lab Orders: INR daily until 2.5, then stop Lovenox injections but continue warfarin and recheck weekly Orders are good >30 days: Yes
== END 2024-08-30 12:14 | DRG 981 ==
LOC: ED 22:14 → MEDSURG 22:33
PROVIDERS: Anesthesiology; Family Medicine; Orthopaedic Surgery; Admitting Provider Internal Medicine; Emergency Provider Family Medicine; PCP Family Medicine; Visit Provider Internal Medicine
PROC: 0PSL04Z Reposition Left Ulna with Internal Fixation Device, Open Approach (ICD-10-PCS; principal; 2024-08-29 09:00)
DX: J96.21 Acute and chronic respiratory failure with hypoxia (principal); I21.A1 Myocardial infarction type 2; I50.33 Acute on chronic diastolic (congestive) heart failure; N39.0 Urinary tract infection, site not specified; Z16.11 Resistance to penicillins; T82.857A Stenosis of other cardiac prosthetic devices, implants and grafts, initial encounter; I11.0 Hypertensive heart disease with heart failure; B96.1 Klebsiella pneumoniae [K. pneumoniae] as the cause of diseases classified elsewhere; D72.828 Other elevated white blood cell count; R11.2 Nausea with vomiting, unspecified; R50.9 Fever, unspecified; S52.022A Displaced fracture of olecranon process without intraarticular extension of left ulna, initial encounter for closed fracture; W01.10XA Fall on same level from slipping, tripping and stumbling with subsequent striking against unspecified object, initial encounter; E86.0 Dehydration; I95.1 Orthostatic hypotension; G89.18 Other acute postprocedural pain; E80.6 Other disorders of bilirubin metabolism; Z95.0 Presence of cardiac pacemaker; G47.33 Obstructive sleep apnea (adult) (pediatric); I25.10 Atherosclerotic heart disease of native coronary artery without angina pectoris; F43.21 Adjustment disorder with depressed mood; M79.7 Fibromyalgia; K21.9 Gastro-esophageal reflux disease without esophagitis; R79.89 Other specified abnormal findings of blood chemistry; D64.9 Anemia, unspecified; R91.8 Other nonspecific abnormal finding of lung field; Z79.01 Long term (current) use of anticoagulants; I35.0 Nonrheumatic aortic (valve) stenosis; I49.5 Sick sinus syndrome; R94.31 Abnormal electrocardiogram [ECG] [EKG]; I48.0 Paroxysmal atrial fibrillation; I27.20 Pulmonary hypertension, unspecified; Z79.82 Long term (current) use of aspirin; S00.03XA Contusion of scalp, initial encounter; W01.0XXA Fall on same level from slipping, tripping and stumbling without subsequent striking against object, initial encounter; Y92.481 Parking lot as the place of occurrence of the external cause
CPT/HCPCS: 01740; 36415; 64415; 70450; 71045; 71260; 73070; 74177; 76000; 76942; 80048; 80053; 80076; 81001; 82247; 82248; 82803; 83605; 83690; 83735; 83880; 84100; 84443; 84484; 85025; 85027; 85610; 86140; 87086; 87426; 87631; 93005; 93306; 94761; 97112; 97116; 97161; 97165; 97530; 97535; 99100; 99285; A9270; C1713; G0378; J0330; J0690; J0696; J1100; J1650; J2250; J2405; J2704; J2710; J2795; J3010; J7030; J7120; Q9967

== ENCOUNTER 2024-11-20 09:30 | Outpatient (RCR) | payer MEDICARE, BC, SELFPAY ==
--- NOTE | 2024-10-30 11:26 | OT.OPOE ---
OT Outpatient Ortho Eval OT Outpatient Ortho Eval* Start: 10/30/24 07:21 Freq: Status: Active Protocol: Document 10/30/24 09:09 AMB (Rec: 10/30/24 11:23 AMB [id number]) E-signed By Vannesa Rai, OTR/L, CLT, [employer] [facility] OT OP Ortho Eval Details Complexity Complexity Low Insurance Information Insurance Medicare B Information Insurance MC due 01/28/2025 Information Comments SOC: 10/30/24 Outpatient History/Precautions Current Condition/Medical Diagnosis Referring Provider Dr White Medical Diagnoses S52.032D Displaced fracture of olecranon process with intraarticular extension of left ulna Treatment Diagnosis R53.1 Weakness in LUE M25.522 Pain in LUE elbow M25.622 Stiffness in LUE elbow Date of Onset 08/27/24 Medical Conditions Depression,Heart Condition,Pacemaker,Fibromyalgia, Stroke Other Conditions Pt fell in the parking lot of [employer] on 08/23/24, she was seen in the ER and diagnosed with a left elbow fx. She was splinted and given pain medications and sent home with pending ortho consult. Pt was discharged to home but returned to ER on 08/25/24 due to nausea and vomiting. Pt underwent testing to R/O intracranial hemorrhage, stroke, and cardiac issues. Pt was admitted under observation and then underwent LUE elbow ORIF on 08/29/24, she was [facility] to [facility] and has since discharged to [facility]. Pt states she did get some therapy while in [facility] but not at [facility]. Pt is wanting to return to her [facility] soon. 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 Lovenox bridge until INR is 2.5-3.0. Z79.01 - intermediate card tender (current) use of anticoagulants (ICD -10) Normocytic anemia (Acute) - Hgb 10.3 on 08/26, baseline 12-13 - no evidence of acute bleeding, INR therapeutic - continue to follow D64.9 - Anemia, unspecified (ICD-10) (HFpEF) heart failure with preserved ejection fraction (Acute) - chronic without exacerbation, TTE obtained given elevated troponin and + dyspnea, results below: - added Furosemide to regimen 08/27 given increased pulmonary pressures Final Impressions: 1. Normal left ventricular size, borderline wall thickness, low normal global systolic function, calculated EF of 53 %. 2. Right ventricular pressure overload. 3. Right ventricular cavity size is mildly enlarged, global systolic RV function is borderline reduced. 4. 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 , no stenosis and no regurgitation. There is no paravalvular regurgitation. 5. The mitral valve is sclerotic, mild mitral regurgitation. 6. Tricuspid valve is normal and moderate tricuspid regurgitation. 7. Moderately increased estimated pulmonary pressures by tricuspid regurgitation velocity and right atrial pressure (48 mmHg plus RAP). I50.30 - Unspecified diastolic (congestive) heart failure (ICD-10) Closed head injury (Acute) S09.90XA - Unspecified injury of head, initial encounter (ICD-10) Elbow fracture, left (Acute) Day 1 s/o left olecranon fracture ORIF (DOS: 08/29/24, Dr. Robert White). S42.402A - Unspecified fracture of lower end of left humerus, initial encounter for closed fracture (ICD-10) Medical History (Updated 09/05/24 @ 13:16 by Marlena Kapoor ~ [facility], [facility]) Lymphocytic colitis K52.832 - Lymphocytic colitis (ICD-10) UTI (urinary tract infection) N39.0 - Urinary tract infection, site not specified ( ICD-10) Hypoattenuated leaflet thickening (HALT) T82.6XXA - Infection and inflammatory reaction due to cardiac valve prosthesis, initial encounter (ICD-10) I35.8 - Other nonrheumatic aortic valve disorders (ICD- 10) Chronic anticoagulation Z79.01 - FPC (current) use of anticoagulants (ICD -10) (HFpEF) heart failure with preserved ejection fraction I50.30 - Unspecified diastolic (congestive) heart failure (ICD-10) Aortic stenosis I35.0 - Nonrheumatic aortic (valve) stenosis (ICD-10) Cardiac pacemaker in situ Z95.0 - Presence of cardiac pacemaker (ICD-10) E. coli UTI N39.0 - Urinary tract infection, site not specified ( ICD-10) B96.20 - Unspecified Escherichia coli [E. coli] as the cause of diseases classified elsewhere (ICD-10) SSS (sick sinus syndrome) I49.5 - Sick sinus syndrome (ICD-10) Prolonged Q-T interval on ECG R94.31 - Abnormal electrocardiogram [ECG] [EKG] (ICD-10 ) KEVIN (obstructive sleep apnea) G47.33 - Obstructive sleep apnea (adult) (pediatric) ( ICD-10) ASHD (arteriosclerotic heart disease) I25.10 - Atherosclerotic heart disease of [place] coronary artery without angina pectoris (ICD-10) Paroxysmal atrial fibrillation I48.0 - Paroxysmal atrial fibrillation (ICD-10) Dyspnea on exertion R06.09 - Other forms of dyspnea (ICD-10) Pulmonary hypertension I27.20 - Pulmonary hypertension, unspecified (ICD-10) Adjustment disorder with depressed mood F43.21 - Adjustment disorder with depressed mood (ICD- 10) Essential and other specified forms of tremor G25.0 - Essential tremor (ICD-10) G25.2 - Other specified forms of tremor (ICD-10) Unspecified essential hypertension I10 - Essential (primary) hypertension (ICD-10) Fibromyalgia M79.7 - Fibromyalgia (ICD-10) GERD (gastroesophageal reflux disease) K21.9 - Gastro-esophageal reflux disease without esophagitis (ICD-10) Surgical History (Updated 08/30/24 @ 16:15 by Valery King ~ [employer], [employer] [employer]) History of open reduction and internal fixation (ORIF) procedure (08/29/24) Z98.890 - Other specified postprocedural states (ICD-10 ) H/O breast biopsy Z98.890 - Other specified postprocedural states (ICD-10 ) History of YAG laser capsulotomy of lens of left eye Z98.42 - Cataract extraction status, left eye (ICD-10) Hx of tubal ligation Z98.51 - Tubal ligation status (ICD-10) Hx of cataract extraction Z98.49 - Cataract extraction status, unspecified eye ( ICD-10) Medical/Functional History Medical History Yes Reviewed Prior Level of Prior to her elbow injury, she lived alone in a one Function/Mobility level [facility]. Pt states her [employer] [employer] set up her medications, she had assistance with cleaning and paying her bills as well. However, pt was independent with all of her personal cares, did her own laundry and her own cooking. Pt is hoping to resume this level of independence when she goes home. Pt is currently receiving OP PT to work on her balance as well. Prior to injury, pt walked without AD, currently using a FWW. Pt states she is dressing herself but receives her meals from the facility, states she has supervision for shower but does not feel this is necessary. Pt has a hx of a stroke and notes that she has had some mild memory issues since. Pt is no longer driving, her brother and [employer] assist with transportation. Pt has 2 daughters that both live out of state, one [place] and one in [place]. Social History Employment Status Retired Hobbies [employer], [employer], [employer] Pt does participate in exercise class at her [facility]. Ortho Subjective Subjective Subjective Pt states that her elbow remains stiff and sore. Pt states she did have some therapy when in [facility] but they only sent her home with one exercise for her hand ( opposition), and some exercises for her balance, nothing for her elbow. Pt states she can do most things with her LUE but reaching to retrieve things from a shelf, or down towards her feet, she is limited. Pt also notices stiffness in her hand and forearm as well as weakness throughout her left elbow/hand. Pt also states that she often has trouble gripping and lifting things with her left hand. Pt has pain in her elbow, states it's not constant, rates it at 2-3/10, worse with resting his elbow on tabletop. Goniometric Comments Goniometric Comments Goniometric Comments 10/30/24 Pt demonstrates full AROM of her LUE with the exception of her left elbow, forearm, and wrist. See measurements as follows: Elbow: Flex/Ext: 120 / -35 Forearm: Pro/Sup: 75/60 Wrist: Flex/Ext: 40/35 UD/RD: 20/15 Hand Pinch/Fourdrinier Operator Strength Hand Pinch/Fourdrinier Operator Strength Hand Pinch/Fourdrinier Operator Left Hand,Right Hand Strength Left Hand Fourdrinier Operator Strength 15 Position 1 in Elbow Flexion (lbs) Lateral Pinch 5 Strength (lbs) Three Point Pinch ( 5 lbs) Right Hand Fourdrinier Operator Strength 30 Position 1 in Elbow Flexion (lbs) Lateral Pinch 10 Strength (lbs) Three Point Pinch ( 10 lbs) OT Objective Data Hand Hand Dominance Right Skin/Wounds/Edema Comments 10/30/24 Incisional scar is well healed. Incision is sensitive, mild hypersensitivity. Pt has a difficult time resting her elbow on the tabletop. Sensation Sensation Assessment 10/30/24 Pt has complaints of tingling in her LUE IF and Summary Comments MF. Provocative testing indicates irritation of radial sensory nerve. Upper Extremity Special Tests Median Nerve-Carpal Tunnel Wrist Tinel Test Negative Left Durkan's Test Negative Left Upper Extremity Special Tests Comments Comments 10/30/24 Pt has increased paresthesia with compression to lateral, proximal left forearm. Increased tingling with palpation to radial nn path. OT Problems Problems Problems Decreased Strength,Decreased Range of Motion,Pain, Sensory Sensitivity,Lifting,Gripping,Pinching Other Problems Opening Containers,Dressing Patient Potential Good Assessment Assessment Assessment Pt is a very pleasant 84yo referred to OP OT to address LUE pain, weakness and limited AROM following olecranon fx with ORIF. Due to these limitations and pain, pt is having difficulty with higher level ADLs and IADLs that require gripping, lifting, and carrying items with her left hand / UE. Pt is currently living in an [facility] but will be transitioning to her home where she lives alone. Pt will benefit from skilled OT intervention to address these deficits in order to restore LUE to PLOF which will improve her safety and independence and success with her return to independent living. Occupational Therapy Treatment Plan - OP Potential Rehabilitation Good Potential Set Goals Goals Set with Yes Patient Goals Goals 1. Pt will be independent and compliant with HEP in order to resume full, pain-free use of the involved UE. 3 weeks 2. Pt will demonstrate full, pain-free AROM of the involved UE in order to improve ability to reach into her cabinets to retrieve items such as dishes and linens. 8 weeks 3. Pt will demonstrate pain-free script artist and pinch strength comparable to the uninvolved side in order to improve functional grasp, hold, reach, and lifting ability needed to complete self-care such as pulling on her pants, leisure tasks such as light gardening. 12 weeks. Treatment Plan Treatment Plan Evaluation,Edema Control,Joint Mobilization,Manual Therapy,Splinting,Ultrasound,Wound Care/Scar Management ,Therapeutic Exercise,Therapeutic Activities,Self Care/ Home Management,Education Expected Frequency 1-2x Week Expected Duration 8-10 Weeks Home Program Home Program Home Program Initiated Home Program 10/30/24 Provided training and practice in AROM of the Specifics LUE elbow, forearm and wrist. Following demo, pt is able to complete 10 reps each of elbow flex and ext ( with supination and with pronation), forearm pronation and supination, wrist flexion and extension. Will expand next visit. Certification Certification Statement I Certify That: Therapy Services Provided,Therapy Plan Established, Therapy Plan Reviewed Certification Information Clinic ID # [id number] Initial 10/30/24 Certification Date Recertification Due 01/28/25 Date Provider Signature Yes Required Provider Signature POC & Medical Necessity Shows Agreement With Physician NPI Number Write NPI# Here Physician Comment/ Comment or Changes Change Physician Signature Please Sign/Date Here & Date Requested
== END 2025-03-20 23:59 | disposition home or self-care (01) ==
PROVIDERS: PCP Family Medicine; Visit Provider Orthopaedic Surgery
DX: S52.032D Displaced fracture of olecranon process with intraarticular extension of left ulna, subsequent encounter for closed fracture with routine healing (principal); M25.522 Pain in left elbow; Z51.89 Encounter for other specified aftercare
CPT/HCPCS: 97110; 97140; 97165; X5282

== ENCOUNTER 2025-01-16 13:45 | Outpatient (RCR) | payer MEDICARE, BC, SELFPAY | END 2025-01-16 14:36 | disposition home or self-care (01) | PROVIDERS: PCP Family Medicine; Visit Provider Family Medicine | DX: Z51.89 Encounter for other specified aftercare (principal); Z91.81 History of falling; Z86.73 Personal history of transient ischemic attack (TIA), and cerebral infarction without residual deficits | CPT/HCPCS: 97110; 97112; 97161; 97165; 97530 ==

== ENCOUNTER 2025-01-18 09:44 | Outpatient (CLI) | payer MEDICARE, BC, SELFPAY ==
--- NOTE | 2025-01-18 11:40 | P.ANES_ITS ---
Anesthesia Charges Start Date/Time Anesthesia Start Date: 01/18/25 Anesthesia Start Time: 11:06 Stop Date/Time Anesthesia Stop Date: 01/18/25 Anesthesia Stop Time: 11:39 Summary Extremes of Age - Over 70 or under 1: MINING ENGINEER Coding CPT Codes CPT Codes: ANES UPR LWR GI NDSC PX - 78106 ([id number]) P3 - PATIENT W/SEVERE SYS DISEASE, QX - MINING ENGINEER SVC W/ MD MED DIRECTION, QK - GEOTHERMAL HVAC TECHNICIAN 2-4 CNCRNT ANES PROC Additional Codes: Summary - Extremes of Age - Over 70 or under 1: MINING ENGINEER ([id number])
--- NOTE | 2025-01-18 11:40 | W.ANESCHARGE ---
Anesthesia Charges Start Date/Time Anesthesia Start Date: 01/18/25 Anesthesia Start Time: 11:06 Stop Date/Time Anesthesia Stop Date: 01/18/25 Anesthesia Stop Time: 11:39 Summary Extremes of Age - Over 70 or under 1: TENANT COORDINATOR Coding CPT Codes CPT Codes: ANES UPR LWR GI NDSC PX - 53631 ([id number]) P3 - PATIENT W/SEVERE SYS DISEASE, QX - TENANT COORDINATOR SVC W/ MD MED DIRECTION, QK - METAL CNC OPERATOR 2-4 CNCRNT ANES PROC Additional Codes: Summary - Extremes of Age - Over 70 or under 1: TENANT COORDINATOR ([id number])
--- NOTE | 2025-01-18 12:06 | P.ANES_ITS ---
Anesthesia Charges Start Date/Time Anesthesia Start Date: 01/18/25 Anesthesia Start Time: 11:06 Stop Date/Time Anesthesia Stop Date: 01/18/25 Anesthesia Stop Time: 11:39 Summary Extremes of Age - Over 70 or under 1: MDA Coding CPT Codes CPT Codes: ANES UPR LWR GI NDSC PX - 15350 ([id number]) P3 - PATIENT W/SEVERE SYS DISEASE, QK - DISPATCH SPECIALIST 2-4 CNCRNT ANES PROC, QX - COMMUNITY RECREATION COORDINATOR SVC W/ MD MED DIRECTION Additional Codes: Summary - Extremes of Age - Over 70 or under 1: MDA ([id number])
--- NOTE | 2025-01-18 12:06 | W.ANESCHARGE ---
Anesthesia Charges Start Date/Time Anesthesia Start Date: 01/18/25 Anesthesia Start Time: 11:06 Stop Date/Time Anesthesia Stop Date: 01/18/25 Anesthesia Stop Time: 11:39 Summary Extremes of Age - Over 70 or under 1: MDA Coding CPT Codes CPT Codes: ANES UPR LWR GI NDSC PX - 38357 ([id number]) P3 - PATIENT W/SEVERE SYS DISEASE, QK - LENS GENERATING MACHINE TENDER 2-4 CNCRNT ANES PROC, QX - FISCAL SPECIALIST SVC W/ MD MED DIRECTION Additional Codes: Summary - Extremes of Age - Over 70 or under 1: MDA ([id number])
== END 2025-01-18 09:45 | disposition home or self-care (01) ==
PROVIDERS: PCP Family Medicine; Visit Provider Internal Medicine Gastroenterology
DX: K92.1 Melena (principal); D12.2 Benign neoplasm of ascending colon
CPT/HCPCS: 00813; 43235; 45380; 45385; 88305; 99100; J2704; J3010